=== PATIENT | female | born 1965 | race Caucasian/White ===

== ENCOUNTER → 2017-08-03 | Outpatient (CLI) | payer OTHER ==
--- NOTE | 2017-08-03 11:27 | MR ---
EXAMINATION TYPE: MR brain wo/w con DATE OF EXAM: 08/03/2017 COMPARISON: 11/16/2008 HISTORY: Unspecified papilledema, Gadavist 9.5 TECHNIQUE: Multiplanar, multisequence images of the brain and brainstem is performed without and with IV contras t, utilizing 9.5 mL intravenous Gadavist . FINDINGS: Diffusion weighted images demonstrate no evidence of a recent infarct or other diffusion ab normality. There is a partially empty sella turcica. Craniocervical junction maintained. There remains slight pr ominence the amount of fluid surrounding the optic nerves bilaterally. Changes of chronic sinusitis noted. Mucosal thickening involving frontal sinus on the right and ethmo id air cells. No enhancing mass. No cerebellopontine angle mass. Ventricular system is midline. Consistent with the patient's age. Post contrast images demonstrate no abnormal enhancement. The dural venous sinuses appear patent. The visualized sinuses are clear and the globes are intact. IMPRESSION: 1. No acute process. Mild prominence of the amount of fluid surrounding the optic nerves bilaterally and appears stable. 2. Chronic sinusitis.
== END | disposition home or self-care (01) ==
LOC: RADMRIMAIN 09:46
PROVIDERS: ATTEND Ophthalmology
DX: H47.339 Pseudopapilledema of optic disc, unspecified eye (principal); Z88.0 Allergy status to penicillin; Z88.2 Allergy status to sulfonamides
CPT/HCPCS: 82565; 70553; 36415; A9581

== ENCOUNTER 2017-09-30 20:59 | Emergency (ER) | payer OTHER ==
[2017-09-30 21:09] LABS: Glucose,Whole Blood 234 mg/dL (75-99)
[2017-09-30] MEDS ORDERED: SODIUM CHLORIDE 0.9% 2,000 ML IV STA (21:38)
[2017-09-30 22:07] LABS: Basophils % (A) 0 %; Eosinophils # (A) 0.1 k/uL (0-0.7); Eosinophils % (A) 1 %; HCT 35.5 % (34.0-46.0); HGB 11.7 gm/dL (11.4-16.0); Lymphocytes # (A) 2.9 k/uL (1.0-4.8); Lymphocytes % (A) 34 %; MCH 26.8 pg (25.0-35.0); MCV 81.3 fL (80.0-100.0); Mean Platelet Volume 7.4; Monocytes # (A) 0.7 k/uL (0-1.0); Monocytes % (A) 7 %; Neutrophils % (A) 57 %; Platelet Count 319 k/uL (150-450); RBC 4.37 m/uL (3.80-5.40); RDW 13.5 % (11.5-15.5); WBC 8.8 k/uL (3.8-10.6)
[2017-09-30 22:20] LABS: ALT 25 U/L (9-52); AST 16 U/L (14-36); Albumin 4.3 g/dL (3.5-5.0); Alkaline Phosphatase 73 U/L (38-126); Amylase 41 U/L (30-110); Anion Gap 15 mmol/L; Blood Urea Nitrogen 29 mg/dL (7-17); Calcium 10.2 mg/dL (8.4-10.2); Carbon Dioxide 22 mmol/L (22-30); Chloride 104 mmol/L (98-107); Glucose 216 mg/dL (74-99); Lipase 150 U/L (23-300); Potassium 4.4 mmol/L (3.5-5.1); Sodium 141 mmol/L (137-145); Total Bilirubin 0.3 mg/dL (0.2-1.3)
--- NOTE | 2017-09-30 22:29 | ED ---
Recheck HPI - General Chief Complaint: Recheck/Abnormal Lab/Rx Stated Complaint: elevated BS Time Seen by Provider: 09/30/17 21:38 Source: patient, RN notes reviewed Mode of arrival: ambulatory Limitations: no limitations - History of Present Illness Initial Comments: This a 51-year-old female presents emergency from chief complaint of hyperglycemia. Patient states blood sugar has been elevated throughout most the day. She states it was over 300 earlier today. She did take her nighttime Lantus no she states she took 45 units. Patient states she does not take anything with meals. She has no specific complaints other than feeling rundown andincreased thirst. She has seen psychiatric nurse practitioner who told her that she needs to watch her blood sugars secondary to diabetic changes. She denies any current new changes in her vision. Denies any headache, dizziness, chest pain or shortness of breath. She said no vomiting no diarrhea no constipation. - Related Data Home Medications Medication Instructions Recorded Confirmed Fenofibrate [Tricor] 160 mg PO DAILY 12/15/14 09/30/17 Insulin Glargine [Lantus] 45 unit SQ HS 12/15/14 09/30/17 Loratadine [Claritin] 10 mg PO DAILY 12/15/14 09/30/17 Pravastatin Sodium [Pravachol] 40 mg PO HS 12/15/14 09/30/17 glipiZIDE [Glucotrol] 20 mg PO AC-BID 12/15/14 09/30/17 metFORMIN HCL 1,000 mg PO BID 12/15/14 09/30/17 Aspirin [Adult Low Dose Aspirin EC] 81 mg PO DAILY 08/22/17 09/30/17 Brexpiprazole [Rexulti] 2 mg PO DAILY 08/22/17 09/30/17 Cholecalciferol [Vitamin D3] 5,000 unit PO DAILY@1200 08/22/17 09/30/17 [place]-3 Fatty Acids/Fish Oil [Fish 1,000 mg PO HS 08/22/17 09/30/17 Oil 1,000 mg Softgel] Ferrous Gluconate 324 mg PO MOWEFR 09/30/17 09/30/17 Levothyroxine Sodium [Synthroid] 125 mcg PO DAILY 09/30/17 09/30/17 Magnesium Oxide [Mag-Ox] 250 mg PO BID 05/14/18 05/14/18 Venlafaxine HCl [Effexor XR] 150 mg PO DAILY 09/30/17 09/30/17 Previous Rx's Medication Instructions Recorded Nitrofurantoin Monohyd/M-Cryst 100 mg PO Q12HR #10 cap 09/30/17 [Macrobid] Allergies Allergy/AdvReac Type Severity Reaction Status Date / Time Penicillins Allergy Unknown Verified 09/30/17 21:42 Childhood Sulfa (Sulfonamide Allergy Rash/Hives Verified 09/30/17 21:42 Antibiotics) Review of Systems ROS Statement: Those systems with pertinent positive or pertinent negative responses have been documented in the HPI. ROS Other: All systems not noted in ROS Statement are negative. Past Medical History Past Medical History: Diabetes Mellitus, Hyperlipidemia, Hypertension, Neurologic Disorder, Osteoarthritis (OA), Thyroid Disorder History of Any Multi-Drug Resistant Organisms: None Reported Past Surgical History: Section Additional Past Surgical History / Comment(s): x 2, ganglion cyst removed from left wrist Past Anesthesia/Blood Transfusion Reactions: No Reported Reaction Past Psychological History: Anxiety, Depression Smoking Status: Former smoker - Past Family History Father Family Medical History: Cancer Additional Family Medical History / Comment(s): brain Mother Family Medical History: Cancer Additional Family Medical History / Comment(s): lung - General Exam Limitations: no limitations General appearance: alert, in no apparent distress Head exam: Present: atraumatic, normocephalic, normal inspection Eye exam: Present: normal appearance, PERRL, EOMI. Absent: scleral icterus, conjunctival injection, periorbital swelling ENT exam: Present: normal exam, normal oropharynx, mucous membranes moist Neck exam: Present: normal inspection, full ROM. Absent: tenderness, meningismus, lymphadenopathy Respiratory exam: Present: normal lung sounds bilaterally. Absent: respiratory distress, wheezes, rales, rhonchi, stridor Cardiovascular Exam: Present: regular rate, normal rhythm, normal heart sounds. Absent: systolic murmur, diastolic murmur, rubs, gallop, clicks GI/Abdominal exam: Present: soft, normal bowel sounds. Absent: distended, tenderness, guarding, rebound, rigid Neurological exam: Present: alert, oriented X3, CN II-XII intact, reflexes normal. Absent: motor sensory deficit Skin exam: Present: warm, dry, intact, normal color. Absent: rash Course Vital Signs 09/30/17 21:01 Temperature 98 F Pulse Rate 94 Respiratory 20 Rate Blood Pressure 112/70 O2 Sat by Pulse 96 Oximetry Medical Decision Making - Medical Decision Making 51-year-old female presented emergency department for hyperglycemia. Patient's blood sugar is 216. Patient was hydrated 2 L of fluid and lab work, urinalysis was performed. She was found have urinary tract infection. She'll be discharged on antibiotics. She is advised to follow-up with her PCP for discussion of mealtime insulin. Patient will follow-up tomorrow return for any worsening symptoms. - Lab Data Result diagrams: 09/30/17 21:57 09/30/17 21:57 Lab Results 09/30/17 09/30/17 09/30/17 Range/Units 21:07 21:57 21:57 WBC 8.8 (3.8-10.6) k/uL RBC 4.37 (3.80-5.40) m/uL Hgb 11.7 (11.4-16.0) gm/dL Hct 35.5 (34.0-46.0) % MCV 81.3 (80.0-100.0) fL MCH 26.8 (25.0-35.0) pg MCHC 33.0 (31.0-37.0) g/dL RDW 13.5 (11.5-15.5) % Plt Count 319 (150-450) k/uL Neutrophils % 57 % Lymphocytes % 34 % Monocytes % 7 % Eosinophils % 1 % Basophils % 0 % Neutrophils # 5.0 (1.3-7.7) k/uL Lymphocytes # 2.9 (1.0-4.8) k/uL Monocytes # 0.7 (0-1.0) k/uL Eosinophils # 0.1 (0-0.7) k/uL Basophils # 0.0 (0-0.2) k/uL Sodium 141 (137-145) mmol/L Potassium 4.4 (3.5-5.1) mmol/L Chloride 104 (98-107) mmol/L Carbon Dioxide 22 (22-30) mmol/L Anion Gap 15 mmol/L BUN 29 H (7-17) mg/dL Creatinine 1.40 H (0.52-1.04) mg/dL Est GFR (CKD-EPI)AfAm 50 (>60 ml/min/1.73 sqM) Est GFR (CKD-EPI)NonAf 43 (>60 ml/min/1.73 sqM) Glucose 216 H (74-99) mg/dL POC Glucose (mg/dL) 234 H (75-99) mg/dL POC Glu [employer] Clerk ID Mateus Calix Calcium 10.2 (8.4-10.2) mg/dL Total Bilirubin 0.3 (0.2-1.3) mg/dL AST 16 (14-36) U/L ALT 25 (9-52) U/L Alkaline Phosphatase 73 (38-126) U/L Total Protein 7.0 (6.3-8.2) g/dL Albumin 4.3 (3.5-5.0) g/dL Amylase 41 (30-110) U/L Lipase 150 (23-300) U/L Urine Color Urine Appearance (Clear) Urine pH (5.0-8.0) Ur Specific [place] (1.001-1.035) Urine Protein (Negative) Urine Glucose (UA) (Negative) Urine Ketones (Negative) Urine Blood (Negative) Urine Nitrite (Negative) Urine Bilirubin (Negative) Urine Urobilinogen (<2.0) mg/dL Ur Leukocyte Esterase (Negative) Urine RBC (0-5) /hpf Urine WBC (0-5) /hpf Ur Squamous Epith Cells (0-4) /hpf Urine Bacteria (None) /hpf Hyaline Casts (0-2) /lpf Urine Mucus (None) /hpf Acetone, Qual Negative (Negative) 09/30/17 Range/Units 22:31 WBC (3.8-10.6) k/uL RBC (3.80-5.40) m/uL Hgb (11.4-16.0) gm/dL Hct (34.0-46.0) % MCV (80.0-100.0) fL MCH (25.0-35.0) pg MCHC (31.0-37.0) g/dL RDW (11.5-15.5) % Plt Count (150-450) k/uL Neutrophils % % Lymphocytes % % Monocytes % % Eosinophils % % Basophils % % Neutrophils # (1.3-7.7) k/uL Lymphocytes # (1.0-4.8) k/uL Monocytes # (0-1.0) k/uL Eosinophils # (0-0.7) k/uL Basophils # (0-0.2) k/uL Sodium (137-145) mmol/L Potassium (3.5-5.1) mmol/L Chloride (98-107) mmol/L Carbon Dioxide (22-30) mmol/L Anion Gap mmol/L BUN (7-17) mg/dL Creatinine (0.52-1.04) mg/dL Est GFR (CKD-EPI)AfAm (>60 ml/min/1.73 sqM) Est GFR (CKD-EPI)NonAf (>60 ml/min/1.73 sqM) Glucose (74-99) mg/dL POC Glucose (mg/dL) (75-99) mg/dL POC Glu [employer] Clerk ID Calcium (8.4-10.2) mg/dL Total Bilirubin (0.2-1.3) mg/dL AST (14-36) U/L ALT (9-52) U/L Alkaline Phosphatase (38-126) U/L Total Protein (6.3-8.2) g/dL Albumin (3.5-5.0) g/dL Amylase (30-110) U/L Lipase (23-300) U/L Urine Color Yellow Urine Appearance Cloudy H (Clear) Urine pH 5.5 (5.0-8.0) Ur Specific [place] 1.018 (1.001-1.035) Urine Protein Negative (Negative) Urine Glucose (UA) Trace H (Negative) Urine Ketones Negative (Negative) Urine Blood Negative (Negative) Urine Nitrite Negative (Negative) Urine Bilirubin Negative (Negative) Urine Urobilinogen <2.0 (<2.0) mg/dL Ur Leukocyte Esterase Moderate H (Negative) Urine RBC 2 (0-5) /hpf Urine WBC 15 H (0-5) /hpf Ur Squamous Epith Cells 2 (0-4) /hpf Urine Bacteria Many H (None) /hpf Hyaline Casts 17 H (0-2) /lpf Urine Mucus Many H (None) /hpf Acetone, Qual (Negative) Disposition Clinical Impression: Hyperglycemia, UTI (urinary tract infection) Disposition: HOME SELF-CARE Condition: Stable Instructions: Urinary Tract Infection in Women (ED) Additional Instructions: Please return to the Emergency Department if symptoms worsen or any other concerns. Prescriptions: Nitrofurantoin Monohyd/M-Cryst [Macrobid] 100 mg PO Q12HR #10 cap Is patient prescribed a controlled substance at d/c from ED?: No Referrals: Sharyn Us MD [Primary Care Provider] - 1-2 days Time of Disposition: 23:21
[2017-09-30 23:15] LABS: Appearance,Urine Cloudy (Clear); Bacteria,Urine Many /hpf; Bilirubin,Urine Negative (Negative); Blood,Urine Negative (Negative); Color,Urine Yellow; Glucose,Urine (UA) Trace (Negative); Hyaline Casts,Urine 17 /lpf (0-2); Ketones,Urine Negative (Negative); Leukocyte Esterase,Urine Moderate (Negative); Mucus,Urine Many /hpf; Nitrite,Urine Negative (Negative); PH, Urine 5.5 (5.0-8.0); Protein,Urine Negative (Negative); RBC,Urine 2 /hpf (0-5); Specific Gravity,Urine 1.018 (1.001-1.035); Squamous Epithelial Cell,Urine 2 /hpf (0-4); Urobilinogen,Urine <2.0 mg/dL (<2.0); WBC,Urine 15 /hpf (0-5)
[2017-09-30] MEDS ORDERED: cefTRIAXone IN SWFI 1,000 MG/10 ML SYRINGE IVP STA (23:19)
[2017-09-30 23:28] VITALS: BP 128/61; PULSE 78; RESP 18; TEMP 97.6
== END 2017-09-30 23:56 | disposition home or self-care (01) ==
LOC: EC 20:59
DX: E11.65 Type 2 diabetes mellitus with hyperglycemia (principal); N39.0 Urinary tract infection, site not specified; E78.5 Hyperlipidemia, unspecified; E07.9 Disorder of thyroid, unspecified; F41.9 Anxiety disorder, unspecified; F32.9 Major depressive disorder, single episode, unspecified; Z87.891 Personal history of nicotine dependence; Z79.899 Other long term (current) drug therapy; Z79.4 Long term (current) use of insulin; Z79.82 Long term (current) use of aspirin; Z88.0 Allergy status to penicillin; Z88.2 Allergy status to sulfonamides
CPT/HCPCS: 36415; 80053; 82150; 82009; 83690; 85025; 81001; 87086; 99284; 96374; 96361; J0696; 87077; 87186

== ENCOUNTER → 2018-05-01 | Outpatient (CLI) | payer OTHER | END | disposition home or self-care (01) | LOC: LABWHC1 12:39 | PROVIDERS: ATTEND Psychiatry & Neurology Neurology | DX: E11.9 Type 2 diabetes mellitus without complications (principal) | CPT/HCPCS: 36415; 82565; 84520 ==

== ENCOUNTER 2019-02-16 07:52 | Emergency (ER) | payer OTHER ==
[2019-02-16 08:02] VITALS: TEMP 97.6
[2019-02-16] MEDS ORDERED: KETOROLAC 30 MG/ML 1 ML VIAL IVP STA (08:24)
--- NOTE | 2019-02-16 08:27 | ED ---
Abdominal Pain HPI - General Chief Complaint: Abdominal Pain Stated Complaint: left side pain Time Seen by Provider: 02/16/19 08:12 Source: patient, RN notes reviewed Mode of arrival: ambulatory Limitations: no limitations - History of Present Illness Initial Comments: This is a 53-year-old female with a history of hysterectomy and other mental issues who states she's had for about a month and a half left-sided flank pain that feels extremity punched her in the left CVA region. No rash no fevers chills nausea vomiting sweats she has had some diarrhea recently she also states that she had no rashes area no cough or phlegm production no dysuria no hematuria no vaginal discharges reported no other modifying factors. No family history of kidney stones. She does relate however that she drinks her diet Pepsi taste like acid and also that when she burps it smells like rotten eggs. No other current modifying factors this time she states the pain is 6-1/2/10 severity MD Complaint: abdominal pain, flank pain - Related Data Home Medications Medication Instructions Recorded Confirmed Insulin Glargine [Lantus] 50 unit SQ HS 12/15/14 02/16/19 Pravastatin Sodium [Pravachol] 40 mg PO HS 12/15/14 02/16/19 Aspirin [Adult Low Dose Aspirin EC] 81 mg PO DAILY 08/22/17 02/16/19 Cholecalciferol [Vitamin D3] 5,000 unit PO DAILY 08/22/17 02/16/19 [place]-3 Fatty Acids/Fish Oil [Fish 1,000 mg PO HS 08/22/17 02/16/19 Oil 1,000 mg Softgel] Ferrous Gluconate 324 mg PO MOWEFR 09/30/17 02/16/19 Venlafaxine HCl [Effexor XR] 150 mg PO DAILY 09/30/17 02/16/19 Cyanocobalamin (Vitamin B-12) 1,000 mcg PO DAILY 02/16/19 02/16/19 [Vitamin B-12] Levothyroxine Sodium [Synthroid] 100 mcg PO DAILY 02/16/19 02/16/19 Liraglutide [Victoza 2-José] 1.8 mg SQ DAILY 02/16/19 02/16/19 Losartan Potassium [Cozaar] 25 mg PO DAILY 02/16/19 02/16/19 Magnesium Oxide [Mag-Ox] 400 mg PO BID 02/16/19 02/16/19 Pioglitazone [Actos] 30 mg PO DAILY 02/16/19 02/16/19 metFORMIN HCL [Glucophage] 500 mg PO BID 02/16/19 02/16/19 Previous Rx's Medication Instructions Recorded Cephalexin [Keflex] 500 mg PO Q6HR #40 cap 02/16/19 Ibuprofen 800 mg PO Q6HR PRN #20 tablet 02/16/19 Allergies Allergy/AdvReac Type Severity Reaction Status Date / Time Penicillins Allergy Unknown Verified 02/16/19 08:12 Childhood Sulfa (Sulfonamide Allergy Rash/Hives Verified 02/16/19 08:12 Antibiotics) Review of Systems ROS Statement: Those systems with pertinent positive or pertinent negative responses have been documented in the HPI. ROS Other: All systems not noted in ROS Statement are negative. Past Medical History Past Medical History: Diabetes Mellitus, Hyperlipidemia, Hypertension, Neurologic Disorder, Osteoarthritis (OA), Thyroid Disorder History of Any Multi-Drug Resistant Organisms: None Reported Past Surgical History: Section, Hysterectomy Additional Past Surgical History / Comment(s): x 2, ganglion cyst removed from left wrist Past Anesthesia/Blood Transfusion Reactions: No Reported Reaction Past Psychological History: Anxiety, Depression Smoking Status: Former smoker Past Alcohol Use History: None Reported Past Drug Use History: None Reported - Past Family History Father Family Medical History: Cancer Additional Family Medical History / Comment(s): brain Mother Family Medical History: Cancer Additional Family Medical History / Comment(s): lung - General Exam - General Exam Comments Initial Comments: This is a well-developed well-nourished awake alert oriented 3 female Limitations: no limitations General appearance: alert, obese Head exam: Present: atraumatic, normocephalic, normal inspection Eye exam: Present: normal appearance, PERRL, EOMI. Absent: scleral icterus, conjunctival injection, periorbital swelling ENT exam: Present: normal exam, mucous membranes moist Neck exam: Present: normal inspection. Absent: tenderness, meningismus, lymphadenopathy Respiratory exam: Present: normal lung sounds bilaterally. Absent: respiratory distress, wheezes, rales, rhonchi, stridor, chest wall tenderness Cardiovascular Exam: Present: regular rate, normal rhythm, normal heart sounds. Absent: systolic murmur, diastolic murmur, rubs, gallop, clicks GI/Abdominal exam: Present: soft, tenderness (Some mild left side abdominal discomfort to palpation no guarding rebound masses or bruits), normal bowel sounds. Absent: distended, guarding, rebound, rigid Rectal exam: Present: deferred Extremities exam: Present: normal inspection, full ROM, normal capillary refill. Absent: tenderness, pedal edema, joint swelling, calf tenderness Back exam: Present: normal inspection, CVA tenderness (L) (Tenderness to percussion over the left CVA region). Absent: rash noted Neurological exam: Present: alert, oriented X3, CN II-XII intact Psychiatric exam: Present: normal affect, normal mood Skin exam: Present: warm, dry, intact, normal color. Absent: rash Course Vital Signs 02/16/19 07:59 Temperature 97.6 F Pulse Rate 74 Respiratory 18 Rate Blood Pressure 111/70 O2 Sat by Pulse 99 Oximetry Medical Decision Making - Medical Decision Making Patient is feeling improved I did discuss the findings with her. Patient does demonstrate evidence of a UTI with cystitis also a left nonobstructing nephrolithiasis patient be discharged on appropriate medication she is a follow- up with her doctor return when necessary she will follow-up with her doctor regarding her diarrhea and her change in taste - Lab Data Result diagrams: 02/16/19 08:59 02/16/19 08:59 Lab Results 02/16/19 02/16/19 02/16/19 Range/Units 08:59 08:59 08:59 WBC 7.5 (3.8-10.6) k/uL RBC 4.20 (3.80-5.40) m/uL Hgb 11.4 (11.4-16.0) gm/dL Hct 34.3 (34.0-46.0) % MCV 81.7 (80.0-100.0) fL MCH 27.2 (25.0-35.0) pg MCHC 33.3 (31.0-37.0) g/dL RDW 14.4 (11.5-15.5) % Plt Count 354 (150-450) k/uL Neutrophils % 71 % Lymphocytes % 18 % Monocytes % 8 % Eosinophils % 0 % Basophils % 1 % Neutrophils # 5.4 (1.3-7.7) k/uL Lymphocytes # 1.4 (1.0-4.8) k/uL Monocytes # 0.6 (0-1.0) k/uL Eosinophils # 0.0 (0-0.7) k/uL Basophils # 0.0 (0-0.2) k/uL Hypochromasia Slight Sodium 143 (137-145) mmol/L Potassium 4.1 (3.5-5.1) mmol/L Chloride 106 (98-107) mmol/L Carbon Dioxide 26 (22-30) mmol/L Anion Gap 11 mmol/L BUN 9 (7-17) mg/dL Creatinine 0.97 (0.52-1.04) mg/dL Est GFR (CKD-EPI)AfAm 77 (>60 ml/min/1.73 sqM) Est GFR (CKD-EPI)NonAf 67 (>60 ml/min/1.73 sqM) Glucose 112 H (74-99) mg/dL Calcium 9.2 (8.4-10.2) mg/dL Magnesium 1.8 (1.6-2.3) mg/dL Total Bilirubin 0.4 (0.2-1.3) mg/dL AST 20 (14-36) U/L ALT 17 (9-52) U/L Alkaline Phosphatase 94 (38-126) U/L Creatine Kinase 76 (30-135) U/L Troponin I <0.012 (0.000-0.034) ng/mL Total Protein 7.0 (6.3-8.2) g/dL Albumin 3.9 (3.5-5.0) g/dL Amylase 40 (30-110) U/L Lipase 131 (23-300) U/L Urine Color Urine Appearance (Clear) Urine pH (5.0-8.0) Ur Specific [place] (1.001-1.035) Urine Protein (Negative) Urine Glucose (UA) (Negative) Urine Ketones (Negative) Urine Blood (Negative) Urine Nitrite (Negative) Urine Bilirubin (Negative) Urine Urobilinogen (<2.0) mg/dL Ur Leukocyte Esterase (Negative) Urine WBC (0-5) /hpf Ur Squamous Epith Cells (0-4) /hpf Urine Bacteria (None) /hpf Urine Mucus (None) /hpf 02/16/19 Range/Units 08:59 WBC (3.8-10.6) k/uL RBC (3.80-5.40) m/uL Hgb (11.4-16.0) gm/dL Hct (34.0-46.0) % MCV (80.0-100.0) fL MCH (25.0-35.0) pg MCHC (31.0-37.0) g/dL RDW (11.5-15.5) % Plt Count (150-450) k/uL Neutrophils % % Lymphocytes % % Monocytes % % Eosinophils % % Basophils % % Neutrophils # (1.3-7.7) k/uL Lymphocytes # (1.0-4.8) k/uL Monocytes # (0-1.0) k/uL Eosinophils # (0-0.7) k/uL Basophils # (0-0.2) k/uL Hypochromasia Sodium (137-145) mmol/L Potassium (3.5-5.1) mmol/L Chloride (98-107) mmol/L Carbon Dioxide (22-30) mmol/L Anion Gap mmol/L BUN (7-17) mg/dL Creatinine (0.52-1.04) mg/dL Est GFR (CKD-EPI)AfAm (>60 ml/min/1.73 sqM) Est GFR (CKD-EPI)NonAf (>60 ml/min/1.73 sqM) Glucose (74-99) mg/dL Calcium (8.4-10.2) mg/dL Magnesium (1.6-2.3) mg/dL Total Bilirubin (0.2-1.3) mg/dL AST (14-36) U/L ALT (9-52) U/L Alkaline Phosphatase (38-126) U/L Creatine Kinase (30-135) U/L Troponin I (0.000-0.034) ng/mL Total Protein (6.3-8.2) g/dL Albumin (3.5-5.0) g/dL Amylase (30-110) U/L Lipase (23-300) U/L Urine Color Light Yellow Urine Appearance Cloudy H (Clear) Urine pH 5.5 (5.0-8.0) Ur Specific [place] 1.007 (1.001-1.035) Urine Protein Negative (Negative) Urine Glucose (UA) Negative (Negative) Urine Ketones Negative (Negative) Urine Blood Negative (Negative) Urine Nitrite Negative (Negative) Urine Bilirubin Negative (Negative) Urine Urobilinogen <2.0 (<2.0) mg/dL Ur Leukocyte Esterase Moderate H (Negative) Urine WBC 16 H (0-5) /hpf Ur Squamous Epith Cells 3 (0-4) /hpf Urine Bacteria Moderate H (None) /hpf Urine Mucus Rare H (None) /hpf - Radiology Data Radiology results: report reviewed (I did review the imaging and report there is evidence of left renal stone some sick in the bladder consistent with cystitis), image reviewed Disposition Clinical Impression: Urinary tract infection, Renal colic on left side, Dyspepsia Disposition: HOME SELF-CARE Condition: Good Prescriptions: Ibuprofen 800 mg PO Q6HR PRN #20 tablet PRN Reason: Pain Cephalexin [Keflex] 500 mg PO Q6HR #40 cap Is patient prescribed a controlled substance at d/c from ED?: No Referrals: Meagan Kern MD [Primary Care Provider] - 1-2 days
--- NOTE | 2019-02-16 08:43 | XR ---
EXAMINATION TYPE: XR KUB DATE OF EXAM: 02/16/2019 COMPARISON: 06/04/2013 HISTORY: Abdominal pain TECHNIQUE: One view abdominal series FINDINGS: The osseous structures are intact. The bowel gas pattern is nonspecific. Lung bases are clear. Ther e is a curvature of the spine. IMPRESSION: 1. Nonspecific abdomen.
[2019-02-16 09:10] LABS: Basophils % (A) 1 %; Eosinophils % (A) 0 %; HCT 34.3 % (34.0-46.0); HGB 11.4 gm/dL (11.4-16.0); Hypochromasia Slight; Lymphocytes # (A) 1.4 k/uL (1.0-4.8); Lymphocytes % (A) 18 %; MCH 27.2 pg (25.0-35.0); MCHC 33.3 g/dL (31.0-37.0); MCV 81.7 fL (80.0-100.0); Mean Platelet Volume 6.4; Monocytes # (A) 0.6 k/uL (0-1.0); Monocytes % (A) 8 %; Neutrophils # (A) 5.4 k/uL (1.3-7.7); Neutrophils % (A) 71 %; Platelet Count 354 k/uL (150-450); RDW 14.4 % (11.5-15.5); WBC 7.5 k/uL (3.8-10.6)
[2019-02-16 09:19] LABS: Albumin 3.9 g/dL (3.5-5.0); Calcium 9.2 mg/dL (8.4-10.2); Magnesium 1.8 mg/dL (1.6-2.3); Potassium 4.1 mmol/L (3.5-5.1); Total Bilirubin 0.4 mg/dL (0.2-1.3)
[2019-02-16 09:29] LABS: Appearance,Urine Cloudy (Clear); Bacteria,Urine Moderate /hpf; Bilirubin,Urine Negative (Negative); Blood,Urine Negative (Negative); Color,Urine Light Yellow; Glucose,Urine (UA) Negative (Negative); Ketones,Urine Negative (Negative); Leukocyte Esterase,Urine Moderate (Negative); Mucus,Urine Rare /hpf; Nitrite,Urine Negative (Negative); PH, Urine 5.5 (5.0-8.0); Protein,Urine Negative (Negative); Specific Gravity,Urine 1.007 (1.001-1.035); Squamous Epithelial Cell,Urine 3 /hpf (0-4); Urobilinogen,Urine <2.0 mg/dL (<2.0); WBC,Urine 16 /hpf (0-5)
--- NOTE | 2019-02-16 11:53 | CT ---
EXAMINATION TYPE: CT abdomen pelvis wo con DATE OF EXAM: 02/16/2019 COMPARISON: 09/27/2014 HISTORY: 53-year-old female Left flank pain CT DLP: 1305.4 mGycm. Automated exposure control for dose reduction was used. TECHNIQUE: Contiguous axial scanning of the abdomen and pelvis without IV contrast. Coronal and sagit macrina reconstructions performed. FINDINGS: Heart normal size without pericardial effusion. Strandy atelectasis right middle lobe. No pleural eff usion. Noncontrast appearance of the liver, gallbladder, adrenal glands, right kidney, and pancreas shows no gross abnormality. Spleen within normal limits. 4 mm nonobstructive lateral left renal calculus. No hydronephrosis on either side. No suspicious calc ification seen along the course of either ureter. No dilated small bowel, free fluid, or free air. Scattered nonenlarged left periaortic lymph nodes in the retroperitoneum and also within the mid to l ower central mesentery. No significant stool burden. No pericolonic inflammatory change. Mild to moderate circumferential bladder wall thickening. Left ovary is visualized. Uterus surgically absent. Small pelvic phleboliths. No abnormal fluid collection in the pelvis or pelvic lymphadenopat hy. Bones: Mild degenerative changes at the hips. L5 transitional lumbosacral segment. Posterior disc bul ge at L4-L5 above. Moderate degenerative disc disease lower thoracic spine and thoracolumbar junction . IMPRESSION: 1. A 4 mm nonobstructive left renal calculus. No hydronephrosis on either side. 2. Mild to moderate circumferential bladder wall thickening. Correlate to exclude cystitis.
[2019-02-16 12:22] VITALS: BP 120/72; PULSE 70; RESP 16
== END 2019-02-16 12:18 | disposition home or self-care (01) ==
LOC: EC 07:52
DX: N30.90 Cystitis, unspecified without hematuria (principal); N20.0 Calculus of kidney; R10.13 Epigastric pain; E11.9 Type 2 diabetes mellitus without complications; E78.5 Hyperlipidemia, unspecified; I10 Essential (primary) hypertension; E07.9 Disorder of thyroid, unspecified; Z90.710 Acquired absence of both cervix and uterus; Z98.890 Other specified postprocedural states; Z87.891 Personal history of nicotine dependence; Z79.4 Long term (current) use of insulin; Z79.82 Long term (current) use of aspirin; Z79.890 Hormone replacement therapy; Z79.899 Other long term (current) drug therapy; Z88.0 Allergy status to penicillin; Z88.2 Allergy status to sulfonamides
CPT/HCPCS: 36415; 74018; 74176; 80053; 81001; 82150; 82550; 83690; 83735; 84484; 85025; 96374; 99284

== ENCOUNTER → 2019-03-11 | Outpatient (CLI) | payer OTHER ==
--- NOTE | 2019-03-12 07:21 | US ---
EXAMINATION TYPE: US kidneys/renal and bladder DATE OF EXAM: 03/11/2019 COMPARISON: CT 2018, US 2014 CLINICAL HISTORY: R10.9 FLANK PAIN,N20.0 KIDNEY STONES. Left kidney stones seen on recent CT, left fl ank pain EXAM MEASUREMENTS: Right Kidney: 10.0 x 5.2 x 5.0 cm Left Kidney: 9.1 x 4.5 x 4.5 cm Difficult and limited study due to patient body habitus Right Kidney: Right-sided extrarenal pelvis noted. Left Kidney: 0.4cm echogenic focus lateral mid pole, no hydronephrosis Bladder: wnl Bilateral Jets seen: yes There is no evidence for hydronephrosis at this point in time. No masses are identified. The urin irish bladder is anechoic. Bilateral ureteral jets are seen. IMPRESSION: Nonobstructing calculus left kidney.
== END | disposition home or self-care (01) ==
LOC: RADUSWWP 15:30
PROVIDERS: ATTEND Internal Medicine
DX: N20.0 Calculus of kidney (principal)
CPT/HCPCS: 76770

== ENCOUNTER → 2019-03-18 | Outpatient (CLI) | payer OTHER ==
[2019-03-18 16:42] LABS: Calcium 9.9 mg/dL (8.4-10.2); Potassium 4.9 mmol/L (3.5-5.1)
--- NOTE | 2019-03-18 22:46 | MR ---
EXAMINATION TYPE: MR brain and iac wo/w con DATE OF EXAM: 03/18/2019 COMPARISON: MRI brain August 03, 2012. HISTORY: Lt sided hearing loss TECHNIQUE: Multiplanar, multisequence images of the brain and brainstem along with internal auditory canals are all performed without and with IV contrast, utilizing 10 mL intravenous Gadavist . FINDINGS: Diffusion weighted images demonstrate no evidence of a recent infarct or other diffusion ab normality. There is no extra-axial fluid collection or significant white matter signal abnormality. The ventricular system and cisternal spaces are normal in size and appearance. The brain volume is age appropriate. Midline structures redemonstrate empty sella morphology. The craniocervical junction appears within normal limits. Post contrast images demonstrate no abnormal enhancement. The dural venous sinuses ap pear patent. The visualized sinuses are clear. The globes are intact bilaterally. Stable prominence o f CSF fluid surrounding the optic nerves bilaterally axial image 11 and 12 series 501. No suspicious fluid signal bilateral mastoid air cells. Vestibulocochlear complexes are symmetric and thought within normal limits. No suspicious enhancing cerebellopontine angle mass is identified bila terally. IMPRESSION: No significant change from prior study. Cannot exclude intracranial hypertension in appro priate clinical setting as detailed above. Correlate clinically.
== END | disposition home or self-care (01) ==
LOC: RADMRIMAIN 16:02
PROVIDERS: ATTEND Otolaryngology Facial Plastic Surgery
DX: H90.5 Unspecified sensorineural hearing loss (principal)
CPT/HCPCS: 80048; 70553; 36415; A9585

== ENCOUNTER → 2019-06-17 | Outpatient (CLI) | payer OTHER ==
--- NOTE | 2019-06-17 15:29 | XR ---
EXAMINATION TYPE: XR chest 2V DATE OF EXAM: 06/17/2019 COMPARISON: Prior chest x-ray 05/04/2010 HISTORY: Left flank pain, shortness of breath TECHNIQUE: Frontal and lateral views of the chest are obtained. FINDINGS: There is no focal air space opacity, pleural effusion, or pneumothorax seen. The cardiac silhouette size is within normal limits. The osseous structures are intact, there is a spinal curva ture. IMPRESSION: No acute cardiopulmonary process.
--- NOTE | 2019-06-17 16:23 | US ---
EXAMINATION TYPE: US kidneys/renal and bladder DATE OF EXAM: 06/17/2019 COMPARISON: Previous ultrasound dated 03/11/[address] 02/16/2019 CLINICAL HISTORY: R10.9 Left Flank Pain, shortness of breath. Left flank pain. EXAM MEASUREMENTS: Right Kidney: 9.9 x 5.5 x 5.0 cm Left Kidney: 8.8 x 4.2 x 4.5 cm Right Kidney: Medial anechoic lesion seen at hilum - 1.6 x 1.6 cm correlates with extrarenal pelvis Left Kidney: Mid echogenic lesion - 0.6 x 0.8 cm was noted on patient's CT and likely represent some focal cortical scarring with calcification Bladder: distended. Wall appears thickened = 5.3 mm Bilateral Jets seen Renal cortex is thin as on prior IMPRESSION: Correlate for possible medical renal disease. Possible scarring with associated calcification, nonobs tructive calculus on the left.
--- NOTE | 2019-06-17 16:30 | US ---
EXAMINATION TYPE: US venous doppler duplex LE RT DATE OF EXAM: 06/17/2019 3:54 PM COMPARISON: CLINICAL HISTORY: R10.9 Left Flank Pain, shortness of breath. No hx of DVT. On baby aspirin. SIDE PERFORMED: Right TECHNIQUE: The lower extremity deep venous system is examined utilizing real time linear array sonog cruz with graded compression, doppler sonography and color-flow sonography. VESSELS IMAGED: External Iliac Vein (EIV) Common Femoral Vein Deep Femoral Vein Greater Saphenous Vein * Femoral Vein Popliteal Vein Small Saphenous Vein * Proximal Calf Veins (* superficial vessels) There is normal flow, compressibility, vascular waveforms. Right Leg: Negative for DVT IMPRESSION: No evident deep venous thrombosis at or above the right knee.
== END | disposition home or self-care (01) ==
LOC: RADUSMAIN 14:50
PROVIDERS: ATTEND Internal Medicine
DX: M79.661 Pain in right lower leg (principal); R22.41 Localized swelling, mass and lump, right lower limb; R06.02 Shortness of breath; R06.2 Wheezing; R10.9 Unspecified abdominal pain
CPT/HCPCS: 71046; 76770

== ENCOUNTER → 2019-10-09 | Outpatient (CLI) | payer OTHER ==
--- NOTE | 2019-10-09 13:05 | US ---
EXAMINATION TYPE: US venous doppler duplex LE RT DATE OF EXAM: 10/09/2019 12:49 PM COMPARISON: US 2019 CLINICAL HISTORY: R22.41 Localized swelling, mass and lump, right lo. Right lower leg swelling SIDE PERFORMED: Right TECHNIQUE: The lower extremity deep venous system is examined utilizing real time linear array sonog cruz with graded compression, doppler sonography and color-flow sonography. VESSELS IMAGED: External Iliac Vein (EIV) Common Femoral Vein Deep Femoral Vein Greater Saphenous Vein * Femoral Vein Popliteal Vein Small Saphenous Vein * Proximal Calf Veins (* superficial vessels) Right Leg: Appears negative for DVT IMPRESSION: 1. Right lower extremity negative for deep venous thrombosis.
== END | disposition home or self-care (01) ==
LOC: RADUSMAIN 12:08
PROVIDERS: ATTEND Internal Medicine
DX: M79.661 Pain in right lower leg (principal); R22.41 Localized swelling, mass and lump, right lower limb

== ENCOUNTER 2019-10-24 13:43 | Emergency (ER) | payer OTHER ==
[2019-10-24 13:50] VITALS: RESP 18; TEMP 97.9
[2019-10-24] MEDS ORDERED: KETOROLAC 30 MG/ML 1 ML VIAL IVP STA (14:17)
[2019-10-24] MEDS ORDERED: SODIUM CHLORIDE 0.9% 1,000 ML IV STA (14:17)
--- NOTE | 2019-10-24 14:18 | ED ---
General Adult HPI - General Chief complaint: Abdominal Pain Stated complaint: rt sided abd pain Time Seen by Provider: 10/24/19 13:52 Source: patient, RN notes reviewed Mode of arrival: ambulatory Limitations: no limitations - History of Present Illness Initial comments: 53-year-old female with a past medical history of diabetes mellitus, hyperlipidemia, hypertension, instructed me presents to the emergency department for a chief complaint of right flank pain. Patient has had right flank pain since this morning at 6:30 AM. Patient states it radiates around to her upper and lower abdomen. Patient denies any nausea associated with this. Denies any diarrhea, stating bowel movements are normal. Patient did eat macaroni today and it did not worsen her pain.Patient has no other complaints at this time including shortness of breath, chest pain, nausea or vomiting, headache, or visual changes. - Related Data Home Medications Medication Instructions Recorded Confirmed Insulin Glargine [Lantus] 50 unit SQ HS 12/15/14 02/16/19 Pravastatin Sodium [Pravachol] 40 mg PO HS 12/15/14 02/16/19 Aspirin [Adult Low Dose Aspirin EC] 81 mg PO DAILY 08/22/17 02/16/19 Cholecalciferol [Vitamin D3] 5,000 unit PO DAILY 08/22/17 02/16/19 [place]-3 Fatty Acids/Fish Oil [Fish 1,000 mg PO HS 08/22/17 02/16/19 Oil 1,000 mg Softgel] Ferrous Gluconate 324 mg PO MOWEFR 09/30/17 02/16/19 Venlafaxine HCl [Effexor XR] 150 mg PO DAILY 09/30/17 02/16/19 Cyanocobalamin (Vitamin B-12) 1,000 mcg PO DAILY 02/16/19 02/16/19 [Vitamin B-12] Levothyroxine Sodium [Synthroid] 100 mcg PO DAILY 02/16/19 02/16/19 Liraglutide [Victoza 2-José] 1.8 mg SQ DAILY 02/16/19 02/16/19 Losartan Potassium [Cozaar] 25 mg PO DAILY 02/16/19 02/16/19 Magnesium Oxide [Mag-Ox] 400 mg PO BID 02/16/19 02/16/19 Pioglitazone [Actos] 30 mg PO DAILY 02/16/19 02/16/19 metFORMIN HCL [Glucophage] 500 mg PO BID 02/16/19 02/16/19 Previous Rx's Medication Instructions Recorded Cephalexin [Keflex] 500 mg PO Q6HR #40 cap 02/16/19 Ibuprofen 800 mg PO Q6HR PRN #20 tablet 02/16/19 Allergies Allergy/AdvReac Type Severity Reaction Status Date / Time Penicillins Allergy Unknown Verified 10/24/19 13:50 Childhood Sulfa (Sulfonamide Allergy Rash/Hives Verified 10/24/19 13:50 Antibiotics) Review of Systems ROS Statement: Those systems with pertinent positive or pertinent negative responses have been documented in the HPI. ROS Other: All systems not noted in ROS Statement are negative. Past Medical History Past Medical History: Diabetes Mellitus, Hyperlipidemia, Hypertension, Neurologic Disorder, Osteoarthritis (OA), Thyroid Disorder History of Any Multi-Drug Resistant Organisms: None Reported Past Surgical History: Section, Hysterectomy Additional Past Surgical History / Comment(s): x 2, ganglion cyst removed from left wrist Past Anesthesia/Blood Transfusion Reactions: No Reported Reaction Past Psychological History: Anxiety, Depression Smoking Status: Former smoker Past Alcohol Use History: None Reported Past Drug Use History: None Reported - Past Family History Father Family Medical History: Cancer Additional Family Medical History / Comment(s): brain Mother Family Medical History: Cancer Additional Family Medical History / Comment(s): lung - General Exam Limitations: no limitations General appearance: alert, in no apparent distress Head exam: Present: atraumatic, normocephalic, normal inspection Eye exam: Present: normal appearance, PERRL, EOMI. Absent: scleral icterus, conjunctival injection, periorbital swelling ENT exam: Present: normal exam, mucous membranes moist Neck exam: Present: normal inspection, full ROM. Absent: tenderness, meningismus, lymphadenopathy Respiratory exam: Present: normal lung sounds bilaterally. Absent: respiratory distress, wheezes, rales, rhonchi, stridor Cardiovascular Exam: Present: regular rate, normal rhythm, normal heart sounds. Absent: systolic murmur, diastolic murmur, rubs, gallop, clicks GI/Abdominal exam: Present: soft, tenderness (Very minimal right-sided mid abdominal tenderness. Negative Craft sign. No tenderness to McBurney point.), normal bowel sounds. Absent: distended, guarding, rebound, rigid Back exam: Present: CVA tenderness (R). Absent: CVA tenderness (L) Course Vital Signs 10/24/19 13:47 Temperature 97.9 F Pulse Rate 82 Respiratory 18 Rate Blood Pressure 115/81 O2 Sat by Pulse 100 Oximetry Medical Decision Making - Medical Decision Making Vitals are stable. HPI and physical exam as documented. CBC is unremarkable. CMP does show slightly elevated creatinine which appears chronic in nature. Amylase and lipase are normal. Total bilirubin 0.3. CT abdomen and pelvis shows a nonobstructing left renal calculi with mild deformity of the lateral left lower pole related to scarring unchanged. Urinalysis is unremarkable, culture pending. Patient does admit that movement worsens the pain and pain worsens with sitting versus standing. It is likely that this is musculoskeletal in nature. At this time with normal amylase and lipase, liver enzymes, and total bilirubin without pain with eating a do not think this is related to gallbladder however I did recommend patient return if she has worsening symptoms for further evaluation. Patient is agreeable to this. She is feeling much better at this time after pain medications. She'll return for any worsening symptoms and will follow up with primary care otherwise. I discussed this case with attending who agrees with this assessment and treatment plan. - Lab Data Result diagrams: 10/24/19 14:31 10/24/19 14:31 Lab Results 10/24/19 10/24/19 10/24/19 Range/Units 14:31 14:31 14:31 WBC 7.2 (3.8-10.6) k/uL RBC 3.93 (3.80-5.40) m/uL Hgb 11.0 L (11.4-16.0) gm/dL Hct 34.9 (34.0-46.0) % MCV 88.8 (80.0-100.0) fL MCH 27.9 (25.0-35.0) pg MCHC 31.4 (31.0-37.0) g/dL RDW 14.9 (11.5-15.5) % Plt Count 266 (150-450) k/uL Neutrophils % 67 % Lymphocytes % 21 % Monocytes % 9 % Eosinophils % 1 % Basophils % 0 % Neutrophils # 4.8 (1.3-7.7) k/uL Lymphocytes # 1.5 (1.0-4.8) k/uL Monocytes # 0.7 (0-1.0) k/uL Eosinophils # 0.1 (0-0.7) k/uL Basophils # 0.0 (0-0.2) k/uL Hypochromasia Marked Sodium 140 (137-145) mmol/L Potassium 4.1 (3.5-5.1) mmol/L Chloride 112 H (98-107) mmol/L Carbon Dioxide 17 L (22-30) mmol/L Anion Gap 11 mmol/L BUN 23 H (7-17) mg/dL Creatinine 1.49 H (0.52-1.04) mg/dL Est GFR (CKD-EPI)AfAm 46 (>60 ml/min/1.73 sqM) Est GFR (CKD-EPI)NonAf 40 (>60 ml/min/1.73 sqM) Glucose 175 H (74-99) mg/dL Calcium 9.0 (8.4-10.2) mg/dL Total Bilirubin 0.3 (0.2-1.3) mg/dL AST 18 (14-36) U/L ALT 9 (4-34) U/L Alkaline Phosphatase 92 (38-126) U/L Total Protein 6.7 (6.3-8.2) g/dL Albumin 3.9 (3.5-5.0) g/dL Amylase 31 (30-110) U/L Lipase 101 (23-300) U/L Urine Color Yellow Urine Appearance Clear (Clear) Urine pH 7.0 (5.0-8.0) Ur Specific [place] 1.016 (1.001-1.035) Urine Protein Negative (Negative) Urine Glucose (UA) Negative (Negative) Urine Ketones Negative (Negative) Urine Blood Negative (Negative) Urine Nitrite Negative (Negative) Urine Bilirubin Negative (Negative) Urine Urobilinogen <2.0 (<2.0) mg/dL Ur Leukocyte Esterase Moderate H (Negative) Urine WBC 8 H (0-5) /hpf Ur Squamous Epith Cells 3 (0-4) /hpf Urine Mucus Rare H (None) /hpf Disposition Clinical Impression: Flank pain Disposition: HOME SELF-CARE Condition: Good Instructions (If sedation given, give patient instructions): Flank Pain (ED) Additional Instructions: Please take Motrin and Tylenol for pain. Please try gentle stretching. If you have any worsening symptoms return here to the emergency room. Is patient prescribed a controlled substance at d/c from ED?: No Referrals: Kamran Lara MD [Primary Care Provider] - 1-2 days Time of Disposition: 16:36
[2019-10-24 14:48] LABS: Basophils % (A) 0 %; Eosinophils # (A) 0.1 k/uL (0-0.7); Eosinophils % (A) 1 %; HCT 34.9 % (34.0-46.0); Hypochromasia Marked; Lymphocytes # (A) 1.5 k/uL (1.0-4.8); Lymphocytes % (A) 21 %; MCH 27.9 pg (25.0-35.0); MCHC 31.4 g/dL (31.0-37.0); MCV 88.8 fL (80.0-100.0); Mean Platelet Volume 8.5; Monocytes # (A) 0.7 k/uL (0-1.0); Monocytes % (A) 9 %; Neutrophils # (A) 4.8 k/uL (1.3-7.7); Neutrophils % (A) 67 %; Platelet Count 266 k/uL (150-450); RBC 3.93 m/uL (3.80-5.40); RDW 14.9 % (11.5-15.5); WBC 7.2 k/uL (3.8-10.6)
[2019-10-24 14:49] LABS: Appearance,Urine Clear (Clear); Bilirubin,Urine Negative (Negative); Blood,Urine Negative (Negative); Color,Urine Yellow; Glucose,Urine (UA) Negative (Negative); Ketones,Urine Negative (Negative); Leukocyte Esterase,Urine Moderate (Negative); Mucus,Urine Rare /hpf; Nitrite,Urine Negative (Negative); Protein,Urine Negative (Negative); Specific Gravity,Urine 1.016 (1.001-1.035); Squamous Epithelial Cell,Urine 3 /hpf (0-4); Urobilinogen,Urine <2.0 mg/dL (<2.0); WBC,Urine 8 /hpf (0-5)
[2019-10-24 14:54] LABS: Albumin 3.9 g/dL (3.5-5.0); Potassium 4.1 mmol/L (3.5-5.1); Total Bilirubin 0.3 mg/dL (0.2-1.3); Total Protein 6.7 g/dL (6.3-8.2)
--- NOTE | 2019-10-24 15:48 | CT ---
EXAMINATION TYPE: CT abdomen pelvis wo con DATE OF EXAM: 10/24/2019 COMPARISON: 02/16/2019 HISTORY: Right flank pain. CT DLP: 1459.4 mGycm Automated exposure control for dose reduction was used. Lung bases are clear. There is no pleural effusion. Heart size is normal. There is no pericardial eff usion. Stomach is intact. Liver spleen pancreas gallbladder appear normal. Bile ducts are not dilated . There is no adrenal mass. Kidneys show normal size. There is 8 mm calcification lateral left kidney w ith minimal cortical thinning. There is 4 mm calcification anterior left kidney. There is no hydronep hrosis. Ureters are not dilated. There is no retroperitoneal adenopathy. Bladder distends smoothly. T here is no inguinal hernia. There is no free fluid in the pelvis. There is hysterectomy. There is no evidence of pelvic mass. Lumbar vertebra have normal alignment. There is no compression fracture. Bon y pelvis is intact. There is no mesenteric edema. There is no ascites or free air. There is no sign of a bowel obstructio n. Appendix not definitely seen. No sign of thickened appendix. IMPRESSION: Nonobstructing left renal calculi. Calcifications appear new compared to old exam. Mild deformity of the lateral lower pole left kidney probably related to scarring. Unchanged.
[2019-10-24 16:57] VITALS: BP 107/78; PULSE 80
== END 2019-10-24 16:56 | disposition home or self-care (01) ==
LOC: EC 13:43
DX: N20.0 Calculus of kidney (principal); R93.422 Abnormal radiologic findings on diagnostic imaging of left kidney; R79.89 Other specified abnormal findings of blood chemistry; E11.9 Type 2 diabetes mellitus without complications; E78.5 Hyperlipidemia, unspecified; I10 Essential (primary) hypertension; F41.9 Anxiety disorder, unspecified; F32.9 Major depressive disorder, single episode, unspecified; E07.9 Disorder of thyroid, unspecified; Z79.4 Long term (current) use of insulin; Z79.82 Long term (current) use of aspirin; Z79.890 Hormone replacement therapy; Z79.899 Other long term (current) drug therapy; Z90.710 Acquired absence of both cervix and uterus; Z87.891 Personal history of nicotine dependence; Z88.0 Allergy status to penicillin; Z88.2 Allergy status to sulfonamides
CPT/HCPCS: 36415; 80053; 82150; 83690; 85025; 81001; 74176; 96374; 96361; 99284; J1885

== ENCOUNTER 2020-01-22 20:47 | Emergency (ER) | payer OTHER ==
[2020-01-22 21:08] VITALS: BP 106/69; PULSE 73; RESP 18; TEMP 97.9
[2020-01-22] MEDS ORDERED: KETOROLAC 15 MG/ML 1 ML VIAL IM STA (21:31)
--- NOTE | 2020-01-22 21:32 | ED ---
General Adult HPI - General Chief complaint: ENT Stated complaint: Ear is bleeding Time Seen by Provider: 01/22/20 21:09 Source: patient Mode of arrival: ambulatory Limitations: no limitations - History of Present Illness Initial comments: 54-year-old female patient presents to the emergency department today for evaluation of bleeding from the left ear. Patient states she saw her ENT specialist this morning due to persistent decrease in hearing and pressure. States that he punctured: Her tympanic membrane to drain any fluid. States was no fluid and she left his office. States this evening she sat down to watch a movie and noticed that she had some blood coming from the ear. She denies any increase in pain states she still feeling pressure. Still has decreased hearing. Denies fever or chills. She denies any use of anticoagulant or antiplatelet medications. Denies any instrumentation to the ear after her appointment. - Related Data Home Medications Medication Instructions Recorded Confirmed Insulin Glargine [Lantus] 50 unit SQ HS 12/15/14 02/16/19 Pravastatin Sodium [Pravachol] 40 mg PO HS 12/15/14 02/16/19 Aspirin [Adult Low Dose Aspirin EC] 81 mg PO DAILY 08/22/17 02/16/19 Cholecalciferol [Vitamin D3] 5,000 unit PO DAILY 08/22/17 02/16/19 [place]-3 Fatty Acids/Fish Oil [Fish 1,000 mg PO HS 08/22/17 02/16/19 Oil 1,000 mg Softgel] Ferrous Gluconate 324 mg PO MOWEFR 09/30/17 02/16/19 Venlafaxine HCl [Effexor XR] 150 mg PO DAILY 09/30/17 02/16/19 Cyanocobalamin (Vitamin B-12) 1,000 mcg PO DAILY 02/16/19 02/16/19 [Vitamin B-12] Levothyroxine Sodium [Synthroid] 100 mcg PO DAILY 02/16/19 02/16/19 Liraglutide [Victoza 2-José] 1.8 mg SQ DAILY 02/16/19 02/16/19 Losartan Potassium [Cozaar] 25 mg PO DAILY 02/16/19 02/16/19 Magnesium Oxide [Mag-Ox] 400 mg PO BID 02/16/19 02/16/19 Pioglitazone [Actos] 30 mg PO DAILY 02/16/19 02/16/19 metFORMIN HCL [Glucophage] 500 mg PO BID 02/16/19 02/16/19 Previous Rx's Medication Instructions Recorded Cephalexin [Keflex] 500 mg PO Q6HR #40 cap 02/16/19 Ibuprofen 800 mg PO Q6HR PRN #20 tablet 02/16/19 Allergies Allergy/AdvReac Type Severity Reaction Status Date / Time Penicillins Allergy Unknown Verified 01/22/20 21:08 Childhood Sulfa (Sulfonamide Allergy Rash/Hives Verified 01/22/20 21:08 Antibiotics) Review of Systems ROS Statement: Those systems with pertinent positive or pertinent negative responses have been documented in the HPI. ROS Other: All systems not noted in ROS Statement are negative. Past Medical History Past Medical History: Asthma, COPD, Diabetes Mellitus, Hyperlipidemia, Hypertension, Neurologic Disorder, Osteoarthritis (OA), Thyroid Disorder History of Any Multi-Drug Resistant Organisms: None Reported Past Surgical History: Section, Hysterectomy Additional Past Surgical History / Comment(s): x 2, ganglion cyst removed from left wrist Past Anesthesia/Blood Transfusion Reactions: No Reported Reaction Past Psychological History: Anxiety, Depression Smoking Status: Never smoker Past Alcohol Use History: None Reported Past Drug Use History: None Reported - Past Family History Father Family Medical History: Cancer Additional Family Medical History / Comment(s): brain Mother Family Medical History: Cancer Additional Family Medical History / Comment(s): lung - General Exam Limitations: no limitations General appearance: alert, in no apparent distress, other (This is a well- developed, well-nourished adult female patient in no acute distress. Vital signs upon presentation shows temperature 97.9F, pulse 73, respirations 18, blood pressure 106/69, pulse ox 98% on room air.) ENT exam: Present: mucous membranes moist, other (Tympanic membranes appears normal is pearly with no injection, there is drying blood noted in the ear canal.). Absent: normal exam Respiratory exam: Present: normal lung sounds bilaterally. Absent: respiratory distress, wheezes, rales, rhonchi, stridor Cardiovascular Exam: Present: regular rate, normal rhythm, normal heart sounds. Absent: systolic murmur, diastolic murmur, rubs, gallop, clicks Neurological exam: Present: alert, oriented X3, CN II-XII intact Psychiatric exam: Present: normal affect, normal mood Skin exam: Present: warm, dry, intact, normal color. Absent: rash Course Vital Signs 01/22/20 21:04 Temperature 97.9 F Pulse Rate 73 Respiratory 18 Rate Blood Pressure 106/69 O2 Sat by Pulse 98 Oximetry Medical Decision Making - Medical Decision Making 54-year-old female patient presents to the emergency department today for evaluation of bloody drainage coming from the left ear. Physical examination did reveal drying blood in the left ear canal. Patient's TM is pearly with no injection. As patient did recently have a procedure with her ENT office and there is no current active bleeding will be able to discharge her to contact her physician in the morning. We did discuss on-call services that she should be able to speak with the on-call ENT at the office. She is instructed to follow- up with her primary care physician for recheck in 1-2 days. Return parameters were discussed in detail she verbalizes understanding and agrees with this plan. Disposition Clinical Impression: Bleeding from left ear Disposition: HOME SELF-CARE Condition: Good Instructions (If sedation given, give patient instructions): Earache (ED) Additional Instructions: Call your ENT office in the morning and see if you can speak to the doctor oncology physician assistant. Let them know your symptoms. Return immediately if you have further bleeding or increase in pain. Follow-up with her primary care physician for recheck in 1-2 days. Return for any other new, worsening, or concerning symptoms. Is patient prescribed a controlled substance at d/c from ED?: No Referrals: Kamran Lara MD [Primary Care Provider] - 1-2 days Time of Disposition: 21:32
== END 2020-01-22 22:15 | disposition home or self-care (01) ==
LOC: EC 20:47
DX: H92.22 Otorrhagia, left ear (principal); F41.9 Anxiety disorder, unspecified; F32.9 Major depressive disorder, single episode, unspecified; E11.9 Type 2 diabetes mellitus without complications; E78.5 Hyperlipidemia, unspecified; I10 Essential (primary) hypertension; E07.9 Disorder of thyroid, unspecified; Z79.4 Long term (current) use of insulin; Z79.82 Long term (current) use of aspirin; Z79.899 Other long term (current) drug therapy; Z79.890 Hormone replacement therapy; Z88.0 Allergy status to penicillin; Z88.2 Allergy status to sulfonamides
CPT/HCPCS: 96372; 99282; J1885; 99283

== ENCOUNTER 2020-03-21 09:47 | Emergency (ER) | payer OTHER ==
[2020-03-21 09:51] VITALS: RESP 16
[2020-03-21] MEDS ORDERED: ONDANSETRON 4 MG/2 ML VIAL IVP STA (10:16)
[2020-03-21] MEDS ORDERED: SODIUM CHLORIDE 0.9% 1,000 ML IV STA ×2 (10:16)
[2020-03-21] MEDS ORDERED: HYDROmorphone 0.5 MG/0.5 ML SYRINGE IVP STA (10:16)
[2020-03-21] MEDS ORDERED: KETOROLAC 15 MG/ML 1 ML VIAL IVP STA (10:16)
--- NOTE | 2020-03-21 10:16 | ED ---
Back Pain HPI - General Chief Complaint: Back Pain/Injury Stated Complaint: Back Pain Time Seen by Provider: 03/21/20 10:02 Source: patient, RN notes reviewed, old records reviewed Limitations: no limitations - History of Present Illness Initial Comments: Patient is a 54-year-old female who presents emergency department today with chief complaint of 2 days of intrascapular back pain and reports some radiation towards the front of her abdomen. She denies any shortness of breath or specific chest pain. Patient states that she has no cough. She complains of some episodes of diarrhea the finished yesterday. She denies any dysuria. She does report she has history of diabetes and stage III kidney disease. - Related Data Home Medications Medication Instructions Recorded Confirmed Pravastatin Sodium [Pravachol] 40 mg PO DAILY 12/15/14 03/21/20 Aspirin [Adult Low Dose Aspirin EC] 81 mg PO DAILY 08/22/17 03/21/20 Cholecalciferol [Vitamin D3] 2,000 unit PO DAILY 08/22/17 03/21/20 [place]-3 Fatty Acids/Fish Oil [Fish 1,000 mg PO HS 08/22/17 03/21/20 Oil 1,000 mg Softgel] Ferrous Gluconate 324 mg PO DAILY 09/30/17 03/21/20 Venlafaxine HCl [Effexor XR] 150 mg PO DAILY 09/30/17 03/21/20 Levothyroxine Sodium [Synthroid] 100 mcg PO DAILY 02/16/19 03/21/20 Liraglutide [Victoza 2-José] 1.8 mg SQ DAILY 02/16/19 03/21/20 Magnesium Oxide [Mag-Ox] 400 mg PO BID 02/16/19 03/21/20 Pioglitazone [Actos] 30 mg PO DAILY 02/16/19 03/21/20 metFORMIN HCL [Glucophage] 500 mg PO BID 02/16/19 03/21/20 Acetaminophen-Codeine 300-30mg 1 tab PO QID PRN 03/21/20 03/21/20 [Tylenol w/codeine #3] Albuterol Inhaler [Ventolin Hfa 2 puff INHALATION RT-QID PRN 03/21/20 03/21/20 Inhaler] Dicyclomine [Bentyl] 20 mg PO Q8H PRN 03/21/20 03/21/20 Fluticasone Nasal [place] [Flonase 1 spray EA NOSTRIL BID 03/21/20 03/21/20 Nasal [place]] Insulin Glargine,Hum.rec.anlog 52 unit SQ HS 03/21/20 03/21/20 [Rafal Travismoe U-100] Latanoprost/Pf [Latanoprost 0.005% 1 drop BOTH EYES HS 03/21/20 03/21/20 Eye Drop] Montelukast [Singulair] 10 mg PO HS 03/21/20 03/21/20 Omeprazole 20 mg PO DAILY 03/21/20 03/21/20 acetaZOLAMIDE [Diamox Sequels] 500 mg PO BID 03/21/20 03/21/20 traMADol HCL 50 mg PO TID PRN 03/21/20 03/21/20 Previous Rx's Medication Instructions Recorded Ibuprofen 800 mg PO Q6HR PRN #20 tablet 02/16/19 Cephalexin [Keflex] 500 mg PO Q6HR 7 Days #28 cap 03/21/20 Allergies Allergy/AdvReac Type Severity Reaction Status Date / Time Penicillins Allergy Unknown Verified 03/21/20 09:48 Childhood Sulfa (Sulfonamide Allergy Rash/Hives Verified 03/21/20 09:48 Antibiotics) Review of Systems ROS Statement: Those systems with pertinent positive or pertinent negative responses have been documented in the HPI. ROS Other: All systems not noted in ROS Statement are negative. Past Medical History Past Medical History: Asthma, COPD, Diabetes Mellitus, Hyperlipidemia, Hypertension, Neurologic Disorder, Osteoarthritis (OA), Thyroid Disorder History of Any Multi-Drug Resistant Organisms: None Reported Past Surgical History: Section, Hysterectomy Additional Past Surgical History / Comment(s): x 2, ganglion cyst removed from left wrist Past Anesthesia/Blood Transfusion Reactions: No Reported Reaction Past Psychological History: Anxiety, Depression Smoking Status: Never smoker Past Alcohol Use History: None Reported Past Drug Use History: None Reported - Past Family History Father Family Medical History: Cancer Additional Family Medical History / Comment(s): brain Mother Family Medical History: Cancer Additional Family Medical History / Comment(s): lung - General Exam - General Exam Comments Initial Comments: 54-year-old female. Alert and oriented 3. No distress. Limitations: no limitations General appearance: alert, in no apparent distress Head exam: Present: atraumatic, normocephalic, normal inspection Eye exam: Present: normal appearance, PERRL, EOMI. Absent: scleral icterus, conjunctival injection, periorbital swelling ENT exam: Present: normal exam, mucous membranes moist Neck exam: Present: normal inspection. Absent: tenderness, meningismus, lymphadenopathy Respiratory exam: Present: normal lung sounds bilaterally. Absent: respiratory distress, wheezes, rales, rhonchi, stridor Cardiovascular Exam: Present: regular rate, normal rhythm, normal heart sounds. Absent: systolic murmur, diastolic murmur, rubs, gallop, clicks GI/Abdominal exam: Present: soft, normal bowel sounds. Absent: distended, tenderness, guarding, rebound, rigid Extremities exam: Present: normal inspection, full ROM, normal capillary refill. Absent: tenderness, pedal edema, joint swelling, calf tenderness Back exam: Present: normal inspection Neurological exam: Present: alert, oriented X3, CN II-XII intact Psychiatric exam: Present: normal affect, normal mood Skin exam: Present: warm, dry, intact, normal color. Absent: rash Course Vital Signs 03/21/20 03/21/20 09:48 12:31 Temperature 98.2 F 98 F Pulse Rate 85 78 Respiratory 16 16 Rate Blood Pressure 129/73 128/78 O2 Sat by Pulse 100 98 Oximetry Medical Decision Making - Medical Decision Making Pt is a 54 year old femael with R sided flank pain for a few days. Labs show mild UTI, postive nitrate. Pt labs were reviewed and unremarkable. Discussed return parameters and will start pt on keflex for UTI. - Lab Data Result diagrams: 03/21/20 10:31 03/21/20 10:31 Lab Results 03/21/20 03/21/20 03/21/20 Range/Units 10:31 10:31 10:31 WBC 5.4 (3.8-10.6) k/uL RBC 4.06 (3.80-5.40) m/uL Hgb 11.2 L (11.4-16.0) gm/dL Hct 36.3 (34.0-46.0) % MCV 89.3 (80.0-100.0) fL MCH 27.6 (25.0-35.0) pg MCHC 30.9 L (31.0-37.0) g/dL RDW 14.7 (11.5-15.5) % Plt Count 200 (150-450) k/uL Neutrophils % 76 % Lymphocytes % 8 % Monocytes % 12 % Eosinophils % 1 % Basophils % 1 % Neutrophils # 4.1 (1.3-7.7) k/uL Lymphocytes # 0.4 L (1.0-4.8) k/uL Monocytes # 0.6 (0-1.0) k/uL Eosinophils # 0.0 (0-0.7) k/uL Basophils # 0.1 (0-0.2) k/uL Hypochromasia Marked PT 9.7 (9.0-12.0) sec INR 0.9 (<1.2) APTT 24.2 (22.0-30.0) sec Sodium (137-145) mmol/L Potassium (3.5-5.1) mmol/L Chloride (98-107) mmol/L Carbon Dioxide (22-30) mmol/L Anion Gap mmol/L BUN (7-17) mg/dL Creatinine (0.52-1.04) mg/dL Est GFR (CKD-EPI)AfAm (>60 ml/min/1.73 sqM) Est GFR (CKD-EPI)NonAf (>60 ml/min/1.73 sqM) Glucose (74-99) mg/dL Calcium (8.4-10.2) mg/dL Total Bilirubin (0.2-1.3) mg/dL AST (14-36) U/L ALT (4-34) U/L Alkaline Phosphatase (38-126) U/L Troponin I (0.000-0.034) ng/mL Total Protein (6.3-8.2) g/dL Albumin (3.5-5.0) g/dL Amylase (30-110) U/L Lipase (23-300) U/L Urine Color [place] Urine Appearance Slightly Cloudy H (Clear) Urine pH 5.0 (5.0-8.0) Ur Specific [place] 1.035 (1.001-1.035) Urine Protein Negative (Negative) Urine Glucose (UA) Negative (Negative) Urine Ketones 2+ H (Negative) Urine Blood Small (Negative) Urine Nitrite Positive H (Negative) Urine Bilirubin Negative (Negative) Urine Urobilinogen 8.0 (<2.0) mg/dL Ur Leukocyte Esterase Large (Negative) Urine RBC 6 H (0-5) /hpf Urine WBC 12 H (0-5) /hpf Ur Squamous Epith Cells 3 (0-4) /hpf Urine Bacteria Moderate H (None) /hpf Urine Mucus Rare H (None) /hpf 03/21/20 03/21/20 Range/Units 10:31 10:31 WBC (3.8-10.6) k/uL RBC (3.80-5.40) m/uL Hgb (11.4-16.0) gm/dL Hct (34.0-46.0) % MCV (80.0-100.0) fL MCH (25.0-35.0) pg MCHC (31.0-37.0) g/dL RDW (11.5-15.5) % Plt Count (150-450) k/uL Neutrophils % % Lymphocytes % % Monocytes % % Eosinophils % % Basophils % % Neutrophils # (1.3-7.7) k/uL Lymphocytes # (1.0-4.8) k/uL Monocytes # (0-1.0) k/uL Eosinophils # (0-0.7) k/uL Basophils # (0-0.2) k/uL Hypochromasia PT (9.0-12.0) sec INR (<1.2) APTT (22.0-30.0) sec Sodium 141 (137-145) mmol/L Potassium 4.5 (3.5-5.1) mmol/L Chloride 117 H (98-107) mmol/L Carbon Dioxide 16 L (22-30) mmol/L Anion Gap 8 mmol/L BUN 19 H (7-17) mg/dL Creatinine 1.34 H (0.52-1.04) mg/dL Est GFR (CKD-EPI)AfAm 52 (>60 ml/min/1.73 sqM) Est GFR (CKD-EPI)NonAf 45 (>60 ml/min/1.73 sqM) Glucose 133 H (74-99) mg/dL Calcium 9.2 (8.4-10.2) mg/dL Total Bilirubin 0.3 (0.2-1.3) mg/dL AST 20 (14-36) U/L ALT 8 (4-34) U/L Alkaline Phosphatase 70 (38-126) U/L Troponin I <0.012 (0.000-0.034) ng/mL Total Protein 6.8 (6.3-8.2) g/dL Albumin 3.9 (3.5-5.0) g/dL Amylase 42 (30-110) U/L Lipase 243 (23-300) U/L Urine Color Urine Appearance (Clear) Urine pH (5.0-8.0) Ur Specific [place] (1.001-1.035) Urine Protein (Negative) Urine Glucose (UA) (Negative) Urine Ketones (Negative) Urine Blood (Negative) Urine Nitrite (Negative) Urine Bilirubin (Negative) Urine Urobilinogen (<2.0) mg/dL Ur Leukocyte Esterase (Negative) Urine RBC (0-5) /hpf Urine WBC (0-5) /hpf Ur Squamous Epith Cells (0-4) /hpf Urine Bacteria (None) /hpf Urine Mucus (None) /hpf - Radiology Data Radiology results: report reviewed KUB shows normal bowel gas pattern. CXR is negative for acute cardiopulmonary process. Disposition Clinical Impression: UTI (urinary tract infection), Flank pain Disposition: HOME SELF-CARE Condition: Good Instructions (If sedation given, give patient instructions): Acute Low Back Pain (ED) Additional Instructions: Please use medication as discussed. Please follow up with family doctor if symptoms have not improved over the next two days. Please return to the emergency room if your symptoms increase or worsen or for any other concerns. Prescriptions: Cephalexin [Keflex] 500 mg PO Q6HR 7 Days #28 cap Is patient prescribed a controlled substance at d/c from ED?: No Referrals: Kamran Lara MD [Primary Care Provider] - 1-2 days Time of Disposition: 12:23
[2020-03-21 10:50] LABS: Basophils # (A) 0.1 k/uL (0-0.2); Basophils % (A) 1 %; Eosinophils % (A) 1 %; HCT 36.3 % (34.0-46.0); HGB 11.2 gm/dL (11.4-16.0); Hypochromasia Marked; Lymphocytes # (A) 0.4 k/uL (1.0-4.8); Lymphocytes % (A) 8 %; MCH 27.6 pg (25.0-35.0); MCHC 30.9 g/dL (31.0-37.0); MCV 89.3 fL (80.0-100.0); Mean Platelet Volume 8.5; Monocytes # (A) 0.6 k/uL (0-1.0); Monocytes % (A) 12 %; Neutrophils # (A) 4.1 k/uL (1.3-7.7); Neutrophils % (A) 76 %; Platelet Count 200 k/uL (150-450); RBC 4.06 m/uL (3.80-5.40); RDW 14.7 % (11.5-15.5); WBC 5.4 k/uL (3.8-10.6)
[2020-03-21 10:52] LABS: Appearance,Urine Slightly Cloudy (Clear); Color,Urine Amber; Specific Gravity,Urine 1.035 (1.001-1.035)
--- NOTE | 2020-03-21 10:52 | XR ---
EXAMINATION TYPE: XR chest 2V DATE OF EXAM: 03/21/2020 COMPARISON: Chest x-ray June 17, 2019. HISTORY: Chest and abdominal pain. TECHNIQUE: Frontal and lateral views of the chest are obtained. FINDINGS: There is no focal air space opacity, pleural effusion, or pneumothorax seen. The cardiac silhouette size is within normal limits. Underlying scoliosis is redemonstrated. IMPRESSION: No acute cardiopulmonary process. No significant change from prior.
[2020-03-21 10:53] LABS: Bilirubin,Urine Negative (Negative); Glucose,Urine (UA) Negative (Negative); Ketones,Urine 2+ (Negative); Protein,Urine Negative (Negative)
--- NOTE | 2020-03-21 10:53 | XR ---
EXAMINATION TYPE: XR KUB DATE OF EXAM: 03/21/2020 10:48 AM CLINICAL HISTORY: Lower abdominal pain and nausea. TECHNIQUE: Two Upright KUB images of the abdomen are obtained. COMPARISON: CT abdomen and pelvis October 24, 2019. FINDINGS: Scattered gas is seen in non-distended stomach bubble and small bowel loops. Gas is seen in non-distended colon. There is no visceromegaly, pneumoperitoneum, or abnormal calcification apprecia harrison. The lung bases are clear and the osseous structures are intact. IMPRESSION: Overall nonobstructive bowel gas pattern remains present.
[2020-03-21 10:54] LABS: Albumin 3.9 g/dL (3.5-5.0); Blood,Urine Small (Negative); Calcium 9.2 mg/dL (8.4-10.2); Leukocyte Esterase,Urine Large (Negative); Nitrite,Urine Positive (Negative); Potassium 4.5 mmol/L (3.5-5.1); Total Bilirubin 0.3 mg/dL (0.2-1.3); Total Protein 6.8 g/dL (6.3-8.2)
[2020-03-21 10:57] LABS: Bacteria,Urine Moderate /hpf; INR 0.9 (<1.2); Mucus,Urine Rare /hpf; Partial Thromboplastin Time 24.2 sec (22.0-30.0); Prothrombin Time 9.7 sec (9.0-12.0); RBC,Urine 6 /hpf (0-5); Squamous Epithelial Cell,Urine 3 /hpf (0-4); WBC,Urine 12 /hpf (0-5)
[2020-03-21] MEDS ORDERED: CEPHALEXIN 500MG STARTER PACK 4 CAP BTL PO STA (12:23)
[2020-03-21] MEDS ORDERED: ACET/COD 300 MG/30 MG STARTER PACK 6 TAB BTL PO STA (12:23)
[2020-03-21 12:31] VITALS: BP 128/78; PULSE 78; TEMP 98
== END 2020-03-21 12:31 | disposition home or self-care (01) ==
LOC: EC 09:47
DX: N39.0 Urinary tract infection, site not specified (principal); E11.22 Type 2 diabetes mellitus with diabetic chronic kidney disease; N18.30 Chronic kidney disease, stage 3 unspecified; J44.9 Chronic obstructive pulmonary disease, unspecified; E78.5 Hyperlipidemia, unspecified; M19.90 Unspecified osteoarthritis, unspecified site; E07.9 Disorder of thyroid, unspecified; F41.9 Anxiety disorder, unspecified; F32.9 Major depressive disorder, single episode, unspecified; Z79.890 Hormone replacement therapy; Z79.899 Other long term (current) drug therapy; Z79.82 Long term (current) use of aspirin; Z79.4 Long term (current) use of insulin; Z79.51 Long term (current) use of inhaled steroids; Z88.0 Allergy status to penicillin; Z88.2 Allergy status to sulfonamides
CPT/HCPCS: 36415; 80053; 82150; 83690; 84484; 85025; 85610; 85730; 81001; 87086; 71046; 74018; 99284; 96374; 96375 ×2; 96361 ×2; J2405; J1885; J1170; 87077; 87186

== ENCOUNTER 2020-03-24 16:58 | Inpatient (IN) | payer OTHER ==
[2020-03-24] MEDS ORDERED: SODIUM CHLORIDE 0.9% 1,000 ML IV STA (17:35)
[2020-03-24 17:55] LABS: Basophils # (A) 0.1 k/uL (0-0.2); Basophils % (A) 2 %; Eosinophils % (A) 0 %; Hypochromasia Moderate; Lymphocytes # (A) 0.5 k/uL (1.0-4.8); Lymphocytes % (A) 10 %; MCH 26.7 pg (25.0-35.0); MCHC 30.6 g/dL (31.0-37.0); MCV 87.2 fL (80.0-100.0); Mean Platelet Volume 8.5; Monocytes # (A) 0.4 k/uL (0-1.0); Monocytes % (A) 9 %; Neutrophils % (A) 78 %; Platelet Count 164 k/uL (150-450); RBC 4.12 m/uL (3.80-5.40); RDW 14.6 % (11.5-15.5); WBC 5.2 k/uL (3.8-10.6)
[2020-03-24 18:05] LABS: Calcium 8.9 mg/dL (8.4-10.2); Magnesium 1.7 mg/dL (1.6-2.3); Potassium 4.5 mmol/L (3.5-5.1); Total Bilirubin 0.5 mg/dL (0.2-1.3); Total Protein 6.9 g/dL (6.3-8.2)
--- NOTE | 2020-03-24 18:10 | XR ---
EXAMINATION: XR chest 2V DATE AND TIME: 03/24/2020 5:55 PM CLINICAL INDICATION: PHH; Chest Pain TECHNIQUE: Departmental protocol COMPARISON: 03/21/2020 FINDINGS: The overlying soft tissues are prominent. The lungs demonstrate a fine reticular pattern of increased density bilaterally and symmetrically, re aching the periphery is occasional septal lines. There is associated mild/moderate silhouetting of th e pulmonary vasculature symmetrically. Findings are consistent with a clinical diagnosis of interstit ial phase pulmonary edema. There is no lung parenchymal consolidation. The pleural spaces are negative. The cardiac silhouette is not enlarged. The remainder of the mediastinal silhouette is unremarkable. The skeletal structures and soft tissues are negative for acute findings. IMPRESSION: Interstitial phase pulmonary edema radiographic pattern.
[2020-03-24 18:20] LABS: Appearance,Urine Clear (Clear); Bilirubin,Urine Negative (Negative); Blood,Urine Negative (Negative); Color,Urine Yellow; Glucose,Urine (UA) Negative (Negative); Ketones,Urine 1+ (Negative); Leukocyte Esterase,Urine Large (Negative); Mucus,Urine Rare /hpf; Nitrite,Urine Negative (Negative); PH, Urine 5.5 (5.0-8.0); Protein,Urine Trace (Negative); RBC,Urine 3 /hpf (0-5); Squamous Epithelial Cell,Urine 2 /hpf (0-4); Urobilinogen,Urine <2.0 mg/dL (<2.0); WBC,Urine 23 /hpf (0-5)
[2020-03-24 18:23] LABS: INR 0.9 (<1.2); Partial Thromboplastin Time 26.9 sec (22.0-30.0); Prothrombin Time 9.8 sec (9.0-12.0)
[2020-03-24] MEDS ORDERED: ONDANSETRON 4 MG/2 ML VIAL IVP STA (18:47)
--- NOTE | 2020-03-24 18:49 | ED ---
Nausea/Vomiting/Diarrhea HPI - General Chief complaint: Nausea/Vomiting/Diarrhea Stated complaint: Nausea, Chest pain Time Seen by Provider: 03/24/20 17:05 Source: patient Mode of arrival: wheelchair Limitations: no limitations - History of Present Illness Initial comments: Patient is a 54-year-old female past history of COPD, diabetes, hypertension who presents to emergency room with reported chest pain 4 days. States that originally was intermittent at onset it has become persistent. She admits to associated shortness of breath. denies cough, fever or chills. No sick contacts. No recent travel. Patient denies previous history of cardiac di sease. No ripping or transition her back. No lower trauma swelling. Patient also reports to nausea and diarrhea. Reports that her diarrhea has been persistent for 3 months. She goes once an hour. Denies any black or bloody stools. No recent antibiotic use. Her primary care doctor is aware and sent her for an abdominal ultrasound. She did see him today in office and when she mentioned that she is having chest pain he recommended that she go to the emergency room for evaluation. No other alleviating, precipitating or modifying factors - Related Data Home Medications Medication Instructions Recorded Confirmed Pravastatin Sodium [Pravachol] 40 mg PO DAILY 12/15/14 03/25/20 Aspirin [Adult Low Dose Aspirin EC] 81 mg PO DAILY 08/22/17 03/25/20 Cholecalciferol [Vitamin D3] 2,000 unit PO DAILY 08/22/17 03/25/20 [place]-3 Fatty Acids/Fish Oil [Fish 1,000 mg PO HS 08/22/17 03/25/20 Oil 1,000 mg Softgel] Ferrous Gluconate 324 mg PO DAILY 09/30/17 03/25/20 Venlafaxine HCl [Effexor XR] 150 mg PO DAILY 09/30/17 03/25/20 Levothyroxine Sodium [Synthroid] 100 mcg PO DAILY 02/16/19 03/25/20 Liraglutide [Victoza 2-José] 1.8 mg SQ DAILY 02/16/19 03/25/20 Magnesium Oxide [Mag-Ox] 400 mg PO BID 02/16/19 03/25/20 Pioglitazone [Actos] 30 mg PO DAILY 02/16/19 03/25/20 metFORMIN HCL [Glucophage] 500 mg PO BID 02/16/19 03/25/20 Albuterol Inhaler [Ventolin Hfa 2 puff INHALATION RT-QID PRN 03/21/20 03/25/20 Inhaler] Dicyclomine [Bentyl] 20 mg PO Q8H PRN 03/21/20 03/25/20 Fluticasone Nasal [place] [Flonase 1 spray EA NOSTRIL BID 03/21/20 03/25/20 Nasal [place]] Insulin Glargine,Hum.rec.anlog 52 unit SQ HS 03/21/20 03/25/20 [Basaglja Travispen U-100] Latanoprost/Pf [Latanoprost 0.005% 1 drop BOTH EYES HS 03/21/20 03/25/20 Eye Drop] Montelukast [Singulair] 10 mg PO HS 03/21/20 03/25/20 Omeprazole 20 mg PO DAILY 03/21/20 03/25/20 acetaZOLAMIDE [Diamox Sequels] 500 mg PO BID 03/21/20 03/25/20 traMADol HCL 50 mg PO TID PRN 03/21/20 03/25/20 Previous Rx's Medication Instructions Recorded Ibuprofen 800 mg PO Q6HR PRN #20 tablet 02/16/19 Cephalexin [Keflex] 500 mg PO Q6HR 7 Days #28 cap 03/21/20 Allergies Allergy/AdvReac Type Severity Reaction Status Date / Time Penicillins Allergy Unknown Verified 03/24/20 17:09 Childhood Sulfa (Sulfonamide Allergy Rash/Hives Verified 03/24/20 17:09 Antibiotics) Review of Systems ROS Statement: Those systems with pertinent positive or pertinent negative responses have been documented in the HPI. ROS Other: All systems not noted in ROS Statement are negative. Past Medical History Past Medical History: Asthma, COPD, Diabetes Mellitus, Hyperlipidemia, Hypertension, Neurologic Disorder, Osteoarthritis (OA), Thyroid Disorder History of Any Multi-Drug Resistant Organisms: None Reported Past Surgical History: Section, Hysterectomy Additional Past Surgical History / Comment(s): x 2, ganglion cyst removed from left wrist Past Anesthesia/Blood Transfusion Reactions: No Reported Reaction Past Psychological History: Anxiety, Depression Smoking Status: Never smoker Past Alcohol Use History: None Reported Past Drug Use History: None Reported - Past Family History Father Family Medical History: Cancer Additional Family Medical History / Comment(s): brain Mother Family Medical History: Cancer Additional Family Medical History / Comment(s): lung - General Exam Limitations: no limitations General appearance: alert, in no apparent distress Head exam: Present: atraumatic, normocephalic, normal inspection Eye exam: Present: normal appearance, PERRL, EOMI. Absent: scleral icterus, conjunctival injection, periorbital swelling ENT exam: Present: normal exam, mucous membranes moist Neck exam: Present: normal inspection. Absent: tenderness, meningismus, lymphadenopathy Respiratory exam: Present: normal lung sounds bilaterally. Absent: respiratory distress, wheezes, rales, rhonchi, stridor Cardiovascular Exam: Present: regular rate, normal rhythm, normal heart sounds. Absent: systolic murmur, diastolic murmur, rubs, gallop, clicks GI/Abdominal exam: Present: soft, normal bowel sounds. Absent: distended, tenderness, guarding, rebound, rigid Extremities exam: Present: normal inspection, full ROM, normal capillary refill. Absent: tenderness, pedal edema, joint swelling, calf tenderness Back exam: Present: normal inspection Neurological exam: Present: alert, oriented X3, CN II-XII intact Psychiatric exam: Present: normal affect, normal mood Skin exam: Present: warm, dry, intact, normal color. Absent: rash Course Vital Signs 03/24/20 03/24/20 03/24/20 17:05 17:33 19:22 Temperature 98.8 F 98.5 F Pulse Rate 80 77 Pulse Rate [ 80 78 Liquid Sugar Melter ] Respiratory 18 18 Rate Blood Pressure 111/73 126/67 Blood Pressure [Left Arm] O2 Sat by Pulse 100 98 Oximetry 03/24/20 03/24/20 03/24/20 20:00 20:37 21:00 Temperature Pulse Rate 80 75 73 Pulse Rate [ Liquid Sugar Melter ] Respiratory 20 18 Rate Blood Pressure 114/84 111/70 110/56 Blood Pressure [Left Arm] O2 Sat by Pulse 97 99 98 Oximetry 03/24/20 03/24/20 22:53 23:24 Temperature 98.5 F Pulse Rate 77 Pulse Rate [ 66 Liquid Sugar Melter ] Respiratory 18 18 Rate Blood Pressure 102/78 Blood Pressure 111/67 [Left Arm] O2 Sat by Pulse 97 99 Oximetry Medical Decision Making - Medical Decision Making Upon arrival patient is placed in room 11. A thorough history and physical exam was performed. Peripheral IV is established. Laboratories results were conducted. She was given a sublingual nitro and 4 aspirins. 12-lead EKG was pe rformed. Review the patient's laboratory studies demonstrate a creatinine of 1.3. This is due to the patient's baseline. First troponin is negative. Patient is able to provide a stool sample. C. diff is negative. Patient does go over for a chest x-ray which demonstrates interstitial phase pulmonary edema. Results are discussed with the patient. I did recommend hospital admission for cardiac consultation reports the patient agreed to. I discussed the case with Dr. Martins who agreed to admit the patient. Patient is currently awaiting a bed on the floor - Lab Data Result diagrams: 04/01/20 08:05 04/01/20 08:05 Lab Results 03/24/20 03/24/20 03/24/20 Range/Units 17:42 17:42 17:42 WBC 5.2 (3.8-10.6) k/uL RBC 4.12 (3.80-5.40) m/uL Hgb 11.0 L (11.4-16.0) gm/dL Hct 36.0 (34.0-46.0) % MCV 87.2 (80.0-100.0) fL MCH 26.7 (25.0-35.0) pg MCHC 30.6 L (31.0-37.0) g/dL RDW 14.6 (11.5-15.5) % Plt Count 164 (150-450) k/uL Neutrophils % 78 % Lymphocytes % 10 % Monocytes % 9 % Eosinophils % 0 % Basophils % 2 % Neutrophils # 4.0 (1.3-7.7) k/uL Lymphocytes # 0.5 L (1.0-4.8) k/uL Monocytes # 0.4 (0-1.0) k/uL Eosinophils # 0.0 (0-0.7) k/uL Basophils # 0.1 (0-0.2) k/uL Hypochromasia Moderate PT 9.8 (9.0-12.0) sec INR 0.9 (<1.2) APTT 26.9 (22.0-30.0) sec Sodium (137-145) mmol/L Potassium (3.5-5.1) mmol/L Chloride (98-107) mmol/L Carbon Dioxide (22-30) mmol/L Anion Gap mmol/L BUN (7-17) mg/dL Creatinine (0.52-1.04) mg/dL Est GFR (CKD-EPI)AfAm (>60 ml/min/1.73 sqM) Est GFR (CKD-EPI)NonAf (>60 ml/min/1.73 sqM) Glucose (74-99) mg/dL POC Glucose (mg/dL) (75-99) mg/dL POC Glu Inside [employer] Account Executive ID Calcium (8.4-10.2) mg/dL Magnesium (1.6-2.3) mg/dL Total Bilirubin (0.2-1.3) mg/dL AST (14-36) U/L ALT (4-34) U/L Alkaline Phosphatase (38-126) U/L Troponin I (0.000-0.034) ng/mL NT-Pro-B Natriuret Pep pg/mL Total Protein (6.3-8.2) g/dL Albumin (3.5-5.0) g/dL Lipase (23-300) U/L Urine Color Yellow Urine Appearance Clear (Clear) Urine pH 5.5 (5.0-8.0) Ur Specific [place] 1.020 (1.001-1.035) Urine Protein Trace H (Negative) Urine Glucose (UA) Negative (Negative) Urine Ketones 1+ H (Negative) Urine Blood Negative (Negative) Urine Nitrite Negative (Negative) Urine Bilirubin Negative (Negative) Urine Urobilinogen <2.0 (<2.0) mg/dL Ur Leukocyte Esterase Large H (Negative) Urine RBC 3 (0-5) /hpf Urine WBC 23 H (0-5) /hpf Ur Squamous Epith Cells 2 (0-4) /hpf Urine Mucus Rare H (None) /hpf Stool Occult Blood (Negative) Stool Lactoferrin (NEGATIVE) C. difficile (EIA) Intrp (Negative) Coronavirus (PCR) (Not Detected) 03/24/20 03/24/20 03/24/20 Range/Units 17:42 17:42 17:42 WBC (3.8-10.6) k/uL RBC (3.80-5.40) m/uL Hgb (11.4-16.0) gm/dL Hct (34.0-46.0) % MCV (80.0-100.0) fL MCH (25.0-35.0) pg MCHC (31.0-37.0) g/dL RDW (11.5-15.5) % Plt Count (150-450) k/uL Neutrophils % % Lymphocytes % % Monocytes % % Eosinophils % % Basophils % % Neutrophils # (1.3-7.7) k/uL Lymphocytes # (1.0-4.8) k/uL Monocytes # (0-1.0) k/uL Eosinophils # (0-0.7) k/uL Basophils # (0-0.2) k/uL Hypochromasia PT (9.0-12.0) sec INR (<1.2) APTT (22.0-30.0) sec Sodium 138 (137-145) mmol/L Potassium 4.5 (3.5-5.1) mmol/L Chloride 112 H (98-107) mmol/L Carbon Dioxide 14 L (22-30) mmol/L Anion Gap 12 mmol/L BUN 16 (7-17) mg/dL Creatinine 1.30 H (0.52-1.04) mg/dL Est GFR (CKD-EPI)AfAm 54 (>60 ml/min/1.73 sqM) Est GFR (CKD-EPI)NonAf 47 (>60 ml/min/1.73 sqM) Glucose 104 H (74-99) mg/dL POC Glucose (mg/dL) (75-99) mg/dL POC Glu Inside [employer] Account Executive ID Calcium 8.9 (8.4-10.2) mg/dL Magnesium 1.7 (1.6-2.3) mg/dL Total Bilirubin 0.5 (0.2-1.3) mg/dL AST 27 (14-36) U/L ALT 9 (4-34) U/L Alkaline Phosphatase 71 (38-126) U/L Troponin I <0.012 (0.000-0.034) ng/mL NT-Pro-B Natriuret Pep 238 pg/mL Total Protein 6.9 (6.3-8.2) g/dL Albumin 4.0 (3.5-5.0) g/dL Lipase 138 (23-300) U/L Urine Color Urine Appearance (Clear) Urine pH (5.0-8.0) Ur Specific [place] (1.001-1.035) Urine Protein (Negative) Urine Glucose (UA) (Negative) Urine Ketones (Negative) Urine Blood (Negative) Urine Nitrite (Negative) Urine Bilirubin (Negative) Urine Urobilinogen (<2.0) mg/dL Ur Leukocyte Esterase (Negative) Urine RBC (0-5) /hpf Urine WBC (0-5) /hpf Ur Squamous Epith Cells (0-4) /hpf Urine Mucus (None) /hpf Stool Occult Blood (Negative) Stool Lactoferrin (NEGATIVE) C. difficile (EIA) Intrp (Negative) Coronavirus (PCR) (Not Detected) 03/24/20 03/24/20 03/24/20 Range/Units 18:03 18:03 18:03 WBC (3.8-10.6) k/uL RBC (3.80-5.40) m/uL Hgb (11.4-16.0) gm/dL Hct (34.0-46.0) % MCV (80.0-100.0) fL MCH (25.0-35.0) pg MCHC (31.0-37.0) g/dL RDW (11.5-15.5) % Plt Count (150-450) k/uL Neutrophils % % Lymphocytes % % Monocytes % % Eosinophils % % Basophils % % Neutrophils # (1.3-7.7) k/uL Lymphocytes # (1.0-4.8) k/uL Monocytes # (0-1.0) k/uL Eosinophils # (0-0.7) k/uL Basophils # (0-0.2) k/uL Hypochromasia PT (9.0-12.0) sec INR (<1.2) APTT (22.0-30.0) sec Sodium (137-145) mmol/L Potassium (3.5-5.1) mmol/L Chloride (98-107) mmol/L Carbon Dioxide (22-30) mmol/L Anion Gap mmol/L BUN (7-17) mg/dL Creatinine (0.52-1.04) mg/dL Est GFR (CKD-EPI)AfAm (>60 ml/min/1.73 sqM) Est GFR (CKD-EPI)NonAf (>60 ml/min/1.73 sqM) Glucose (74-99) mg/dL POC Glucose (mg/dL) (75-99) mg/dL POC Glu Inside [employer] Account Executive ID Calcium (8.4-10.2) mg/dL Magnesium (1.6-2.3) mg/dL Total Bilirubin (0.2-1.3) mg/dL AST (14-36) U/L ALT (4-34) U/L Alkaline Phosphatase (38-126) U/L Troponin I (0.000-0.034) ng/mL NT-Pro-B Natriuret Pep pg/mL Total Protein (6.3-8.2) g/dL Albumin (3.5-5.0) g/dL Lipase (23-300) U/L Urine Color Urine Appearance (Clear) Urine pH (5.0-8.0) Ur Specific [place] (1.001-1.035) Urine Protein (Negative) Urine Glucose (UA) (Negative) Urine Ketones (Negative) Urine Blood (Negative) Urine Nitrite (Negative) Urine Bilirubin (Negative) Urine Urobilinogen (<2.0) mg/dL Ur Leukocyte Esterase (Negative) Urine RBC (0-5) /hpf Urine WBC (0-5) /hpf Ur Squamous Epith Cells (0-4) /hpf Urine Mucus (None) /hpf Stool Occult Blood Negative (Negative) Stool Lactoferrin NEGATIVE (NEGATIVE) C. difficile (EIA) Intrp Negative (Negative) Coronavirus (PCR) (Not Detected) 03/24/20 03/25/20 03/25/20 Range/Units Unknown 00:16 00:49 WBC (3.8-10.6) k/uL RBC (3.80-5.40) m/uL Hgb (11.4-16.0) gm/dL Hct (34.0-46.0) % MCV (80.0-100.0) fL MCH (25.0-35.0) pg MCHC (31.0-37.0) g/dL RDW (11.5-15.5) % Plt Count (150-450) k/uL Neutrophils % % Lymphocytes % % Monocytes % % Eosinophils % % Basophils % % Neutrophils # (1.3-7.7) k/uL Lymphocytes # (1.0-4.8) k/uL Monocytes # (0-1.0) k/uL Eosinophils # (0-0.7) k/uL Basophils # (0-0.2) k/uL Hypochromasia PT (9.0-12.0) sec INR (<1.2) APTT (22.0-30.0) sec Sodium (137-145) mmol/L Potassium (3.5-5.1) mmol/L Chloride (98-107) mmol/L Carbon Dioxide (22-30) mmol/L Anion Gap mmol/L BUN (7-17) mg/dL Creatinine (0.52-1.04) mg/dL Est GFR (CKD-EPI)AfAm (>60 ml/min/1.73 sqM) Est GFR (CKD-EPI)NonAf (>60 ml/min/1.73 sqM) Glucose (74-99) mg/dL POC Glucose (mg/dL) 143 H (75-99) mg/dL POC Glu [employer] Account Executive ID Esperanza Wu Calcium (8.4-10.2) mg/dL Magnesium (1.6-2.3) mg/dL Total Bilirubin (0.2-1.3) mg/dL AST (14-36) U/L ALT (4-34) U/L Alkaline Phosphatase (38-126) U/L Troponin I <0.012 <0.012 (0.000-0.034) ng/mL NT-Pro-B Natriuret Pep pg/mL Total Protein (6.3-8.2) g/dL Albumin (3.5-5.0) g/dL Lipase (23-300) U/L Urine Color Urine Appearance (Clear) Urine pH (5.0-8.0) Ur Specific [place] (1.001-1.035) Urine Protein (Negative) Urine Glucose (UA) (Negative) Urine Ketones (Negative) Urine Blood (Negative) Urine Nitrite (Negative) Urine Bilirubin (Negative) Urine Urobilinogen (<2.0) mg/dL Ur Leukocyte Esterase (Negative) Urine RBC (0-5) /hpf Urine WBC (0-5) /hpf Ur Squamous Epith Cells (0-4) /hpf Urine Mucus (None) /hpf Stool Occult Blood (Negative) Stool Lactoferrin (NEGATIVE) C. difficile (EIA) Intrp (Negative) Coronavirus (PCR) (Not Detected) 03/25/20 03/25/20 03/25/20 Range/Units 03:29 03:29 06:25 WBC 3.4 L (3.8-10.6) k/uL RBC 3.68 L (3.80-5.40) m/uL Hgb 10.1 L (11.4-16.0) gm/dL Hct 32.6 L (34.0-46.0) % MCV 88.6 (80.0-100.0) fL MCH 27.4 (25.0-35.0) pg MCHC 31.0 (31.0-37.0) g/dL RDW 14.8 (11.5-15.5) % Plt Count 154 (150-450) k/uL Neutrophils % 63 % Lymphocytes % 26 % Monocytes % 8 % Eosinophils % 1 % Basophils % 1 % Neutrophils # 2.1 (1.3-7.7) k/uL Lymphocytes # 0.9 L (1.0-4.8) k/uL Monocytes # 0.3 (0-1.0) k/uL Eosinophils # 0.0 (0-0.7) k/uL Basophils # 0.0 (0-0.2) k/uL Hypochromasia Marked PT (9.0-12.0) sec INR (<1.2) APTT (22.0-30.0) sec Sodium 139 (137-145) mmol/L Potassium 3.8 (3.5-5.1) mmol/L Chloride 118 H (98-107) mmol/L Carbon Dioxide 13 L (22-30) mmol/L Anion Gap 8 mmol/L BUN 17 (7-17) mg/dL Creatinine 1.22 H (0.52-1.04) mg/dL Est GFR (CKD-EPI)AfAm 58 (>60 ml/min/1.73 sqM) Est GFR (CKD-EPI)NonAf 50 (>60 ml/min/1.73 sqM) Glucose 123 H (74-99) mg/dL POC Glucose (mg/dL) 90 (75-99) mg/dL POC Glu Inside Sales Account Executive ID Esperanza Wu Calcium 8.4 (8.4-10.2) mg/dL Magnesium (1.6-2.3) mg/dL Total Bilirubin (0.2-1.3) mg/dL AST (14-36) U/L ALT (4-34) U/L Alkaline Phosphatase (38-126) U/L Troponin I (0.000-0.034) ng/mL NT-Pro-B Natriuret Pep pg/mL Total Protein (6.3-8.2) g/dL Albumin (3.5-5.0) g/dL Lipase (23-300) U/L Urine Color Urine Appearance (Clear) Urine pH (5.0-8.0) Ur Specific [place] (1.001-1.035) Urine Protein (Negative) Urine Glucose (UA) (Negative) Urine Ketones (Negative) Urine Blood (Negative) Urine Nitrite (Negative) Urine Bilirubin (Negative) Urine Urobilinogen (<2.0) mg/dL Ur Leukocyte Esterase (Negative) Urine RBC (0-5) /hpf Urine WBC (0-5) /hpf Ur Squamous Epith Cells (0-4) /hpf Urine Mucus (None) /hpf Stool Occult Blood (Negative) Stool Lactoferrin (NEGATIVE) C. difficile (EIA) Intrp (Negative) Coronavirus (PCR) (Not Detected) 03/25/20 03/25/20 03/25/20 Range/Units 13:00 13:12 18:11 WBC (3.8-10.6) k/uL RBC (3.80-5.40) m/uL Hgb (11.4-16.0) gm/dL Hct (34.0-46.0) % MCV (80.0-100.0) fL MCH (25.0-35.0) pg MCHC (31.0-37.0) g/dL RDW (11.5-15.5) % Plt Count (150-450) k/uL Neutrophils % % Lymphocytes % % Monocytes % % Eosinophils % % Basophils % % Neutrophils # (1.3-7.7) k/uL Lymphocytes # (1.0-4.8) k/uL Monocytes # (0-1.0) k/uL Eosinophils # (0-0.7) k/uL Basophils # (0-0.2) k/uL Hypochromasia PT (9.0-12.0) sec INR (<1.2) APTT (22.0-30.0) sec Sodium (137-145) mmol/L Potassium (3.5-5.1) mmol/L Chloride (98-107) mmol/L Carbon Dioxide (22-30) mmol/L Anion Gap mmol/L BUN (7-17) mg/dL Creatinine (0.52-1.04) mg/dL Est GFR (CKD-EPI)AfAm (>60 ml/min/1.73 sqM) Est GFR (CKD-EPI)NonAf (>60 ml/min/1.73 sqM) Glucose (74-99) mg/dL POC Glucose (mg/dL) 116 H 158 H (75-99) mg/dL POC Glu Inside Sales Account Executive ID Treat, Junie Treat, Junie Calcium (8.4-10.2) mg/dL Magnesium (1.6-2.3) mg/dL Total Bilirubin (0.2-1.3) mg/dL AST (14-36) U/L ALT (4-34) U/L Alkaline Phosphatase (38-126) U/L Troponin I (0.000-0.034) ng/mL NT-Pro-B Natriuret Pep pg/mL Total Protein (6.3-8.2) g/dL Albumin (3.5-5.0) g/dL Lipase (23-300) U/L Urine Color Urine Appearance (Clear) Urine pH (5.0-8.0) Ur Specific [place] (1.001-1.035) Urine Protein (Negative) Urine Glucose (UA) (Negative) Urine Ketones (Negative) Urine Blood (Negative) Urine Nitrite (Negative) Urine Bilirubin (Negative) Urine Urobilinogen (<2.0) mg/dL Ur Leukocyte Esterase (Negative) Urine RBC (0-5) /hpf Urine WBC (0-5) /hpf Ur Squamous Epith Cells (0-4) /hpf Urine Mucus (None) /hpf Stool Occult Blood (Negative) Stool Lactoferrin (NEGATIVE) C. difficile (EIA) Intrp (Negative) Coronavirus (PCR) Detected A (Not Detected) 03/25/20 03/26/20 03/26/20 Range/Units 21:50 06:42 08:41 WBC 2.5 L (3.8-10.6) k/uL RBC 3.99 (3.80-5.40) m/uL Hgb 10.9 L (11.4-16.0) gm/dL Hct 35.8 (34.0-46.0) % MCV 89.8 (80.0-100.0) fL MCH 27.3 (25.0-35.0) pg MCHC 30.4 L (31.0-37.0) g/dL RDW 14.7 (11.5-15.5) % Plt Count 177 (150-450) k/uL Neutrophils % 79 % Lymphocytes % 16 % Monocytes % 4 % Eosinophils % 0 % Basophils % 1 % Neutrophils # 2.0 (1.3-7.7) k/uL Lymphocytes # 0.4 L (1.0-4.8) k/uL Monocytes # 0.1 (0-1.0) k/uL Eosinophils # 0.0 (0-0.7) k/uL Basophils # 0.0 (0-0.2) k/uL Hypochromasia Marked PT (9.0-12.0) sec INR (<1.2) APTT (22.0-30.0) sec Sodium (137-145) mmol/L Potassium (3.5-5.1) mmol/L Chloride (98-107) mmol/L Carbon Dioxide (22-30) mmol/L Anion Gap mmol/L BUN (7-17) mg/dL Creatinine (0.52-1.04) mg/dL Est GFR (CKD-EPI)AfAm (>60 ml/min/1.73 sqM) Est GFR (CKD-EPI)NonAf (>60 ml/min/1.73 sqM) Glucose (74-99) mg/dL POC Glucose (mg/dL) 290 H 271 H (75-99) mg/dL POC Glu Inside Sales Account Executive ID Boris, Melanie Boris, Melanie Calcium (8.4-10.2) mg/dL Magnesium (1.6-2.3) mg/dL Total Bilirubin (0.2-1.3) mg/dL AST (14-36) U/L ALT (4-34) U/L Alkaline Phosphatase (38-126) U/L Troponin I (0.000-0.034) ng/mL NT-Pro-B Natriuret Pep pg/mL Total Protein (6.3-8.2) g/dL Albumin (3.5-5.0) g/dL Lipase (23-300) U/L Urine Color Urine Appearance (Clear) Urine pH (5.0-8.0) Ur Specific [place] (1.001-1.035) Urine Protein (Negative) Urine Glucose (UA) (Negative) Urine Ketones (Negative) Urine Blood (Negative) Urine Nitrite (Negative) Urine Bilirubin (Negative) Urine Urobilinogen (<2.0) mg/dL Ur Leukocyte Esterase (Negative) Urine RBC (0-5) /hpf Urine WBC (0-5) /hpf Ur Squamous Epith Cells (0-4) /hpf Urine Mucus (None) /hpf Stool Occult Blood (Negative) Stool Lactoferrin (NEGATIVE) C. difficile (EIA) Intrp (Negative) Coronavirus (PCR) (Not Detected) 03/26/20 03/26/20 Range/Units 08:41 12:51 WBC (3.8-10.6) k/uL RBC (3.80-5.40) m/uL Hgb (11.4-16.0) gm/dL Hct (34.0-46.0) % MCV (80.0-100.0) fL MCH (25.0-35.0) pg MCHC (31.0-37.0) g/dL RDW (11.5-15.5) % Plt Count (150-450) k/uL Neutrophils % % Lymphocytes % % Monocytes % % Eosinophils % % Basophils % % Neutrophils # (1.3-7.7) k/uL Lymphocytes # (1.0-4.8) k/uL Monocytes # (0-1.0) k/uL Eosinophils # (0-0.7) k/uL Basophils # (0-0.2) k/uL Hypochromasia PT (9.0-12.0) sec INR (<1.2) APTT (22.0-30.0) sec Sodium 140 (137-145) mmol/L Potassium 5.4 H (3.5-5.1) mmol/L Chloride 116 H (98-107) mmol/L Carbon Dioxide 15 L (22-30) mmol/L Anion Gap 9 mmol/L BUN 19 H (7-17) mg/dL Creatinine 1.04 (0.52-1.04) mg/dL Est GFR (CKD-EPI)AfAm 70 (>60 ml/min/1.73 sqM) Est GFR (CKD-EPI)NonAf 61 (>60 ml/min/1.73 sqM) Glucose 278 H (74-99) mg/dL POC Glucose (mg/dL) 295 H (75-99) mg/dL POC Glu Inside [employer] Account Executive ID Misty Key Calcium 9.0 (8.4-10.2) mg/dL Magnesium (1.6-2.3) mg/dL Total Bilirubin 0.6 (0.2-1.3) mg/dL AST 33 (14-36) U/L ALT 11 (4-34) U/L Alkaline Phosphatase 56 (38-126) U/L Troponin I (0.000-0.034) ng/mL NT-Pro-B Natriuret Pep pg/mL Total Protein 7.0 (6.3-8.2) g/dL Albumin 3.9 (3.5-5.0) g/dL Lipase (23-300) U/L Urine Color Urine Appearance (Clear) Urine pH (5.0-8.0) Ur Specific [place] (1.001-1.035) Urine Protein (Negative) Urine Glucose (UA) (Negative) Urine Ketones (Negative) Urine Blood (Negative) Urine Nitrite (Negative) Urine Bilirubin (Negative) Urine Urobilinogen (<2.0) mg/dL Ur Leukocyte Esterase (Negative) Urine RBC (0-5) /hpf Urine WBC (0-5) /hpf Ur Squamous Epith Cells (0-4) /hpf Urine Mucus (None) /hpf Stool Occult Blood (Negative) Stool Lactoferrin (NEGATIVE) C. difficile (EIA) Intrp (Negative) Coronavirus (PCR) (Not Detected) - EKG Data EKG Comments: EKG demonstrates a normal sinus rhythm with a ventricular rate of 74. SC interval 158. QRS 86. QTC of 417. No acute ST segment elevations or depressions concerning for ischemic changes Disposition Clinical Impression: Chest pain, Diarrhea Disposition: ADMITTED IP TO THIS HOSP Condition: Stable Is patient prescribed a controlled substance at d/c from ED?: No Decision to Admit Reason: Admit from EC Decision Date: 03/24/20 Decision Time: 20:29
[2020-03-24] MEDS ORDERED: NITROGLYCERIN SL TABS 0.4 MG TAB SUBLINGUAL STA (19:20)
[2020-03-24] MEDS ORDERED: ASPIRIN 81 MG PO STA (19:20)
[2020-03-24] MEDS ORDERED: NALOXONE 0.4 MG/ML 1 ML VIAL IV PRN (20:30)
[2020-03-24] MEDS: PANTOPRAZOLE 40 MG/10 ML VIAL IV SCH (20:57)
[2020-03-24] MEDS ORDERED: HYDROcodone/APAP 5-325MG 1 EACH TAB PO STA (22:19)
[2020-03-24] MEDS ORDERED: NON FORMULARY DRUG (Omega-3 Fatty Acids/Fish Oil [Fish Oil 1,000 Mg Softgel] 1 EACH Capsul PO SCH (22:30)
[2020-03-24] MEDS: ACETAZOLAMIDE 500 MG PO SCH (22:59)
[2020-03-24] MEDS: MONTELUKAST 10 MG TAB PO SCH (23:01)
[2020-03-25] MEDS: INSULIN DETEMIR (LEVEMIR) 100 UNIT/ML SYR SQ SCH ×2 (00:52→21:54)
[2020-03-25 00:53] LABS: Glucose,Whole Blood 143 mg/dL (75-99)
[2020-03-25] MEDS: traMADol 50 MG TAB PO PRN ×3 (01:11→21:52)
[2020-03-25 03:52] LABS: Basophils % (A) 1 %; Eosinophils % (A) 1 %; HCT 32.6 % (34.0-46.0); HGB 10.1 gm/dL (11.4-16.0); Hypochromasia Marked; Lymphocytes # (A) 0.9 k/uL (1.0-4.8); Lymphocytes % (A) 26 %; MCH 27.4 pg (25.0-35.0); MCV 88.6 fL (80.0-100.0); Mean Platelet Volume 8.8; Monocytes # (A) 0.3 k/uL (0-1.0); Monocytes % (A) 8 %; Neutrophils # (A) 2.1 k/uL (1.3-7.7); Neutrophils % (A) 63 %; Platelet Count 154 k/uL (150-450); RBC 3.68 m/uL (3.80-5.40); RDW 14.8 % (11.5-15.5); WBC 3.4 k/uL (3.8-10.6)
[2020-03-25 03:55] LABS: Calcium 8.4 mg/dL (8.4-10.2); Potassium 3.8 mmol/L (3.5-5.1)
[2020-03-25 06:27] LABS: Glucose,Whole Blood 90 mg/dL (75-99)
[2020-03-25] MEDS: LEVOTHYROXINE 100 MCG TAB PO SCH (06:29)
[2020-03-25] MEDS: INSULIN ASPART (NovoLOG) 100 UNIT/ML VIAL SQ SCH ×4 (06:29→21:55)
[2020-03-25] MEDS: LATANOPROST 0.005% OPHTH DROPS 2.5 ML BTL BOTH EYES SCH ×2 (08:29→21:53)
[2020-03-25] MEDS: FLUTICASONE 50MCG/SPRAY NASAL 16GM EA NOSTRIL SCH ×2 (08:39→21:52)
[2020-03-25] MEDS: MAGNESIUM OXIDE 400 MG TAB PO SCH ×2 (08:40→21:53)
[2020-03-25] MEDS: ASPIRIN 81 MG PO SCH (08:40)
[2020-03-25] MEDS: CHOLECALCIFEROL 1,000 UNIT TAB PO SCH (08:40)
[2020-03-25] MEDS: PANTOPRAZOLE 40 MG/10 ML VIAL IV SCH (08:40)
[2020-03-25] MEDS: PRAVASTATIN SODIUM 40 MG TAB PO SCH (08:41)
[2020-03-25] MEDS: VENLAFAXINE HCL ER 150 MG CAP PO SCH (08:41)
[2020-03-25] MEDS: ALBUTEROL NEBULIZED 2.5 MG/3 ML INHALATION PRN ×2 (08:49→15:50)
[2020-03-25] MEDS: ACETAZOLAMIDE 500 MG PO SCH ×2 (08:59→21:52)
[2020-03-25] MEDS ORDERED: NON FORMULARY DRUG (Ferrous Gluconate [Ferrous Gluconate] 324 MG Tablet) PO SCH (09:00)
[2020-03-25] MEDS ORDERED: NON FORMULARY DRUG (Omeprazole [Omeprazole] 20 MG Capsule.Dr) PO SCH (09:00)
--- NOTE | 2020-03-25 10:25 | P.HPIM ---
History of Present Illness H&P Date: 03/25/20 Chief Complaint: Chest pain This is a 54-year-old female patient who presented to the ER with complaints of chest pain, shortness breath and diarrhea. Patient reports the chest pain has been occurring for approximately 4 days. Patient reports occasional cough. Past medical history includes asthma COPD, diabetes mellitus, hyperlipidemia, hypertension, osteoarthritis, thyroid disorder, anxiety and depression. Troponins negative 3. C. diff negative stool cultures negative. COVID test has been ordered. Chest x-ray completed showing interstitial phase pulmonary edema. Cardiology and pulmonary services have been consulted. At this time patient denies chest pain. Patient does report intermittent shortness of breath and cough. Patient denies abdominal pain nausea or vomiting. Patient denies any urinary burning or frequency Review of Systems please refer to HPI otherwise unremarkable Past Medical History Past Medical History: Asthma, COPD, Diabetes Mellitus, Hyperlipidemia, Hypertension, Neurologic Disorder, Osteoarthritis (OA), Thyroid Disorder History of Any Multi-Drug Resistant Organisms: None Reported Past Surgical History: Section, Hysterectomy Additional Past Surgical History / Comment(s): x 2, ganglion cyst removed from left wrist Past Anesthesia/Blood Transfusion Reactions: No Reported Reaction Past Psychological History: Anxiety, Depression Smoking Status: Former smoker Past Alcohol Use History: None Reported Additional Past Alcohol Use History / Comment(s): Quit 30 years ago Past Drug Use History: None Reported - Past Family History Father Family Medical History: Cancer Additional Family Medical History / Comment(s): brain Mother Family Medical History: Cancer Additional Family Medical History / Comment(s): lung - Medications and Allergies Home Medications Medication Instructions Recorded Confirmed Type Pravastatin Sodium [Pravachol] 40 mg PO DAILY 12/15/14 03/24/20 History Aspirin [Adult Low Dose Aspirin EC] 81 mg PO DAILY 08/22/17 03/24/20 History Cholecalciferol [Vitamin D3] 2,000 unit PO DAILY 08/22/17 03/24/20 History [place]-3 Fatty Acids/Fish Oil [Fish 1,000 mg PO HS 08/22/17 03/24/20 History Oil 1,000 mg Softgel] Ferrous Gluconate 324 mg PO DAILY 09/30/17 03/24/20 History Venlafaxine HCl [Effexor XR] 150 mg PO DAILY 09/30/17 03/24/20 History Ibuprofen 800 mg PO Q6HR PRN #20 tablet 02/16/19 03/24/20 Rx Levothyroxine Sodium [Synthroid] 100 mcg PO DAILY 02/16/19 03/24/20 History Liraglutide [Victoza 2-José] 1.8 mg SQ DAILY 02/16/19 03/21/20 History Magnesium Oxide [Mag-Ox] 400 mg PO BID 02/16/19 03/24/20 History Pioglitazone [Actos] 30 mg PO DAILY 02/16/19 03/24/20 History metFORMIN HCL [Glucophage] 500 mg PO BID 02/16/19 03/21/20 History Albuterol Inhaler [Ventolin Hfa 2 puff INHALATION RT-QID PRN 03/21/20 03/24/20 History Inhaler] Cephalexin [Keflex] 500 mg PO Q6HR 7 Days #28 cap 03/21/20 03/24/20 Rx Dicyclomine [Bentyl] 20 mg PO Q8H PRN 03/21/20 03/24/20 History Fluticasone Nasal [place] [Flonase 1 spray EA NOSTRIL BID 03/21/20 03/24/20 History Nasal [place]] Insulin Glargine,Hum.rec.anlog 52 unit SQ HS 03/21/20 03/24/20 History [Basaglar Thaddeuspen U-100] Latanoprost/Pf [Latanoprost 0.005% 1 drop BOTH EYES HS 03/21/20 03/24/20 History Eye Drop] Montelukast [Singulair] 10 mg PO HS 03/21/20 03/24/20 History Omeprazole 20 mg PO DAILY 03/21/20 03/24/20 History acetaZOLAMIDE [Diamox Sequels] 500 mg PO BID 03/21/20 03/24/20 History traMADol HCL 50 mg PO TID PRN 03/21/20 03/24/20 History Allergies Allergy/AdvReac Type Severity Reaction Status Date / Time Penicillins Allergy Unknown Verified 03/24/20 17:09 Childhood Sulfa (Sulfonamide Allergy Rash/Hives Verified 03/24/20 17:09 Antibiotics) Physical Exam Vitals: Vital Signs Temp Pulse Pulse Resp BP BP Pulse Ox 03/25/20 08:56 72 03/25/20 08:49 72 03/25/20 03:45 98.0 F 71 18 104/59 95 03/24/20 23:24 98.5 F 66 18 111/67 99 03/24/20 22:53 77 18 102/78 97 03/24/20 21:00 73 18 110/56 98 03/24/20 20:37 75 111/70 99 03/24/20 20:00 80 20 114/84 97 03/24/20 19:22 98.5 F 77 78 18 126/67 98 03/24/20 17:33 80 03/24/20 17:05 98.8 F 80 18 111/73 100 Intake and Output 03/24/20 03/25/20 03/25/20 22:59 06:59 14:59 Other: Voiding Method Toilet # Voids 2 # Bowel Movements 2 Weight 98.883 kg 98.883 kg Head normocephalic Neck supple Lungs diminished bilaterally Heart regular rate and rhythm S1-S2, no rub or gallop Abdomen round obese nontender to palpation Extremities no edema Neuro alert and orientated to 3 Results CBC & Chem 7: 03/25/20 03:29 03/25/20 03:29 Labs: Abnormal Lab Results - Last 24 Hours (Table) 03/24/20 03/24/20 03/24/20 Range/Units 17:42 17:42 17:42 WBC (3.8-10.6) k/uL RBC (3.80-5.40) m/uL Hgb 11.0 L (11.4-16.0) gm/dL Hct (34.0-46.0) % MCHC 30.6 L (31.0-37.0) g/dL Lymphocytes # 0.5 L (1.0-4.8) k/uL Chloride 112 H (98-107) mmol/L Carbon Dioxide 14 L (22-30) mmol/L Creatinine 1.30 H (0.52-1.04) mg/dL Glucose 104 H (74-99) mg/dL POC Glucose (mg/dL) (75-99) mg/dL Urine Protein Trace H (Negative) Urine Ketones 1+ H (Negative) Ur Leukocyte Esterase Large H (Negative) Urine WBC 23 H (0-5) /hpf Urine Mucus Rare H (None) /hpf 03/25/20 03/25/20 03/25/20 Range/Units 00:49 03:29 03:29 WBC 3.4 L (3.8-10.6) k/uL RBC 3.68 L (3.80-5.40) m/uL Hgb 10.1 L (11.4-16.0) gm/dL Hct 32.6 L (34.0-46.0) % MCHC (31.0-37.0) g/dL Lymphocytes # 0.9 L (1.0-4.8) k/uL Chloride 118 H (98-107) mmol/L Carbon Dioxide 13 L (22-30) mmol/L Creatinine 1.22 H (0.52-1.04) mg/dL Glucose 123 H (74-99) mg/dL POC Glucose (mg/dL) 143 H (75-99) mg/dL Urine Protein (Negative) Urine Ketones (Negative) Ur Leukocyte Esterase (Negative) Urine WBC (0-5) /hpf Urine Mucus (None) /hpf Microbiology - Last 24 Hours (Table) 03/24/20 18:03 Stool Culture - Preliminary Stool Thrombosis Risk Factor Assmnt - Choose All That Apply Each Factor Represents 1 point: Abnormal pulmonary function (COPD), Age 41-60 y ears, Obesity (BMI >25) Other Risk Factors: No Other congenital or acquired thrombophilia - If yes, enter type in comment: No Thrombosis Risk Factor Assessment Total Risk Factor Score: 3 Thrombosis Risk Factor Assessment Level: Moderate Risk Assessment and Plan Assessment: 1. Chest pain. Troponins negative 3. Cardiology service is consulted 2. Shortness of breath. Chest x-ray completed showing interstitial phase pulmonary edema. Pulmonary services have been consulted. COVID test pending 3. Acute diarrhea. Stool cultures negative. C. diff negative. 4. Urinary tract infection urine culture ordered. Patient started on Rocephin 5. History of COPD 6. History of diabetes mellitus type 2 Homans resumed 7. History of hyperlipidemia maintained on statin 8. Essential hypertension. 9. History of anxiety and depression DVT prophylaxis heparin. GI prophylaxis Protonix Pulmonary and cardiology service consulted Covid test pending Rocephin for UTI Time with Patient: Greater than 30 (Greater than 60% of the total time spent in counseling and coordination of care)
[2020-03-25 13:14] LABS: Glucose,Whole Blood 116 mg/dL (75-99)
--- NOTE | 2020-03-25 13:16 | CONS ---
CONSULTATION REASON FOR CONSULTATION: Chest pain. HISTORY OF PRESENT ILLNESS: The patient with a history of smoking, COPD, diabetes, hypertension, and hyperlipidemia. She came into the hospital with 3 days or more of diarrhea. No recent travel. Also had nausea, vomiting, and then complained of right-sided chest pain on the right lateral aspect of the chest and the right side of the neck. I was asked to see her in this regard. Troponin levels are unremarkable. EKG is unremarkable. She is resting comfortably. She does have history of hypertension, hyperlipidemia, type 2 diabetes, bronchial asthma and bronchitis. At the time of my evaluation, she still has some cough and some wheezing but has no chest pain and indicates to me that her diarrhea is persistent. Her pain in the right side of the chest has resolved completely. PAST MEDICAL HISTORY: 1. Bronchial asthma. 2. COPD. 3. Diabetes type 2. 4. Hypertension. 5. Hyperlipidemia. 6. Osteoarthritis. 7. Thyroid disease. 8. The patient is a past smoker. 9. She also has history of anxiety and depression. 10.She has had previous section and hysterectomy. MEDICATIONS: At home include pravastatin, aspirin, omega-3 acids, Synthroid, Victoza, metformin, she also takes omeprazole and Singulair. ALLERGIES: SHE IS ALLERGIC TO PENICILLIN AND SULFA. PHYSICAL EXAMINATION: On examination, blood pressure is 118/70, pulse rate 70 per minute regular. HEENT unremarkable. Fundus was not examined by me. NECK is supple. No JVD. I do not hear a carotid bruit. There is no thyromegaly. HEART exam reveals S1, S2 heard normally. LUNGS reveal scattered rhonchi. ABDOMEN is soft, nontender. LOWER EXTREMITIES reveal diminished pulses. CENTRAL NERVOUS SYSTEM is normal. EKG revealed a sinus mechanism and is within normal limits without acute changes. LABORATORY DATA: Laboratory data revealed unremarkable troponins. IMPRESSION: 1. Atypical chest pain. 2. Exacerbation of chronic obstructive pulmonary disease/bronchitis. 3. Hypertension. 4. Type 2 diabetes. 5. Hyperlipidemia. RECOMMENDATIONS: From a cardiac standpoint, I am recommending that no intervention is necessary. Once she recovers from respiratory exacerbation of COPD, we will evaluate her in the office and perform outpatient stress testing. For now, I would pursue with bronchodilator therapy, seek pulmonary evaluation. I will put her on subcu heparin q.12 hours and continue her current medications. I discussed my thoughts in detail with the patient. Thank you very much for the consult. CHEN / BRANDON: [id number] /
--- NOTE | 2020-03-25 16:26 | P.CNPUL ---
History of Present Illness Consult date: 03/25/20 Requesting physician: Kamran Lara Reason for consult: chest pain Chief complaint: Diarrhea and chest pain. History of present illness: This is a 54-year-old female with history of multiple medical problems including COPD, type 2 diabetes, hypertension, dyslipidemia, degenerative joint disease, patient presented to the ER with 4 days history of diarrhea, and right sided chest wall pain. No shortness of breath, no cough, no wheezing, no fever, no chills, no hemoptysis. Chest x-ray was read by the radiologist as questionable interstitial phase pulmonary edema, however I reviewed the chest x-ray, and I felt the chest x-ray was perfectly normal. Patient was admitted, covid 19 testing was ordered. And I was asked to see her on consultation. Patient denies any headache, denies any nasal congestion, denies any sore throat, again her symptoms are mostly symptoms of diarrhea, and symptoms of right sided chest wall pain with extreme tenderness on palpation on physical examination. WBC count is 3.4 hemoglobin is 10.1. Electrolytes are normal, however her renal functioning showed a BUN of 17 and creatinine of 1.2. And the patient seems to have a picture of hyperchloremic non-anion gap metabolic acidosis. This is most likely diarrhea related. Review of Systems Constitutional: No fever no chills no weight loss. HEENT: Negative. Pulmonary: Right-sided vague chest wall pain. GI: As noted in HPI mostly diarrhea. And some vague abdominal discomfort. Genitourinary: No dysuria frequency urgency or hematuria. Musculoskeletal: Negative. Endocrine: Negative. Hematologic: Negative. Psychiatric: Negative. Neurologic: Negative. Skin: Negative. Past Medical History Past Medical History: Asthma, COPD, Diabetes Mellitus, Hyperlipidemia, Hypertension, Neurologic Disorder, Osteoarthritis (OA), Thyroid Disorder History of Any Multi-Drug Resistant Organisms: None Reported Past Surgical History: Section, Hysterectomy Additional Past Surgical History / Comment(s): x 2, ganglion cyst removed from left wrist Past Anesthesia/Blood Transfusion Reactions: No Reported Reaction Past Psychological History: Anxiety, Depression Smoking Status: Former smoker Past Alcohol Use History: None Reported Additional Past Alcohol Use History / Comment(s): Quit 30 years ago Past Drug Use History: None Reported - Past Family History Father Family Medical History: Cancer Additional Family Medical History / Comment(s): brain Mother Family Medical History: Cancer Additional Family Medical History / Comment(s): lung - Medications and Allergies Home Medications Medication Instructions Recorded Confirmed Type Pravastatin Sodium [Pravachol] 40 mg PO DAILY 12/15/14 03/25/20 History Aspirin [Adult Low Dose Aspirin EC] 81 mg PO DAILY 08/22/17 03/25/20 History Cholecalciferol [Vitamin D3] 2,000 unit PO DAILY 08/22/17 03/25/20 History Tow-3 Fatty Acids/Fish Oil [Fish 1,000 mg PO HS 08/22/17 03/25/20 History Oil 1,000 mg Softgel] Ferrous Gluconate 324 mg PO DAILY 09/30/17 03/25/20 History Venlafaxine HCl [Effexor XR] 150 mg PO DAILY 09/30/17 03/25/20 History Ibuprofen 800 mg PO Q6HR PRN #20 tablet 02/16/19 03/25/20 Rx Levothyroxine Sodium [Synthroid] 100 mcg PO DAILY 02/16/19 03/25/20 History Liraglutide [Victoza 2-José] 1.8 mg SQ DAILY 02/16/19 03/25/20 History Magnesium Oxide [Mag-Ox] 400 mg PO BID 02/16/19 03/25/20 History Pioglitazone [Actos] 30 mg PO DAILY 02/16/19 03/25/20 History metFORMIN HCL [Glucophage] 500 mg PO BID 02/16/19 03/25/20 History Albuterol Inhaler [Ventolin Hfa 2 puff INHALATION RT-QID PRN 03/21/20 03/25/20 History Inhaler] Cephalexin [Keflex] 500 mg PO Q6HR 7 Days #28 cap 03/21/20 03/25/20 Rx Dicyclomine [Bentyl] 20 mg PO Q8H PRN 03/21/20 03/25/20 History Fluticasone Nasal [place] [Flonase 1 spray EA NOSTRIL BID 03/21/20 03/25/20 History Nasal [place]] Insulin Glargine,Hum.rec.anlog 52 unit SQ HS 03/21/20 03/25/20 History [Basaglar Kwikpen U-100] Latanoprost/Pf [Latanoprost 0.005% 1 drop BOTH EYES HS 03/21/20 03/25/20 History Eye Drop] Montelukast [Singulair] 10 mg PO HS 03/21/20 03/25/20 History Omeprazole 20 mg PO DAILY 03/21/20 03/25/20 History acetaZOLAMIDE [Diamox Sequels] 500 mg PO BID 03/21/20 03/25/20 History traMADol HCL 50 mg PO TID PRN 03/21/20 03/25/20 History Allergies Allergy/AdvReac Type Severity Reaction Status Date / Time Penicillins Allergy Unknown Verified 03/24/20 17:09 Childhood Sulfa (Sulfonamide Allergy Rash/Hives Verified 03/24/20 17:09 Antibiotics) Physical Exam Vitals: Vital Signs Temp Pulse Pulse Resp BP BP Pulse Ox 03/25/20 16:00 80 20 03/25/20 15:50 85 20 03/25/20 15:00 98 F 85 20 132/64 95 03/25/20 09:00 98.2 F 72 20 109/64 97 03/25/20 08:56 72 03/25/20 08:49 72 03/25/20 03:45 98.0 F 71 18 104/59 95 03/24/20 23:24 98.5 F 66 18 111/67 99 03/24/20 22:53 77 18 102/78 97 03/24/20 21:00 73 18 110/56 98 03/24/20 20:37 75 111/70 99 03/24/20 20:00 80 20 114/84 97 03/24/20 19:22 98.5 F 77 78 18 126/67 98 03/24/20 17:33 80 03/24/20 17:05 98.8 F 80 18 111/73 100 Intake and Output 03/25/20 03/25/20 03/25/20 06:59 14:59 22:59 Intake Total 0 50 Balance 0 50 Intake: Intake, IV Titration 50 Amount cefTRIAXone 1 gm In 50 Sodium Chloride 0.9% 50 ml @ 100 mls/hr IVPB Q12HR [facility] Rx#:[id number] Oral 0 Other: Voiding Method Toilet Toilet Toilet # Voids 2 0 2 # Bowel Movements 2 2 Weight 98.883 kg Physical Exam: Revealed 54-year-old female in no distress. Head: Atraumatic, normocephalic. HEENT:[Neck is supple.] [No neck masses.] [No thyromegaly.] [No JVD.] PERRLA, EOMI, neck tightness. Chest: [Clear throughout, no crackles, no rhonchi, no wheezes.] Tenderness over the anterior chest wall right side noted. Chest pain is reproducible. Cardiac Exam: [Normal S1 and S2, no S3 gallop, no murmur.] Abdomen: Obese, [Soft, nontender, no megaly, no rebound, no guarding, normal bowel sounds.] Extremities: [No clubbing, no edema, no cyanosis.] Neurological Exam: [No focal neurologic deficit.] Alert and oriented 3. Psychiatric: Normal mood, affect and normal mental status examination. Results - Laboratory Findings CBC and BMP: 03/25/20 03:29 03/25/20 03:29 PT/INR, D-dimer PT 9.8 sec (9.0-12.0) 03/24/20 17:42 INR 0.9 (<1.2) 03/24/20 17:42 Abnormal lab findings: Abnormal Labs 03/24/20 03/24/20 03/24/20 17:42 17:42 17:42 WBC RBC Hgb 11.0 L Hct MCHC 30.6 L Lymphocytes # 0.5 L Chloride 112 H Carbon Dioxide 14 L Creatinine 1.30 H Glucose 104 H POC Glucose (mg/dL) Urine Protein Trace H Urine Ketones 1+ H Ur Leukocyte Esterase Large H Urine WBC 23 H Urine Mucus Rare H 03/25/20 03/25/20 03/25/20 00:49 03:29 03:29 WBC 3.4 L RBC 3.68 L Hgb 10.1 L Hct 32.6 L MCHC Lymphocytes # 0.9 L Chloride 118 H Carbon Dioxide 13 L Creatinine 1.22 H Glucose 123 H POC Glucose (mg/dL) 143 H Urine Protein Urine Ketones Ur Leukocyte Esterase Urine WBC Urine Mucus 03/25/20 13:12 WBC RBC Hgb Hct MCHC Lymphocytes # Chloride Carbon Dioxide Creatinine Glucose POC Glucose (mg/dL) 116 H Urine Protein Urine Ketones Ur Leukocyte Esterase Urine WBC Urine Mucus - Diagnostic Findings Chest x-ray: image reviewed (Chest x-ray as noted in my HPI.) Assessment and Plan Assessment: Impression: Acute gastroenteritis. Acute hyperchloremic non-anion gap metabolic acidosis. Secondary to diarrhea Atypical chest wall pain. Possible covid 19 infection, however low index of suspicion for covid 19 pneumonitis. History of COPD, presently inactive History of type 2 diabetes. History of hypertension. History of GERD. Recommendation: Continue present supportive care measures Continue IV fluids. Pain control. Await the final results on the Covid in 19 PCR. We'll continue to follow. Time with Patient: Greater than 30
[2020-03-25 18:13] LABS: Glucose,Whole Blood 158 mg/dL (75-99)
[2020-03-25] MEDS: DEXAMETHASONE SOD PHOSPHATE 4 MG/ML 1 ML VIAL IV SCH ×2 (18:15→23:31)
[2020-03-25] MEDS: ASCORBIC ACID 500 MG TAB PO SCH (18:15)
--- NOTE | 2020-03-25 18:34 | ECHOF ---
Referral Reason:Chest pain MEASUREMENTS -------- HEIGHT: 160.0 cm WEIGHT: 98.9 kg BP: 104/59 RVIDd: 3.1 cm (< 3.3) IVSd: 1.0 cm (0.6 - 1.1) LVIDd: 4.5 cm (3.9 - 5.3) LVPWd: 0.9 cm (0.6 - 1.1) IVSs: 1.6 cm LVIDs: 2.5 cm LVPWs: 1.6 cm LA Diam: 3.3 cm (2.7 - 3.8) Ao Diam: 3.5 cm (2.0 - 3.7) AV Cusp: 2.2 cm (1.5 - 2.6) MV EXCURSION: 21.622 mm (> 18.000) MV EF SLOPE: 122 mm/s (70 - 150) EPSS: 0.1 cm MV E Larry: 1.39 m/s MV DecT: 216 ms MV A Larry: 0.80 m/s MV E/A Ratio: 1.74 FINDINGS -------- Sinus rhythm. This was a technically adequate study. The left ventricular size is normal. Left ventricular wall thickness is normal. Overall left vent ricular systolic function is normal with, an EF between 60 - 65 %. The right ventricle is normal in size. Normal LA size by volume 22+/-6 ml/m2. The right atrium is normal in size. Interatrial and interventricular septum intact. The aortic valve is trileaflet, and appears structurally normal. No aortic stenosis or regurgitation. The mitral valve is normal. The tricuspid valve appears structurally normal. There is no pulmonic regurgitation present. The aortic root size is normal. Normal inferior vena cava with normal inspiratory collapse consistent with estimated right atrial pre ssure of 5 mmHg. There is no pericardial effusion. CONCLUSIONS -------- 1. The left ventricular size is normal. 2. Left ventricular wall thickness is normal. 3. Overall left ventricular systolic function is normal with, an EF between 60 - 65 %. 4. There is no pericardial effusion. TEMPLATE CHECKER: ALEX Holcomb
[2020-03-25 21:51] LABS: Glucose,Whole Blood 290 mg/dL (75-99)
[2020-03-25] MEDS: MONTELUKAST 10 MG TAB PO SCH (21:52)
[2020-03-25] MEDS: HEPARIN SODIUM,PORCINE 5,000 UNIT/ML 1 ML VIAL SQ SCH (21:53)
[2020-03-25] MEDS: ONDANSETRON 4 MG/2 ML VIAL IVP PRN (21:58)
[2020-03-26] MEDS: LEVOTHYROXINE 100 MCG TAB PO SCH (06:25)
[2020-03-26] MEDS: DEXAMETHASONE SOD PHOSPHATE 4 MG/ML 1 ML VIAL IV SCH ×4 (06:25→23:36)
[2020-03-26 06:44] LABS: Glucose,Whole Blood 271 mg/dL (75-99)
[2020-03-26] MEDS: traMADol 50 MG TAB PO PRN ×2 (06:45→18:55)
[2020-03-26] MEDS: INSULIN ASPART (NovoLOG) 100 UNIT/ML VIAL SQ SCH ×4 (06:46→21:42)
[2020-03-26] MEDS: ACETAZOLAMIDE 500 MG PO SCH ×2 (08:42→21:55)
[2020-03-26] MEDS: ALBUTEROL HFA INHALER INHALATION PRN ×3 (08:52→19:09)
[2020-03-26 08:56] LABS: Basophils % (A) 1 %; Eosinophils % (A) 0 %; HCT 35.8 % (34.0-46.0); HGB 10.9 gm/dL (11.4-16.0); Hypochromasia Marked; Lymphocytes # (A) 0.4 k/uL (1.0-4.8); Lymphocytes % (A) 16 %; MCH 27.3 pg (25.0-35.0); MCHC 30.4 g/dL (31.0-37.0); MCV 89.8 fL (80.0-100.0); Mean Platelet Volume 8.6; Monocytes # (A) 0.1 k/uL (0-1.0); Monocytes % (A) 4 %; Neutrophils % (A) 79 %; Platelet Count 177 k/uL (150-450); RBC 3.99 m/uL (3.80-5.40); RDW 14.7 % (11.5-15.5); WBC 2.5 k/uL (3.8-10.6)
[2020-03-26] MEDS: ASPIRIN 81 MG PO SCH (09:02)
[2020-03-26] MEDS: HEPARIN SODIUM,PORCINE 5,000 UNIT/ML 1 ML VIAL SQ SCH ×2 (09:02→21:24)
[2020-03-26] MEDS: FLUTICASONE 50MCG/SPRAY NASAL 16GM EA NOSTRIL SCH ×2 (09:02→21:42)
[2020-03-26] MEDS: ASCORBIC ACID 500 MG TAB PO SCH (09:02)
[2020-03-26] MEDS: PRAVASTATIN SODIUM 40 MG TAB PO SCH (09:03)
[2020-03-26] MEDS: MAGNESIUM OXIDE 400 MG TAB PO SCH ×2 (09:03→21:24)
[2020-03-26] MEDS: CHOLECALCIFEROL 1,000 UNIT TAB PO SCH (09:03)
[2020-03-26] MEDS: PANTOPRAZOLE 40 MG/10 ML VIAL IV SCH (09:03)
[2020-03-26] MEDS: VENLAFAXINE HCL ER 150 MG CAP PO SCH (09:04)
--- NOTE | 2020-03-26 09:13 | P.PN ---
Subjective Progress Note Date: 03/26/20 This is a 54-year-old female patient who presented to the ER with complaints of chest pain, shortness breath and diarrhea. Patient reports the chest pain has been occurring for approximately 4 days. Patient reports occasional cough. Past medical history includes asthma COPD, diabetes mellitus, hyperlipidemia, hypertension, osteoarthritis, thyroid disorder, anxiety and depression. Troponins negative 3. C. diff negative stool cultures negative. COVID test has been ordered. Chest x-ray completed showing interstitial phase pulmonary edema. Cardiology and pulmonary services have been consulted. At this time patient denies chest pain. Patient does report intermittent shortness of breath and cough. Patient denies abdominal pain nausea or vomiting. Patient denies any urinary burning or frequency. On 03/26/2020 patient was seen and examined on the medical floor she is alert and oriented 3 in no distress she is complaining of chest pain and shortness of breath and cough otherwise she denies any complaints there is no fever or chills no headache or dizziness no palpitation no nausea or vomiting no abdominal pain no diarrhea no blood in the stools no burning with urination no frequency or urgency and no hematuria. Last night testing for Covid 19 was reported as positive from outside lab testing was done on the day of admission, patient was started on IV Decadron, the floor nurse was notified and she was asked to notify pulmonary. Objective - Vital Signs Vital signs: Vital Signs Temp 97.8 F 03/25/20 20:20 Pulse 64 03/25/20 20:20 Resp 20 03/25/20 20:20 BP 115/72 03/25/20 20:20 Pulse Ox 95 03/25/20 20:20 Intake & Output 03/25/20 03/25/20 03/26/20 06:59 18:59 06:59 Intake Total 50 Balance 50 Weight 98.883 kg Intake: Intake, IV Titration 50 Amount cefTRIAXone 1 gm In 50 Sodium Chloride 0.9% 50 ml @ 100 mls/hr IVPB Q12HR [facility] Rx#:[id number] Oral 0 Other: Voiding Method Toilet Toilet Toilet # Voids 2 2 1 # Bowel Movements 2 2 1 - Exam In general patient is alert and oriented 3 in no distress HEENT head normocephalic and atraumatic Neck is supple no JVD no goiter no lymphadenopathy Chest exam reveals a scattered crackles bilaterally no wheezing Cardiac exam reveals regular heart sounds S1 and S2 no gallops no murmurs Abdomen is soft nontender no organomegaly with normal bowel sounds Extremity exam reveals no edema no cyanosis or clubbing - Labs CBC & Chem 7: 03/26/20 08:41 03/25/20 03:29 Labs: Abnormal Lab Results - Last 24 Hours (Table) 03/25/20 03/25/20 03/25/20 Range/Units 13:12 18:11 21:50 POC Glucose (mg/dL) 116 H 158 H 290 H (75-99) mg/dL Assessment and Plan Assessment: 1. Chest pain. Troponins negative 3. Cardiology service is consulted 2. Shortness of breath. Chest x-ray completed showing interstitial phase pulmonary edema. Pulmonary services have been consulted. COVID test positive from outside lab done on the day of admission 3. Acute diarrhea. Stool cultures negative. C. diff negative. 4. Urinary tract infection urine culture ordered. Patient started on Rocephin 5. History of COPD 6. History of diabetes mellitus type 2 Homans resumed 7. History of hyperlipidemia maintained on statin 8. Essential hypertension. 9. History of anxiety and depression DVT prophylaxis heparin. GI prophylaxis Protonix Pulmonary and cardiology service consulted Patient started on IV Decadron pulmonary were notified of positive Covid test Rocephin for UTI
[2020-03-26 09:15] LABS: Total Bilirubin 0.6 mg/dL (0.2-1.3)
[2020-03-26 09:32] LABS: Albumin 3.9 g/dL (3.5-5.0); Potassium 5.4 mmol/L (3.5-5.1)
[2020-03-26] MEDS: DICYCLOMINE 20 MG TAB PO PRN (10:49)
[2020-03-26] MEDS: IBUPROFEN 800 MG TAB PO PRN ×2 (10:49→21:41)
--- NOTE | 2020-03-26 11:54 | XR ---
EXAMINATION TYPE: XR chest 1V portable DATE OF EXAM: 03/26/2020 CLINICAL HISTORY: cough. TECHNIQUE: Portable frontal view of the chest. COMPARISON: 03/24/2020 chest radiograph FINDINGS: The cardiomediastinal silhouette is within normal limits for size. Redemonstrated intersti tial edema. No pleural effusion, or pneumothorax seen. The osseous structures are intact. IMPRESSION: Redemonstrated increased interstitial markings, likely interstitial edema.
[2020-03-26 12:52] LABS: Glucose,Whole Blood 295 mg/dL (75-99)
--- NOTE | 2020-03-26 13:55 | P.PN ---
Subjective Progress Note Date: 03/26/20 Principal diagnosis: covid 19 infection with gastroenteritis/colitis. This is a 54-year-old female with history of multiple medical problems including COPD, type 2 diabetes, hypertension, dyslipidemia, degenerative joint disease, patient presented to the ER with 4 days history of diarrhea, and right sided chest wall pain. No shortness of breath, no cough, no wheezing, no fever, no chills, no hemoptysis. Chest x-ray was read by the radiologist as questionable interstitial phase pulmonary edema, however I reviewed the chest x-ray, and I felt the chest x-ray was perfectly normal. Patient was admitted, covid 19 testing was ordered. And I was asked to see her on consultation. Patient denies any headache, denies any nasal congestion, denies any sore throat, again her symptoms are mostly symptoms of diarrhea, and symptoms of right sided chest wall pain with extreme tenderness on palpation on physical examination. WBC count is 3.4 hemoglobin is 10.1. Electrolytes are normal, however her renal functioning showed a BUN of 17 and creatinine of 1.2. And the patient seems to have a picture of hyperchloremic non-anion gap metabolic acidosis. This is most likely diarrhea related. Patient was reevaluated today on 03/26/20, feeling much better, denies any pulmonary symptoms, her GI symptoms are significantly improved. No further episodes of diarrhea, no abdominal pain. She has occasional cough, and her chest x-ray is basically unremarkable. Patient tested positive for covid 19, but she does not have classic pulmonary symptoms. Again her symptoms are mostly GI in nature. WBC count is 2.5 hemoglobin is 10.9 electrolytes are normal bicarb remains low and the patient continues to have hyperchloremia. Objective - Vital Signs Vital signs: Vital Signs Temp 98.0 F 03/26/20 09:00 Pulse 59 L 03/26/20 09:00 Resp 18 03/26/20 09:00 BP 139/80 03/26/20 09:00 Pulse Ox 93 L 03/26/20 09:00 Intake & Output 03/25/20 03/26/20 03/26/20 18:59 06:59 18:59 Intake Total 50 300 Balance 50 300 Intake: Intake, IV Titration 50 Amount cefTRIAXone 1 gm In 50 Sodium Chloride 0.9% 50 ml @ 100 mls/hr IVPB Q12HR [facility] Rx#:[id number] Oral 0 300 Other: Voiding Method Toilet Toilet Toilet # Voids 2 1 # Bowel Movements 2 1 - Exam Physical Exam: Revealed 54-year-old female in no distress. Head: Atraumatic, normocephalic. HEENT:[Neck is supple.] [No neck masses.] [No thyromegaly.] [No JVD.] PERRLA, EOMI, neck tightness. Chest: [Clear throughout, no crackles, no rhonchi, no wheezes.] Tenderness over the anterior chest wall right side noted. Chest pain is reproducible. Cardiac Exam: [Normal S1 and S2, no S3 gallop, no murmur.] Abdomen: Obese, [Soft, nontender, no megaly, no rebound, no guarding, normal bowel sounds.] Extremities: [No clubbing, no edema, no cyanosis.] Neurological Exam: [No focal neurologic deficit.] Alert and oriented 3. Psychiatric: Normal mood, affect and normal mental status examination. - Labs CBC & Chem 7: 03/26/20 08:41 03/26/20 08:41 Labs: Abnormal Lab Results - Last 24 Hours (Table) 03/25/20 03/25/20 03/26/20 Range/Units 18:11 21:50 06:42 WBC (3.8-10.6) k/uL Hgb (11.4-16.0) gm/dL MCHC (31.0-37.0) g/dL Lymphocytes # (1.0-4.8) k/uL Potassium (3.5-5.1) mmol/L Chloride (98-107) mmol/L Carbon Dioxide (22-30) mmol/L BUN (7-17) mg/dL Glucose (74-99) mg/dL POC Glucose (mg/dL) 158 H 290 H 271 H (75-99) mg/dL 03/26/20 03/26/20 03/26/20 Range/Units 08:41 08:41 12:51 WBC 2.5 L (3.8-10.6) k/uL Hgb 10.9 L (11.4-16.0) gm/dL MCHC 30.4 L (31.0-37.0) g/dL Lymphocytes # 0.4 L (1.0-4.8) k/uL Potassium 5.4 H (3.5-5.1) mmol/L Chloride 116 H (98-107) mmol/L Carbon Dioxide 15 L (22-30) mmol/L BUN 19 H (7-17) mg/dL Glucose 278 H (74-99) mg/dL POC Glucose (mg/dL) 295 H (75-99) mg/dL Assessment and Plan Assessment: Impression: Acute gastroenteritis. Most likely related to covid 19 infection. Acute hyperchloremic non-anion gap metabolic acidosis. Secondary to diarrhea Atypical chest wall pain. No significant pulmonary symptoms related to her Covid 19 infection. History of COPD, presently inactive History of type 2 diabetes. History of hypertension. History of GERD. Recommendation: Continue present supportive care measures Continue IV fluids. Pain control. Possible discharge in the next 24 hours. No need to start the patient on remdesivir Will follow. Time with Patient: Less than 30
[2020-03-26 17:13] LABS: Glucose,Whole Blood 282 mg/dL (75-99)
[2020-03-26] MEDS: MONTELUKAST 10 MG TAB PO SCH (21:24)
[2020-03-26] MEDS: INSULIN DETEMIR (LEVEMIR) 100 UNIT/ML SYR SQ SCH (21:24)
[2020-03-26 21:39] LABS: Glucose,Whole Blood 347 mg/dL (75-99)
[2020-03-26] MEDS: LATANOPROST 0.005% OPHTH DROPS 2.5 ML BTL BOTH EYES SCH (23:27)
[2020-03-27] MEDS: LEVOTHYROXINE 100 MCG TAB PO SCH (06:33)
[2020-03-27] MEDS: DEXAMETHASONE SOD PHOSPHATE 4 MG/ML 1 ML VIAL IV SCH ×4 (06:34→23:05)
[2020-03-27 06:50] LABS: Glucose,Whole Blood 347 mg/dL (75-99)
[2020-03-27] MEDS: traMADol 50 MG TAB PO PRN ×2 (06:52→16:44)
[2020-03-27] MEDS: INSULIN ASPART (NovoLOG) 100 UNIT/ML VIAL SQ SCH ×4 (06:52→21:12)
[2020-03-27 06:57] LABS: Basophils % (A) 0 %; Eosinophils % (A) 0 %; HCT 33.3 % (34.0-46.0); HGB 10.3 gm/dL (11.4-16.0); Hypochromasia Marked; Lymphocytes # (A) 0.7 k/uL (1.0-4.8); Lymphocytes % (A) 11 %; MCH 27.5 pg (25.0-35.0); MCHC 30.9 g/dL (31.0-37.0); MCV 88.9 fL (80.0-100.0); Mean Platelet Volume 8.9; Monocytes # (A) 0.3 k/uL (0-1.0); Monocytes % (A) 4 %; Neutrophils # (A) 5.7 k/uL (1.3-7.7); Neutrophils % (A) 84 %; Platelet Count 195 k/uL (150-450); RBC 3.74 m/uL (3.80-5.40); RDW 14.6 % (11.5-15.5); WBC 6.8 k/uL (3.8-10.6)
[2020-03-27 07:07] LABS: Albumin 3.5 g/dL (3.5-5.0); Calcium 9.1 mg/dL (8.4-10.2); Potassium 5.2 mmol/L (3.5-5.1); Total Bilirubin 0.3 mg/dL (0.2-1.3); Total Protein 6.2 g/dL (6.3-8.2)
[2020-03-27] MEDS: PRAVASTATIN SODIUM 40 MG TAB PO SCH (08:08)
[2020-03-27] MEDS: HEPARIN SODIUM,PORCINE 5,000 UNIT/ML 1 ML VIAL SQ SCH ×2 (08:08→21:14)
[2020-03-27] MEDS: PANTOPRAZOLE 40 MG TABLET PO SCH (08:09)
[2020-03-27] MEDS: VENLAFAXINE HCL ER 150 MG CAP PO SCH (08:09)
[2020-03-27] MEDS: CHOLECALCIFEROL 1,000 UNIT TAB PO SCH (08:09)
[2020-03-27] MEDS: ASPIRIN 81 MG PO SCH (08:09)
[2020-03-27] MEDS: ASCORBIC ACID 500 MG TAB PO SCH (08:09)
[2020-03-27] MEDS: MAGNESIUM OXIDE 400 MG TAB PO SCH ×2 (08:09→21:13)
[2020-03-27] MEDS: FLUTICASONE 50MCG/SPRAY NASAL 16GM EA NOSTRIL SCH ×2 (08:10→21:14)
[2020-03-27] MEDS: ACETAZOLAMIDE 500 MG PO SCH ×2 (08:26→21:24)
[2020-03-27] MEDS: ALBUTEROL HFA INHALER INHALATION PRN ×4 (09:08→19:20)
[2020-03-27 12:26] LABS: Glucose,Whole Blood 386 mg/dL (75-99)
[2020-03-27] MEDS: IBUPROFEN 800 MG TAB PO PRN ×2 (12:35→21:29)
[2020-03-27 16:39] LABS: Glucose,Whole Blood 309 mg/dL (75-99)
[2020-03-27 21:10] LABS: Glucose,Whole Blood 377 mg/dL (75-99)
[2020-03-27] MEDS: INSULIN DETEMIR (LEVEMIR) 100 UNIT/ML SYR SQ SCH (21:12)
[2020-03-27] MEDS: MONTELUKAST 10 MG TAB PO SCH (21:13)
[2020-03-27] MEDS: LATANOPROST 0.005% OPHTH DROPS 2.5 ML BTL BOTH EYES SCH (21:27)
[2020-03-28] MEDS: ALBUTEROL HFA INHALER INHALATION PRN ×4 (00:35→21:06)
[2020-03-28] MEDS: DEXAMETHASONE SOD PHOSPHATE 4 MG/ML 1 ML VIAL IV SCH ×4 (06:42→23:18)
[2020-03-28] MEDS: LEVOTHYROXINE 100 MCG TAB PO SCH (06:42)
[2020-03-28 06:51] LABS: Glucose,Whole Blood 409 mg/dL (75-99)
[2020-03-28] MEDS: INSULIN ASPART (NovoLOG) 100 UNIT/ML VIAL SQ SCH ×4 (06:53→21:08)
[2020-03-28] MEDS: CHOLECALCIFEROL 1,000 UNIT TAB PO SCH (08:12)
[2020-03-28] MEDS: PRAVASTATIN SODIUM 40 MG TAB PO SCH (08:12)
[2020-03-28] MEDS: VENLAFAXINE HCL ER 150 MG CAP PO SCH (08:12)
[2020-03-28] MEDS: PANTOPRAZOLE 40 MG TABLET PO SCH (08:12)
[2020-03-28] MEDS: ASCORBIC ACID 500 MG TAB PO SCH (08:12)
[2020-03-28] MEDS: MAGNESIUM OXIDE 400 MG TAB PO SCH ×2 (08:12→21:09)
[2020-03-28] MEDS: ASPIRIN 81 MG PO SCH (08:12)
[2020-03-28] MEDS: HEPARIN SODIUM,PORCINE 5,000 UNIT/ML 1 ML VIAL SQ SCH ×2 (08:13→21:08)
[2020-03-28] MEDS: ACETAZOLAMIDE 500 MG PO SCH ×2 (08:13→20:02)
[2020-03-28] MEDS: FLUTICASONE 50MCG/SPRAY NASAL 16GM EA NOSTRIL SCH ×2 (08:13→21:08)
[2020-03-28] MEDS: ONDANSETRON 4 MG/2 ML VIAL IVP PRN ×2 (08:26→21:09)
--- NOTE | 2020-03-28 10:37 | CDI ---
Documentation Clarification Form Date: 03/28/2020 10:29:13 AM From: Mary Jo Perez RN, CCDS Admit Date: 03/26/2020 03:02:00 PM Patient Name: Claudia Wadsworth Visit Number: [id number] ATTENTION: The Clinical Documentation Specialists (CDI) and [facility] Coding Staff appreciate your assistance in clarifying documentation. Please respond to the clarification below the line at the bottom and electronically sign. The CDI & [facility] Coding staff will review the response and follow-up if needed. Please note: Queries are made part of the Legal Health Record. If you have any questions, please contact the author of this message via ITS. Dr. Kamran Lara The patient is noted to have an elevated BUN and Creatinine w/o any supporting clinical diagnosis. Please provide significance. History/Risk Factors: 10/24/2019 Patients baseline BUN/CR/GFR: 23/1.49/40 DM, HTN Clinical Indicators: Current BUN: 16///30 Cr: 1.3/1.22/1.04/1.37 GFR: 47/50/61/44 Treatment: Acetazolamide 500 mg PO BID 03/24 0.9% NS IVF bolus 1 L In order to capture the severity of condition, please clarify if the condition signifies: Acute renal failure, Please specify etiology (if known): Cortical Necrosis Medullary Necrosis Tubular Necrosis Acute kidney injury Acute on chronic renal failure CKD Stage 1 GFR >90 CKD Stage 2 GFR 60-89 CKD Stage 3 GFR 30-59 CKD Stage 4 GFR 15-29 Chronic renal failure/Chronic Kidney disease (CKD) please stage (if known): CKD Stage 1 GFR >90 CKD Stage 2 GFR 60-89 CKD Stage 3 GFR 30-59 CKD Stage 4 GFR 15-29 Other, please specify Unable to determine (Last Revision: August 2017) acute on chronic stage 3 MTDD
[2020-03-28 12:08] LABS: Glucose,Whole Blood 253 mg/dL (75-99)
[2020-03-28 15:21] LABS: C Reactive Protein 27.6 mg/L (<10.0)
[2020-03-28 17:16] LABS: Glucose,Whole Blood 202 mg/dL (75-99)
[2020-03-28] MEDS: IBUPROFEN 800 MG TAB PO PRN ×2 (17:18→23:56)
--- NOTE | 2020-03-28 17:24 | XR ---
EXAMINATION TYPE: XR chest 1V portable DATE OF EXAM: 03/28/2020 COMPARISON: 03/26/2020 HISTORY: Short of breath TECHNIQUE: FINDINGS: There is pulmonary interstitial edema. Heart is borderline enlarged. There are chest leads. There is no pleural effusion. IMPRESSION: There is mild pulmonary interstitial edema that is new compared to old exam. No pulmonary consolidation.
--- NOTE | 2020-03-28 18:01 | P.PN ---
Subjective Progress Note Date: 03/27/20 This is a 54-year-old female patient who presented to the ER with complaints of chest pain, shortness breath and diarrhea. Patient reports the chest pain has been occurring for approximately 4 days. Patient reports occasional cough. Past medical history includes asthma COPD, diabetes mellitus, hyperlipidemia, hypertension, osteoarthritis, thyroid disorder, anxiety and depression. Troponins negative 3. C. diff negative stool cultures negative. COVID test has been ordered. Chest x-ray completed showing interstitial phase pulmonary edema. Cardiology and pulmonary services have been consulted. At this time patient denies chest pain. Patient does report intermittent shortness of breath and cough. Patient denies abdominal pain nausea or vomiting. Patient denies any urinary burning or frequency. On 03/26/2020 patient was seen and examined on the medical floor she is alert and oriented 3 in no distress she is complaining of chest pain and shortness of breath and cough otherwise she denies any complaints there is no fever or chills no headache or dizziness no palpitation no nausea or vomiting no abdominal pain no diarrhea no blood in the stools no burning with urination no frequency or urgency and no hematuria. Last night testing for Covid 19 was reported as positive from outside lab testing was done on the day of admission, patient was started on IV Decadron, the floor nurse was notified and she was asked to notify pulmonary. on 03/27/2020 patient was seen and examined on the medical floor she is alert and oriented 3 she is still complaining of shortness of breath and cough otherwise she denies any other symptoms there is no fever or chills no headache or dizziness no chest pain no nausea or vomiting no abdominal pain no diarrhea and no urinary symptoms Objective - Vital Signs Vital signs: Vital Signs Temp 97.9 F 03/26/20 20:35 Pulse 56 L 03/26/20 20:35 Resp 18 03/26/20 20:35 BP 128/67 03/26/20 20:35 Pulse Ox 95 03/26/20 20:35 Intake & Output 03/26/20 03/26/20 03/27/20 06:59 18:59 06:59 Intake Total 900 Balance 900 Intake: Oral 900 Other: Voiding Method Toilet Toilet Toilet # Voids 1 3 1 # Bowel Movements 1 - Exam In general patient is alert and oriented 3 in no distress HEENT head normocephalic and atraumatic Neck is supple no JVD no goiter no lymphadenopathy Chest exam reveals a scattered crackles bilaterally no wheezing Cardiac exam reveals regular heart sounds S1 and S2 no gallops no murmurs Abdomen is soft nontender no organomegaly with normal bowel sounds Extremity exam reveals no edema no cyanosis or clubbing - Labs CBC & Chem 7: 03/27/20 06:36 03/27/20 06:36 Labs: Abnormal Lab Results - Last 24 Hours (Table) 03/26/20 03/26/20 03/26/20 Range/Units 06:42 08:41 08:41 WBC 2.5 L (3.8-10.6) k/uL Hgb 10.9 L (11.4-16.0) gm/dL MCHC 30.4 L (31.0-37.0) g/dL Lymphocytes # 0.4 L (1.0-4.8) k/uL Potassium 5.4 H (3.5-5.1) mmol/L Chloride 116 H (98-107) mmol/L Carbon Dioxide 15 L (22-30) mmol/L BUN 19 H (7-17) mg/dL Glucose 278 H (74-99) mg/dL POC Glucose (mg/dL) 271 H (75-99) mg/dL 03/26/20 03/26/20 03/26/20 Range/Units 12:51 17:12 21:37 WBC (3.8-10.6) k/uL Hgb (11.4-16.0) gm/dL MCHC (31.0-37.0) g/dL Lymphocytes # (1.0-4.8) k/uL Potassium (3.5-5.1) mmol/L Chloride (98-107) mmol/L Carbon Dioxide (22-30) mmol/L BUN (7-17) mg/dL Glucose (74-99) mg/dL POC Glucose (mg/dL) 295 H 282 H 347 H (75-99) mg/dL Microbiology - Last 24 Hours (Table) 03/24/20 18:03 Stool Culture - Preliminary Stool Pseudomonas aeruginosa 03/26/20 12:50 Nasal Screen MRSA/MSSA - Preliminary Nasal Swab Assessment and Plan Assessment: 1. Chest pain. Troponins negative 3. Cardiology service is consulted 2. Shortness of breath. Chest x-ray completed showing interstitial phase pul monary edema. Pulmonary services have been consulted. COVID test positive from outside lab done on the day of admission 3. Acute diarrhea. Stool cultures negative. C. diff negative. 4. Urinary tract infection urine culture ordered. Patient started on Rocephin 5. History of COPD 6. History of diabetes mellitus type 2 Homans resumed 7. History of hyperlipidemia maintained on statin 8. Essential hypertension. 9. History of anxiety and depression DVT prophylaxis heparin. GI prophylaxis Protonix Pulmonary and cardiology service consulted Patient started on IV Decadron pulmonary were notified of positive Covid test Rocephin for UTI
--- NOTE | 2020-03-28 18:02 | P.PN ---
Subjective Progress Note Date: 03/28/20 This is a 54-year-old female patient who presented to the ER with complaints of chest pain, shortness breath and diarrhea. Patient reports the chest pain has been occurring for approximately 4 days. Patient reports occasional cough. Past medical history includes asthma COPD, diabetes mellitus, hyperlipidemia, hypertension, osteoarthritis, thyroid disorder, anxiety and depression. Troponins negative 3. C. diff negative stool cultures negative. COVID test has been ordered. Chest x-ray completed showing interstitial phase pulmonary edema. Cardiology and pulmonary services have been consulted. At this time patient denies chest pain. Patient does report intermittent shortness of breath and cough. Patient denies abdominal pain nausea or vomiting. Patient denies any urinary burning or frequency. On 03/26/2020 patient was seen and examined on the medical floor she is alert and oriented 3 in no distress she is complaining of chest pain and shortness of breath and cough otherwise she denies any complaints there is no fever or chills no headache or dizziness no palpitation no nausea or vomiting no abdominal pain no diarrhea no blood in the stools no burning with urination no frequency or urgency and no hematuria. Last night testing for Covid 19 was reported as positive from outside lab testing was done on the day of admission, patient was started on IV Decadron, the floor nurse was notified and she was asked to notify pulmonary. on 03/27/2020 patient was seen and examined on the medical floor she is alert and oriented 3 she is still complaining of shortness of breath and cough otherwise she denies any other symptoms there is no fever or chills no headache or dizziness no chest pain no nausea or vomiting no abdominal pain no diarrhea and no urinary symptoms on 03/28/2020 patient is alert and oriented 3 she is complaining of cough and shortness of breath she has occasional chest pain on the right side of her chest otherwise she denies any complaints there is no fever or chills no headache or dizziness no nausea or vomiting no abdominal pain no diarrhea and no urinary symptoms Objective - Vital Signs Vital signs: Vital Signs Temp 97.9 F 03/28/20 08:24 Pulse 48 L 03/28/20 08:24 Resp 14 03/28/20 08:24 BP 132/78 03/28/20 08:24 Pulse Ox 95 03/28/20 08:24 Intake & Output 03/27/20 03/28/20 03/28/20 18:59 06:59 18:59 Intake Total 900 150 Balance 900 150 Intake: Oral 900 150 Other: Voiding Method Toilet Toilet # Voids 2 1 1 - Exam In general patient is alert and oriented 3 in no distress HEENT head normocephalic and atraumatic Neck is supple no JVD no goiter no lymphadenopathy Chest exam reveals a scattered crackles bilaterally no wheezing Cardiac exam reveals regular heart sounds S1 and S2 no gallops no murmurs Abdomen is soft nontender no organomegaly with normal bowel sounds Extremity exam reveals no edema no cyanosis or clubbing - Labs CBC & Chem 7: 03/27/20 06:36 03/27/20 06:36 Labs: Abnormal Lab Results - Last 24 Hours (Table) 03/27/20 03/28/20 03/28/20 Range/Units 21:08 06:50 12:01 POC Glucose (mg/dL) 377 H 409 H 253 H (75-99) mg/dL Lactate Dehydrogenase (313-618) U/L C-Reactive Protein (<10.0) mg/L 03/28/20 Range/Units 14:31 POC Glucose (mg/dL) (75-99) mg/dL Lactate Dehydrogenase 1070 H (313-618) U/L C-Reactive Protein 27.6 H (<10.0) mg/L Microbiology - Last 24 Hours (Table) 03/24/20 18:03 Stool Culture - Final Stool Pseudomonas aeruginosa 03/26/20 12:50 Nasal Screen MRSA/MSSA - Final Nasal Swab Staphylococcus aureus,Not MRSA Assessment and Plan Assessment: 1. Chest pain. Troponins negative 3. Cardiology service is consulted 2. Shortness of breath. Chest x-ray completed showing interstitial phase pulmonary edema. Pulmonary services have been consulted. COVID test positive from outside lab done on the day of admission 3. Acute diarrhea. Stool cultures negative. C. diff negative. 4. Urinary tract infection urine culture ordered. Patient started on Rocephin 5. History of COPD 6. History of diabetes mellitus type 2 Homans resumed 7. History of hyperlipidemia maintained on statin 8. Essential hypertension. 9. History of anxiety and depression DVT prophylaxis heparin. GI prophylaxis Protonix Pulmonary and cardiology service consulted Patient started on IV Decadron pulmonary were notified of positive Covid test Rocephin for UTI
[2020-03-28 20:13] LABS: Glucose,Whole Blood 255 mg/dL (75-99)
[2020-03-28] MEDS: LATANOPROST 0.005% OPHTH DROPS 2.5 ML BTL BOTH EYES SCH (21:09)
[2020-03-28] MEDS: INSULIN DETEMIR (LEVEMIR) 100 UNIT/ML SYR SQ SCH (21:09)
[2020-03-28] MEDS: MONTELUKAST 10 MG TAB PO SCH (21:09)
--- NOTE | 2020-03-28 22:34 | PN ---
PROGRESS NOTE PULMONARY/CRITICAL CARE PROGRESS NOTE: DATE OF SERVICE: 03/28/2020 This is a 54-year-old female who was admitted back on March 24. She has a history of acute gastroenteritis secondary to COVID-19 infection and also has been complaining of shortness of breath, chest congestion and mild hemoptysis. In addition, the patient has a hyperchloremic, [id number] metabolic acidosis secondary to diarrhea, atypical chest wall pain, COPD, type 2 diabetes, hypertension, GERD and obesity. Apparently yesterday when she was seen by the group, she was feeling much better. Today she does not feel as well. She is complaining of chest congestion, cough, shortness of breath, and she is spitting up a small amount of blood. We will have to monitor that. PHYSICAL EXAMINATION: VITAL SIGNS: Current vital signs are reviewed. Temperature 97.9, heart rate 51 beats per minute. Respiratory rate 14, blood pressure 132/78, mean 96, and room-air saturation is 95%. GENERAL APPEARANCE: Appears in no acute distress. No audible wheezing, use of accessory muscles or conversational dyspnea. HEENT: Examination is grossly unremarkable. NECK: Supple. Full range of motion. No adenopathy. Neck veins are flat. CARDIOVASCULAR: Examination reveals regular rhythm and rate. Heart rate 55 to 60 beats per minute. S1, S2 normal. LUNGS: Lungs reveal some mild coarse rhonchi. No wheezes or crackles. Cough is a bit wet and congested. ABDOMEN: Obese. Bowel sounds are heard. EXTREMITIES: Intact. No cyanosis, clubbing or edema. SKIN: Without rash. NEUROLOGIC: Neurologic examination is brief but nonfocal. LABS/IMAGING: Reviewed. From March 28, D-dimer 0.57, glucose 253, LDH 1070 and C-reactive protein 27.6. Microbiologic studies include a nasal screen positive for non-MRSA Staph aureus and a stool culture apparently positive for Pseudomonas aeruginosa. The most recent chest x-ray dated March 26 shows some mild interstitial edema. Medications are reviewed. Everything appears to be appropriate. ASSESSMENT: 1. Acute gastroenteritis, likely related to COVID-19 infection. 2. Worsening pulmonary complaints, including shortness of breath, chest congestion, cough and minimal hemoptysis, which may be related to developing COVID-19 pneumonitis. 3. Hyperchloremic [id number] metabolic acidosis secondary to diarrhea. 4. Atypical chest wall pain. 5. History of chronic obstructive pulmonary disease, mildly active. 6. History of type 2 diabetes. 7. History of hypertension. 8. History of gastroesophageal reflux disease. PLAN: The patient may be developing more in the way of pulmonary complaints. Inflammatory markers were ordered. Additional recommendations and suggestions are forthcoming. A chest x-ray will be ordered. Will continue to follow. Prognosis is guarded. MMODL / IJN: [id number] /
[2020-03-28] MEDS: traMADol 50 MG TAB PO PRN (23:16)
[2020-03-29] MEDS: LEVOTHYROXINE 100 MCG TAB PO SCH (06:32)
[2020-03-29] MEDS: DEXAMETHASONE SOD PHOSPHATE 4 MG/ML 1 ML VIAL IV SCH ×3 (06:32→18:18)
[2020-03-29 06:40] LABS: Glucose,Whole Blood 230 mg/dL (75-99)
[2020-03-29] MEDS: INSULIN ASPART (NovoLOG) 100 UNIT/ML VIAL SQ SCH ×4 (06:41→21:29)
[2020-03-29] MEDS: CHOLECALCIFEROL 1,000 UNIT TAB PO SCH (08:08)
[2020-03-29] MEDS: FLUTICASONE 50MCG/SPRAY NASAL 16GM EA NOSTRIL SCH ×2 (08:08→21:30)
[2020-03-29] MEDS: VENLAFAXINE HCL ER 150 MG CAP PO SCH (08:08)
[2020-03-29] MEDS: PRAVASTATIN SODIUM 40 MG TAB PO SCH (08:08)
[2020-03-29] MEDS: ASCORBIC ACID 500 MG TAB PO SCH (08:08)
[2020-03-29] MEDS: ASPIRIN 81 MG PO SCH (08:08)
[2020-03-29] MEDS: PANTOPRAZOLE 40 MG TABLET PO SCH (08:09)
[2020-03-29] MEDS: HEPARIN SODIUM,PORCINE 5,000 UNIT/ML 1 ML VIAL SQ SCH (08:09)
[2020-03-29] MEDS: MAGNESIUM OXIDE 400 MG TAB PO SCH ×2 (08:09→21:01)
[2020-03-29] MEDS: ALBUTEROL HFA INHALER INHALATION PRN ×4 (09:31→21:16)
[2020-03-29] MEDS: traMADol 50 MG TAB PO PRN ×2 (09:35→18:18)
[2020-03-29] MEDS: ACETAZOLAMIDE 500 MG PO SCH ×2 (09:53→21:31)
[2020-03-29 09:55] LABS: Basophils % (A) 0 %; Eosinophils % (A) 0 %; HCT 33.4 % (34.0-46.0); HGB 10.4 gm/dL (11.4-16.0); Hypochromasia Slight; Lymphocytes # (A) 0.7 k/uL (1.0-4.8); Lymphocytes % (A) 7 %; MCH 26.9 pg (25.0-35.0); MCHC 31.2 g/dL (31.0-37.0); MCV 86.2 fL (80.0-100.0); Mean Platelet Volume 9.3; Monocytes # (A) 0.6 k/uL (0-1.0); Monocytes % (A) 6 %; Neutrophils # (A) 8.4 k/uL (1.3-7.7); Neutrophils % (A) 85 %; Platelet Count 239 k/uL (150-450); RBC 3.87 m/uL (3.80-5.40); RDW 14.5 % (11.5-15.5); WBC 9.9 k/uL (3.8-10.6)
[2020-03-29 10:20] LABS: Albumin 3.6 g/dL (3.5-5.0); Calcium 9.1 mg/dL (8.4-10.2); Potassium 5.2 mmol/L (3.5-5.1); Total Bilirubin 0.5 mg/dL (0.2-1.3); Total Protein 6.5 g/dL (6.3-8.2)
[2020-03-29 11:34] LABS: Glucose,Whole Blood 230 mg/dL (75-99)
--- NOTE | 2020-03-29 16:14 | P.PN ---
Subjective Progress Note Date: 03/29/20 Principal diagnosis: COVID 19 This is a 54-year-old female with history of multiple medical problems including COPD, type 2 diabetes, hypertension, dyslipidemia, degenerative joint disease, patient presented to the ER with 4 days history of diarrhea, and right sided chest wall pain. No shortness of breath, no cough, no wheezing, no fever, no chills, no hemoptysis. Chest x-ray was read by the radiologist as questionable interstitial phase pulmonary edema, however I reviewed the chest x-ray, and I felt the chest x-ray was perfectly normal. Patient was admitted, covid 19 t esting was ordered. And I was asked to see her on consultation. Patient denies any headache, denies any nasal congestion, denies any sore throat, again her symptoms are mostly symptoms of diarrhea, and symptoms of right sided chest wall pain with extreme tenderness on palpation on physical examination. WBC count is 3.4 hemoglobin is 10.1. Electrolytes are normal, however her renal functioning showed a BUN of 17 and creatinine of 1.2. And the patient seems to have a picture of hyperchloremic non-anion gap metabolic acidosis. This is most likely diarrhea related. Patient was reevaluated today on 03/26/20, feeling much better, denies any pulmonary symptoms, her GI symptoms are significantly improved. No further episodes of diarrhea, no abdominal pain. She has occasional cough, and her chest x-ray is basically unremarkable. Patient tested positive for covid 19, but she does not have classic pulmonary symptoms. Again her symptoms are mostly GI in nature. WBC count is 2.5 hemoglobin is 10.9 electrolytes are normal bicarb remains low and the patient continues to have hyperchloremia. On 03/29/2020 patient seen in follow-up on cardiac observation floor, last night patient was noted to be desaturating with a pulse ox into the 70s, she was placed on supplemental oxygen, this morning she is on 1/2 L, and her pulse ox is 90-91%, she is awake and alert, she is sitting up on the edge of the bed, she states she feels short of breath with exertion, at rest does not seem to be in a ny acute distress, loose nonproductive cough. Patient has been afebrile, today's labs have been reviewed, showing white blood cell count of 9.9, hemoglobin is 10.4, potassium is 5.2, chloride is 113, CO2 is 913, B1 is 36, creatinine is 1.24, her LDH was 1070, CRP was 27.6, her troponin was negative, denies any nausea vomiting or diarrhea, she remains on Rocephin for empiric antibiotic coverage, she is on vitamin C supplement, zinc supplement, and IV Decadron. She was found to have stool culture positive for pseudomonal aeruginosa, and nasal swab was positive for staph aureus. D-dimer was 0.57 and patient will be started on Lovenox Objective - Vital Signs Vital signs: Vital Signs Temp 97.7 F 03/29/20 15:00 Pulse 52 L 03/29/20 15:00 Resp 16 03/29/20 15:00 BP 160/79 03/29/20 15:00 Pulse Ox 91 L 03/29/20 15:00 Intake & Output 03/28/20 03/29/20 03/29/20 18:59 06:59 18:59 Intake Total 500 250 Output Total 250 Balance 250 250 Intake: Oral 500 250 Output: Urine 250 Other: Voiding Method Toilet Toilet # Voids 1 1 2 - Exam GENERAL EXAM: Alert, very pleasant, 54-year-old white female, obese, on 1/2 L of oxygen, pulse ox of 90-91%,, comfortable in no apparent distress. HEAD: Normocephalic/atraumatic. EYES: Normal reaction of pupils, equal size. Conjunctiva pink, sclera white. NOSE: Clear with pink turbinates. THROAT: No erythema or exudates. NECK: No masses, no JVD, no thyroid enlargement, no adenopathy. CHEST: No chest wall deformity. Symmetrical expansion. LUNGS: Equal air entry with no crackles, wheeze, rhonchi or dullness. CVS: Regular rate and rhythm, normal S1 and S2, no gallops, no murmurs, no rubs ABDOMEN: Soft, nontender. No hepatosplenomegaly, normal bowel sounds, no guarding or rigidity. EXTREMITIES: No clubbing, no edema, no cyanosis, 2+ pulses and upper and lower extremities. MUSCULOSKELETAL: Muscle strength and tone normal. SPINE: No scoliosis or deformity SKIN: No rashes CENTRAL NERVOUS SYSTEM: Alert and oriented -3. No focal deficits, tone is normal in all 4 extremities. PSYCHIATRIC: Alert and oriented -3. Appropriate affect. Intact judgment and insight. - Labs CBC & Chem 7: 03/29/20 08:57 03/29/20 08:57 Labs: Abnormal Lab Results - Last 24 Hours (Table) 03/28/20 03/28/20 03/29/20 Range/Units 17:12 20:12 06:37 Hgb (11.4-16.0) gm/dL Hct (34.0-46.0) % Neutrophils # (1.3-7.7) k/uL Lymphocytes # (1.0-4.8) k/uL Potassium (3.5-5.1) mmol/L Chloride (98-107) mmol/L Carbon Dioxide (22-30) mmol/L BUN (7-17) mg/dL Creatinine (0.52-1.04) mg/dL Glucose (74-99) mg/dL POC Glucose (mg/dL) 202 H 255 H 230 H (75-99) mg/dL 03/29/20 03/29/20 03/29/20 Range/Units 08:57 08:57 11:33 Hgb 10.4 L (11.4-16.0) gm/dL Hct 33.4 L (34.0-46.0) % Neutrophils # 8.4 H (1.3-7.7) k/uL Lymphocytes # 0.7 L (1.0-4.8) k/uL Potassium 5.2 H (3.5-5.1) mmol/L Chloride 113 H (98-107) mmol/L Carbon Dioxide 19 L (22-30) mmol/L BUN 36 H (7-17) mg/dL Creatinine 1.24 H (0.52-1.04) mg/dL Glucose 176 H (74-99) mg/dL POC Glucose (mg/dL) 230 H (75-99) mg/dL Assessment and Plan Plan: Assessment: #1. Acute gastroenteritis possibly in part related to COVID 19 infection, and stool culture positive for pseudomonas aeruginosa #2. Acute hyperchloremic non-anion gap metabolic acidosis secondary to diarrhea, improving #3. Acute kidney injury related to dehydration, diarrhea #4. Atypical chest wall pain #5. Acute hypoxic rest or a failure related to Covid 19 related infection #6. History of COPD #7. History of hypertension #8. History of GERD/reflux #9. History of type 2 diabetes mellitus Plan: We'll continue current medical treatment, IV steroids, continue zinc and vitamin C, continue empiric antibiotics, patient has developed hypoxemia, and worsening shortness of breath, we'll add Remdesivir, will obtain follow-up inflammatory markers, we'll continue to follow I performed a history & physical examination of the patient and discussed their management with my nurse practitioner, Lisa Pereira. I reviewed the nurse practitioner's note and agree with the documented findings and plan of care. Lung sounds are positive for diminished breath sounds. The findings and the impression was discussed with the patient. I attest to the documentation by the nurse practitioner. Time with Patient: Less than 30
[2020-03-29 18:10] LABS: Glucose,Whole Blood 216 mg/dL (75-99)
[2020-03-29] MEDS: ENOXAPARIN 40 MG/0.4 ML SYRINGE SQ SCH (18:18)
[2020-03-29] MEDS ORDERED: REMDESIVIR (EUA) 200 MG in SODIUM CHLORIDE 0.9% 250 ML IVPB ONE (20:00)
[2020-03-29] MEDS: MONTELUKAST 10 MG TAB PO SCH (21:01)
[2020-03-29 21:24] LABS: Glucose,Whole Blood 252 mg/dL (75-99)
[2020-03-29] MEDS: IBUPROFEN 800 MG TAB PO PRN (21:29)
[2020-03-29] MEDS: INSULIN DETEMIR (LEVEMIR) 100 UNIT/ML SYR SQ SCH (21:29)
[2020-03-29] MEDS: LATANOPROST 0.005% OPHTH DROPS 2.5 ML BTL BOTH EYES SCH (21:31)
[2020-03-30] MEDS: DEXAMETHASONE SOD PHOSPHATE 4 MG/ML 1 ML VIAL IV SCH ×5 (00:08→23:09)
[2020-03-30 06:17] LABS: Glucose,Whole Blood 306 mg/dL (75-99)
[2020-03-30] MEDS: traMADol 50 MG TAB PO PRN ×2 (06:29→23:07)
[2020-03-30] MEDS: INSULIN ASPART (NovoLOG) 100 UNIT/ML VIAL SQ SCH ×4 (06:30→23:15)
[2020-03-30] MEDS: LEVOTHYROXINE 100 MCG TAB PO SCH (06:30)
[2020-03-30 07:58] LABS: Basophils % (A) 0 %; Eosinophils % (A) 0 %; HCT 32.7 % (34.0-46.0); HGB 10.1 gm/dL (11.4-16.0); Hypochromasia Moderate; Lymphocytes # (A) 0.9 k/uL (1.0-4.8); Lymphocytes % (A) 8 %; MCH 26.3 pg (25.0-35.0); MCHC 30.7 g/dL (31.0-37.0); MCV 85.5 fL (80.0-100.0); Mean Platelet Volume 9.1; Monocytes # (A) 0.6 k/uL (0-1.0); Monocytes % (A) 6 %; Neutrophils % (A) 84 %; Platelet Count 264 k/uL (150-450); RBC 3.83 m/uL (3.80-5.40); RDW 14.3 % (11.5-15.5); WBC 10.6 k/uL (3.8-10.6)
[2020-03-30 08:07] LABS: Albumin 3.2 g/dL (3.5-5.0); Calcium 8.9 mg/dL (8.4-10.2); Total Bilirubin 0.4 mg/dL (0.2-1.3); Total Protein 5.8 g/dL (6.3-8.2)
[2020-03-30 08:13] LABS: D-Dimer 0.86 mg/L FEU (<0.60)
[2020-03-30] MEDS: ASCORBIC ACID 500 MG TAB PO SCH (08:13)
[2020-03-30] MEDS: ASPIRIN 81 MG PO SCH (08:13)
[2020-03-30] MEDS: CHOLECALCIFEROL 1,000 UNIT TAB PO SCH (08:14)
[2020-03-30] MEDS: MAGNESIUM OXIDE 400 MG TAB PO SCH ×2 (08:14→23:07)
[2020-03-30] MEDS: PANTOPRAZOLE 40 MG TABLET PO SCH (08:14)
[2020-03-30] MEDS: PRAVASTATIN SODIUM 40 MG TAB PO SCH (08:14)
[2020-03-30] MEDS: VENLAFAXINE HCL ER 150 MG CAP PO SCH (08:14)
[2020-03-30] MEDS: ENOXAPARIN 40 MG/0.4 ML SYRINGE SQ SCH (08:14)
[2020-03-30] MEDS: ALBUTEROL HFA INHALER INHALATION PRN ×4 (09:56→21:18)
[2020-03-30] MEDS: IBUPROFEN 800 MG TAB PO PRN (12:38)
[2020-03-30 12:49] LABS: Glucose,Whole Blood 259 mg/dL (75-99)
--- NOTE | 2020-03-30 14:00 | P.PN ---
Subjective Progress Note Date: 03/30/20 Principal diagnosis: CoVID 19 infection This is a 54-year-old female with history of multiple medical problems including COPD, type 2 diabetes, hypertension, dyslipidemia, degenerative joint disease, patient presented to the ER with 4 days history of diarrhea, and right sided ch est wall pain. No shortness of breath, no cough, no wheezing, no fever, no chills, no hemoptysis. Chest x-ray was read by the radiologist as questionable interstitial phase pulmonary edema, however I reviewed the chest x-ray, and I felt the chest x-ray was perfectly normal. Patient was admitted, covid 19 testing was ordered. And I was asked to see her on consultation. Patient denies any headache, denies any nasal congestion, denies any sore throat, again her symptoms are mostly symptoms of diarrhea, and symptoms of right sided chest wall pain with extreme tenderness on palpation on physical examination. WBC count is 3.4 hemoglobin is 10.1. Electrolytes are normal, however her renal fu nctioning showed a BUN of 17 and creatinine of 1.2. And the patient seems to have a picture of hyperchloremic non-anion gap metabolic acidosis. This is most likely diarrhea related. Patient was reevaluated today on 03/26/20, feeling much better, denies any pulmonary symptoms, her GI symptoms are significantly improved. No further episodes of diarrhea, no abdominal pain. She has occasional cough, and her chest x-ray is basically unremarkable. Patient tested positive for covid 19, but she does not have classic pulmonary symptoms. Again her symptoms are mostly GI in nature. WBC count is 2.5 hemoglobin is 10.9 electrolytes are normal bicarb remains low and the patient continues to have hyperchloremia. On 03/29/2020 patient seen in follow-up on cardiac observation floor, last night patient was noted to be desaturating with a pulse ox into the 70s, she was placed on supplemental oxygen, this morning she is on 1/2 L, and her pulse ox is 90-91%, she is awake and alert, she is sitting up on the edge of the bed, she states she feels short of breath with exertion, at rest does not seem to be in any acute distress, loose nonproductive cough. Patient has been afebrile, today's labs have been reviewed, showing white blood cell count of 9.9, hemoglobin is 10.4, potassium is 5.2, chloride is 113, CO2 is 913, B1 is 36, creatinine is 1.24, her LDH was 1070, CRP was 27.6, her troponin was negative, denies any nausea vomiting or diarrhea, she remains on Rocephin for empiric antibiotic coverage, she is on vitamin C supplement, zinc supplement, and IV Decadron. She was found to have stool culture positive for pseudomonal aeruginosa, and nasal swab was positive for staph aureus. D-dimer was 0.57 and patient will be started on Lovenox. The patient is seen today 03/30/2020 in follow-up on the cardiac observation floor. She is currently sitting up in bed. Awake and alert in no acute distress. She is currently maintaining O2 saturations in the mid 90s on 2 L/m per nasal cannula. She's afebrile. White count 10.6. Hemoglobin 10.1. Emphasized 0.9. D-dimer 0.86. Sodium 139. Potassium 5.0. Creatinine 1.18. LDH 965. C-reactive protein 21%. Pro-calcitonin 0.04. She was initiated on room doesn't severe yesterday. This is day #2. She remains on vitamin C, vitamin D, dexamethasone, Lovenox. Objective - Vital Signs Vital signs: Vital Signs Temp 97.8 F 03/30/20 08:42 Pulse 51 L 03/30/20 09:00 Resp 18 03/30/20 09:00 BP 156/69 03/30/20 08:42 Pulse Ox 97 03/30/20 08:42 Intake & Output 03/29/20 03/30/20 03/30/20 18:59 06:59 18:59 Intake Total 250 240 Balance 250 240 Intake: Oral 250 240 Other: Voiding Method Toilet Toilet Toilet # Voids 2 1 - Exam GENERAL EXAM: Alert, very pleasant, 54-year-old female patient, obese, on 2 L of oxygen, pulse ox of 7%,, comfortable in no apparent distress. HEAD: Normocephalic/atraumatic. EYES: Normal reaction of pupils, equal size. Conjunctiva pink, sclera white. NOSE: Clear with pink turbinates. THROAT: No erythema or exudates. NECK: No masses, no JVD, no thyroid enlargement, no adenopathy. CHEST: No chest wall deformity. Symmetrical expansion. LUNGS: Equal air entry with bilateral scattered rhonchi. CVS: Regular rate and rhythm, normal S1 and S2, no gallops, no murmurs, no rubs ABDOMEN: Soft, nontender. No hepatosplenomegaly, normal bowel sounds, no gua rding or rigidity. EXTREMITIES: No clubbing, no edema, no cyanosis, 2+ pulses and upper and lower extremities. MUSCULOSKELETAL: Muscle strength and tone normal. SPINE: No scoliosis or deformity SKIN: No rashes CENTRAL NERVOUS SYSTEM: No focal deficits, tone is normal in all 4 extremities. PSYCHIATRIC: Alert and oriented -3. Appropriate affect. Intact judgment and insight. - Labs CBC & Chem 7: 03/30/20 07:19 03/30/20 07:19 Labs: Abnormal Lab Results - Last 24 Hours (Table) 03/29/20 03/29/20 03/30/20 Range/Units 18:08 21:23 06:16 Hgb (11.4-16.0) gm/dL Hct (34.0-46.0) % MCHC (31.0-37.0) g/dL Neutrophils # (1.3-7.7) k/uL Lymphocytes # (1.0-4.8) k/uL D-Dimer (<0.60) mg/L FEU Chloride (98-107) mmol/L Carbon Dioxide (22-30) mmol/L BUN (7-17) mg/dL Creatinine (0.52-1.04) mg/dL Glucose (74-99) mg/dL POC Glucose (mg/dL) 216 H 252 H 306 H (75-99) mg/dL Lactate Dehydrogenase (313-618) U/L C-Reactive Protein (<10.0) mg/L Total Protein (6.3-8.2) g/dL Albumin (3.5-5.0) g/dL 03/30/20 03/30/20 03/30/20 Range/Units 07:19 07:19 07:19 Hgb 10.1 L (11.4-16.0) gm/dL Hct 32.7 L (34.0-46.0) % MCHC 30.7 L (31.0-37.0) g/dL Neutrophils # 9.0 H (1.3-7.7) k/uL Lymphocytes # 0.9 L (1.0-4.8) k/uL D-Dimer 0.86 H (<0.60) mg/L FEU Chloride 111 H (98-107) mmol/L Carbon Dioxide 21 L (22-30) mmol/L BUN 36 H (7-17) mg/dL Creatinine 1.18 H (0.52-1.04) mg/dL Glucose 258 H (74-99) mg/dL POC Glucose (mg/dL) (75-99) mg/dL Lactate Dehydrogenase 965 H (313-618) U/L C-Reactive Protein 21.0 H (<10.0) mg/L Total Protein 5.8 L (6.3-8.2) g/dL Albumin 3.2 L (3.5-5.0) g/dL 03/30/20 Range/Units 12:43 Hgb (11.4-16.0) gm/dL Hct (34.0-46.0) % MCHC (31.0-37.0) g/dL Neutrophils # (1.3-7.7) k/uL Lymphocytes # (1.0-4.8) k/uL D-Dimer (<0.60) mg/L FEU Chloride (98-107) mmol/L Carbon Dioxide (22-30) mmol/L BUN (7-17) mg/dL Creatinine (0.52-1.04) mg/dL Glucose (74-99) mg/dL POC Glucose (mg/dL) 259 H (75-99) mg/dL Lactate Dehydrogenase (313-618) U/L C-Reactive Protein (<10.0) mg/L Total Protein (6.3-8.2) g/dL Albumin (3.5-5.0) g/dL Assessment and Plan Assessment: 1. Acute gastroenteritis possibly in part related to COVID 19 infection, and stool culture positive for pseudomonas aeruginosa 2. Acute hyperchloremic non-anion gap metabolic acidosis secondary to diarrhea, improving 3. Acute kidney injury related to dehydration, diarrhea 4. Atypical chest wall pain 5. Acute hypoxic rest or a failure related to Covid 19 related infection 6. History of COPD 7. History of hypertension 8. History of GERD/reflux 9. History of type 2 diabetes mellitus Plan: The patient was seen and evaluated by Dr. Montez We'll continue the current treatment plan for now We will continue to follow I, the cosigning physician, performed a history & physical examination of the patient. Lungs sounds bilateral scattered rhonchi. Maintaining good O2 saturations in the 90s on 2 L/m per nasal cannula. I discussed the assessment and plan of care with my nurse practitioner, Melodie Lao. I attest to the above note as dictated by her.
[2020-03-30] MEDS: FLUTICASONE 50MCG/SPRAY NASAL 16GM EA NOSTRIL SCH ×2 (16:30→23:10)
[2020-03-30] MEDS: ZINC SULFATE 220 MG CAP PO SCH (16:30)
[2020-03-30 16:37] LABS: Glucose,Whole Blood 287 mg/dL (75-99)
--- NOTE | 2020-03-30 17:42 | P.PN ---
Subjective Progress Note Date: 03/29/20 This is a 54-year-old female patient who presented to the ER with complaints of chest pain, shortness breath and diarrhea. Patient reports the chest pain has been occurring for approximately 4 days. Patient reports occasional cough. Past medical history includes asthma COPD, diabetes mellitus, hyperlipidemia, hypertension, osteoarthritis, thyroid disorder, anxiety and depression. Troponins negative 3. C. diff negative stool cultures negative. COVID test has been ordered. Chest x-ray completed showing interstitial phase pulmonary edema. Cardiology and pulmonary services have been consulted. At this time patient denies chest pain. Patient does report intermittent shortness of breath and cough. Patient denies abdominal pain nausea or vomiting. Patient denies any urinary burning or frequency. On 03/26/2020 patient was seen and examined on the medical floor she is alert and oriented 3 in no distress she is complaining of chest pain and shortness of breath and cough otherwise she denies any complaints there is no fever or chills no headache or dizziness no palpitation no nausea or vomiting no abdominal pain no diarrhea no blood in the stools no burning with urination no frequency or urgency and no hematuria. Last night testing for Covid 19 was reported as positive from outside lab testing was done on the day of admission, patient was started on IV Decadron, the floor nurse was notified and she was asked to notify pulmonary. on 03/27/2020 patient was seen and examined on the medical floor she is alert and oriented 3 she is still complaining of shortness of breath and cough otherwise she denies any other symptoms there is no fever or chills no headache or dizziness no chest pain no nausea or vomiting no abdominal pain no diarrhea and no urinary symptoms on 03/28/2020 patient is alert and oriented 3 she is complaining of cough and shortness of breath she has occasional chest pain on the right side of her chest otherwise she denies any complaints there is no fever or chills no headache or dizziness no nausea or vomiting no abdominal pain no diarrhea and no urinary symptoms On 03/29/2020 patient was seen and examined on the medical floor she is alert and oriented 3 in no distress she is still complaining of shortness of breath and cough otherwise she denies any complaints there is no fever or chills no chest pain no nausea or vomiting no abdominal pain no diarrhea and no urinary symptoms Objective - Vital Signs Vital signs: Vital Signs Temp 97.5 F L 03/29/20 09:00 Pulse 56 L 03/29/20 09:00 Resp 16 03/29/20 09:47 BP 158/77 03/29/20 09:00 Pulse Ox 92 L 03/29/20 09:47 Intake & Output 03/28/20 03/29/20 03/29/20 18:59 06:59 18:59 Intake Total 500 250 Output Total 250 Balance 250 250 Intake: Oral 500 250 Output: Urine 250 Other: Voiding Method Toilet Toilet # Voids 1 1 2 - Exam In general patient is alert and oriented 3 in no distress HEENT head normocephalic and atraumatic Neck is supple no JVD no goiter no lymphadenopathy Chest exam reveals a scattered crackles bilaterally no wheezing Cardiac exam reveals regular heart sounds S1 and S2 no gallops no murmurs Abdomen is soft nontender no organomegaly with normal bowel sounds Extremity exam reveals no edema no cyanosis or clubbing - Labs CBC & Chem 7: 03/30/20 07:19 03/30/20 07:19 Labs: Abnormal Lab Results - Last 24 Hours (Table) 03/28/20 03/28/20 03/28/20 Range/Units 14:31 17:12 20:12 Hgb (11.4-16.0) gm/dL Hct (34.0-46.0) % Neutrophils # (1.3-7.7) k/uL Lymphocytes # (1.0-4.8) k/uL Potassium (3.5-5.1) mmol/L Chloride (98-107) mmol/L Carbon Dioxide (22-30) mmol/L BUN (7-17) mg/dL Creatinine (0.52-1.04) mg/dL Glucose (74-99) mg/dL POC Glucose (mg/dL) 202 H 255 H (75-99) mg/dL Lactate Dehydrogenase 1070 H (313-618) U/L C-Reactive Protein 27.6 H (<10.0) mg/L 03/29/20 03/29/20 03/29/20 Range/Units 06:37 08:57 08:57 Hgb 10.4 L (11.4-16.0) gm/dL Hct 33.4 L (34.0-46.0) % Neutrophils # 8.4 H (1.3-7.7) k/uL Lymphocytes # 0.7 L (1.0-4.8) k/uL Potassium 5.2 H (3.5-5.1) mmol/L Chloride 113 H (98-107) mmol/L Carbon Dioxide 19 L (22-30) mmol/L BUN 36 H (7-17) mg/dL Creatinine 1.24 H (0.52-1.04) mg/dL Glucose 176 H (74-99) mg/dL POC Glucose (mg/dL) 230 H (75-99) mg/dL Lactate Dehydrogenase (313-618) U/L C-Reactive Protein (<10.0) mg/L 03/29/20 Range/Units 11:33 Hgb (11.4-16.0) gm/dL Hct (34.0-46.0) % Neutrophils # (1.3-7.7) k/uL Lymphocytes # (1.0-4.8) k/uL Potassium (3.5-5.1) mmol/L Chloride (98-107) mmol/L Carbon Dioxide (22-30) mmol/L BUN (7-17) mg/dL Creatinine (0.52-1.04) mg/dL Glucose (74-99) mg/dL POC Glucose (mg/dL) 230 H (75-99) mg/dL Lactate Dehydrogenase (313-618) U/L C-Reactive Protein (<10.0) mg/L Assessment and Plan Assessment: 1. Chest pain. Troponins negative 3. Cardiology service is consulted 2. Shortness of breath. Chest x-ray completed showing interstitial phase pulmonary edema. Pulmonary services have been consulted. COVID test positive from outside lab done on the day of admission 3. Acute diarrhea. Stool cultures negative. C. diff negative. 4. Urinary tract infection urine culture ordered. Patient started on Rocephin 5. History of COPD 6. History of diabetes mellitus type 2 Homans resumed 7. History of hyperlipidemia maintained on statin 8. Essential hypertension. 9. History of anxiety and depression DVT prophylaxis heparin. GI prophylaxis Protonix Pulmonary and cardiology service consulted Patient started on IV Decadron pulmonary were notified of positive Covid test Rocephin for UTI
--- NOTE | 2020-03-30 18:03 | P.PN ---
Subjective Progress Note Date: 03/30/20 This is a 54-year-old female patient who presented to the ER with complaints of chest pain, shortness breath and diarrhea. Patient reports the chest pain has been occurring for approximately 4 days. Patient reports occasional cough. Past medical history includes asthma COPD, diabetes mellitus, hyperlipidemia, hypertension, osteoarthritis, thyroid disorder, anxiety and depression. Troponins negative 3. C. diff negative stool cultures negative. COVID test has been ordered. Chest x-ray completed showing interstitial phase pulmonary edema. Cardiology and pulmonary services have been consulted. At this time patient denies chest pain. Patient does report intermittent shortness of breath and cough. Patient denies abdominal pain nausea or vomiting. Patient denies any urinary burning or frequency. On 03/26/2020 patient was seen and examined on the medical floor she is alert and oriented 3 in no distress she is complaining of chest pain and shortness of breath and cough otherwise she denies any complaints there is no fever or chills no headache or dizziness no palpitation no nausea or vomiting no abdominal pain no diarrhea no blood in the stools no burning with urination no frequency or urgency and no hematuria. Last night testing for Covid 19 was reported as positive from outside lab testing was done on the day of admission, patient was started on IV Decadron, the floor nurse was notified and she was asked to notify pulmonary. on 03/27/2020 patient was seen and examined on the medical floor she is alert and oriented 3 she is still complaining of shortness of breath and cough otherwise she denies any other symptoms there is no fever or chills no headache or dizziness no chest pain no nausea or vomiting no abdominal pain no diarrhea and no urinary symptoms on 03/28/2020 patient is alert and oriented 3 she is complaining of cough and shortness of breath she has occasional chest pain on the right side of her chest otherwise she denies any complaints there is no fever or chills no headache or dizziness no nausea or vomiting no abdominal pain no diarrhea and no urinary symptoms On 03/29/2020 patient was seen and examined on the medical floor she is alert and oriented 3 in no distress she is still complaining of shortness of breath and cough otherwise she denies any complaints there is no fever or chills no chest pain no nausea or vomiting no abdominal pain no diarrhea and no urinary symptoms. On 03/30/2020 patient was seen and examined on the medical floor she is alert and oriented 3 in no distress she is complaining of shortness of breath O2 sat duration is down to 88% on room air she has cough there is no fever or chills no headache or dizziness no chest pain no nausea or vomiting no abdominal pain no diarrhea no blood in the stools no burning with urination no frequency or urgency and no hematuria. Patient was started yesterday on Remdesivir today she is receiving dose #2 Objective - Vital Signs Vital signs: Vital Signs Temp 97.8 F 03/30/20 08:42 Pulse 59 L 03/30/20 16:31 Resp 20 03/30/20 16:31 BP 155/82 03/30/20 16:31 Pulse Ox 97 03/30/20 08:42 Intake & Output 03/29/20 03/30/20 03/30/20 18:59 06:59 18:59 Intake Total 250 240 Balance 250 240 Intake: Oral 250 240 Other: Voiding Method Toilet Toilet Toilet # Voids 2 1 - Exam In general patient is alert and oriented 3 in no distress HEENT head normocephalic and atraumatic Neck is supple no JVD no goiter no lymphadenopathy Chest exam reveals a scattered crackles bilaterally no wheezing Cardiac exam reveals regular heart sounds S1 and S2 no gallops no murmurs Abdomen is soft nontender no organomegaly with normal bowel sounds Extremity exam reveals no edema no cyanosis or clubbing - Labs CBC & Chem 7: 03/30/20 07:19 03/30/20 07:19 Labs: Abnormal Lab Results - Last 24 Hours (Table) 03/29/20 03/29/20 03/30/20 Range/Units 18:08 21:23 06:16 Hgb (11.4-16.0) gm/dL Hct (34.0-46.0) % MCHC (31.0-37.0) g/dL Neutrophils # (1.3-7.7) k/uL Lymphocytes # (1.0-4.8) k/uL D-Dimer (<0.60) mg/L FEU Chloride (98-107) mmol/L Carbon Dioxide (22-30) mmol/L BUN (7-17) mg/dL Creatinine (0.52-1.04) mg/dL Glucose (74-99) mg/dL POC Glucose (mg/dL) 216 H 252 H 306 H (75-99) mg/dL Lactate Dehydrogenase (313-618) U/L C-Reactive Protein (<10.0) mg/L Total Protein (6.3-8.2) g/dL Albumin (3.5-5.0) g/dL 03/30/20 03/30/20 03/30/20 Range/Units 07:19 07:19 07:19 Hgb 10.1 L (11.4-16.0) gm/dL Hct 32.7 L (34.0-46.0) % MCHC 30.7 L (31.0-37.0) g/dL Neutrophils # 9.0 H (1.3-7.7) k/uL Lymphocytes # 0.9 L (1.0-4.8) k/uL D-Dimer 0.86 H (<0.60) mg/L FEU Chloride 111 H (98-107) mmol/L Carbon Dioxide 21 L (22-30) mmol/L BUN 36 H (7-17) mg/dL Creatinine 1.18 H (0.52-1.04) mg/dL Glucose 258 H (74-99) mg/dL POC Glucose (mg/dL) (75-99) mg/dL Lactate Dehydrogenase 965 H (313-618) U/L C-Reactive Protein 21.0 H (<10.0) mg/L Total Protein 5.8 L (6.3-8.2) g/dL Albumin 3.2 L (3.5-5.0) g/dL 03/30/20 03/30/20 Range/Units 12:43 16:31 Hgb (11.4-16.0) gm/dL Hct (34.0-46.0) % MCHC (31.0-37.0) g/dL Neutrophils # (1.3-7.7) k/uL Lymphocytes # (1.0-4.8) k/uL D-Dimer (<0.60) mg/L FEU Chloride (98-107) mmol/L Carbon Dioxide (22-30) mmol/L BUN (7-17) mg/dL Creatinine (0.52-1.04) mg/dL Glucose (74-99) mg/dL POC Glucose (mg/dL) 259 H 287 H (75-99) mg/dL Lactate Dehydrogenase (313-618) U/L C-Reactive Protein (<10.0) mg/L Total Protein (6.3-8.2) g/dL Albumin (3.5-5.0) g/dL Assessment and Plan Assessment: 1. Chest pain. Troponins negative 3. Cardiology service is consulted 2. Shortness of breath. Chest x-ray completed showing interstitial phase pulmonary edema. Pulmonary services have been consulted. COVID test positive from outside lab done on the day of admission 3. Acute diarrhea. Stool cultures negative. C. diff negative. 4. Urinary tract infection urine culture ordered. Patient started on Rocephin 5. History of COPD 6. History of diabetes mellitus type 2 Homans resumed 7. History of hyperlipidemia maintained on statin 8. Essential hypertension. 9. History of anxiety and depression DVT prophylaxis heparin. GI prophylaxis Protonix Pulmonary and cardiology service consulted Patient started on IV Decadron pulmonary were notified of positive Covid test Rocephin for UTI
[2020-03-30] MEDS: ACETAZOLAMIDE 500 MG PO SCH ×2 (19:52→23:11)
[2020-03-30 20:20] LABS: Ferritin 244.1 ng/mL (10.0-291.0)
[2020-03-30] MEDS: MONTELUKAST 10 MG TAB PO SCH (23:08)
[2020-03-30] MEDS: INSULIN DETEMIR (LEVEMIR) 100 UNIT/ML SYR SQ SCH (23:09)
[2020-03-30] MEDS: LATANOPROST 0.005% OPHTH DROPS 2.5 ML BTL BOTH EYES SCH (23:10)
[2020-03-30] MEDS: REMDESIVIR (EUA) 100 MG in SODIUM CHLORIDE 0.9% 250 ML IVPB SCH (23:10)
[2020-03-30 23:16] LABS: Glucose,Whole Blood 365 mg/dL (75-99)
[2020-03-31] MEDS: IBUPROFEN 800 MG TAB PO PRN ×3 (03:32→21:36)
[2020-03-31] MEDS: LEVOTHYROXINE 100 MCG TAB PO SCH (06:47)
[2020-03-31] MEDS: DEXAMETHASONE SOD PHOSPHATE 4 MG/ML 1 ML VIAL IV SCH ×3 (06:47→17:44)
[2020-03-31 07:03] LABS: Glucose,Whole Blood 338 mg/dL (75-99)
[2020-03-31] MEDS: INSULIN ASPART (NovoLOG) 100 UNIT/ML VIAL SQ SCH ×4 (07:03→21:37)
[2020-03-31] MEDS: ASCORBIC ACID 500 MG TAB PO SCH (08:22)
[2020-03-31] MEDS: ASPIRIN 81 MG PO SCH (08:22)
[2020-03-31] MEDS: MAGNESIUM OXIDE 400 MG TAB PO SCH ×2 (08:23→21:36)
[2020-03-31] MEDS: PANTOPRAZOLE 40 MG TABLET PO SCH (08:23)
[2020-03-31] MEDS: PRAVASTATIN SODIUM 40 MG TAB PO SCH (08:23)
[2020-03-31] MEDS: ZINC SULFATE 220 MG CAP PO SCH (08:23)
[2020-03-31] MEDS: VENLAFAXINE HCL ER 150 MG CAP PO SCH (08:23)
[2020-03-31] MEDS: CHOLECALCIFEROL 1,000 UNIT TAB PO SCH (08:23)
[2020-03-31] MEDS: ENOXAPARIN 40 MG/0.4 ML SYRINGE SQ SCH (08:23)
[2020-03-31] MEDS: FLUTICASONE 50MCG/SPRAY NASAL 16GM EA NOSTRIL SCH ×2 (08:24→21:37)
[2020-03-31] MEDS: ALBUTEROL HFA INHALER INHALATION PRN ×4 (09:07→20:40)
[2020-03-31 09:37] LABS: Basophils # (A) 0.1 k/uL (0-0.2); Basophils % (A) 1 %; Eosinophils % (A) 0 %; HGB 10.9 gm/dL (11.4-16.0); Hypochromasia Slight; Lymphocytes # (A) 0.7 k/uL (1.0-4.8); Lymphocytes % (A) 6 %; MCH 26.6 pg (25.0-35.0); MCV 85.7 fL (80.0-100.0); Mean Platelet Volume 9.1; Monocytes # (A) 0.9 k/uL (0-1.0); Monocytes % (A) 8 %; Neutrophils # (A) 9.5 k/uL (1.3-7.7); Neutrophils % (A) 83 %; Platelet Count 330 k/uL (150-450); RBC 4.08 m/uL (3.80-5.40); RDW 14.3 % (11.5-15.5); WBC 11.4 k/uL (3.8-10.6)
[2020-03-31 10:10] LABS: Albumin 3.5 g/dL (3.5-5.0); C Reactive Protein 12.2 mg/L (<10.0); Calcium 9.2 mg/dL (8.4-10.2); Potassium 4.9 mmol/L (3.5-5.1); Total Bilirubin 0.6 mg/dL (0.2-1.3); Total Protein 6.2 g/dL (6.3-8.2)
[2020-03-31 10:34] LABS: D-Dimer 0.77 mg/L FEU (<0.60)
[2020-03-31 12:33] LABS: Glucose,Whole Blood 361 mg/dL (75-99)
--- NOTE | 2020-03-31 13:24 | P.PN ---
Subjective Progress Note Date: 03/31/20 Principal diagnosis: CoVID 19 infection This is a 54-year-old female with history of multiple medical problems including COPD, type 2 diabetes, hypertension, dyslipidemia, degenerative joint disease, patient presented to the ER with 4 days history of diarrhea, and right sided ch est wall pain. No shortness of breath, no cough, no wheezing, no fever, no chills, no hemoptysis. Chest x-ray was read by the radiologist as questionable interstitial phase pulmonary edema, however I reviewed the chest x-ray, and I felt the chest x-ray was perfectly normal. Patient was admitted, covid 19 testing was ordered. And I was asked to see her on consultation. Patient denies any headache, denies any nasal congestion, denies any sore throat, again her symptoms are mostly symptoms of diarrhea, and symptoms of right sided chest wall pain with extreme tenderness on palpation on physical examination. WBC count is 3.4 hemoglobin is 10.1. Electrolytes are normal, however her renal fu nctioning showed a BUN of 17 and creatinine of 1.2. And the patient seems to have a picture of hyperchloremic non-anion gap metabolic acidosis. This is most likely diarrhea related. Patient was reevaluated today on 03/26/20, feeling much better, denies any pulmonary symptoms, her GI symptoms are significantly improved. No further episodes of diarrhea, no abdominal pain. She has occasional cough, and her chest x-ray is basically unremarkable. Patient tested positive for covid 19, but she does not have classic pulmonary symptoms. Again her symptoms are mostly GI in nature. WBC count is 2.5 hemoglobin is 10.9 electrolytes are normal bicarb remains low and the patient continues to have hyperchloremia. On 03/29/2020 patient seen in follow-up on cardiac observation floor, last night patient was noted to be desaturating with a pulse ox into the 70s, she was placed on supplemental oxygen, this morning she is on 1/2 L, and her pulse ox is 90-91%, she is awake and alert, she is sitting up on the edge of the bed, she states she feels short of breath with exertion, at rest does not seem to be in any acute distress, loose nonproductive cough. Patient has been afebrile, today's labs have been reviewed, showing white blood cell count of 9.9, hemoglobin is 10.4, potassium is 5.2, chloride is 113, CO2 is 913, B1 is 36, creatinine is 1.24, her LDH was 1070, CRP was 27.6, her troponin was negative, denies any nausea vomiting or diarrhea, she remains on Rocephin for empiric antibiotic coverage, she is on vitamin C supplement, zinc supplement, and IV Decadron. She was found to have stool culture positive for pseudomonal aeruginosa, and nasal swab was positive for staph aureus. D-dimer was 0.57 and patient will be started on Lovenox. The patient is seen today 03/30/2020 in follow-up on the cardiac observation floor. She is currently sitting up in bed. Awake and alert in no acute distress. She is currently maintaining O2 saturations in the mid 90s on 2 L/m per nasal cannula. She's afebrile. White count 10.6. Hemoglobin 10.1. Emphasized 0.9. D-dimer 0.86. Sodium 139. Potassium 5.0. Creatinine 1.18. LDH 965. C-reactive protein 21%. Pro-calcitonin 0.04. She was initiated on room doesn't severe yesterday. This is day #2. She remains on vitamin C, vitamin D, dexamethasone, Lovenox. Patient is seen today 03/31/2020 follow-up on the cardiac observation floor. She is currently awake and alert in no acute distress. Feeling a bit better today compared to yesterday. She is maintaining O2 saturation the high 90s on room air. She's been afebrile. White count 11.4. Hemoglobin 10.9. D-dimer 0.77. Sodium 136. Potassium 4.9. Creatinine 1.0. LDH 983. C-reactive protein 12.2. This is day #3 of Remdesivir. Objective - Vital Signs Vital signs: Vital Signs Temp 97.5 F L 03/31/20 08:27 Pulse 59 L 03/31/20 08:58 Resp 18 03/31/20 08:58 BP 136/79 03/31/20 08:27 Pulse Ox 98 03/31/20 08:27 Intake & Output 03/30/20 03/31/20 03/31/20 18:59 06:59 18:59 Intake Total 580 480 Balance 580 480 Intake: Intake, IV Titration 100 Amount cefTRIAXone 1 gm In 100 Sodium Chloride 0.9% 50 ml @ 100 mls/hr IVPB Q12HR [facility] Rx#:[id number] Oral 480 480 Other: Voiding Method Toilet Toilet Toilet # Voids 3 1 1 # Bowel Movements 1 - Exam GENERAL EXAM: Alert, very pleasant, 54-year-old female patient, obese, on 2 L of oxygen, pulse ox of 98%, comfortable in no apparent distress. HEAD: Normocephalic/atraumatic. EYES: Normal reaction of pupils, equal size. Conjunctiva pink, sclera white. NOSE: Clear with pink turbinates. THROAT: No erythema or exudates. NECK: No masses, no JVD, no thyroid enlargement, no adenopathy. CHEST: No chest wall deformity. Symmetrical expansion. LUNGS: Equal air entry with bilateral scattered rhonchi. CVS: Regular rate and rhythm, normal S1 and S2, no gallops, no murmurs, no rubs ABDOMEN: Soft, nontender. No hepatosplenomegaly, normal bowel sounds, no guarding or rigidity. EXTREMITIES: No clubbing, no edema, no cyanosis, 2+ pulses and upper and lower extremities. MUSCULOSKELETAL: Muscle strength and tone normal. SPINE: No scoliosis or deformity SKIN: No rashes CENTRAL NERVOUS SYSTEM: No focal deficits, tone is normal in all 4 extremities. PSYCHIATRIC: Alert and oriented -3. Appropriate affect. Intact judgment and i nsight. - Labs CBC & Chem 7: 03/31/20 08:36 03/31/20 08:36 Labs: Abnormal Lab Results - Last 24 Hours (Table) 03/30/20 03/30/20 03/31/20 Range/Units 16:31 23:14 07:02 WBC (3.8-10.6) k/uL Hgb (11.4-16.0) gm/dL Neutrophils # (1.3-7.7) k/uL Lymphocytes # (1.0-4.8) k/uL D-Dimer (<0.60) mg/L FEU Sodium (137-145) mmol/L BUN (7-17) mg/dL Creatinine (0.52-1.04) mg/dL Glucose (74-99) mg/dL POC Glucose (mg/dL) 287 H 365 H 338 H (75-99) mg/dL Lactate Dehydrogenase (313-618) U/L C-Reactive Protein (<10.0) mg/L Total Protein (6.3-8.2) g/dL 03/31/20 03/31/20 03/31/20 Range/Units 08:36 08:36 08:36 WBC 11.4 H (3.8-10.6) k/uL Hgb 10.9 L (11.4-16.0) gm/dL Neutrophils # 9.5 H (1.3-7.7) k/uL Lymphocytes # 0.7 L (1.0-4.8) k/uL D-Dimer 0.77 H (<0.60) mg/L FEU Sodium 136 L (137-145) mmol/L BUN 35 H (7-17) mg/dL Creatinine 1.08 H (0.52-1.04) mg/dL Glucose 292 H (74-99) mg/dL POC Glucose (mg/dL) (75-99) mg/dL Lactate Dehydrogenase 983 H (313-618) U/L C-Reactive Protein 12.2 H (<10.0) mg/L Total Protein 6.2 L (6.3-8.2) g/dL 03/31/20 Range/Units 12:30 WBC (3.8-10.6) k/uL Hgb (11.4-16.0) gm/dL Neutrophils # (1.3-7.7) k/uL Lymphocytes # (1.0-4.8) k/uL D-Dimer (<0.60) mg/L FEU Sodium (137-145) mmol/L BUN (7-17) mg/dL Creatinine (0.52-1.04) mg/dL Glucose (74-99) mg/dL POC Glucose (mg/dL) 361 H (75-99) mg/dL Lactate Dehydrogenase (313-618) U/L C-Reactive Protein (<10.0) mg/L Total Protein (6.3-8.2) g/dL Assessment and Plan Assessment: 1. Acute gastroenteritis possibly in part related to COVID 19 infection, and stool culture positive for pseudomonas aeruginosa 2. Acute hyperchloremic non-anion gap metabolic acidosis secondary to diarrhea, improving 3. Acute kidney injury related to dehydration, diarrhea 4. Atypical chest wall pain 5. Acute hypoxic respiratory failure related to Covid 19 related infection, initiated on Remdesivir 03/29/2020 6. History of COPD 7. History of hypertension 8. History of GERD/reflux 9. History of type 2 diabetes mellitus Plan: The patient was seen and evaluated by Dr. Montez We'll continue the current treatment plan for now Repeat a chest x-ray in the a.m. We will continue to follow I, the cosigning physician, performed a history & physical examination of the patient. Lungs sounds bilateral scattered rhonchi. Maintaining good O2 saturat ions in the 90s on 2 L/m per nasal cannula. I discussed the assessment and plan of care with my nurse practitioner, Melodie Lao. I attest to the above note as dictated by her.
[2020-03-31 14:54] LABS: Ferritin 265.9 ng/mL (10.0-291.0)
[2020-03-31] MEDS: ACETAZOLAMIDE 500 MG PO SCH ×2 (17:29→22:10)
[2020-03-31 17:42] LABS: Glucose,Whole Blood 355 mg/dL (75-99)
--- NOTE | 2020-03-31 18:00 | P.PN ---
Subjective Progress Note Date: 03/31/20 This is a 54-year-old female patient who presented to the ER with complaints of chest pain, shortness breath and diarrhea. Patient reports the chest pain has been occurring for approximately 4 days. Patient reports occasional cough. Past medical history includes asthma COPD, diabetes mellitus, hyperlipidemia, hypertension, osteoarthritis, thyroid disorder, anxiety and depression. Troponins negative 3. C. diff negative stool cultures negative. COVID test has been ordered. Chest x-ray completed showing interstitial phase pulmonary edema. Cardiology and pulmonary services have been consulted. At this time patient denies chest pain. Patient does report intermittent shortness of breath and cough. Patient denies abdominal pain nausea or vomiting. Patient denies any urinary burning or frequency. On 03/26/2020 patient was seen and examined on the medical floor she is alert and oriented 3 in no distress she is complaining of chest pain and shortness of breath and cough otherwise she denies any complaints there is no fever or chills no headache or dizziness no palpitation no nausea or vomiting no abdominal pain no diarrhea no blood in the stools no burning with urination no frequency or urgency and no hematuria. Last night testing for Covid 19 was reported as positive from outside lab testing was done on the day of admission, patient was started on IV Decadron, the floor nurse was notified and she was asked to notify pulmonary. on 03/27/2020 patient was seen and examined on the medical floor she is alert and oriented 3 she is still complaining of shortness of breath and cough otherwise she denies any other symptoms there is no fever or chills no headache or dizziness no chest pain no nausea or vomiting no abdominal pain no diarrhea and no urinary symptoms on 03/28/2020 patient is alert and oriented 3 she is complaining of cough and shortness of breath she has occasional chest pain on the right side of her chest otherwise she denies any complaints there is no fever or chills no headache or dizziness no nausea or vomiting no abdominal pain no diarrhea and no urinary symptoms On 03/29/2020 patient was seen and examined on the medical floor she is alert and oriented 3 in no distress she is still complaining of shortness of breath and cough otherwise she denies any complaints there is no fever or chills no chest pain no nausea or vomiting no abdominal pain no diarrhea and no urinary symptoms. On 03/30/2020 patient was seen and examined on the medical floor she is alert and oriented 3 in no distress she is complaining of shortness of breath O2 sat duration is down to 88% on room air she has cough there is no fever or chills no headache or dizziness no chest pain no nausea or vomiting no abdominal pain no diarrhea no blood in the stools no burning with urination no frequency or urgency and no hematuria. Patient was started yesterday on Remdesivir today she is receiving dose #2 On 03/31/2020 A shouldn't was seen and examined on the medical floor she is alert and oriented 3 in no apparent distress she is still complaining of cough and shortness of breath with activity otherwise she denies any complaints she has tested positive for Covid 19 and currently she is maintained on Remdesivir, today is dose #3 otherwise she denies any complaints there is no fever or chills no headache or dizziness no chest pain no nausea or vomiting no abdominal pain no diarrhea no blood in the stools no burning with urination no frequency or urgency Objective - Vital Signs Vital signs: Vital Signs Temp 97.9 F 03/31/20 15:00 Pulse 66 03/31/20 15:00 Resp 18 03/31/20 15:00 BP 135/69 03/31/20 15:00 Pulse Ox 96 03/31/20 15:00 Intake & Output 03/30/20 03/31/20 03/31/20 18:59 06:59 18:59 Intake Total 580 960 Balance 580 960 Intake: Intake, IV Titration 100 Amount cefTRIAXone 1 gm In 100 Sodium Chloride 0.9% 50 ml @ 100 mls/hr IVPB Q12HR [facility] Rx#:[id number] Oral 480 960 Other: Voiding Method Toilet Toilet Toilet # Voids 3 1 1 # Bowel Movements 1 - Exam In general patient is alert and oriented 3 in no distress HEENT head normocephalic and atraumatic Neck is supple no JVD no goiter no lymphadenopathy Chest exam reveals a scattered crackles bilaterally no wheezing Cardiac exam reveals regular heart sounds S1 and S2 no gallops no murmurs Abdomen is soft nontender no organomegaly with normal bowel sounds Extremity exam reveals no edema no cyanosis or clubbing - Labs CBC & Chem 7: 03/31/20 08:36 03/31/20 08:36 Labs: Abnormal Lab Results - Last 24 Hours (Table) 03/25/20 03/30/20 03/31/20 Range/Units 13:00 23:14 07:02 WBC (3.8-10.6) k/uL Hgb (11.4-16.0) gm/dL Neutrophils # (1.3-7.7) k/uL Lymphocytes # (1.0-4.8) k/uL D-Dimer (<0.60) mg/L FEU Sodium (137-145) mmol/L BUN (7-17) mg/dL Creatinine (0.52-1.04) mg/dL Glucose (74-99) mg/dL POC Glucose (mg/dL) 365 H 338 H (75-99) mg/dL Lactate Dehydrogenase (313-618) U/L C-Reactive Protein (<10.0) mg/L Total Protein (6.3-8.2) g/dL Coronavirus (PCR) Detected A (Not Detected) 03/31/20 03/31/20 03/31/20 Range/Units 08:36 08:36 08:36 WBC 11.4 H (3.8-10.6) k/uL Hgb 10.9 L (11.4-16.0) gm/dL Neutrophils # 9.5 H (1.3-7.7) k/uL Lymphocytes # 0.7 L (1.0-4.8) k/uL D-Dimer 0.77 H (<0.60) mg/L FEU Sodium 136 L (137-145) mmol/L BUN 35 H (7-17) mg/dL Creatinine 1.08 H (0.52-1.04) mg/dL Glucose 292 H (74-99) mg/dL POC Glucose (mg/dL) (75-99) mg/dL Lactate Dehydrogenase 983 H (313-618) U/L C-Reactive Protein 12.2 H (<10.0) mg/L Total Protein 6.2 L (6.3-8.2) g/dL Coronavirus (PCR) (Not Detected) 03/31/20 03/31/20 Range/Units 12:30 17:40 WBC (3.8-10.6) k/uL Hgb (11.4-16.0) gm/dL Neutrophils # (1.3-7.7) k/uL Lymphocytes # (1.0-4.8) k/uL D-Dimer (<0.60) mg/L FEU Sodium (137-145) mmol/L BUN (7-17) mg/dL Creatinine (0.52-1.04) mg/dL Glucose (74-99) mg/dL POC Glucose (mg/dL) 361 H 355 H (75-99) mg/dL Lactate Dehydrogenase (313-618) U/L C-Reactive Protein (<10.0) mg/L Total Protein (6.3-8.2) g/dL Coronavirus (PCR) (Not Detected) Assessment and Plan Assessment: 1. Chest pain. Troponins negative 3. Cardiology service is consulted 2. Shortness of breath. Chest x-ray completed showing interstitial phase pulmonary edema. Pulmonary services have been consulted. COVID test positive from outside lab done on the day of admission 3. Acute diarrhea. Stool cultures negative. C. diff negative. 4. Urinary tract infection urine culture ordered. Patient started on Rocephin 5. History of COPD 6. History of diabetes mellitus type 2 Homans resumed 7. History of hyperlipidemia maintained on statin 8. Essential hypertension. 9. History of anxiety and depression DVT prophylaxis heparin. GI prophylaxis Protonix Pulmonary and cardiology service consulted Patient started on IV Decadron pulmonary were notified of positive Covid test Rocephin for UTI
[2020-03-31 21:28] LABS: Glucose,Whole Blood 411 mg/dL (75-99)
[2020-03-31] MEDS: INSULIN DETEMIR (LEVEMIR) 100 UNIT/ML SYR SQ SCH (21:35)
[2020-03-31] MEDS: REMDESIVIR (EUA) 100 MG in SODIUM CHLORIDE 0.9% 250 ML IVPB SCH (21:35)
[2020-03-31] MEDS: MONTELUKAST 10 MG TAB PO SCH (21:36)
[2020-03-31] MEDS: LATANOPROST 0.005% OPHTH DROPS 2.5 ML BTL BOTH EYES SCH (21:38)
[2020-04-01] MEDS: DEXAMETHASONE SOD PHOSPHATE 4 MG/ML 1 ML VIAL IV SCH ×4 (00:45→18:15)
[2020-04-01] MEDS: traMADol 50 MG TAB PO PRN ×2 (03:01→13:38)
[2020-04-01] MEDS: LEVOTHYROXINE 100 MCG TAB PO SCH (06:35)
[2020-04-01 06:36] LABS: Glucose,Whole Blood 401 mg/dL (75-99)
[2020-04-01] MEDS: INSULIN ASPART (NovoLOG) 100 UNIT/ML VIAL SQ SCH ×4 (06:39→20:29)
[2020-04-01 08:33] LABS: Basophils # (A) 0.1 k/uL (0-0.2); Basophils % (A) 0 %; Eosinophils % (A) 0 %; HCT 35.7 % (34.0-46.0); HGB 11.2 gm/dL (11.4-16.0); Hypochromasia Moderate; Lymphocytes # (A) 0.8 k/uL (1.0-4.8); Lymphocytes % (A) 5 %; MCH 26.7 pg (25.0-35.0); MCHC 31.3 g/dL (31.0-37.0); MCV 85.5 fL (80.0-100.0); Mean Platelet Volume 8.7; Monocytes # (A) 1.1 k/uL (0-1.0); Monocytes % (A) 7 %; Neutrophils # (A) 13.5 k/uL (1.3-7.7); Neutrophils % (A) 86 %; Platelet Count 370 k/uL (150-450); RBC 4.18 m/uL (3.80-5.40); RDW 14.1 % (11.5-15.5); WBC 15.7 k/uL (3.8-10.6)
--- NOTE | 2020-04-01 08:34 | XR ---
EXAMINATION TYPE: XR chest 1V portable DATE OF EXAM: 04/01/2020 COMPARISON: 03/28/2020 HISTORY: Cough and fever TECHNIQUE: Single frontal view of the chest is obtained. FINDINGS: Slightly coarsened interstitium. Findings similar the prior exam. Heart size stable. No pn eumothorax or pleural effusion. No consolidative pneumonia. Curvature of the spine noted. IMPRESSION: Correlate for bronchitis or interstitial, viral pneumonitis
[2020-04-01 08:36] LABS: Albumin 3.3 g/dL (3.5-5.0); C Reactive Protein 7.9 mg/L (<10.0); Calcium 9.4 mg/dL (8.4-10.2); Potassium 5.5 mmol/L (3.5-5.1); Total Bilirubin 0.7 mg/dL (0.2-1.3); Total Protein 5.9 g/dL (6.3-8.2)
[2020-04-01 08:40] LABS: D-Dimer 0.72 mg/L FEU (<0.60)
[2020-04-01] MEDS: ASPIRIN 81 MG PO SCH (08:58)
[2020-04-01] MEDS: ENOXAPARIN 40 MG/0.4 ML SYRINGE SQ SCH (08:58)
[2020-04-01] MEDS: FLUTICASONE 50MCG/SPRAY NASAL 16GM EA NOSTRIL SCH ×2 (08:58→20:29)
[2020-04-01] MEDS: CHOLECALCIFEROL 1,000 UNIT TAB PO SCH (08:59)
[2020-04-01] MEDS: ACETAZOLAMIDE 500 MG PO SCH ×2 (08:59→20:05)
[2020-04-01] MEDS: PRAVASTATIN SODIUM 40 MG TAB PO SCH (08:59)
[2020-04-01] MEDS: MAGNESIUM OXIDE 400 MG TAB PO SCH ×2 (08:59→20:28)
[2020-04-01] MEDS: ASCORBIC ACID 500 MG TAB PO SCH (08:59)
[2020-04-01] MEDS: VENLAFAXINE HCL ER 150 MG CAP PO SCH (08:59)
[2020-04-01] MEDS: ZINC SULFATE 220 MG CAP PO SCH (08:59)
[2020-04-01] MEDS: PANTOPRAZOLE 40 MG TABLET PO SCH (08:59)
[2020-04-01] MEDS: IBUPROFEN 800 MG TAB PO PRN ×3 (10:23→23:03)
--- NOTE | 2020-04-01 13:13 | P.PN ---
Subjective Progress Note Date: 04/01/20 This is a 54-year-old female patient who presented to the ER with complaints of chest pain, shortness breath and diarrhea. Patient reports the chest pain has been occurring for approximately 4 days. Patient reports occasional cough. Past medical history includes asthma COPD, diabetes mellitus, hyperlipidemia, hypertension, osteoarthritis, thyroid disorder, anxiety and depression. Troponins negative 3. C. diff negative stool cultures negative. COVID test has been ordered. Chest x-ray completed showing interstitial phase pulmonary edema. Cardiology and pulmonary services have been consulted. At this time patient denies chest pain. Patient does report intermittent shortness of breath and cough. Patient denies abdominal pain nausea or vomiting. Patient denies any urinary burning or frequency. On 03/26/2020 patient was seen and examined on the medical floor she is alert and oriented 3 in no distress she is complaining of chest pain and shortness of breath and cough otherwise she denies any complaints there is no fever or chills no headache or dizziness no palpitation no nausea or vomiting no abdominal pain no diarrhea no blood in the stools no burning with urination no frequency or urgency and no hematuria. Last night testing for Covid 19 was reported as positive from outside lab testing was done on the day of admission, patient was started on IV Decadron, the floor nurse was notified and she was asked to notify pulmonary. on 03/27/2020 patient was seen and examined on the medical floor she is alert and oriented 3 she is still complaining of shortness of breath and cough otherwise she denies any other symptoms there is no fever or chills no headache or dizziness no chest pain no nausea or vomiting no abdominal pain no diarrhea and no urinary symptoms on 03/28/2020 patient is alert and oriented 3 she is complaining of cough and shortness of breath she has occasional chest pain on the right side of her chest otherwise she denies any complaints there is no fever or chills no headache or dizziness no nausea or vomiting no abdominal pain no diarrhea and no urinary symptoms On 03/29/2020 patient was seen and examined on the medical floor she is alert and oriented 3 in no distress she is still complaining of shortness of breath and cough otherwise she denies any complaints there is no fever or chills no chest pain no nausea or vomiting no abdominal pain no diarrhea and no urinary symptoms. On 03/30/2020 patient was seen and examined on the medical floor she is alert and oriented 3 in no distress she is complaining of shortness of breath O2 sat duration is down to 88% on room air she has cough there is no fever or chills no headache or dizziness no chest pain no nausea or vomiting no abdominal pain no diarrhea no blood in the stools no burning with urination no frequency or urgency and no hematuria. Patient was started yesterday on Remdesivir today she is receiving dose #2 On 03/31/2020 Patient was seen and examined on the medical floor she is alert and oriented 3 in no apparent distress she is still complaining of cough and shortness of breath with activity otherwise she denies any complaints she has tested positive for Covid 19 and currently she is maintained on Remdesivir, today is dose #3 otherwise she denies any complaints there is no fever or chills no headache or dizziness no chest pain no nausea or vomiting no abdominal pain no diarrhea no blood in the stools no burning with urination no frequency or urgency 04/01/2020 patient was seen and examined on the medical floor she is alert and oriented 3 in no apparent distress she reports improvement in her cough and shortness of breath she is receiving Remdesivir, today is dose #4 there is no fever or chills no headache or dizziness no chest pain no nausea or vomiting no abdominal pain no diarrhea no blood in the stools no burning with urination no frequency or urgency and no hematuria. At this time patient is improving continue current management possible discharge in the next 1-2 days Objective - Vital Signs Vital signs: Vital Signs Temp 97.8 F 04/01/20 09:00 Pulse 67 04/01/20 09:00 Resp 18 04/01/20 09:00 BP 115/76 04/01/20 09:00 Pulse Ox 94 L 04/01/20 09:00 Intake & Output 03/31/20 04/01/20 04/01/20 18:59 06:59 18:59 Intake Total 960 240 540 Balance 960 240 540 Intake: Oral 960 240 540 Other: Voiding Method Toilet Toilet Toilet # Voids 1 1 1 # Bowel Movements 1 1 - Exam In general patient is alert and oriented 3 in no distress HEENT head normocephalic and atraumatic Neck is supple no JVD no goiter no lymphadenopathy Chest exam reveals a scattered crackles bilaterally no wheezing Cardiac exam reveals regular heart sounds S1 and S2 no gallops no murmurs Abdomen is soft nontender no organomegaly with normal bowel sounds Extremity exam reveals no edema no cyanosis or clubbing - Labs CBC & Chem 7: 04/01/20 08:05 04/01/20 08:05 Labs: Abnormal Lab Results - Last 24 Hours (Table) 03/25/20 03/31/20 03/31/20 Range/Units 13:00 17:40 21:25 WBC (3.8-10.6) k/uL Hgb (11.4-16.0) gm/dL Neutrophils # (1.3-7.7) k/uL Lymphocytes # (1.0-4.8) k/uL Monocytes # (0-1.0) k/uL D-Dimer (<0.60) mg/L FEU Sodium (137-145) mmol/L Potassium (3.5-5.1) mmol/L BUN (7-17) mg/dL Creatinine (0.52-1.04) mg/dL Glucose (74-99) mg/dL POC Glucose (mg/dL) 355 H 411 H (75-99) mg/dL Lactate Dehydrogenase (313-618) U/L Total Protein (6.3-8.2) g/dL Albumin (3.5-5.0) g/dL Coronavirus (PCR) Detected A (Not Detected) 04/01/20 04/01/20 04/01/20 Range/Units 06:34 08:05 08:05 WBC 15.7 H (3.8-10.6) k/uL Hgb 11.2 L (11.4-16.0) gm/dL Neutrophils # 13.5 H (1.3-7.7) k/uL Lymphocytes # 0.8 L (1.0-4.8) k/uL Monocytes # 1.1 H (0-1.0) k/uL D-Dimer 0.72 H (<0.60) mg/L FEU Sodium (137-145) mmol/L Potassium (3.5-5.1) mmol/L BUN (7-17) mg/dL Creatinine (0.52-1.04) mg/dL Glucose (74-99) mg/dL POC Glucose (mg/dL) 401 H (75-99) mg/dL Lactate Dehydrogenase (313-618) U/L Total Protein (6.3-8.2) g/dL Albumin (3.5-5.0) g/dL Coronavirus (PCR) (Not Detected) 04/01/20 Range/Units 08:05 WBC (3.8-10.6) k/uL Hgb (11.4-16.0) gm/dL Neutrophils # (1.3-7.7) k/uL Lymphocytes # (1.0-4.8) k/uL Monocytes # (0-1.0) k/uL D-Dimer (<0.60) mg/L FEU Sodium 134 L (137-145) mmol/L Potassium 5.5 H (3.5-5.1) mmol/L BUN 36 H (7-17) mg/dL Creatinine 1.06 H (0.52-1.04) mg/dL Glucose 373 H (74-99) mg/dL POC Glucose (mg/dL) (75-99) mg/dL Lactate Dehydrogenase 980 H (313-618) U/L Total Protein 5.9 L (6.3-8.2) g/dL Albumin 3.3 L (3.5-5.0) g/dL Coronavirus (PCR) (Not Detected) Assessment and Plan Assessment: 1. Chest pain. Troponins negative 3. Cardiology service is consulted 2. Shortness of breath. Chest x-ray completed showing interstitial phase pulmonary edema. Pulmonary services have been consulted. COVID test positive from outside lab done on the day of admission 3. Acute diarrhea. Stool cultures negative. C. diff negative. 4. Urinary tract infection urine culture ordered. Patient started on Rocephin 5. History of COPD 6. History of diabetes mellitus type 2 Homans resumed 7. History of hyperlipidemia maintained on statin 8. Essential hypertension. 9. History of anxiety and depression DVT prophylaxis heparin. GI prophylaxis Protonix Pulmonary and cardiology service consulted Patient started on IV Decadron pulmonary were notified of positive Covid test Rocephin for UTI
[2020-04-01 13:25] LABS: Glucose,Whole Blood 293 mg/dL (75-99)
--- NOTE | 2020-04-01 14:17 | P.PN ---
Subjective Progress Note Date: 04/01/20 Principal diagnosis: CoVID 19 infection This is a 54-year-old female with history of multiple medical problems including COPD, type 2 diabetes, hypertension, dyslipidemia, degenerative joint disease, patient presented to the ER with 4 days history of diarrhea, and right sided ch est wall pain. No shortness of breath, no cough, no wheezing, no fever, no chills, no hemoptysis. Chest x-ray was read by the radiologist as questionable interstitial phase pulmonary edema, however I reviewed the chest x-ray, and I felt the chest x-ray was perfectly normal. Patient was admitted, covid 19 testing was ordered. And I was asked to see her on consultation. Patient denies any headache, denies any nasal congestion, denies any sore throat, again her symptoms are mostly symptoms of diarrhea, and symptoms of right sided chest wall pain with extreme tenderness on palpation on physical examination. WBC count is 3.4 hemoglobin is 10.1. Electrolytes are normal, however her renal fu nctioning showed a BUN of 17 and creatinine of 1.2. And the patient seems to have a picture of hyperchloremic non-anion gap metabolic acidosis. This is most likely diarrhea related. Patient was reevaluated today on 03/26/20, feeling much better, denies any pulmonary symptoms, her GI symptoms are significantly improved. No further episodes of diarrhea, no abdominal pain. She has occasional cough, and her chest x-ray is basically unremarkable. Patient tested positive for covid 19, but she does not have classic pulmonary symptoms. Again her symptoms are mostly GI in nature. WBC count is 2.5 hemoglobin is 10.9 electrolytes are normal bicarb remains low and the patient continues to have hyperchloremia. On 03/29/2020 patient seen in follow-up on cardiac observation floor, last night patient was noted to be desaturating with a pulse ox into the 70s, she was placed on supplemental oxygen, this morning she is on 1/2 L, and her pulse ox is 90-91%, she is awake and alert, she is sitting up on the edge of the bed, she states she feels short of breath with exertion, at rest does not seem to be in any acute distress, loose nonproductive cough. Patient has been afebrile, today's labs have been reviewed, showing white blood cell count of 9.9, hemoglobin is 10.4, potassium is 5.2, chloride is 113, CO2 is 913, B1 is 36, creatinine is 1.24, her LDH was 1070, CRP was 27.6, her troponin was negative, denies any nausea vomiting or diarrhea, she remains on Rocephin for empiric antibiotic coverage, she is on vitamin C supplement, zinc supplement, and IV Decadron. She was found to have stool culture positive for pseudomonal aeruginosa, and nasal swab was positive for staph aureus. D-dimer was 0.57 and patient will be started on Lovenox. The patient is seen today 03/30/2020 in follow-up on the cardiac observation floor. She is currently sitting up in bed. Awake and alert in no acute distress. She is currently maintaining O2 saturations in the mid 90s on 2 L/m per nasal cannula. She's afebrile. White count 10.6. Hemoglobin 10.1. Emphasized 0.9. D-dimer 0.86. Sodium 139. Potassium 5.0. Creatinine 1.18. LDH 965. C-reactive protein 21%. Pro-calcitonin 0.04. She was initiated on room doesn't severe yesterday. This is day #2. She remains on vitamin C, vitamin D, dexamethasone, Lovenox. Patient is seen today 03/31/2020 follow-up on the cardiac observation floor. She is currently awake and alert in no acute distress. Feeling a bit better today compared to yesterday. She is maintaining O2 saturation the high 90s on room air. She's been afebrile. White count 11.4. Hemoglobin 10.9. D-dimer 0.77. Sodium 136. Potassium 4.9. Creatinine 1.0. LDH 983. C-reactive protein 12.2. This is day #3 of Remdesivir. The patient is seen today 04/01/2020 in follow-up on the cardiac observation floor. She is currently sitting up in bed. Awake and alert in no acute distress. Feeling a bit better today compared to yesterday. Currently maintaining good O2 saturations in the 90s on room air. She's been afebrile. Hemodynamically stable. This is day #4 of Remdesivir. White count 15.7. Hemoglobin 11.2. D-dimer 0.72. Sodium 134. Potassium 5.5. Creatinine 1.06. LDH 680. C-reactive protein 7.9. Chest x-ray reveals evidence of viral pneumonitis. Objective - Vital Signs Vital signs: Vital Signs Temp 97.8 F 04/01/20 09:00 Pulse 67 04/01/20 09:00 Resp 18 04/01/20 09:00 BP 115/76 04/01/20 09:00 Pulse Ox 94 L 04/01/20 09:00 Intake & Output 03/31/20 04/01/20 04/01/20 18:59 06:59 18:59 Intake Total 960 240 540 Balance 960 240 540 Intake: Oral 960 240 540 Other: Voiding Method Toilet Toilet Toilet # Voids 1 1 1 # Bowel Movements 1 1 - Exam GENERAL EXAM: Alert, very pleasant, 54-year-old female patient, obese, on room air, pulse ox of 94%, comfortable in no apparent distress. HEAD: Normocephalic/atraumatic. EYES: Normal reaction of pupils, equal size. Conjunctiva pink, sclera white. NOSE: Clear with pink turbinates. THROAT: No erythema or exudates. NECK: No masses, no JVD, no thyroid enlargement, no adenopathy. CHEST: No chest wall deformity. Symmetrical expansion. LUNGS: Equal air entry with few bilateral scattered rhonchi. CVS: Regular rate and rhythm, normal S1 and S2, no gallops, no murmurs, no rubs ABDOMEN: Soft, nontender. No hepatosplenomegaly, normal bowel sounds, no guarding or rigidity. EXTREMITIES: No clubbing, no edema, no cyanosis, 2+ pulses and upper and lower extremities. MUSCULOSKELETAL: Muscle strength and tone normal. SPINE: No scoliosis or deformity SKIN: No rashes CENTRAL NERVOUS SYSTEM: No focal deficits, tone is normal in all 4 extremities. PSYCHIATRIC: Alert and oriented -3. Appropriate affect. Intact judgment and insight. - Labs CBC & Chem 7: 04/01/20 08:05 04/01/20 08:05 Labs: Abnormal Lab Results - Last 24 Hours (Table) 03/25/20 03/31/20 03/31/20 Range/Units 13:00 17:40 21:25 WBC (3.8-10.6) k/uL Hgb (11.4-16.0) gm/dL Neutrophils # (1.3-7.7) k/uL Lymphocytes # (1.0-4.8) k/uL Monocytes # (0-1.0) k/uL D-Dimer (<0.60) mg/L FEU Sodium (137-145) mmol/L Potassium (3.5-5.1) mmol/L BUN (7-17) mg/dL Creatinine (0.52-1.04) mg/dL Glucose (74-99) mg/dL POC Glucose (mg/dL) 355 H 411 H (75-99) mg/dL Lactate Dehydrogenase (313-618) U/L Total Protein (6.3-8.2) g/dL Albumin (3.5-5.0) g/dL Coronavirus (PCR) Detected A (Not Detected) 04/01/20 04/01/20 04/01/20 Range/Units 06:34 08:05 08:05 WBC 15.7 H (3.8-10.6) k/uL Hgb 11.2 L (11.4-16.0) gm/dL Neutrophils # 13.5 H (1.3-7.7) k/uL Lymphocytes # 0.8 L (1.0-4.8) k/uL Monocytes # 1.1 H (0-1.0) k/uL D-Dimer 0.72 H (<0.60) mg/L FEU Sodium (137-145) mmol/L Potassium (3.5-5.1) mmol/L BUN (7-17) mg/dL Creatinine (0.52-1.04) mg/dL Glucose (74-99) mg/dL POC Glucose (mg/dL) 401 H (75-99) mg/dL Lactate Dehydrogenase (313-618) U/L Total Protein (6.3-8.2) g/dL Albumin (3.5-5.0) g/dL Coronavirus (PCR) (Not Detected) 04/01/20 04/01/20 Range/Units 08:05 13:24 WBC (3.8-10.6) k/uL Hgb (11.4-16.0) gm/dL Neutrophils # (1.3-7.7) k/uL Lymphocytes # (1.0-4.8) k/uL Monocytes # (0-1.0) k/uL D-Dimer (<0.60) mg/L FEU Sodium 134 L (137-145) mmol/L Potassium 5.5 H (3.5-5.1) mmol/L BUN 36 H (7-17) mg/dL Creatinine 1.06 H (0.52-1.04) mg/dL Glucose 373 H (74-99) mg/dL POC Glucose (mg/dL) 293 H (75-99) mg/dL Lactate Dehydrogenase 980 H (313-618) U/L Total Protein 5.9 L (6.3-8.2) g/dL Albumin 3.3 L (3.5-5.0) g/dL Coronavirus (PCR) (Not Detected) Assessment and Plan Assessment: 1. Acute gastroenteritis possibly in part related to COVID 19 infection, and stool culture positive for pseudomonas aeruginosa 2. Acute hyperchloremic non-anion gap metabolic acidosis secondary to diarrhea, improving 3. Acute kidney injury related to dehydration, diarrhea 4. Atypical chest wall pain 5. Acute hypoxic respiratory failure related to Covid 19 related infection, initiated on Remdesivir 03/29/2020 6. History of COPD 7. History of hypertension 8. History of GERD/reflux 9. History of type 2 diabetes mellitus Plan: The patient was seen and evaluated by Dr. Montez We'll continue the current treatment plan for now Complete her course of Remdesivir tomorrow Probable discharge tomorrow We will continue to follow I, the cosigning physician, performed a history & physical examination of the patient. Lungs sounds bilateral scattered rhonchi. Maintaining good O2 saturations in the 90s on room air. I discussed the assessment and plan of care with my nurse practitioner, Melodie Lao. I attest to the above note as dictated by her.
[2020-04-01 16:05] LABS: Ferritin 258.7 ng/mL (10.0-291.0)
[2020-04-01 18:18] LABS: Glucose,Whole Blood 336 mg/dL (75-99)
[2020-04-01 20:24] LABS: Glucose,Whole Blood 342 mg/dL (75-99)
[2020-04-01] MEDS: MONTELUKAST 10 MG TAB PO SCH (20:28)
[2020-04-01] MEDS: INSULIN DETEMIR (LEVEMIR) 100 UNIT/ML SYR SQ SCH (20:28)
[2020-04-01] MEDS: LATANOPROST 0.005% OPHTH DROPS 2.5 ML BTL BOTH EYES SCH (20:29)
[2020-04-01] MEDS: REMDESIVIR (EUA) 100 MG in SODIUM CHLORIDE 0.9% 250 ML IVPB SCH (20:30)
[2020-04-02] MEDS: DEXAMETHASONE SOD PHOSPHATE 4 MG/ML 1 ML VIAL IV SCH ×3 (00:45→12:48)
[2020-04-02 06:36] LABS: Glucose,Whole Blood 402 mg/dL (75-99)
[2020-04-02] MEDS: INSULIN ASPART (NovoLOG) 100 UNIT/ML VIAL SQ SCH ×4 (06:42→20:52)
[2020-04-02] MEDS: LEVOTHYROXINE 100 MCG TAB PO SCH (06:43)
[2020-04-02 07:58] VITALS: BMI 38.6
[2020-04-02] MEDS: MAGNESIUM OXIDE 400 MG TAB PO SCH ×2 (08:33→19:57)
[2020-04-02] MEDS: ASPIRIN 81 MG PO SCH (08:33)
[2020-04-02] MEDS: PANTOPRAZOLE 40 MG TABLET PO SCH (08:34)
[2020-04-02] MEDS: PRAVASTATIN SODIUM 40 MG TAB PO SCH (08:34)
[2020-04-02] MEDS: ASCORBIC ACID 500 MG TAB PO SCH (08:34)
[2020-04-02] MEDS: ENOXAPARIN 40 MG/0.4 ML SYRINGE SQ SCH (08:34)
[2020-04-02] MEDS: CHOLECALCIFEROL 1,000 UNIT TAB PO SCH (08:34)
[2020-04-02] MEDS: VENLAFAXINE HCL ER 150 MG CAP PO SCH (08:34)
[2020-04-02] MEDS: ACETAZOLAMIDE 500 MG PO SCH ×2 (08:35→19:59)
[2020-04-02] MEDS: FLUTICASONE 50MCG/SPRAY NASAL 16GM EA NOSTRIL SCH ×2 (08:35→19:58)
[2020-04-02] MEDS: ZINC SULFATE 220 MG CAP PO SCH (08:36)
[2020-04-02 11:11] LABS: Glucose,Whole Blood 441 mg/dL (75-99)
[2020-04-02] MEDS: traMADol 50 MG TAB PO PRN (12:54)
--- NOTE | 2020-04-02 13:29 | P.PN ---
Subjective Progress Note Date: 04/02/20 This is a 54-year-old female patient who presented to the ER with complaints of chest pain, shortness breath and diarrhea. Patient reports the chest pain has been occurring for approximately 4 days. Patient reports occasional cough. Past medical history includes asthma COPD, diabetes mellitus, hyperlipidemia, hypertension, osteoarthritis, thyroid disorder, anxiety and depression. Troponins negative 3. C. diff negative stool cultures negative. COVID test has been ordered. Chest x-ray completed showing interstitial phase pulmonary edema. Cardiology and pulmonary services have been consulted. At this time patient denies chest pain. Patient does report intermittent shortness of breath and cough. Patient denies abdominal pain nausea or vomiting. Patient denies any urinary burning or frequency. On 03/26/2020 patient was seen and examined on the medical floor she is alert and oriented 3 in no distress she is complaining of chest pain and shortness of breath and cough otherwise she denies any complaints there is no fever or chills no headache or dizziness no palpitation no nausea or vomiting no abdominal pain no diarrhea no blood in the stools no burning with urination no frequency or urgency and no hematuria. Last night testing for Covid 19 was reported as positive from outside lab testing was done on the day of admission, patient was started on IV Decadron, the floor nurse was notified and she was asked to notify pulmonary. on 03/27/2020 patient was seen and examined on the medical floor she is alert and oriented 3 she is still complaining of shortness of breath and cough otherwise she denies any other symptoms there is no fever or chills no headache or dizziness no chest pain no nausea or vomiting no abdominal pain no diarrhea and no urinary symptoms on 03/28/2020 patient is alert and oriented 3 she is complaining of cough and shortness of breath she has occasional chest pain on the right side of her chest otherwise she denies any complaints there is no fever or chills no headache or dizziness no nausea or vomiting no abdominal pain no diarrhea and no urinary symptoms On 03/29/2020 patient was seen and examined on the medical floor she is alert and oriented 3 in no distress she is still complaining of shortness of breath and cough otherwise she denies any complaints there is no fever or chills no chest pain no nausea or vomiting no abdominal pain no diarrhea and no urinary symptoms. On 03/30/2020 patient was seen and examined on the medical floor she is alert and oriented 3 in no distress she is complaining of shortness of breath O2 sat duration is down to 88% on room air she has cough there is no fever or chills no headache or dizziness no chest pain no nausea or vomiting no abdominal pain no diarrhea no blood in the stools no burning with urination no frequency or urgency and no hematuria. Patient was started yesterday on Remdesivir today she is receiving dose #2 On 03/31/2020 Patient was seen and examined on the medical floor she is alert and oriented 3 in no apparent distress she is still complaining of cough and shortness of breath with activity otherwise she denies any complaints she has tested positive for Covid 19 and currently she is maintained on Remdesivir, today is dose #3 otherwise she denies any complaints there is no fever or chills no headache or dizziness no chest pain no nausea or vomiting no abdominal pain no diarrhea no blood in the stools no burning with urination no frequency or urgency 04/01/2020 patient was seen and examined on the medical floor she is alert and oriented 3 in no apparent distress she reports improvement in her cough and shortness of breath she is receiving Remdesivir, today is dose #4 there is no fever or chills no headache or dizziness no chest pain no nausea or vomiting no abdominal pain no diarrhea no blood in the stools no burning with urination no frequency or urgency and no hematuria. At this time patient is improving continue current management possible discharge in the next 1-2 days 04/02/2020 patient was seen and examined on the medical floor she is feeling better she is still complaining of cough and shortness of breath however she feels improved otherwise she denies any complaints there is no fever or chills no headache or dizziness no chest pain , no nausea or vomiting no abdominal pain no diarrhea no burning with urination no frequency or urgency and no hematuria. Patient is scheduled to receive the last dose of Remdesevir, today at 8 PM. Possible discharge to home tomorrow if stable. Objective - Vital Signs Vital signs: Vital Signs Temp 98 F 04/02/20 09:00 Pulse 64 04/02/20 09:00 Resp 16 04/02/20 09:00 BP 133/87 04/02/20 09:00 Pulse Ox 96 04/02/20 09:00 Intake & Output 04/01/20 04/02/20 04/02/20 18:59 06:59 18:59 Intake Total 1260 600 200 Output Total 250 Balance 1260 350 200 Weight 98.883 kg Intake: Oral 1260 600 200 Output: Urine 250 Other: Voiding Method Toilet Toilet Toilet # Voids 3 1 1 # Bowel Movements 1 1 - Exam In general patient is alert and oriented 3 in no distress HEENT head normocephalic and atraumatic Neck is supple no JVD no goiter no lymphadenopathy Chest exam reveals a scattered crackles bilaterally no wheezing Cardiac exam reveals regular heart sounds S1 and S2 no gallops no murmurs Abdomen is soft nontender no organomegaly with normal bowel sounds Extremity exam reveals no edema no cyanosis or clubbing - Labs CBC & Chem 7: 04/01/20 08:05 04/01/20 08:05 Labs: Abnormal Lab Results - Last 24 Hours (Table) 04/01/20 04/01/20 04/02/20 Range/Units 18:17 20:23 06:34 POC Glucose (mg/dL) 336 H 342 H 402 H (75-99) mg/dL 04/02/20 Range/Units 11:09 POC Glucose (mg/dL) 441 H (75-99) mg/dL Assessment and Plan Assessment: 1. Chest pain. Troponins negative 3. Cardiology service is consulted 2. Shortness of breath. Chest x-ray completed showing interstitial phase pulmonary edema. Pulmonary services have been consulted. COVID test positive from outside lab done on the day of admission 3. Acute diarrhea. Stool cultures negative. C. diff negative. 4. Urinary tract infection urine culture ordered. Patient started on Rocephin 5. History of COPD 6. History of diabetes mellitus type 2 Homans resumed 7. History of hyperlipidemia maintained on statin 8. Essential hypertension. 9. History of anxiety and depression DVT prophylaxis heparin. GI prophylaxis Protonix Pulmonary and cardiology service consulted Patient started on IV Decadron pulmonary were notified of positive Covid test Rocephin for UTI
--- NOTE | 2020-04-02 15:09 | P.PN ---
Subjective Progress Note Date: 04/02/20 Principal diagnosis: CoVID 19 infection This is a 54-year-old female with history of multiple medical problems including COPD, type 2 diabetes, hypertension, dyslipidemia, degenerative joint disease, patient presented to the ER with 4 days history of diarrhea, and right sided ch est wall pain. No shortness of breath, no cough, no wheezing, no fever, no chills, no hemoptysis. Chest x-ray was read by the radiologist as questionable interstitial phase pulmonary edema, however I reviewed the chest x-ray, and I felt the chest x-ray was perfectly normal. Patient was admitted, covid 19 testing was ordered. And I was asked to see her on consultation. Patient denies any headache, denies any nasal congestion, denies any sore throat, again her symptoms are mostly symptoms of diarrhea, and symptoms of right sided chest wall pain with extreme tenderness on palpation on physical examination. WBC count is 3.4 hemoglobin is 10.1. Electrolytes are normal, however her renal fu nctioning showed a BUN of 17 and creatinine of 1.2. And the patient seems to have a picture of hyperchloremic non-anion gap metabolic acidosis. This is most likely diarrhea related. Patient was reevaluated today on 03/26/20, feeling much better, denies any pulmonary symptoms, her GI symptoms are significantly improved. No further episodes of diarrhea, no abdominal pain. She has occasional cough, and her chest x-ray is basically unremarkable. Patient tested positive for covid 19, but she does not have classic pulmonary symptoms. Again her symptoms are mostly GI in nature. WBC count is 2.5 hemoglobin is 10.9 electrolytes are normal bicarb remains low and the patient continues to have hyperchloremia. On 03/29/2020 patient seen in follow-up on cardiac observation floor, last night patient was noted to be desaturating with a pulse ox into the 70s, she was placed on supplemental oxygen, this morning she is on 1/2 L, and her pulse ox is 90-91%, she is awake and alert, she is sitting up on the edge of the bed, she states she feels short of breath with exertion, at rest does not seem to be in any acute distress, loose nonproductive cough. Patient has been afebrile, today's labs have been reviewed, showing white blood cell count of 9.9, hemoglobin is 10.4, potassium is 5.2, chloride is 113, CO2 is 913, B1 is 36, creatinine is 1.24, her LDH was 1070, CRP was 27.6, her troponin was negative, denies any nausea vomiting or diarrhea, she remains on Rocephin for empiric antibiotic coverage, she is on vitamin C supplement, zinc supplement, and IV Decadron. She was found to have stool culture positive for pseudomonal aeruginosa, and nasal swab was positive for staph aureus. D-dimer was 0.57 and patient will be started on Lovenox. The patient is seen today 03/30/2020 in follow-up on the cardiac observation floor. She is currently sitting up in bed. Awake and alert in no acute distress. She is currently maintaining O2 saturations in the mid 90s on 2 L/m per nasal cannula. She's afebrile. White count 10.6. Hemoglobin 10.1. Emphasized 0.9. D-dimer 0.86. Sodium 139. Potassium 5.0. Creatinine 1.18. LDH 965. C-reactive protein 21%. Pro-calcitonin 0.04. She was initiated on room doesn't severe yesterday. This is day #2. She remains on vitamin C, vitamin D, dexamethasone, Lovenox. Patient is seen today 03/31/2020 follow-up on the cardiac observation floor. She is currently awake and alert in no acute distress. Feeling a bit better today compared to yesterday. She is maintaining O2 saturation the high 90s on room air. She's been afebrile. White count 11.4. Hemoglobin 10.9. D-dimer 0.77. Sodium 136. Potassium 4.9. Creatinine 1.0. LDH 983. C-reactive protein 12.2. This is day #3 of Remdesivir. The patient is seen today 04/01/2020 in follow-up on the cardiac observation floor. She is currently sitting up in bed. Awake and alert in no acute distress. Feeling a bit better today compared to yesterday. Currently maintaining good O2 saturations in the 90s on room air. She's been afebrile. Hemodynamically stable. This is day #4 of Remdesivir. White count 15.7. Hemoglobin 11.2. D-dimer 0.72. Sodium 134. Potassium 5.5. Creatinine 1.06. LDH 680. C-reactive protein 7.9. Chest x-ray reveals evidence of viral pneumonitis. The patient was seen today 04/02/2020 in follow-up on the cardiac observation floor. She is currently sitting up in bed. Awake and alert in no acute distress. She is feeling better today. Nearly back to her baseline. She is receiving day #5 of her Remdesivir. She is maintaining good O2 saturations in the mid 90s on room air. She's been afebrile. Objective - Vital Signs Vital signs: Vital Signs Temp 98 F 04/02/20 09:00 Pulse 64 04/02/20 09:00 Resp 16 04/02/20 09:00 BP 133/87 04/02/20 09:00 Pulse Ox 96 04/02/20 09:00 Intake & Output 04/01/20 04/02/20 04/02/20 18:59 06:59 18:59 Intake Total 1260 600 200 Output Total 250 Balance 1260 350 200 Weight 98.883 kg Intake: Oral 1260 600 200 Output: Urine 250 Other: Voiding Method Toilet Toilet Toilet # Voids 3 1 1 # Bowel Movements 1 1 - Exam GENERAL EXAM: Alert, very pleasant, 54-year-old female patient, obese, on room air, pulse ox of 96%, comfortable in no apparent distress. HEAD: Normocephalic/atraumatic. EYES: Normal reaction of pupils, equal size. Conjunctiva pink, sclera white. NOSE: Clear with pink turbinates. THROAT: No erythema or exudates. NECK: No masses, no JVD, no thyroid enlargement, no adenopathy. CHEST: No chest wall deformity. Symmetrical expansion. LUNGS: Equal air entry with no wheezes rhonchi or crackles.. CVS: Regular rate and rhythm, normal S1 and S2, no gallops, no murmurs, no rubs ABDOMEN: Soft, nontender. No hepatosplenomegaly, normal bowel sounds, no guarding or rigidity. EXTREMITIES: No clubbing, no edema, no cyanosis, 2+ pulses and upper and lower extremities. MUSCULOSKELETAL: Muscle strength and tone normal. SPINE: No scoliosis or deformity SKIN: No rashes CENTRAL NERVOUS SYSTEM: No focal deficits, tone is normal in all 4 extremities. PSYCHIATRIC: Alert and oriented -3. Appropriate affect. Intact judgment and insight. - Labs CBC & Chem 7: 04/01/20 08:05 04/01/20 08:05 Labs: Abnormal Lab Results - Last 24 Hours (Table) 04/01/20 04/01/20 04/02/20 Range/Units 18:17 20:23 06:34 POC Glucose (mg/dL) 336 H 342 H 402 H (75-99) mg/dL 04/02/20 Range/Units 11:09 POC Glucose (mg/dL) 441 H (75-99) mg/dL Assessment and Plan Assessment: 1. Acute gastroenteritis possibly in part related to COVID 19 infection, and stool culture positive for pseudomonas aeruginosa 2. Acute hyperchloremic non-anion gap metabolic acidosis secondary to diarrhea, improving 3. Acute kidney injury related to dehydration, diarrhea 4. Atypical chest wall pain 5. Acute hypoxic respiratory failure related to Covid 19 related infection, initiated on Remdesivir 03/29/2020 6. History of COPD 7. History of hypertension 8. History of GERD/reflux 9. History of type 2 diabetes mellitus Plan: The patient was seen and evaluated by Dr. Montez We'll continue the current treatment plan for now Complete her course of Remdesivir today Probable discharge tomorrow We will continue to follow I, the cosigning physician, performed a history & physical examination of the patient. Lungs sounds clear. Maintaining good O2 saturations in the 90s on room air. I discussed the assessment and plan of care with my nurse practitioner, Melodie Lao. I attest to the above note as dictated by her.
[2020-04-02 17:14] LABS: Glucose,Whole Blood 470 mg/dL (75-99)
[2020-04-02] MEDS ORDERED: INSULIN ASPART (NovoLOG) 100 UNIT/ML VIAL SQ ONE ×2 (18:59→20:20)
[2020-04-02] MEDS: MONTELUKAST 10 MG TAB PO SCH (19:57)
[2020-04-02] MEDS: REMDESIVIR (EUA) 100 MG in SODIUM CHLORIDE 0.9% 250 ML IVPB SCH (19:58)
[2020-04-02] MEDS: LATANOPROST 0.005% OPHTH DROPS 2.5 ML BTL BOTH EYES SCH (19:58)
[2020-04-02 20:02] LABS: Glucose,Whole Blood 488 mg/dL (75-99)
[2020-04-02] MEDS: INSULIN DETEMIR (LEVEMIR) 100 UNIT/ML SYR SQ SCH (20:53)
[2020-04-03 03:09] LABS: Glucose,Whole Blood 424 mg/dL (75-99)
[2020-04-03] MEDS: ONDANSETRON 4 MG/2 ML VIAL IVP PRN (03:33)
[2020-04-03] MEDS: DICYCLOMINE 20 MG TAB PO PRN (05:28)
[2020-04-03 05:31] LABS: Glucose,Whole Blood 366 mg/dL (75-99)
[2020-04-03] MEDS: LEVOTHYROXINE 100 MCG TAB PO SCH (06:42)
[2020-04-03] MEDS: INSULIN ASPART (NovoLOG) 100 UNIT/ML VIAL SQ SCH ×4 (06:45→21:05)
[2020-04-03 06:56] LABS: Glucose,Whole Blood 316 mg/dL (75-99)
--- NOTE | 2020-04-03 08:42 | P.PN ---
Subjective Progress Note Date: 04/03/20 This is a 54-year-old female patient who presented to the ER with complaints of chest pain, shortness breath and diarrhea. Patient reports the chest pain has been occurring for approximately 4 days. Patient reports occasional cough. Past medical history includes asthma COPD, diabetes mellitus, hyperlipidemia, hypertension, osteoarthritis, thyroid disorder, anxiety and depression. Troponins negative 3. C. diff negative stool cultures negative. COVID test has been ordered. Chest x-ray completed showing interstitial phase pulmonary edema. Cardiology and pulmonary services have been consulted. At this time patient denies chest pain. Patient does report intermittent shortness of breath and cough. Patient denies abdominal pain nausea or vomiting. Patient denies any urinary burning or frequency. On 03/26/2020 patient was seen and examined on the medical floor she is alert and oriented 3 in no distress she is complaining of chest pain and shortness of breath and cough otherwise she denies any complaints there is no fever or chills no headache or dizziness no palpitation no nausea or vomiting no abdominal pain no diarrhea no blood in the stools no burning with urination no frequency or urgency and no hematuria. Last night testing for Covid 19 was reported as positive from outside lab testing was done on the day of admission, patient was started on IV Decadron, the floor nurse was notified and she was asked to notify pulmonary. on 03/27/2020 patient was seen and examined on the medical floor she is alert and oriented 3 she is still complaining of shortness of breath and cough otherwise she denies any other symptoms there is no fever or chills no headache or dizziness no chest pain no nausea or vomiting no abdominal pain no diarrhea and no urinary symptoms on 03/28/2020 patient is alert and oriented 3 she is complaining of cough and shortness of breath she has occasional chest pain on the right side of her chest otherwise she denies any complaints there is no fever or chills no headache or dizziness no nausea or vomiting no abdominal pain no diarrhea and no urinary symptoms On 03/29/2020 patient was seen and examined on the medical floor she is alert and oriented 3 in no distress she is still complaining of shortness of breath and cough otherwise she denies any complaints there is no fever or chills no chest pain no nausea or vomiting no abdominal pain no diarrhea and no urinary symptoms. On 03/30/2020 patient was seen and examined on the medical floor she is alert and oriented 3 in no distress she is complaining of shortness of breath O2 sat duration is down to 88% on room air she has cough there is no fever or chills no headache or dizziness no chest pain no nausea or vomiting no abdominal pain no diarrhea no blood in the stools no burning with urination no frequency or urgency and no hematuria. Patient was started yesterday on Remdesivir today she is receiving dose #2 On 03/31/2020 Patient was seen and examined on the medical floor she is alert and oriented 3 in no apparent distress she is still complaining of cough and shortness of breath with activity otherwise she denies any complaints she has tested positive for Covid 19 and currently she is maintained on Remdesivir, today is dose #3 otherwise she denies any complaints there is no fever or chills no headache or dizziness no chest pain no nausea or vomiting no abdominal pain no diarrhea no blood in the stools no burning with urination no frequency or urgency 04/01/2020 patient was seen and examined on the medical floor she is alert and oriented 3 in no apparent distress she reports improvement in her cough and shortness of breath she is receiving Remdesivir, today is dose #4 there is no fever or chills no headache or dizziness no chest pain no nausea or vomiting no abdominal pain no diarrhea no blood in the stools no burning with urination no frequency or urgency and no hematuria. At this time patient is improving continue current management possible discharge in the next 1-2 days 04/02/2020 patient was seen and examined on the medical floor she is feeling better she is still complaining of cough and shortness of breath however she feels improved otherwise she denies any complaints there is no fever or chills no headache or dizziness no chest pain , no nausea or vomiting no abdominal pain no diarrhea no burning with urination no frequency or urgency and no hematuria. Patient is scheduled to receive the last dose of Remdesevir, today at 8 PM. Possible discharge to home tomorrow if stable. On 04/03/2020 patient was seen and examined on the medical floor she is alert and oriented 3 in no apparent distress, she had difficulty at night with multiple episodes of diarrhea she is still complaining of diarrhea at this time, increase IV fluid to normal saline at 100 mL an hour, repeat CBC CMP and magnesium stat now, check stools for C. diff, otherwise patient is doing better she reports some improvement in her cough and shortness of breath she is complaining of generalized weakness, there is no fever or chills no headache or dizziness no chest pain no palpitation no nausea or vomiting no abdominal pain no blood in the stools no burning with urination no frequency or urgency and no hematuria Objective - Vital Signs Vital signs: Vital Signs Temp 97.3 F L 04/03/20 03:10 Pulse 91 04/03/20 03:10 Resp 16 04/02/20 15:00 BP 107/74 04/03/20 03:10 Pulse Ox 94 L 04/03/20 03:10 Intake & Output 04/02/20 04/02/20 04/03/20 06:59 18:59 06:59 Intake Total 600 500 500 Output Total 250 550 Balance 350 500 -50 Weight 98.883 kg Intake: Oral 600 500 500 Output: Urine 250 550 Other: Voiding Method Toilet Toilet Toilet # Voids 1 2 1 # Bowel Movements 1 3 - Exam In general patient is alert and oriented 3 in no distress HEENT head normocephalic and atraumatic Neck is supple no JVD no goiter no lymphadenopathy Chest exam reveals a scattered crackles bilaterally no wheezing Cardiac exam reveals regular heart sounds S1 and S2 no gallops no murmurs Abdomen is soft nontender no organomegaly with normal bowel sounds Extremity exam reveals no edema no cyanosis or clubbing - Labs CBC & Chem 7: 04/01/20 08:05 04/01/20 08:05 Labs: Abnormal Lab Results - Last 24 Hours (Table) 04/02/20 04/02/20 04/02/20 Range/Units 06:34 11:09 17:12 POC Glucose (mg/dL) 402 H 441 H 470 H (75-99) mg/dL 04/02/20 04/03/20 Range/Units 20:01 03:08 POC Glucose (mg/dL) 488 H 424 H (75-99) mg/dL Assessment and Plan Assessment: 1. Chest pain. Troponins negative 3. Cardiology service is consulted 2. Shortness of breath. Chest x-ray completed showing interstitial phase pulmonary edema. Pulmonary services have been consulted. COVID test positive from outside lab done on the day of admission 3. Acute diarrhea. Stool cultures negative. C. diff negative. 4. Urinary tract infection urine culture ordered. Patient started on Rocephin 5. History of COPD 6. History of diabetes mellitus type 2 Homans resumed 7. History of hyperlipidemia maintained on statin 8. Essential hypertension. 9. History of anxiety and depression 10. Multiple episodes of diarrhea will check stools for C. diff recheck labs and increase IV fluid to 100 mL an hour normal saline DVT prophylaxis heparin. GI prophylaxis Protonix Pulmonary and cardiology service consulted Patient started on IV Decadron pulmonary were notified of positive Covid test Rocephin for UTI
[2020-04-03] MEDS ORDERED: INSULIN ASPART (NovoLOG) 100 UNIT/ML VIAL SQ ONE (08:45)
[2020-04-03] MEDS: ACETAZOLAMIDE 500 MG PO SCH ×2 (09:19→20:55)
[2020-04-03] MEDS: SODIUM CHLORIDE 0.9% 1,000 ML IV SCH ×2 (09:40→20:53)
[2020-04-03] MEDS: ENOXAPARIN 40 MG/0.4 ML SYRINGE SQ SCH (09:41)
[2020-04-03] MEDS: PRAVASTATIN SODIUM 40 MG TAB PO SCH (09:41)
[2020-04-03] MEDS: CHOLECALCIFEROL 1,000 UNIT TAB PO SCH (09:41)
[2020-04-03] MEDS: ASCORBIC ACID 500 MG TAB PO SCH (09:41)
[2020-04-03] MEDS: VENLAFAXINE HCL ER 150 MG CAP PO SCH (09:41)
[2020-04-03] MEDS: ASPIRIN 81 MG PO SCH (09:41)
[2020-04-03] MEDS: MAGNESIUM OXIDE 400 MG TAB PO SCH ×2 (09:42→20:46)
[2020-04-03] MEDS: FLUTICASONE 50MCG/SPRAY NASAL 16GM EA NOSTRIL SCH ×2 (09:42→20:44)
[2020-04-03] MEDS: PANTOPRAZOLE 40 MG TABLET PO SCH (09:42)
[2020-04-03] MEDS: ZINC SULFATE 220 MG CAP PO SCH (09:44)
[2020-04-03] MEDS: IBUPROFEN 800 MG TAB PO PRN (12:17)
[2020-04-03 12:21] LABS: Glucose,Whole Blood 187 mg/dL (75-99)
[2020-04-03 16:21] LABS: Glucose,Whole Blood 266 mg/dL (75-99)
--- NOTE | 2020-04-03 16:28 | P.PN ---
Subjective Progress Note Date: 04/03/20 Principal diagnosis: CoVID 19 infection This is a 54-year-old female with history of multiple medical problems including COPD, type 2 diabetes, hypertension, dyslipidemia, degenerative joint disease, patient presented to the ER with 4 days history of diarrhea, and right sided ch est wall pain. No shortness of breath, no cough, no wheezing, no fever, no chills, no hemoptysis. Chest x-ray was read by the radiologist as questionable interstitial phase pulmonary edema, however I reviewed the chest x-ray, and I felt the chest x-ray was perfectly normal. Patient was admitted, covid 19 testing was ordered. And I was asked to see her on consultation. Patient denies any headache, denies any nasal congestion, denies any sore throat, again her symptoms are mostly symptoms of diarrhea, and symptoms of right sided chest wall pain with extreme tenderness on palpation on physical examination. WBC count is 3.4 hemoglobin is 10.1. Electrolytes are normal, however her renal fu nctioning showed a BUN of 17 and creatinine of 1.2. And the patient seems to have a picture of hyperchloremic non-anion gap metabolic acidosis. This is most likely diarrhea related. Patient was reevaluated today on 03/26/20, feeling much better, denies any pulmonary symptoms, her GI symptoms are significantly improved. No further episodes of diarrhea, no abdominal pain. She has occasional cough, and her chest x-ray is basically unremarkable. Patient tested positive for covid 19, but she does not have classic pulmonary symptoms. Again her symptoms are mostly GI in nature. WBC count is 2.5 hemoglobin is 10.9 electrolytes are normal bicarb remains low and the patient continues to have hyperchloremia. On 03/29/2020 patient seen in follow-up on cardiac observation floor, last night patient was noted to be desaturating with a pulse ox into the 70s, she was placed on supplemental oxygen, this morning she is on 1/2 L, and her pulse ox is 90-91%, she is awake and alert, she is sitting up on the edge of the bed, she states she feels short of breath with exertion, at rest does not seem to be in any acute distress, loose nonproductive cough. Patient has been afebrile, today's labs have been reviewed, showing white blood cell count of 9.9, hemoglobin is 10.4, potassium is 5.2, chloride is 113, CO2 is 913, B1 is 36, creatinine is 1.24, her LDH was 1070, CRP was 27.6, her troponin was negative, denies any nausea vomiting or diarrhea, she remains on Rocephin for empiric antibiotic coverage, she is on vitamin C supplement, zinc supplement, and IV Decadron. She was found to have stool culture positive for pseudomonal aeruginosa, and nasal swab was positive for staph aureus. D-dimer was 0.57 and patient will be started on Lovenox. The patient is seen today 03/30/2020 in follow-up on the cardiac observation floor. She is currently sitting up in bed. Awake and alert in no acute distress. She is currently maintaining O2 saturations in the mid 90s on 2 L/m per nasal cannula. She's afebrile. White count 10.6. Hemoglobin 10.1. Emphasized 0.9. D-dimer 0.86. Sodium 139. Potassium 5.0. Creatinine 1.18. LDH 965. C-reactive protein 21%. Pro-calcitonin 0.04. She was initiated on room doesn't severe yesterday. This is day #2. She remains on vitamin C, vitamin D, dexamethasone, Lovenox. Patient is seen today 03/31/2020 follow-up on the cardiac observation floor. She is currently awake and alert in no acute distress. Feeling a bit better today compared to yesterday. She is maintaining O2 saturation the high 90s on room air. She's been afebrile. White count 11.4. Hemoglobin 10.9. D-dimer 0.77. Sodium 136. Potassium 4.9. Creatinine 1.0. LDH 983. C-reactive protein 12.2. This is day #3 of Remdesivir. The patient is seen today 04/01/2020 in follow-up on the cardiac observation floor. She is currently sitting up in bed. Awake and alert in no acute distress. Feeling a bit better today compared to yesterday. Currently maintaining good O2 saturations in the 90s on room air. She's been afebrile. Hemodynamically stable. This is day #4 of Remdesivir. White count 15.7. Hemoglobin 11.2. D-dimer 0.72. Sodium 134. Potassium 5.5. Creatinine 1.06. LDH 680. C-reactive protein 7.9. Chest x-ray reveals evidence of viral pneumonitis. The patient was seen today 04/02/2020 in follow-up on the cardiac observation floor. She is currently sitting up in bed. Awake and alert in no acute distress. She is feeling better today. Nearly back to her baseline. She is receiving day #5 of her Remdesivir. She is maintaining good O2 saturations in the mid 90s on room air. She's been afebrile. Patient is seen today 04/03/2020 in follow-up on the regular medical floor. She remains awake and alert in no acute distress. She is completed her REM to severe. She is maintaining good O2 saturations in the 90s on room air. She is now having issues with diarrhea and dizziness. Stool culture from 03/24/2020 had been positive for pseudomonas aeruginosa. Blood glucose 266. Objective - Vital Signs Vital signs: Vital Signs Temp 97.9 F 04/03/20 14:13 Pulse 91 04/03/20 14:46 Resp 16 04/03/20 14:46 BP 93/63 04/03/20 14:13 Pulse Ox 92 L 04/03/20 14:13 Intake & Output 04/02/20 04/03/20 04/03/20 18:59 06:59 18:59 Intake Total 500 500 600 Output Total 550 Balance 500 -50 600 Weight 98.883 kg Intake: Oral 500 500 600 Output: Urine 550 Other: Voiding Method Toilet Toilet Toilet # Voids 2 1 5 # Bowel Movements 3 3 - Exam GENERAL EXAM: Alert, very pleasant, 54-year-old female patient, obese, on room air, pulse ox of 98%, comfortable in no apparent distress. HEAD: Normocephalic/atraumatic. EYES: Normal reaction of pupils, equal size. Conjunctiva pink, sclera white. NOSE: Clear with pink turbinates. THROAT: No erythema or exudates. NECK: No masses, no JVD, no thyroid enlargement, no adenopathy. CHEST: No chest wall deformity. Symmetrical expansion. LUNGS: Equal air entry with no wheezes rhonchi or crackles.. CVS: Regular rate and rhythm, normal S1 and S2, no gallops, no murmurs, no rubs ABDOMEN: Soft, nontender. No hepatosplenomegaly, normal bowel sounds, no guarding or rigidity. EXTREMITIES: No clubbing, no edema, no cyanosis, 2+ pulses and upper and lower extremities. MUSCULOSKELETAL: Muscle strength and tone normal. SPINE: No scoliosis or deformity SKIN: No rashes CENTRAL NERVOUS SYSTEM: No focal deficits, tone is normal in all 4 extremities. PSYCHIATRIC: Alert and oriented -3. Appropriate affect. Intact judgment and insight. - Labs CBC & Chem 7: 04/01/20 08:05 04/01/20 08:05 Labs: Abnormal Lab Results - Last 24 Hours (Table) 04/02/20 04/02/20 04/03/20 Range/Units 17:12 20:01 03:08 POC Glucose (mg/dL) 470 H 488 H 424 H (75-99) mg/dL 04/03/20 04/03/20 04/03/20 Range/Units 05:30 06:44 12:20 POC Glucose (mg/dL) 366 H 316 H 187 H (75-99) mg/dL 04/03/20 Range/Units 16:19 POC Glucose (mg/dL) 266 H (75-99) mg/dL Assessment and Plan Assessment: 1. Acute gastroenteritis possibly in part related to COVID 19 infection, and stool culture positive for pseudomonas aeruginosa 2. Acute hyperchloremic non-anion gap metabolic acidosis secondary to diarrhea, improving 3. Acute kidney injury related to dehydration, diarrhea 4. Atypical chest wall pain 5. Acute hypoxic respiratory failure related to Covid 19 related infection, initiated on Remdesivir 03/29/2020 6. History of COPD 7. History of hypertension 8. History of GERD/reflux 9. History of type 2 diabetes mellitus Plan: The patient was seen and evaluated by Dr. Montez We'll continue the current treatment plan for now Probable discharge tomorrow We will continue to follow I, the cosigning physician, performed a history & physical examination of the patient. Lungs sounds clear. Maintaining good O2 saturations in the 90s on room air. I discussed the assessment and plan of care with my nurse practitioner, Melodie Lao. I attest to the above note as dictated by her.
[2020-04-03] MEDS: LATANOPROST 0.005% OPHTH DROPS 2.5 ML BTL BOTH EYES SCH (20:45)
[2020-04-03] MEDS: MONTELUKAST 10 MG TAB PO SCH (20:46)
[2020-04-03] MEDS: INSULIN DETEMIR (LEVEMIR) 100 UNIT/ML SYR SQ SCH (20:46)
[2020-04-03 20:56] LABS: Glucose,Whole Blood 292 mg/dL (75-99)
[2020-04-04] MEDS: SODIUM CHLORIDE 0.9% 1,000 ML IV SCH ×2 (04:53→13:07)
[2020-04-04] MEDS: LEVOTHYROXINE 100 MCG TAB PO SCH (06:41)
[2020-04-04] MEDS: INSULIN ASPART (NovoLOG) 100 UNIT/ML VIAL SQ SCH ×4 (06:45→22:33)
[2020-04-04] MEDS: traMADol 50 MG TAB PO PRN ×2 (06:47→22:32)
[2020-04-04 06:52] LABS: Glucose,Whole Blood 335 mg/dL (75-99)
[2020-04-04 07:27] LABS: Albumin 2.6 g/dL (3.5-5.0); Basophils # (A) 0.1 k/uL (0-0.2); Basophils % (A) 0 %; Calcium 8.5 mg/dL (8.4-10.2); Eosinophils # (A) 0.2 k/uL (0-0.7); Eosinophils % (A) 2 %; HCT 35.4 % (34.0-46.0); HGB 10.7 gm/dL (11.4-16.0); Hypochromasia Moderate; Lymphocytes # (A) 2.3 k/uL (1.0-4.8); Lymphocytes % (A) 19 %; MCH 26.2 pg (25.0-35.0); MCHC 30.3 g/dL (31.0-37.0); MCV 86.6 fL (80.0-100.0); Mean Platelet Volume 8.4; Monocytes # (A) 1.2 k/uL (0-1.0); Monocytes % (A) 10 %; Neutrophils # (A) 8.2 k/uL (1.3-7.7); Neutrophils % (A) 68 %; Platelet Count 293 k/uL (150-450); Potassium 5.5 mmol/L (3.5-5.1); RBC 4.09 m/uL (3.80-5.40); RDW 14.1 % (11.5-15.5); Total Bilirubin 0.4 mg/dL (0.2-1.3); Total Protein 4.8 g/dL (6.3-8.2); WBC 12.2 k/uL (3.8-10.6)
[2020-04-04 08:25] LABS: Glucose,Whole Blood 304 mg/dL (75-99)
[2020-04-04] MEDS: ACETAZOLAMIDE 500 MG PO SCH ×2 (08:55→22:04)
[2020-04-04] MEDS: MAGNESIUM OXIDE 400 MG TAB PO SCH ×2 (09:22→22:33)
[2020-04-04] MEDS: ASPIRIN 81 MG PO SCH (09:22)
[2020-04-04] MEDS: ENOXAPARIN 40 MG/0.4 ML SYRINGE SQ SCH (09:22)
[2020-04-04] MEDS: CHOLECALCIFEROL 1,000 UNIT TAB PO SCH (09:22)
[2020-04-04] MEDS: ZINC SULFATE 220 MG CAP PO SCH (09:23)
[2020-04-04] MEDS: VENLAFAXINE HCL ER 150 MG CAP PO SCH (09:23)
[2020-04-04] MEDS: PRAVASTATIN SODIUM 40 MG TAB PO SCH (09:23)
[2020-04-04] MEDS: FLUTICASONE 50MCG/SPRAY NASAL 16GM EA NOSTRIL SCH ×2 (09:26→22:34)
[2020-04-04] MEDS: ASCORBIC ACID 500 MG TAB PO SCH (09:29)
[2020-04-04] MEDS: PANTOPRAZOLE 40 MG TABLET PO SCH (09:29)
[2020-04-04 12:19] LABS: Glucose,Whole Blood 287 mg/dL (75-99)
[2020-04-04] MEDS ORDERED: INSULIN ASPART (NovoLOG) 100 UNIT/ML VIAL SQ ONE (12:41)
[2020-04-04 16:30] LABS: Glucose,Whole Blood 223 mg/dL (75-99)
--- NOTE | 2020-04-04 17:31 | P.PN ---
Subjective Progress Note Date: 04/04/20 On today's evaluation of 04/04/2020, the patient is doing well. The patient is a case of acute cold in 19 related pneumonia. The patient completed her treatment with Remdesivir and the patient is also on Decadron. Note that her condition improved gradually and the patient's oxygenation is also improved to the point where the patient is currently on room air oxygen. She is still feeling dizzy. She is a bit lightheaded. Noted the patient was having diarrhea and this subsided. Stool cultures for C. diff that was done came back negative. She has no nausea. No vomiting. No abdominal pain. She is obese and she has a BMI of 38.60 she has history of COPD, diabetes mellitus type 2, hypertension and hyperlipidemia and osteoarthritis. The patient has no other new complaints otherwise for now. Most recent chest x-ray From 04/01/2020 showed bilateral pneumonitis Objective - Vital Signs Vital signs: Vital Signs Temp 97.7 F 04/04/20 15:00 Pulse 90 04/04/20 15:00 Resp 16 04/04/20 15:00 BP 106/66 04/04/20 15:00 Pulse Ox 97 04/04/20 15:00 Intake & Output 04/03/20 04/04/20 04/04/20 18:59 06:59 18:59 Intake Total 331 605 8001 Output Total 1500 Balance 600 300 0 Intake: IV 800 Sodium Chloride 0.9% 1, 800 000 ml @ 100 mls/hr IV . Q10H JARRETT Rx#:[id number] Oral 600 300 700 Output: Urine 1500 Other: Voiding Method Toilet Bedside Commode # Voids 5 2 # Bowel Movements 3 1 - Exam GENERAL EXAM: Alert, very pleasant, 54-year-old female patient, obese, on room air, pulse ox of 98%, comfortable in no apparent distress. HEAD: Normocephalic/atraumatic. EYES: Normal reaction of pupils, equal size. Conjunctiva pink, sclera white. NOSE: Clear with pink turbinates. THROAT: No erythema or exudates. NECK: No masses, no JVD, no thyroid enlargement, no adenopathy. CHEST: No chest wall deformity. Symmetrical expansion. LUNGS: Equal air entry with no wheezes rhonchi or crackles.. CVS: Regular rate and rhythm, normal S1 and S2, no gallops, no murmurs, no rubs ABDOMEN: Soft, nontender. No hepatosplenomegaly, normal bowel sounds, no guarding or rigidity. EXTREMITIES: No clubbing, no edema, no cyanosis, 2+ pulses and upper and lower extremities. MUSCULOSKELETAL: Muscle strength and tone normal. SPINE: No scoliosis or deformity SKIN: No rashes CENTRAL NERVOUS SYSTEM: No focal deficits, tone is normal in all 4 extremities. PSYCHIATRIC: Alert and oriented -3. Appropriate affect. Intact judgment and insight. - Labs CBC & Chem 7: 04/04/20 06:35 04/04/20 06:35 Labs: Abnormal Lab Results - Last 24 Hours (Table) 04/03/20 04/04/20 04/04/20 Range/Units 20:50 06:35 06:35 WBC 12.2 H (3.8-10.6) k/uL Hgb 10.7 L (11.4-16.0) gm/dL MCHC 30.3 L (31.0-37.0) g/dL Neutrophils # 8.2 H (1.3-7.7) k/uL Monocytes # 1.2 H (0-1.0) k/uL Sodium 134 L (137-145) mmol/L Potassium 5.5 H (3.5-5.1) mmol/L BUN 43 H (7-17) mg/dL Creatinine 1.25 H (0.52-1.04) mg/dL Glucose 340 H (74-99) mg/dL POC Glucose (mg/dL) 292 H (75-99) mg/dL AST 13 L (14-36) U/L Total Protein 4.8 L (6.3-8.2) g/dL Albumin 2.6 L (3.5-5.0) g/dL 04/04/20 04/04/20 04/04/20 Range/Units 06:40 08:14 12:16 WBC (3.8-10.6) k/uL Hgb (11.4-16.0) gm/dL MCHC (31.0-37.0) g/dL Neutrophils # (1.3-7.7) k/uL Monocytes # (0-1.0) k/uL Sodium (137-145) mmol/L Potassium (3.5-5.1) mmol/L BUN (7-17) mg/dL Creatinine (0.52-1.04) mg/dL Glucose (74-99) mg/dL POC Glucose (mg/dL) 335 H 304 H 287 H (75-99) mg/dL AST (14-36) U/L Total Protein (6.3-8.2) g/dL Albumin (3.5-5.0) g/dL 04/04/20 Range/Units 16:28 WBC (3.8-10.6) k/uL Hgb (11.4-16.0) gm/dL MCHC (31.0-37.0) g/dL Neutrophils # (1.3-7.7) k/uL Monocytes # (0-1.0) k/uL Sodium (137-145) mmol/L Potassium (3.5-5.1) mmol/L BUN (7-17) mg/dL Creatinine (0.52-1.04) mg/dL Glucose (74-99) mg/dL POC Glucose (mg/dL) 223 H (75-99) mg/dL AST (14-36) U/L Total Protein (6.3-8.2) g/dL Albumin (3.5-5.0) g/dL Assessment and Plan Plan: 1. Acute Covid 19 related pneumonia and the patient has been treated adequately the patient is currently on room air oxygen. 2. gastroenteritis possibly in part related to COVID 19 infection, and stool culture positive for pseudomonas aeruginosa. The patient has recovered and the diarrhea subsided. The patient also developed a component of non-anion gap meta bolic acidosis which recovered and his serum bicarbs up to 25. Stool for C. diff has been negative. 3. Acute kidney injury related to dehydration, and is stable for now 4. Atypical chest wall pain 5. Acute hypoxic respiratory failure related to Covid 19 related infection, initiated on Remdesivir 03/29/2020 and has been completed and the patient is currently on room air oxygen 6. History of COPD 7. History of hypertension 8. History of GERD/reflux 9. History of type 2 diabetes mellitus Plan Monitor the patient Hemodynamically stable Renal function is stable in the metabolic acidosis improved the patient has completed the treatment for Covid 19. The patient is currently on oxygen. Possible discharge within next 24-48 hours depending on her progress.
--- NOTE | 2020-04-04 19:30 | P.PN ---
Subjective Progress Note Date: 04/04/20 This is a 54-year-old female patient who presented to the ER with complaints of chest pain, shortness breath and diarrhea. Patient reports the chest pain has been occurring for approximately 4 days. Patient reports occasional cough. Past medical history includes asthma COPD, diabetes mellitus, hyperlipidemia, hypertension, osteoarthritis, thyroid disorder, anxiety and depression. Troponins negative 3. C. diff negative stool cultures negative. COVID test has been ordered. Chest x-ray completed showing interstitial phase pulmonary edema. Cardiology and pulmonary services have been consulted. At this time patient denies chest pain. Patient does report intermittent shortness of breath and cough. Patient denies abdominal pain nausea or vomiting. Patient denies any urinary burning or frequency. On 03/26/2020 patient was seen and examined on the medical floor she is alert and oriented 3 in no distress she is complaining of chest pain and shortness of breath and cough otherwise she denies any complaints there is no fever or chills no headache or dizziness no palpitation no nausea or vomiting no abdominal pain no diarrhea no blood in the stools no burning with urination no frequency or urgency and no hematuria. Last night testing for Covid 19 was reported as positive from outside lab testing was done on the day of admission, patient was started on IV Decadron, the floor nurse was notified and she was asked to notify pulmonary. on 03/27/2020 patient was seen and examined on the medical floor she is alert and oriented 3 she is still complaining of shortness of breath and cough otherwise she denies any other symptoms there is no fever or chills no headache or dizziness no chest pain no nausea or vomiting no abdominal pain no diarrhea and no urinary symptoms on 03/28/2020 patient is alert and oriented 3 she is complaining of cough and shortness of breath she has occasional chest pain on the right side of her chest otherwise she denies any complaints there is no fever or chills no headache or dizziness no nausea or vomiting no abdominal pain no diarrhea and no urinary symptoms On 03/29/2020 patient was seen and examined on the medical floor she is alert and oriented 3 in no distress she is still complaining of shortness of breath and cough otherwise she denies any complaints there is no fever or chills no chest pain no nausea or vomiting no abdominal pain no diarrhea and no urinary symptoms. On 03/30/2020 patient was seen and examined on the medical floor she is alert and oriented 3 in no distress she is complaining of shortness of breath O2 sat duration is down to 88% on room air she has cough there is no fever or chills no headache or dizziness no chest pain no nausea or vomiting no abdominal pain no diarrhea no blood in the stools no burning with urination no frequency or urgency and no hematuria. Patient was started yesterday on Remdesivir today she is receiving dose #2 On 03/31/2020 Patient was seen and examined on the medical floor she is alert and oriented 3 in no apparent distress she is still complaining of cough and shortness of breath with activity otherwise she denies any complaints she has tested positive for Covid 19 and currently she is maintained on Remdesivir, today is dose #3 otherwise she denies any complaints there is no fever or chills no headache or dizziness no chest pain no nausea or vomiting no abdominal pain no diarrhea no blood in the stools no burning with urination no frequency or urgency 04/01/2020 patient was seen and examined on the medical floor she is alert and oriented 3 in no apparent distress she reports improvement in her cough and shortness of breath she is receiving Remdesivir, today is dose #4 there is no fever or chills no headache or dizziness no chest pain no nausea or vomiting no abdominal pain no diarrhea no blood in the stools no burning with urination no frequency or urgency and no hematuria. At this time patient is improving continue current management possible discharge in the next 1-2 days 04/02/2020 patient was seen and examined on the medical floor she is feeling better she is still complaining of cough and shortness of breath however she feels improved otherwise she denies any complaints there is no fever or chills no headache or dizziness no chest pain , no nausea or vomiting no abdominal pain no diarrhea no burning with urination no frequency or urgency and no hematuria. Patient is scheduled to receive the last dose of Remdesevir, today at 8 PM. Possible discharge to home tomorrow if stable. On 04/03/2020 patient was seen and examined on the medical floor she is alert and oriented 3 in no apparent distress, she had difficulty at night with multiple episodes of diarrhea she is still complaining of diarrhea at this time, increase IV fluid to normal saline at 100 mL an hour, repeat CBC CMP and magnesium stat now, check stools for C. diff, otherwise patient is doing better she reports some improvement in her cough and shortness of breath she is complaining of generalized weakness, there is no fever or chills no headache or dizziness no chest pain no palpitation no nausea or vomiting no abdominal pain no blood in the stools no burning with urination no frequency or urgency and no hematuria On 04/04/2020 patient was seen and examined on the medical floor she is alert and oriented 3 in no distress she was still having episodes of diarrhea last night she is maintained on IV fluid for dehydration stools for C. diff were negative is no fever or chills no headache or dizziness no chest pain no shortness of breath no cough no nausea or vomiting no abdominal pain no blood in the stools and no urinary symptoms Objective - Vital Signs Vital signs: Vital Signs Temp 97.7 F 04/04/20 15:00 Pulse 90 04/04/20 15:00 Resp 16 04/04/20 15:00 BP 106/66 04/04/20 15:00 Pulse Ox 97 04/04/20 15:00 Intake & Output 04/04/20 04/04/20 04/05/20 06:59 18:59 06:59 Intake Total 300 1500 Output Total 1500 Balance 300 0 Intake: IV 800 Sodium Chloride 0.9% 1, 800 000 ml @ 100 mls/hr IV . Q10H JARRETT Rx#:[id number] Oral 300 700 Output: Urine 1500 Other: Voiding Method Bedside Commode # Voids 2 # Bowel Movements 1 - Exam In general patient is alert and oriented 3 in no distress HEENT head normocephalic and atraumatic Neck is supple no JVD no goiter no lymphadenopathy Chest exam reveals a scattered crackles bilaterally no wheezing Cardiac exam reveals regular heart sounds S1 and S2 no gallops no murmurs Abdomen is soft nontender no organomegaly with normal bowel sounds Extremity exam reveals no edema no cyanosis or clubbing - Labs CBC & Chem 7: 04/04/20 06:35 04/04/20 06:35 Labs: Abnormal Lab Results - Last 24 Hours (Table) 04/03/20 04/04/20 04/04/20 Range/Units 20:50 06:35 06:35 WBC 12.2 H (3.8-10.6) k/uL Hgb 10.7 L (11.4-16.0) gm/dL MCHC 30.3 L (31.0-37.0) g/dL Neutrophils # 8.2 H (1.3-7.7) k/uL Monocytes # 1.2 H (0-1.0) k/uL Sodium 134 L (137-145) mmol/L Potassium 5.5 H (3.5-5.1) mmol/L BUN 43 H (7-17) mg/dL Creatinine 1.25 H (0.52-1.04) mg/dL Glucose 340 H (74-99) mg/dL POC Glucose (mg/dL) 292 H (75-99) mg/dL AST 13 L (14-36) U/L Total Protein 4.8 L (6.3-8.2) g/dL Albumin 2.6 L (3.5-5.0) g/dL 04/04/20 04/04/20 04/04/20 Range/Units 06:40 08:14 12:16 WBC (3.8-10.6) k/uL Hgb (11.4-16.0) gm/dL MCHC (31.0-37.0) g/dL Neutrophils # (1.3-7.7) k/uL Monocytes # (0-1.0) k/uL Sodium (137-145) mmol/L Potassium (3.5-5.1) mmol/L BUN (7-17) mg/dL Creatinine (0.52-1.04) mg/dL Glucose (74-99) mg/dL POC Glucose (mg/dL) 335 H 304 H 287 H (75-99) mg/dL AST (14-36) U/L Total Protein (6.3-8.2) g/dL Albumin (3.5-5.0) g/dL 04/04/20 Range/Units 16:28 WBC (3.8-10.6) k/uL Hgb (11.4-16.0) gm/dL MCHC (31.0-37.0) g/dL Neutrophils # (1.3-7.7) k/uL Monocytes # (0-1.0) k/uL Sodium (137-145) mmol/L Potassium (3.5-5.1) mmol/L BUN (7-17) mg/dL Creatinine (0.52-1.04) mg/dL Glucose (74-99) mg/dL POC Glucose (mg/dL) 223 H (75-99) mg/dL AST (14-36) U/L Total Protein (6.3-8.2) g/dL Albumin (3.5-5.0) g/dL Assessment and Plan Assessment: 1. Chest pain. Troponins negative 3. Cardiology service is consulted 2. Shortness of breath. Chest x-ray completed showing interstitial phase pulmonary edema. Pulmonary services have been consulted. COVID test positive from outside lab done on the day of admission 3. Acute diarrhea. Stool cultures negative. C. diff negative. 4. Urinary tract infection urine culture ordered. Patient started on Rocephin 5. History of COPD 6. History of diabetes mellitus type 2 Homans resumed 7. History of hyperlipidemia maintained on statin 8. Essential hypertension. 9. History of anxiety and depression 10. Multiple episodes of diarrhea will check stools for C. diff recheck labs and increase IV fluid to 100 mL an hour normal saline DVT prophylaxis heparin. GI prophylaxis Protonix Pulmonary and cardiology service consulted Patient started on IV Decadron pulmonary were notified of positive Covid test Rocephin for UTI
[2020-04-04 22:28] LABS: Glucose,Whole Blood 263 mg/dL (75-99)
[2020-04-04] MEDS: MONTELUKAST 10 MG TAB PO SCH (22:34)
[2020-04-04] MEDS: INSULIN DETEMIR (LEVEMIR) 100 UNIT/ML SYR SQ SCH (22:34)
[2020-04-04] MEDS: LATANOPROST 0.005% OPHTH DROPS 2.5 ML BTL BOTH EYES SCH (22:34)
[2020-04-05] MEDS: SODIUM CHLORIDE 0.9% 1,000 ML IV SCH (06:26)
[2020-04-05 06:57] LABS: Glucose,Whole Blood 276 mg/dL (75-99)
[2020-04-05] MEDS: LEVOTHYROXINE 100 MCG TAB PO SCH (07:01)
[2020-04-05] MEDS: INSULIN ASPART (NovoLOG) 100 UNIT/ML VIAL SQ SCH (07:01)
[2020-04-05 08:02] VITALS: BP 105/68; PULSE 78; RESP 16; TEMP 97.8
[2020-04-05] MEDS: traMADol 50 MG TAB PO PRN (08:05)
[2020-04-05] MEDS: ASCORBIC ACID 500 MG TAB PO SCH (08:05)
[2020-04-05] MEDS: ASPIRIN 81 MG PO SCH (08:05)
[2020-04-05] MEDS: ENOXAPARIN 40 MG/0.4 ML SYRINGE SQ SCH (08:06)
[2020-04-05] MEDS: ZINC SULFATE 220 MG CAP PO SCH (08:06)
[2020-04-05] MEDS: PANTOPRAZOLE 40 MG TABLET PO SCH (08:06)
[2020-04-05] MEDS: MAGNESIUM OXIDE 400 MG TAB PO SCH (08:06)
[2020-04-05] MEDS: VENLAFAXINE HCL ER 150 MG CAP PO SCH (08:06)
[2020-04-05] MEDS: PRAVASTATIN SODIUM 40 MG TAB PO SCH (08:06)
[2020-04-05] MEDS: ACETAZOLAMIDE 500 MG PO SCH (08:06)
[2020-04-05] MEDS: CHOLECALCIFEROL 1,000 UNIT TAB PO SCH (08:06)
[2020-04-05] MEDS: FLUTICASONE 50MCG/SPRAY NASAL 16GM EA NOSTRIL SCH (08:07)
--- NOTE | 2020-04-05 10:01 | P.DS ---
Providers Date of admission: 03/26/20 15:02 Expected date of discharge: 04/05/20 Attending physician: Kamran Lara Consults: 03/24/20 20:30 Consult Physician Urgent Consulting Provider: [facility] Consult Reason/Comments: acute chest pain Do you want consulting provider notified?: Yes 03/25/20 10:07 Consult Physician Routine Consulting Provider: Nicole Collins Consult Reason/Comments: Shortness of breath interstitial pulmonary edema Do you want consulting provider notified?: Yes Primary care physician: [facility] Hospital Course: Diagnoses on discharge: 1. Chest pain. Troponins negative 3. Cardiology service is consulted 2. Shortness of breath. Chest x-ray completed showing interstitial phase pulmonary edema. Pulmonary services have been consulted. COVID test positive from outside lab done on the day of admission 3. Acute diarrhea. Stool cultures negative. C. diff negative. 4. Urinary tract infection urine culture ordered. Patient started on Rocephin 5. History of COPD 6. History of diabetes mellitus type 2 Homans resumed 7. History of hyperlipidemia maintained on statin 8. Essential hypertension. 9. History of anxiety and depression 10. Multiple episodes of diarrhea will check stools for C. diff recheck labs and increase IV fluid to 100 mL an hour normal saline Hospital course: This is a 54-year-old female patient who presented to the ER with complaints of chest pain, shortness breath and diarrhea. Patient reports the chest pain has been occurring for approximately 4 days. Patient reports occasional cough. Past medical history includes asthma COPD, diabetes mellitus, hyperlipidemia, hypertension, osteoarthritis, thyroid disorder, anxiety and depression. Troponins negative 3. C. diff negative stool cultures negative. COVID test has been ordered. Chest x-ray completed showing interstitial phase pulmonary edema. Cardiology and pulmonary services have been consulted. At this time patient denies chest pain. Patient does report intermittent shortness of breath and cough. Patient denies abdominal pain nausea or vomiting. Patient denies any urinary burning or frequency. On 03/26/2020 patient was seen and examined on the medical floor she is alert and oriented 3 in no distress she is complaining of chest pain and shortness of breath and cough otherwise she denies any complaints there is no fever or chills no headache or dizziness no palpitation no nausea or vomiting no abdominal pain no diarrhea no blood in the stools no burning with urination no frequency or urgency and no hematuria. Last night testing for Covid 19 was reported as positive from outside lab testing was done on the day of admission, patient was started on IV Decadron, the floor nurse was notified and she was asked to notify pulmonary. on 03/27/2020 patient was seen and examined on the medical floor she is alert and oriented 3 she is still complaining of shortness of breath and cough otherwise she denies any other symptoms there is no fever or chills no headache or dizziness no chest pain no nausea or vomiting no abdominal pain no diarrhea and no urinary symptoms on 03/28/2020 patient is alert and oriented 3 she is complaining of cough and shortness of breath she has occasional chest pain on the right side of her chest otherwise she denies any complaints there is no fever or chills no headache or dizziness no nausea or vomiting no abdominal pain no diarrhea and no urinary symptoms On 03/29/2020 patient was seen and examined on the medical floor she is alert and oriented 3 in no distress she is still complaining of shortness of breath and cough otherwise she denies any complaints there is no fever or chills no chest pain no nausea or vomiting no abdominal pain no diarrhea and no urinary symptoms. On 03/30/2020 patient was seen and examined on the medical floor she is alert and oriented 3 in no distress she is complaining of shortness of breath O2 sat duration is down to 88% on room air she has cough there is no fever or chills no headache or dizziness no chest pain no nausea or vomiting no abdominal pain no diarrhea no blood in the stools no burning with urination no frequency or urgency and no hematuria. Patient was started yesterday on Remdesivir today she is receiving dose #2 On 03/31/2020 Patient was seen and examined on the medical floor she is alert and oriented 3 in no apparent distress she is still complaining of cough and shortness of breath with activity otherwise she denies any complaints she has tested positive for Covid 19 and currently she is maintained on Remdesivir, today is dose #3 otherwise she denies any complaints there is no fever or chills no headache or dizziness no chest pain no nausea or vomiting no abdominal pain no diarrhea no blood in the stools no burning with urination no frequency or urgency 04/01/2020 patient was seen and examined on the medical floor she is alert and oriented 3 in no apparent distress she reports improvement in her cough and shortness of breath she is receiving Remdesivir, today is dose #4 there is no fever or chills no headache or dizziness no chest pain no nausea or vomiting no abdominal pain no diarrhea no blood in the stools no burning with urination no frequency or urgency and no hematuria. At this time patient is improving cont inue current management possible discharge in the next 1-2 days 04/02/2020 patient was seen and examined on the medical floor she is feeling better she is still complaining of cough and shortness of breath however she feels improved otherwise she denies any complaints there is no fever or chills no headache or dizziness no chest pain , no nausea or vomiting no abdominal pain no diarrhea no burning with urination no frequency or urgency and no hematuria. Patient is scheduled to receive the last dose of Remdesevir, today at 8 PM. Possible discharge to home tomorrow if stable. On 04/03/2020 patient was seen and examined on the medical floor she is alert and oriented 3 in no apparent distress, she had difficulty at night with multiple episodes of diarrhea she is still complaining of diarrhea at this time, increase IV fluid to normal saline at 100 mL an hour, repeat CBC CMP and magnesium stat now, check stools for C. diff, otherwise patient is doing better she reports some improvement in her cough and shortness of breath she is complaining of generalized weakness, there is no fever or chills no headache or dizziness no chest pain no palpitation no nausea or vomiting no abdominal pain no blood in the stools no burning with urination no frequency or urgency and no hematuria On 04/04/2020 patient was seen and examined on the medical floor she is alert and oriented 3 in no distress she was still having episodes of diarrhea last night she is maintained on IV fluid for dehydration stools for C. diff were negative is no fever or chills no headache or dizziness no chest pain no s hortness of breath no cough no nausea or vomiting no abdominal pain no blood in the stools and no urinary symptoms. On 04/05/2020 patient was seen and examined on the medical floor she is alert and oriented 3 in no apparent distress she is still having episodes of diarrhea however she is very eager to go home she denies any cough or shortness of breath her lung exam is normal, she was evaluated by pulmonary and was cleared for discharge, patient will be discharged home today she was instructed to drink a lot of fluids to avoid dehydration due to diarrhea she was instructed to return to the hospital or to the office if having dizziness or any evidence of dehydration or if she is having worsening of her symptoms. Patient Condition at Discharge: Stable Plan - Discharge Summary Discharge Rx Participant: No New Discharge Prescriptions: Continue Pravastatin Sodium [Pravachol] 40 mg PO DAILY [place]-3 Fatty Acids/Fish Oil [Fish Oil 1,000 mg Softgel] 1,000 mg PO HS Cholecalciferol [Vitamin D3 (25 Mcg = 1000 Iu)] 2,000 unit PO DAILY Aspirin [Adult Low Dose Aspirin EC] 81 mg PO DAILY Venlafaxine HCl [Effexor XR] 150 mg PO DAILY Ferrous Gluconate 324 mg PO DAILY Liraglutide [Victoza 2-José] 1.8 mg SQ DAILY Pioglitazone [Actos] 30 mg PO DAILY metFORMIN HCL [Glucophage] 500 mg PO BID Magnesium Oxide [Mag-Ox] 400 mg PO BID Levothyroxine Sodium [Synthroid] 100 mcg PO DAILY Latanoprost/Pf [Latanoprost 0.005% Eye Drop] 1 drop BOTH EYES HS Fluticasone Nasal [place] [Flonase Nasal [place]] 1 spray EA NOSTRIL BID traMADol HCL 50 mg PO TID PRN PRN Reason: Pain Montelukast [Singulair] 10 mg PO HS Insulin Glargine,Hum.rec.anlog [Basaglar Kwikpen U-100] 52 unit SQ HS Albuterol Inhaler [Ventolin Hfa Inhaler] 2 puff INHALATION RT-QID PRN PRN Reason: Shortness Of Breath Dicyclomine [Bentyl] 20 mg PO Q8H PRN PRN Reason: Gi Upset acetaZOLAMIDE [Diamox Sequels] 500 mg PO BID Omeprazole 20 mg PO DAILY Discontinued Ibuprofen 800 mg PO Q6HR PRN #20 tablet PRN Reason: Pain Cephalexin [Keflex] 500 mg PO Q6HR 7 Days #28 cap Discharge Medication List Pravastatin Sodium [Pravachol] 40 mg PO DAILY 12/15/14 [History] Aspirin [Adult Low Dose Aspirin EC] 81 mg PO DAILY 08/22/17 [History] Cholecalciferol [Vitamin D3 (25 Mcg = 1000 Iu)] 2,000 unit PO DAILY 08/22/17 [History] [place]-3 Fatty Acids/Fish Oil [Fish Oil 1,000 mg Softgel] 1,000 mg PO HS 08/22/17 [History] Ferrous Gluconate 324 mg PO DAILY 09/30/17 [History] Venlafaxine HCl [Effexor XR] 150 mg PO DAILY 09/30/17 [History] Levothyroxine Sodium [Synthroid] 100 mcg PO DAILY 02/16/19 [History] Liraglutide [Victoza 2-José] 1.8 mg SQ DAILY 02/16/19 [History] Magnesium Oxide [Mag-Ox] 400 mg PO BID 02/16/19 [History] Pioglitazone [Actos] 30 mg PO DAILY 02/16/19 [History] metFORMIN HCL [Glucophage] 500 mg PO BID 02/16/19 [History] Albuterol Inhaler [Ventolin Hfa Inhaler] 2 puff INHALATION RT-QID PRN 03/21/20 [History] Dicyclomine [Bentyl] 20 mg PO Q8H PRN 03/21/20 [History] Fluticasone Nasal [place] [Flonase Nasal [place]] 1 spray EA NOSTRIL BID 03/21/20 [History] Insulin Glargine,Hum.rec.anlog [Basaglar Kwikpen U-100] 52 unit SQ HS 03/21/20 [History] Latanoprost/Pf [Latanoprost 0.005% Eye Drop] 1 drop BOTH EYES HS 03/21/20 [History] Montelukast [Singulair] 10 mg PO HS 03/21/20 [History] Omeprazole 20 mg PO DAILY 03/21/20 [History] acetaZOLAMIDE [Diamox Sequels] 500 mg PO BID 03/21/20 [History] traMADol HCL 50 mg PO TID PRN 03/21/20 [History] Follow up Appointment(s)/Referral(s): Kamran Lara MD [Primary Care Provider] - 1-2 days [facility] Nurse, [NON-STAFF] - 1-2 Days
== END 2020-04-05 12:01 | disposition home or self-care (01) | DRG 177 ==
LOC: EC 16:58 → 3NCARDOBS 20:31 → OBSVTOIN 03-26 15:02
PROVIDERS: ADMIT Internal Medicine; ATTEND Internal Medicine
DX: U07.1 COVID-19 (principal); J12.89 Other viral pneumonia; J96.01 Acute respiratory failure with hypoxia; N17.9 Acute kidney failure, unspecified; N39.0 Urinary tract infection, site not specified; E87.2 Acidosis; J44.1 Chronic obstructive pulmonary disease with (acute) exacerbation; J44.0 Chronic obstructive pulmonary disease with (acute) lower respiratory infection; J81.1 Chronic pulmonary edema; R04.2 Hemoptysis; E78.5 Hyperlipidemia, unspecified; E66.9 Obesity, unspecified; E11.9 Type 2 diabetes mellitus without complications; E86.0 Dehydration; F41.9 Anxiety disorder, unspecified; M19.90 Unspecified osteoarthritis, unspecified site; F32.9 Major depressive disorder, single episode, unspecified; I10 Essential (primary) hypertension; E87.8 Other disorders of electrolyte and fluid balance, not elsewhere classified; K21.9 Gastro-esophageal reflux disease without esophagitis; K52.9 Noninfective gastroenteritis and colitis, unspecified; Z68.38 Body mass index [BMI] 38.0-38.9, adult; Z79.84 Long term (current) use of oral hypoglycemic drugs; Z79.899 Other long term (current) drug therapy; Z79.890 Hormone replacement therapy; Z98.891 History of uterine scar from previous surgery; Z90.710 Acquired absence of both cervix and uterus; Z87.891 Personal history of nicotine dependence; Z79.82 Long term (current) use of aspirin; Z88.0 Allergy status to penicillin; Z88.2 Allergy status to sulfonamides; Z98.890 Other specified postprocedural states; Z80.8 Family history of malignant neoplasm of other organs or systems; Z80.1 Family history of malignant neoplasm of trachea, bronchus and lung
CPT/HCPCS: 36415; 71045; 71046; 76770; 80048; 80053; 81001; 82272; 82728; 83615; 83630; 83690; 83735; 83880; 84145; 84484; 85025; 85379; 85384; 85610; 85730; 86140; 87045; 87046; 87070; 87324; 93005; 93306; 94640; 96361; 96374; 96375; 99285

== ENCOUNTER → 2020-03-24 | Outpatient (CLI) | payer OTHER ==
--- NOTE | 2020-03-24 15:22 | US ---
EXAMINATION TYPE: US kidneys/renal and bladder DATE OF EXAM: 03/24/2020 COMPARISON: Previous ultrasound 06/17/[address] 10/24/2019 CLINICAL HISTORY: R10.9 Left flank pain. EXAM MEASUREMENTS: Right Kidney: 9.0 x 4.6 x 4.3 cm Left Kidney: 9.3 x 4.1 x 4.0 cm Right Kidney: No hydronephrosis or masses seen. No evident renal calculus Left Kidney: No hydronephrosis. Echogenic foci visualized measuring 0.4 cm Bladder: Not distended Cortical medullary differentiation is maintained with scarring suspected at the lower pole of the lef t kidney and upper pole of the right kidney, cortical thinning is present bilaterally. IMPRESSION: Kidneys show similar appearance to prior exam. There is a focal area of calcification at the site of scarring in the lower pole the left kidney as noted on patient's CT.
== END | disposition home or self-care (01) ==
LOC: RADUSWWP 14:50
PROVIDERS: ATTEND Internal Medicine
DX: N28.9 Disorder of kidney and ureter, unspecified (principal); R10.9 Unspecified abdominal pain
CPT/HCPCS: 76770

== ENCOUNTER 2020-07-27 11:14 | Emergency (ER) | payer OTHER ==
[2020-07-27 11:43] VITALS: RESP 18; TEMP 97.9
[2020-07-27] MEDS ORDERED: ONDANSETRON 4 MG/2 ML VIAL IVP STA (13:30)
[2020-07-27] MEDS ORDERED: SODIUM CHLORIDE 0.9% 1,000 ML IV STA (13:30)
[2020-07-27] MEDS ORDERED: KETOROLAC 15 MG/ML 1 ML VIAL IVP STA (13:30)
[2020-07-27 14:10] LABS: Basophils % (A) 0 %; Eosinophils % (A) 0 %; HCT 37.7 % (34.0-46.0); HGB 12.5 gm/dL (11.4-16.0); Lymphocytes # (A) 1.2 k/uL (1.0-4.8); Lymphocytes % (A) 16 %; MCH 27.7 pg (25.0-35.0); MCHC 33.2 g/dL (31.0-37.0); MCV 83.6 fL (80.0-100.0); Mean Platelet Volume 8.5; Monocytes # (A) 0.7 k/uL (0-1.0); Monocytes % (A) 9 %; Neutrophils # (A) 5.2 k/uL (1.3-7.7); Neutrophils % (A) 73 %; Platelet Count 254 k/uL (150-450); RBC 4.51 m/uL (3.80-5.40); RDW 14.2 % (11.5-15.5); WBC 7.2 k/uL (3.8-10.6)
--- NOTE | 2020-07-27 14:10 | XR ---
EXAMINATION TYPE: XR KUB DATE OF EXAM: 07/27/2020 Comparison: 03/21/2020 Clinical History: 54-year-old female pain Findings: Lung bases are clear. No evidence for free intraperitoneal air. Scattered colonic air-fluid levels. No dilated small bowel is seen. Bowel content largely obscures the renal shadows. Impression: Scattered colonic air-fluid levels suggest liquid stool such as from an enteritis or generalized ileu s. Overall nonobstructive bowel gas pattern. No free air.
[2020-07-27 14:17] LABS: Appearance,Urine Cloudy (Clear); Bacteria,Urine Many /hpf; Bilirubin,Urine Negative (Negative); Blood,Urine Negative (Negative); Budding Yeast,Urine Rare /hpf; Color,Urine Yellow; Glucose,Urine (UA) Negative (Negative); Ketones,Urine Negative (Negative); Leukocyte Esterase,Urine Large (Negative); Mucus,Urine Rare /hpf; Nitrite,Urine Positive (Negative); PH, Urine 5.5 (5.0-8.0); Protein,Urine Trace (Negative); RBC,Urine 3 /hpf (0-5); Squamous Epithelial Cell,Urine 1 /hpf (0-4); Urobilinogen,Urine <2.0 mg/dL (<2.0); WBC,Urine 54 /hpf (0-5)
[2020-07-27 14:19] LABS: Albumin 4.2 g/dL (3.5-5.0); Calcium 9.7 mg/dL (8.4-10.2); Potassium 4.2 mmol/L (3.5-5.1); Total Bilirubin 0.4 mg/dL (0.2-1.3)
--- NOTE | 2020-07-27 14:22 | ED ---
General Adult HPI - General Chief complaint: Eye Problems Stated complaint: diarrhea Time Seen by Provider: 07/27/20 13:17 Source: patient, RN notes reviewed Mode of arrival: ambulatory Limitations: no limitations - History of Present Illness Initial comments: A she is a 54-year-old female presents to emergency department complaining of diarrhea on and off for the past several months. She also noted that she does have a red bump on the inferior right eyelid. Shethat she has 9-10 bouts of diarrhea per day on and off throughout the past few months. She denied any hematochezia or melena. She did report generalized abdominal pain. She stated that she has not followed up with a primary care for this issue and [facility] emergency department to get evaluated. She did not that she wanted to be checked for urinary tract infection just in case. She denied any chest pain shortness of breath headache nausea vomiting constipation fever fatigue chills change in vision blurry vision or eye discharge. - Related Data Home Medications Medication Instructions Recorded Confirmed Pravastatin Sodium [Pravachol] 40 mg PO DAILY 12/15/14 07/27/20 Aspirin [Adult Low Dose Aspirin EC] 81 mg PO DAILY 08/22/17 07/27/20 Cholecalciferol [Vitamin D3 (25 2,000 unit PO DAILY 08/22/17 07/27/20 Mcg = 1000 Iu)] Ferrous Gluconate 324 mg PO DAILY 09/30/17 07/27/20 Venlafaxine HCl [Effexor XR] 150 mg PO DAILY 09/30/17 07/27/20 Levothyroxine Sodium [Synthroid] 100 mcg PO DAILY 02/16/19 07/27/20 Liraglutide [Victoza 2-José] 1.8 mg SQ DAILY 02/16/19 07/27/20 Magnesium Oxide [Mag-Ox] 400 mg PO BID 02/16/19 07/27/20 Pioglitazone [Actos] 30 mg PO DAILY 02/16/19 07/27/20 metFORMIN HCL [Glucophage] 500 mg PO BID 02/16/19 07/27/20 Dicyclomine [Bentyl] 20 mg PO Q8H PRN 03/21/20 07/27/20 Montelukast [Singulair] 10 mg PO HS 03/21/20 07/27/20 Omeprazole 20 mg PO DAILY 03/21/20 07/27/20 acetaZOLAMIDE [Diamox Sequels] 500 mg PO BID 03/21/20 07/27/20 traMADol HCL 50 mg PO TID PRN 03/21/20 07/27/20 Insulin Glargine [Lantus] 52 unit SQ HS 07/27/20 07/27/20 Previous Rx's Medication Instructions Recorded Ciprofloxacin HCl [Cipro] 500 mg PO Q12HR #14 tablet 07/27/20 Allergies Allergy/AdvReac Type Severity Reaction Status Date / Time Penicillins Allergy Unknown Verified 07/27/20 13:48 Childhood Sulfa (Sulfonamide Allergy Rash/Hives Verified 07/27/20 13:48 Antibiotics) Review of Systems ROS Statement: Those systems with pertinent positive or pertinent negative responses have been documented in the HPI. ROS Other: All systems not noted in ROS Statement are negative. Past Medical History Past Medical History: Asthma, COPD, Diabetes Mellitus, Hyperlipidemia, Hypertension, Neurologic Disorder, Osteoarthritis (OA), Thyroid Disorder History of Any Multi-Drug Resistant Organisms: None Reported Past Surgical History: Section, Hysterectomy Additional Past Surgical History / Comment(s): x 2, ganglion cyst removed from left wrist Past Anesthesia/Blood Transfusion Reactions: No Reported Reaction Past Psychological History: Anxiety, Depression Smoking Status: Never smoker Past Alcohol Use History: None Reported Past Drug Use History: None Reported - Past Family History Father Family Medical History: Cancer Additional Family Medical History / Comment(s): brain Mother Family Medical History: Cancer Additional Family Medical History / Comment(s): lung - General Exam Limitations: no limitations General appearance: alert, in no apparent distress, obese Head exam: Present: atraumatic, normocephalic, normal inspection Eye exam: Present: normal appearance, PERRL, EOMI. Absent: scleral icterus, conjunctival injection, periorbital swelling Expanded Eyelids: Stye: Right ENT exam: Present: normal exam, mucous membranes moist Neck exam: Present: normal inspection. Absent: tenderness, meningismus, lymphadenopathy Respiratory exam: Present: normal lung sounds bilaterally. Absent: respiratory distress, wheezes, rales, rhonchi, stridor Cardiovascular Exam: Present: regular rate, normal rhythm, normal heart sounds. Absent: systolic murmur, diastolic murmur, rubs, gallop, clicks GI/Abdominal exam: Present: soft, tenderness (Generalized to mild palpation QUADRANTS), normal bowel sounds. Absent: distended, guarding, rebound, rigid Extremities exam: Present: normal inspection, full ROM, normal capillary refill. Absent: tenderness, pedal edema, joint swelling, calf tenderness Neurological exam: Present: alert, oriented X3, CN II-XII intact Psychiatric exam: Present: normal affect, normal mood Skin exam: Present: warm, dry, intact, normal color. Absent: rash Course Vital Signs 07/27/20 11:40 Temperature 97.9 F Pulse Rate 95 Respiratory 18 Rate Blood Pressure 102/61 O2 Sat by Pulse 99 Oximetry Medical Decision Making - Medical Decision Making 54-year-old female complaining of diarrhea on and off for the past 4 months and a right eye stye. Labs, stool culture, 15 mg of Toradol, 4 mg of Zofran, KUB ordered. Labs unremarkable, KUB showed moderate liquid stool in bowel with nonobstructive pattern. Case discussed with Dr. Davis, decided patient discharged home with antibiotic therapy for UTI. - Lab Data Result diagrams: 07/27/20 13:53 07/27/20 13:53 Lab Results 07/27/20 07/27/20 07/27/20 Range/Units 13:53 13:53 13:53 WBC 7.2 (3.8-10.6) k/uL RBC 4.51 (3.80-5.40) m/uL Hgb 12.5 (11.4-16.0) gm/dL Hct 37.7 (34.0-46.0) % MCV 83.6 (80.0-100.0) fL MCH 27.7 (25.0-35.0) pg MCHC 33.2 (31.0-37.0) g/dL RDW 14.2 (11.5-15.5) % Plt Count 254 (150-450) k/uL MPV 8.5 Neutrophils % 73 % Lymphocytes % 16 % Monocytes % 9 % Eosinophils % 0 % Basophils % 0 % Neutrophils # 5.2 (1.3-7.7) k/uL Lymphocytes # 1.2 (1.0-4.8) k/uL Monocytes # 0.7 (0-1.0) k/uL Eosinophils # 0.0 (0-0.7) k/uL Basophils # 0.0 (0-0.2) k/uL Sodium 143 (137-145) mmol/L Potassium 4.2 (3.5-5.1) mmol/L Chloride 113 H (98-107) mmol/L Carbon Dioxide 17 L (22-30) mmol/L Anion Gap 13 mmol/L BUN 31 H (7-17) mg/dL Creatinine 1.35 H (0.52-1.04) mg/dL Est GFR (CKD-EPI)AfAm 51 (>60 ml/min/1.73 sqM) Est GFR (CKD-EPI)NonAf 44 (>60 ml/min/1.73 sqM) Glucose 128 H (74-99) mg/dL Calcium 9.7 (8.4-10.2) mg/dL Total Bilirubin 0.4 (0.2-1.3) mg/dL AST 17 (14-36) U/L ALT 12 (4-34) U/L Alkaline Phosphatase 72 (38-126) U/L Total Protein 7.0 (6.3-8.2) g/dL Albumin 4.2 (3.5-5.0) g/dL Amylase 39 (30-110) U/L Lipase 216 (23-300) U/L Urine Color Yellow Urine Appearance Cloudy H (Clear) Urine pH 5.5 (5.0-8.0) Ur Specific [place] 1.020 (1.001-1.035) Urine Protein Trace H (Negative) Urine Glucose (UA) Negative (Negative) Urine Ketones Negative (Negative) Urine Blood Negative (Negative) Urine Nitrite Positive H (Negative) Urine Bilirubin Negative (Negative) Urine Urobilinogen <2.0 (<2.0) mg/dL Ur Leukocyte Esterase Large H (Negative) Urine RBC 3 (0-5) /hpf Urine WBC 54 H (0-5) /hpf Ur Squamous Epith Cells 1 (0-4) /hpf Urine Bacteria Many H (None) /hpf Urine Mucus Rare H (None) /hpf Urine Yeast (Budding) Rare H (None) /hpf - Radiology Data Radiology results: report reviewed, image reviewed KUB: Scattered colonic air-fluid levels suggestive liquid stool such as from an enteritis or generalized ileus. Overall nonobstructive bowel gas pattern no free air. Disposition Clinical Impression: Enteritis, Hordeolum externum right lower eyelid, Urinary tract infection Disposition: HOME SELF-CARE Condition: Stable Instructions (If sedation given, give patient instructions): Urinary Tract Infection in Women (ED), Stye (ED), Colitis (ED) Additional Instructions: Please return to the Emergency Department if symptoms worsen or any other concerns. Follow-up primary care in 2-4 days. Warm compresses to right eye to help alleviate discomfort from stye. Increase oral fluid intake and can take Imodium as needed for diarrhea symptoms. Try to keep a food journal and see what foods cause diarrhea. Take antibiotics as prescribed until complete. Prescriptions: Ciprofloxacin HCl [Cipro] 500 mg PO Q12HR #14 tablet Is patient prescribed a controlled substance at d/c from ED?: No Referrals: Kamran Lara MD [Primary Care Provider] - 1-2 days Time of Disposition: 14:48
[2020-07-27 15:10] VITALS: BP 120/76; PULSE 74
== END 2020-07-27 15:10 | disposition home or self-care (01) ==
LOC: EC 11:14
DX: N39.0 Urinary tract infection, site not specified (principal); H00.012 Hordeolum externum right lower eyelid; K52.9 Noninfective gastroenteritis and colitis, unspecified; M19.90 Unspecified osteoarthritis, unspecified site; E11.9 Type 2 diabetes mellitus without complications; E07.9 Disorder of thyroid, unspecified; E78.5 Hyperlipidemia, unspecified; J44.9 Chronic obstructive pulmonary disease, unspecified; Z79.4 Long term (current) use of insulin; Z79.899 Other long term (current) drug therapy; Z79.82 Long term (current) use of aspirin; Z79.890 Hormone replacement therapy; Z88.2 Allergy status to sulfonamides; Z88.0 Allergy status to penicillin
CPT/HCPCS: 36415; 80053; 82150; 83690; 85025; 81001; 87086; 87045; 87077; 87186; 87046; 74018; 99284; 96374; 96375; 96361; J2405; J1885

== ENCOUNTER → 2020-08-23 | Outpatient (CLI) | payer OTHER ==
--- NOTE | 2020-08-23 14:33 | MR ---
EXAMINATION TYPE: MR brain wo/w con DATE OF EXAM: 08/23/2020 2:04 PM COMPARISON: NONE HISTORY: Mental status changes, forgetfulness, and hearing loss in left ear. CONTRAST: Patient received 10 mL intravenous Gadavist gadolinium contrast. Multiplanar and multispin-echo imaging of the brain was performed . Pre and post contrast enhanced i mages are obtained. The ventricles, basal cisterns and sulci overlying the cerebral convexities are mildy enlarged. There is evidence of mild periventricular white matter ischemic demyelination. Remote deep white matter insults are also noted. No acute edema is seen on diffusion weighted imaging. There is no evidence for midline shift or mass effect. Acute intracranial hemorrhage or extra-axial collection is not evident. No enhancing lesions are seen. The paranasal sinuses and mastoid air cells are well-aerated. IMPRESSION: Age-related atrophic and chronic small vessel ischemic change. No acute intracranial process at this time. No enhancing lesions are seen.
== END | disposition home or self-care (01) ==
LOC: RADMRIMAIN 12:34
PROVIDERS: ATTEND Internal Medicine
DX: I67.82 Cerebral ischemia (principal); G31.1 Senile degeneration of brain, not elsewhere classified
CPT/HCPCS: 70553

== ENCOUNTER → 2020-09-12 | Outpatient (CLI) | payer OTHER ==
--- NOTE | 2020-09-12 15:13 | XR ---
Right hip HISTORY: Right hip pain 2 views the right hip, correlation to prior right hip dated 10/23/2010 Bone mineralization, joint spaces and alignment are maintained. No fracture or dislocation. Mild robi inal spurring. IMPRESSION: No acute abnormality. There may be some mild osteoarthritic change
== END | disposition home or self-care (01) ==
LOC: RADXRMAIN 14:31
PROVIDERS: ATTEND Internal Medicine
DX: M25.551 Pain in right hip (principal)
CPT/HCPCS: 73502

== ENCOUNTER 2021-02-16 17:05 | Emergency (ER) | payer OTHER ==
[2021-02-16] MEDS ORDERED: ONDANSETRON 4 MG/2 ML VIAL IVP STA (18:26)
[2021-02-16] MEDS ORDERED: PANTOPRAZOLE 40 MG/10 ML VIAL IVP STA (18:26)
[2021-02-16] MEDS ORDERED: MORPHINE SULFATE 4 MG/ML SYRINGE IV STA (18:26)
[2021-02-16 18:52] LABS: Basophils % (A) 0 %; Eosinophils % (A) 1 %; HGB 12.7 gm/dL (11.4-16.0); Hypochromasia Slight; Lymphocytes # (A) 1.4 k/uL (1.0-4.8); Lymphocytes % (A) 20 %; MCH 28.3 pg (25.0-35.0); MCHC 31.1 g/dL (31.0-37.0); MCV 91.2 fL (80.0-100.0); Mean Platelet Volume 8.5; Monocytes # (A) 0.6 k/uL (0-1.0); Monocytes % (A) 8 %; Neutrophils # (A) 4.9 k/uL (1.3-7.7); Neutrophils % (A) 70 %; Platelet Count 258 k/uL (150-450); RBC 4.49 m/uL (3.80-5.40)
[2021-02-16 18:58] LABS: Appearance,Urine Cloudy (Clear); Bacteria,Urine Rare /hpf; Bilirubin,Urine Negative (Negative); Blood,Urine Negative (Negative); Budding Yeast,Urine Few /hpf; Color,Urine Yellow; Glucose,Urine (UA) Negative (Negative); Ketones,Urine Negative (Negative); Leukocyte Esterase,Urine Moderate (Negative); Mucus,Urine Rare /hpf; Nitrite,Urine Negative (Negative); Protein,Urine Negative (Negative); RBC,Urine <1 /hpf (0-5); Specific Gravity,Urine 1.016 (1.001-1.035); Squamous Epithelial Cell,Urine <1 /hpf (0-4); Urobilinogen,Urine <2.0 mg/dL (<2.0); WBC,Urine 4 /hpf (0-5)
[2021-02-16 19:08] LABS: Albumin 4.4 g/dL (3.5-5.0); Calcium 9.4 mg/dL (8.4-10.2); Total Bilirubin 0.5 mg/dL (0.2-1.3); Total Protein 7.6 g/dL (6.3-8.2)
[2021-02-16 19:10] LABS: Potassium 4.6 mmol/L (3.5-5.1)
[2021-02-16 19:12] VITALS: RESP 20
--- NOTE | 2021-02-16 19:22 | US ---
EXAMINATION TYPE: US gallbladder DATE OF EXAM: 02/16/2021 COMPARISON: CT 10/24/2019 CLINICAL HISTORY: ruq pain, pain with eating. Difficult exam due to patient body habitus EXAM MEASUREMENTS: Liver Length: 17.8 cm Gallbladder Wall: 0.2 cm CBD: 0.5 cm Right Kidney: 9.2 x 4.7 x 5.4 cm Pancreas: Tail obscured by overlying bowel gas Liver: Heterogeneous Gallbladder: wnl Evidence for sonographic Craft's sign: No CBD: wnl Right Kidney: No hydronephrosis or masses seen. IMPRESSION: No acute sonographic process.
--- NOTE | 2021-02-16 20:08 | ED ---
Abdominal Pain HPI - General Chief Complaint: Abdominal Pain Stated Complaint: R side pain Source: family Mode of arrival: ambulatory Limitations: no limitations - History of Present Illness Initial Comments: 55-year-old female presents emergency room with reported right upper quadrant abdominal pain which started while she was eating proximally 2 hours ago. States that the pain is constant and crampy. She does not take any medications for her symptoms. Reports associated nausea without vomiting. No recent fevers. Denies any chest pain or shortness of breath. No changes in her bowel or bladder habits. Patient has history of hysterectomy however no other abdominal surgeries. No associated diarrhea. No other alleviating, Perceptin or modifying factors - Related Data Home Medications Medication Instructions Recorded Confirmed Pravastatin Sodium [Pravachol] 40 mg PO DAILY 12/15/14 07/27/20 Aspirin [Adult Low Dose Aspirin EC] 81 mg PO DAILY 08/22/17 07/27/20 Cholecalciferol [Vitamin D3 (25 2,000 unit PO DAILY 08/22/17 07/27/20 Mcg = 1000 Iu)] Ferrous Gluconate 324 mg PO DAILY 09/30/17 07/27/20 Venlafaxine HCl [Effexor XR] 150 mg PO DAILY 09/30/17 07/27/20 Levothyroxine Sodium [Synthroid] 100 mcg PO DAILY 02/16/19 07/27/20 Liraglutide [Victoza 2-José] 1.8 mg SQ DAILY 02/16/19 07/27/20 Magnesium Oxide [Mag-Ox] 400 mg PO BID 02/16/19 07/27/20 Pioglitazone [Actos] 30 mg PO DAILY 02/16/19 07/27/20 metFORMIN HCL [Glucophage] 500 mg PO BID 02/16/19 07/27/20 Dicyclomine [Bentyl] 20 mg PO Q8H PRN 03/21/20 07/27/20 Montelukast [Singulair] 10 mg PO HS 03/21/20 07/27/20 Omeprazole 20 mg PO DAILY 03/21/20 07/27/20 acetaZOLAMIDE [Diamox Sequels] 500 mg PO BID 03/21/20 07/27/20 traMADol HCL 50 mg PO TID PRN 03/21/20 07/27/20 Insulin Glargine [Lantus] 52 unit SQ HS 07/27/20 07/27/20 Previous Rx's Medication Instructions Recorded Ciprofloxacin HCl [Cipro] 500 mg PO Q12HR #14 tablet 07/27/20 Allergies Allergy/AdvReac Type Severity Reaction Status Date / Time Penicillins Allergy Unknown Verified 02/16/21 17:20 Childhood Sulfa (Sulfonamide Allergy Rash/Hives Verified 02/16/21 17:20 Antibiotics) Review of Systems ROS Statement: Those systems with pertinent positive or pertinent negative responses have been documented in the HPI. ROS Other: All systems not noted in ROS Statement are negative. Past Medical History Past Medical History: Asthma, COPD, Diabetes Mellitus, Hyperlipidemia, Hyperte nsion, Neurologic Disorder, Osteoarthritis (OA), Thyroid Disorder History of Any Multi-Drug Resistant Organisms: None Reported Past Surgical History: Section, Hysterectomy Additional Past Surgical History / Comment(s): x 2, ganglion cyst removed from left wrist Past Anesthesia/Blood Transfusion Reactions: No Reported Reaction Past Psychological History: Anxiety, Depression Smoking Status: Never smoker Past Alcohol Use History: None Reported Past Drug Use History: None Reported - Past Family History Father Family Medical History: Cancer Additional Family Medical History / Comment(s): brain Mother Family Medical History: Cancer Additional Family Medical History / Comment(s): lung - General Exam Limitations: no limitations Course Vital Signs 02/16/21 02/16/21 02/16/21 17:21 19:03 20:40 Temperature 98.5 F 98.0 F Pulse Rate 80 68 76 Respiratory 16 20 20 Rate Blood Pressure 99/61 106/66 100/64 O2 Sat by Pulse 98 97 97 Oximetry Medical Decision Making - Medical Decision Making Upon arrival patient is placed in room 32. Thorough history and physical exam was performed. IV is established laboratory studies were conducted. Patient was given a dose of morphine for pain control. She does have an ultrasound performed of her gallbladder. Laboratory studies are reviewed and demonstrated a creatinine of 1.5. This is near the patient's baseline. Urinalysis d emonstrates moderate leukocyte esterase with rare bacteria and few budding knees. Patient has no urinary complaints at this time therefore we will hold off on treating the specimen. Ultrasound fails to demonstrate any acute process. I did discuss diagnosis, differential treatment options. Patient is reevaluated and reports to complete resolution of her symptoms at this time. Patient symptoms are concerning for biliary dyskinesia. Recommended the patient follow up with surgery for a HIDA scan. She is requesting information for Dr. Adams as family members have previously seen him. This is included on discharge instructions. She is instructed to eat a bland diet which is low in fat. Return to the emergency room for any new or worsening symptoms. Patient was discharged home in stable condition - Lab Data Result diagrams: 02/16/21 18:45 02/16/21 18:45 Lab Results 02/16/21 02/16/21 02/16/21 Range/Units 18:45 18:45 18:45 WBC 7.0 (3.8-10.6) k/uL RBC 4.49 (3.80-5.40) m/uL Hgb 12.7 (11.4-16.0) gm/dL Hct 41.0 (34.0-46.0) % MCV 91.2 (80.0-100.0) fL MCH 28.3 (25.0-35.0) pg MCHC 31.1 (31.0-37.0) g/dL RDW 14.0 (11.5-15.5) % Plt Count 258 (150-450) k/uL MPV 8.5 Neutrophils % 70 % Lymphocytes % 20 % Monocytes % 8 % Eosinophils % 1 % Basophils % 0 % Neutrophils # 4.9 (1.3-7.7) k/uL Lymphocytes # 1.4 (1.0-4.8) k/uL Monocytes # 0.6 (0-1.0) k/uL Eosinophils # 0.0 (0-0.7) k/uL Basophils # 0.0 (0-0.2) k/uL Hypochromasia Slight Sodium 140 (137-145) mmol/L Potassium 4.6 (3.5-5.1) mmol/L Chloride 110 H (98-107) mmol/L Carbon Dioxide 18 L (22-30) mmol/L Anion Gap 12 mmol/L BUN 27 H (7-17) mg/dL Creatinine 1.51 H (0.52-1.04) mg/dL Est GFR (CKD-EPI)AfAm 44 (>60 ml/min/1.73 sqM) Est GFR (CKD-EPI)NonAf 39 (>60 ml/min/1.73 sqM) Glucose 116 H (74-99) mg/dL Plasma Lactic Acid Stevenson (0.7-2.0) mmol/L Calcium 9.4 (8.4-10.2) mg/dL Total Bilirubin 0.5 (0.2-1.3) mg/dL AST 29 (14-36) U/L ALT 12 (4-34) U/L Alkaline Phosphatase 73 (38-126) U/L Total Protein 7.6 (6.3-8.2) g/dL Albumin 4.4 (3.5-5.0) g/dL Lipase 234 (23-300) U/L Urine Color Yellow Urine Appearance Cloudy H (Clear) Urine pH 7.0 (5.0-8.0) Ur Specific [place] 1.016 (1.001-1.035) Urine Protein Negative (Negative) Urine Glucose (UA) Negative (Negative) Urine Ketones Negative (Negative) Urine Blood Negative (Negative) Urine Nitrite Negative (Negative) Urine Bilirubin Negative (Negative) Urine Urobilinogen <2.0 (<2.0) mg/dL Ur Leukocyte Esterase Moderate H (Negative) Urine RBC <1 (0-5) /hpf Urine WBC 4 (0-5) /hpf Ur Squamous Epith Cells <1 (0-4) /hpf Urine Bacteria Rare H (None) /hpf Urine Mucus Rare H (None) /hpf Urine Yeast (Budding) Few H (None) /hpf 02/16/21 Range/Units 18:45 WBC (3.8-10.6) k/uL RBC (3.80-5.40) m/uL Hgb (11.4-16.0) gm/dL Hct (34.0-46.0) % MCV (80.0-100.0) fL MCH (25.0-35.0) pg MCHC (31.0-37.0) g/dL RDW (11.5-15.5) % Plt Count (150-450) k/uL MPV Neutrophils % % Lymphocytes % % Monocytes % % Eosinophils % % Basophils % % Neutrophils # (1.3-7.7) k/uL Lymphocytes # (1.0-4.8) k/uL Monocytes # (0-1.0) k/uL Eosinophils # (0-0.7) k/uL Basophils # (0-0.2) k/uL Hypochromasia Sodium (137-145) mmol/L Potassium (3.5-5.1) mmol/L Chloride (98-107) mmol/L Carbon Dioxide (22-30) mmol/L Anion Gap mmol/L BUN (7-17) mg/dL Creatinine (0.52-1.04) mg/dL Est GFR (CKD-EPI)AfAm (>60 ml/min/1.73 sqM) Est GFR (CKD-EPI)NonAf (>60 ml/min/1.73 sqM) Glucose (74-99) mg/dL Plasma Lactic Acid Stevenson 0.6 L (0.7-2.0) mmol/L Calcium (8.4-10.2) mg/dL Total Bilirubin (0.2-1.3) mg/dL AST (14-36) U/L ALT (4-34) U/L Alkaline Phosphatase (38-126) U/L Total Protein (6.3-8.2) g/dL Albumin (3.5-5.0) g/dL Lipase (23-300) U/L Urine Color Urine Appearance (Clear) Urine pH (5.0-8.0) Ur Specific [place] (1.001-1.035) Urine Protein (Negative) Urine Glucose (UA) (Negative) Urine Ketones (Negative) Urine Blood (Negative) Urine Nitrite (Negative) Urine Bilirubin (Negative) Urine Urobilinogen (<2.0) mg/dL Ur Leukocyte Esterase (Negative) Urine RBC (0-5) /hpf Urine WBC (0-5) /hpf Ur Squamous Epith Cells (0-4) /hpf Urine Bacteria (None) /hpf Urine Mucus (None) /hpf Urine Yeast (Budding) (None) /hpf - EKG Data EKG Comments: EKG demonstrates normal sinus rhythm with a ventricular rate of 70. RI interval 168. QRS 86. QTC of 421. No acute ST segment elevations or depressions concerning for ischemic changes Disposition Clinical Impression: Right upper quadrant pain Disposition: HOME SELF-CARE Condition: Stable Instructions (If sedation given, give patient instructions): Biliary Colic (ED), Abdominal Pain (ED) Additional Instructions: Please follow up with the surgeon for a HIDA scan. Do not eat foods high in fat. Take your Tramadol for pain. Return to the ED for any new or worsening symptoms. Is patient prescribed a controlled substance at d/c from ED?: No Referrals: [facility] [Primary Care Provider] - 1-2 days Tristen Adams MD [STAFF PHYSICIAN] - 1-2 days Time of Disposition: 20:08
[2021-02-16 20:44] VITALS: BP 100/64; PULSE 76; TEMP 98
== END 2021-02-16 20:41 | disposition home or self-care (01) ==
LOC: EC 17:05
DX: R10.11 Right upper quadrant pain (principal); J45.909 Unspecified asthma, uncomplicated; E11.9 Type 2 diabetes mellitus without complications; E78.5 Hyperlipidemia, unspecified; I10 Essential (primary) hypertension; M19.90 Unspecified osteoarthritis, unspecified site; E07.9 Disorder of thyroid, unspecified; F41.9 Anxiety disorder, unspecified; F32.9 Major depressive disorder, single episode, unspecified; Z79.82 Long term (current) use of aspirin; Z79.4 Long term (current) use of insulin; Z88.0 Allergy status to penicillin; Z88.2 Allergy status to sulfonamides; Z90.710 Acquired absence of both cervix and uterus
CPT/HCPCS: 36415; 76705; 80053; 81001; 83605; 83690; 85025; 93005; 96374; 96375; 99284

== ENCOUNTER 2021-03-02 15:40 | Emergency (ER) | payer OTHER ==
[2021-03-02 17:05] VITALS: TEMP 97.6
--- NOTE | 2021-03-02 19:10 | ED ---
Dizziness HPI - General Chief Complaint: Dizziness Stated Complaint: Dizziness Source: patient Mode of arrival: wheelchair Limitations: no limitations - History of Present Illness Initial Comments: 55-year-old female presents emergency Department with reported presyncopal sensation. She states that for the past 3 days she has had the sensation like she is going to pass out when she goes from a seated to standing position. She also reports to a mild headache. Denies any visual changes. No fevers. No neck pain or stiffness. No head trauma. Denies any chest pain or shortness of breath. No vertiginous symptoms or hearing changes. States that she has noted that her blood sugars have been dropping lower than what they normally do. She is insulin-dependent. Denies any changes in her diet. No change in her bowel or bladder habits. No recent medication changes. No other alleviating, Perceptin or modifying factors - Related Data Home Medications Medication Instructions Recorded Confirmed Pravastatin Sodium [Pravachol] 40 mg PO DAILY 12/15/14 03/02/21 Aspirin [Adult Low Dose Aspirin EC] 81 mg PO DAILY 08/22/17 03/02/21 Cholecalciferol [Vitamin D3 (25 2,000 unit PO DAILY 08/22/17 03/02/21 Mcg = 1000 Iu)] Venlafaxine HCl [Effexor XR] 150 mg PO DAILY 09/30/17 03/02/21 Liraglutide [Victoza 2-José] 1.8 mg SQ DAILY 02/16/19 03/02/21 Magnesium Oxide [Mag-Ox] 400 mg PO HS 02/16/19 03/02/21 Pioglitazone [Actos] 30 mg PO DAILY 02/16/19 03/02/21 metFORMIN HCL [Glucophage] 500 mg PO BID 02/16/19 03/02/21 Dicyclomine [Bentyl] 20 mg PO Q8H PRN 03/21/20 03/02/21 Montelukast [Singulair] 10 mg PO HS 03/21/20 03/02/21 Omeprazole 20 mg PO DAILY 03/21/20 03/02/21 traMADol HCL 50 mg PO TID PRN 03/21/20 03/02/21 Insulin Glargine [Lantus] 50 unit SQ HS 07/27/20 03/02/21 Docusate [Colace] 100 mg PO BID 03/02/21 03/02/21 Ferrous Sulfate [Feosol] 325 mg PO BID 03/02/21 03/02/21 Levothyroxine Sodium [Synthroid] 50 mcg PO DAILY 03/02/21 03/02/21 Zinc 50 mg PO DAILY 03/02/21 03/02/21 acetaZOLAMIDE [acetaZOLAMIDE ER] 500 mg PO BID 03/02/21 03/02/21 Allergies Allergy/AdvReac Type Severity Reaction Status Date / Time Penicillins Allergy Unknown Verified 03/02/21 19:13 Childhood Sulfa (Sulfonamide Allergy Rash/Hives Verified 03/02/21 19:13 Antibiotics) Review of Systems ROS Statement: Those systems with pertinent positive or pertinent negative responses have been documented in the HPI. ROS Other: All systems not noted in ROS Statement are negative. Past Medical History Past Medical History: Asthma, COPD, Diabetes Mellitus, Hyperlipidemia, Hypertension, Neurologic Disorder, Osteoarthritis (OA), Thyroid Disorder History of Any Multi-Drug Resistant Organisms: None Reported Past Surgical History: Section, Hysterectomy Additional Past Surgical History / Comment(s): x 2, ganglion cyst removed from left wrist Past Anesthesia/Blood Transfusion Reactions: No Reported Reaction Past Psychological History: Anxiety, Depression Smoking Status: Never smoker Past Alcohol Use History: None Reported Past Drug Use History: None Reported - Past Family History Father Family Medical History: Cancer Additional Family Medical History / Comment(s): brain Mother Family Medical History: Cancer Additional Family Medical History / Comment(s): lung - General Exam Limitations: no limitations Course Vital Signs 03/02/21 03/02/21 03/02/21 17:02 18:46 19:28 Temperature 97.6 F Pulse Rate 64 62 61 Respiratory 18 16 20 Rate Blood Pressure 119/61 134/70 107/65 Blood Pressure [Left Arm Sitting] Blood Pressure [Left Arm Standing] Blood Pressure [Left Arm Supine] O2 Sat by Pulse 100 100 100 Oximetry 03/02/21 03/02/21 20:32 22:15 Temperature Pulse Rate 67 Respiratory 20 Rate Blood Pressure 126/75 Blood Pressure 118/70 [Left Arm Sitting] Blood Pressure 120/70 [Left Arm Standing] Blood Pressure 113/63 [Left Arm Supine] O2 Sat by Pulse 100 Oximetry EKG Findings - EKG Comments: EKG Findings:: EKG demonstrates a sinus rhythm with a ventricular rate of 63. PA interval 158. QRS 86. QTC of 427. No acute ST segment elevations or depressions Medical Decision Making - Medical Decision Making Upon arrival patient was placed into room 1. A thorough history and physical exam is performed. 12-lead EKG is obtained. Orthostatics are performed and are negative. Patient given a liter bolus of normal saline. Laboratory studies conducted which demonstrated glucose of 72. She is given an amp of dextrose. Patient provided a urine sample. Sent over for a chest x-ray as well as CT of her brain. Chest x-ray demonstrates no acute cardiopulmonary process. CT of the brain demonstrates no acute intracranial process. Discuss results with the patient. Did discuss the diagnosis, differential, treatment options. Patient would prefer to go home at this time. Patient needs to call her primary care doctor tomorrow to inform them of her symptoms. Keep a log of her close. Return to the emergency room for any new or worsening symptoms. Patient agreed to this treatment plan and she was discharged home in stable condition - Lab Data Result diagrams: 03/02/21 19:19 03/02/21 19:19 Lab Results 03/02/21 03/02/21 03/02/21 Range/Units 19:19 19:19 19:19 WBC 5.9 (3.8-10.6) k/uL RBC 4.21 (3.80-5.40) m/uL Hgb 12.0 (11.4-16.0) gm/dL Hct 38.6 (34.0-46.0) % MCV 91.8 (80.0-100.0) fL MCH 28.5 (25.0-35.0) pg MCHC 31.0 (31.0-37.0) g/dL RDW 14.2 (11.5-15.5) % Plt Count 270 (150-450) k/uL MPV 8.2 Neutrophils % 66 % Lymphocytes % 20 % Monocytes % 11 % Eosinophils % 0 % Basophils % 0 % Neutrophils # 3.9 (1.3-7.7) k/uL Lymphocytes # 1.2 (1.0-4.8) k/uL Monocytes # 0.7 (0-1.0) k/uL Eosinophils # 0.0 (0-0.7) k/uL Basophils # 0.0 (0-0.2) k/uL Hypochromasia Slight Sodium 142 (137-145) mmol/L Potassium 4.7 (3.5-5.1) mmol/L Chloride 113 H (98-107) mmol/L Carbon Dioxide 21 L (22-30) mmol/L Anion Gap 8 mmol/L BUN 26 H (7-17) mg/dL Creatinine 1.31 H (0.52-1.04) mg/dL Est GFR (CKD-EPI)AfAm 53 (>60 ml/min/1.73 sqM) Est GFR (CKD-EPI)NonAf 46 (>60 ml/min/1.73 sqM) Glucose 72 L (74-99) mg/dL Plasma Lactic Acid Stevenson (0.7-2.0) mmol/L Calcium 9.5 (8.4-10.2) mg/dL Total Bilirubin 0.3 (0.2-1.3) mg/dL AST 25 (14-36) U/L ALT 11 (4-34) U/L Alkaline Phosphatase 66 (38-126) U/L Troponin I (0.000-0.034) ng/mL Total Protein 6.8 (6.3-8.2) g/dL Albumin 3.8 (3.5-5.0) g/dL Urine Color Light Yellow Urine Appearance Turbid H (Clear) Urine pH 7.0 (5.0-8.0) Ur Specific [place] 1.016 (1.001-1.035) Urine Protein Negative (Negative) Urine Glucose (UA) Negative (Negative) Urine Ketones Negative (Negative) Urine Blood Negative (Negative) Urine Nitrite Negative (Negative) Urine Bilirubin Negative (Negative) Urine Urobilinogen <2.0 (<2.0) mg/dL Ur Leukocyte Esterase Negative (Negative) Ur Squamous Epith Cells 1 (0-4) /hpf Amorphous Sediment Moderate H (None) /hpf 03/02/21 03/02/21 Range/Units 19:19 19:19 WBC (3.8-10.6) k/uL RBC (3.80-5.40) m/uL Hgb (11.4-16.0) gm/dL Hct (34.0-46.0) % MCV (80.0-100.0) fL MCH (25.0-35.0) pg MCHC (31.0-37.0) g/dL RDW (11.5-15.5) % Plt Count (150-450) k/uL MPV Neutrophils % % Lymphocytes % % Monocytes % % Eosinophils % % Basophils % % Neutrophils # (1.3-7.7) k/uL Lymphocytes # (1.0-4.8) k/uL Monocytes # (0-1.0) k/uL Eosinophils # (0-0.7) k/uL Basophils # (0-0.2) k/uL Hypochromasia Sodium (137-145) mmol/L Potassium (3.5-5.1) mmol/L Chloride (98-107) mmol/L Carbon Dioxide (22-30) mmol/L Anion Gap mmol/L BUN (7-17) mg/dL Creatinine (0.52-1.04) mg/dL Est GFR (CKD-EPI)AfAm (>60 ml/min/1.73 sqM) Est GFR (CKD-EPI)NonAf (>60 ml/min/1.73 sqM) Glucose (74-99) mg/dL Plasma Lactic Acid Stevenson 0.8 (0.7-2.0) mmol/L Calcium (8.4-10.2) mg/dL Total Bilirubin (0.2-1.3) mg/dL AST (14-36) U/L ALT (4-34) U/L Alkaline Phosphatase (38-126) U/L Troponin I <0.012 (0.000-0.034) ng/mL Total Protein (6.3-8.2) g/dL Albumin (3.5-5.0) g/dL Urine Color Urine Appearance (Clear) Urine pH (5.0-8.0) Ur Specific [place] (1.001-1.035) Urine Protein (Negative) Urine Glucose (UA) (Negative) Urine Ketones (Negative) Urine Blood (Negative) Urine Nitrite (Negative) Urine Bilirubin (Negative) Urine Urobilinogen (<2.0) mg/dL Ur Leukocyte Esterase (Negative) Ur Squamous Epith Cells (0-4) /hpf Amorphous Sediment (None) /hpf Disposition Clinical Impression: Pre-syncope Disposition: HOME SELF-CARE Condition: Stable Instructions (If sedation given, give patient instructions): Near Syncope (ED) Additional Instructions: Keep a log of your blood sugars. Follow up with your primary care doctor in 2-4 days. Return to the emergency room for any new or worsening symptoms Is patient prescribed a controlled substance at d/c from ED?: No Referrals: [facility] [Primary Care Provider] - 1-2 days Time of Disposition: 21:50
[2021-03-02] MEDS ORDERED: SODIUM CHLORIDE 0.9% 1,000 ML IV STA (19:11)
[2021-03-02 19:29] VITALS: RESP 20
[2021-03-02 19:43] LABS: Basophils % (A) 0 %; Eosinophils % (A) 0 %; HCT 38.6 % (34.0-46.0); Hypochromasia Slight; Lymphocytes # (A) 1.2 k/uL (1.0-4.8); Lymphocytes % (A) 20 %; MCH 28.5 pg (25.0-35.0); MCV 91.8 fL (80.0-100.0); Mean Platelet Volume 8.2; Monocytes # (A) 0.7 k/uL (0-1.0); Monocytes % (A) 11 %; Neutrophils # (A) 3.9 k/uL (1.3-7.7); Neutrophils % (A) 66 %; Platelet Count 270 k/uL (150-450); RBC 4.21 m/uL (3.80-5.40); RDW 14.2 % (11.5-15.5); WBC 5.9 k/uL (3.8-10.6)
[2021-03-02 19:47] LABS: Amorphous Sediment,Urine Moderate /hpf; Appearance,Urine Turbid (Clear); Bilirubin,Urine Negative (Negative); Blood,Urine Negative (Negative); Color,Urine Light Yellow; Glucose,Urine (UA) Negative (Negative); Ketones,Urine Negative (Negative); Leukocyte Esterase,Urine Negative (Negative); Nitrite,Urine Negative (Negative); Protein,Urine Negative (Negative); Specific Gravity,Urine 1.016 (1.001-1.035); Squamous Epithelial Cell,Urine 1 /hpf (0-4); Urobilinogen,Urine <2.0 mg/dL (<2.0)
--- NOTE | 2021-03-02 19:47 | XR ---
EXAMINATION TYPE: XR chest 2V DATE OF EXAM: 03/02/2021 COMPARISON: Radiograph 04/01/2020 HISTORY: Dizziness TECHNIQUE: Frontal and lateral views of the chest are obtained. FINDINGS: There is no focal air space opacity, pleural effusion, or pneumothorax seen. The cardiac silhouette size is within normal limits. The osseous structures are intact. IMPRESSION: No acute cardiopulmonary process.
[2021-03-02 20:09] LABS: Albumin 3.8 g/dL (3.5-5.0); Calcium 9.5 mg/dL (8.4-10.2); Potassium 4.7 mmol/L (3.5-5.1); Total Bilirubin 0.3 mg/dL (0.2-1.3); Total Protein 6.8 g/dL (6.3-8.2)
[2021-03-02] MEDS ORDERED: DEXTROSE 50% SYRINGE 50 ML IVP STA (20:25)
--- NOTE | 2021-03-02 21:37 | CT ---
EXAMINATION TYPE: CT brain wo con DATE OF EXAM: 03/02/2021 COMPARISON: MRI brain 08/23/2020 HISTORY: Dizzy CT DLP: 1091.4 mGycm Automated exposure control for dose reduction was used. FINDINGS: No acute intracranial hemorrhage, large vessel territory infarct, mass, mass effect or midline shift. No extra-axial fluid collection or hydrocephalus. The escalante-white distinction is maintained. No osseous abnormality. The globes and orbits are within normal limits. Mucosal thickening of the lef t sphenoid sinus, right frontal sinus and ethmoid air cell. IMPRESSION: NO ACUTE INTRACRANIAL PROCESS.
[2021-03-02 22:16] VITALS: BP 126/75; PULSE 67
== END 2021-03-02 22:25 | disposition home or self-care (01) ==
LOC: EC 15:40
DX: R55 Syncope and collapse (principal); J45.909 Unspecified asthma, uncomplicated; E11.9 Type 2 diabetes mellitus without complications; E78.5 Hyperlipidemia, unspecified; I10 Essential (primary) hypertension; M19.90 Unspecified osteoarthritis, unspecified site; E07.9 Disorder of thyroid, unspecified; F41.9 Anxiety disorder, unspecified; F32.9 Major depressive disorder, single episode, unspecified; Z79.82 Long term (current) use of aspirin; Z79.4 Long term (current) use of insulin; Z88.0 Allergy status to penicillin; Z88.2 Allergy status to sulfonamides; Z90.710 Acquired absence of both cervix and uterus
CPT/HCPCS: 36415; 70450; 71046; 80053; 81001; 83605; 84484; 85025; 93005; 96361; 96374; 99284

== ENCOUNTER → 2021-03-13 | Outpatient (CLI) | payer OTHER ==
--- NOTE | 2021-03-13 15:11 | NM ---
EXAMINATION TYPE: NM hepatobiliary w CCK DATE OF EXAM: 03/13/2021 COMPARISON: Ultrasound gallbladder 02/16/2021 HISTORY: Biliary dyskinesia TECHNIQUE: After the intravenous administration of 4.8 mCi Tc 99m Mebrofenin hepatobiliary scintigrap hy is performed. Immediate images post injection. FINDINGS: There is satisfactory initial accumulation of tracer by the liver. The gallbladder is visualized tow ards the end of the first hour scanning and is better seen at 85 and 105 minutes. The small bowel ac tivity is noted within 4 minutes. At one hour CCK was administered, patient was injected with 2.1 mc g of Kinevac, and gallbladder ejection fraction is calculated at 66 %, in the normal range. Therefor e there is no scintigraphic evidence of cystic or common bile duct obstruction to suggest acute carlos alberto cystitis or gallbladder dyskinesia. IMPRESSION: There is some delay in gallbladder filling, gallbladder may be somewhat contracted. Eject ion fraction is calculated within the normal range however there may be technical factors affecting a ccuracy of the measurement. Cystic duct obstruction is not evident.
== END | disposition home or self-care (01) ==
LOC: RADNMMAIN 06:58
PROVIDERS: ATTEND Surgery
DX: R93.2 Abnormal findings on diagnostic imaging of liver and biliary tract (principal)
CPT/HCPCS: 78227; A9537; J2805

== ENCOUNTER → 2021-04-05 | Outpatient (CLI) | payer OTHER ==
--- NOTE | 2021-04-05 19:07 | CONS ---
CONSULTATION DATE OF SERVICE: 04/05/2021. 55-year-old lady has been evaluated in [facility] for excessive daytime sleepiness and snoring. HISTORY OF PRESENT ILLNESS/SLEEP-WAKE EVALUATION: SLEEP SCHEDULE: Patient usual sleep schedule from 10:00 pm and she wakes up in the morning 6:30 a.m. and then she may fall asleep again and gets up around 8:00 am. FALLING ASLEEP: No problems with falling asleep. No TV in bedroom. DURING SLEEP: She usually sleeps on the side position. She knows that she snores, but she sleeps by herself so no clear information about description of her sleep. Positive history of palpitation during the sleep. She wakes up from sleep about 4 times with 2 episodes of nocturia. DURING THE DAY/SLEEP WAKE EVALUATION: In the morning the patient wakes up tired, has problems with memory, depression, anxiety, claustrophobia. [place] Sleepiness Scale is in very high range of 19. No history of hypnagogical hallucinations, sleep paralysis or cataplexy. PAST MEDICAL HISTORY: Positive for hypothyroidism, acid reflux, depression, diabetes mellitus, chronic kidney disease, hyperlipidemia, asthma, sinusitis problems, headaches, anemia. PAST SURGICAL HISTORY: C-sections x2. MEDICATIONS: Levothyroxine 50 mcg once a day, omeprazole 20 mg once a day, venlafaxine 150 mg once a day, aspirin 81 mg once a day, dicyclomine 20 mg once a day, montelukast 10 mg once a day, Acetazolamide 500 mg twice a day, pioglitazone 30 mg once a day, metformin 500 mg twice a day,Victoza, Lantus, tramadol. REVIEW OF SYSTEMS: Multiple awakenings from sleep, significant sleepiness during the day. FAMILY HISTORY: Hypertension, heart problems, cancer. PHYSICAL EXAMINATION: GENERAL: lady without distress. BP 108/67, HR 66, RR 15, height 5 feet 3 inches, weight 249.8 pounds, body mass index 44.1, temperature 96.7, oxygen saturation at room air 100%. Oropharynx: Short distance between soft palate and posterior pharyngeal wall. Wide neck, 19 inches in circumference. SKIN: Slightly pale, conjunctivae pale. NECK: Supple, no JVD. Thyroid is not palpable. LUNGS: Clear to percussion and to auscultation. Good air exchange. No wheezing or rhonchi. HEART: S1, S2 regular. No murmurs, gallops, or rubs. ABDOMEN: Obese. Soft and nontender. Bowel sounds are present. No organomegaly appreciated. EXTREMITIES: 1+ ankle edema. WINDER CONTORT OPERATOR: Awake, alert, and oriented X3. Cranial nerves 2 to 7 intact. There is no fasciculation or atrophy. noted. No focal deficits observed. IMPRESSION: 1. Mild snoring, multiple awakenings from sleep with nocturia, small oropharyngeal air space, wide neck, 19 inches in circumference; obstructive sleep apnea-hypopnea syndrome. 2. Significant excessive daytime sleepiness with [place] Sleepiness Scale 19 dictate necessity to include hypersomnia and narcolepsy without cataplexy in differential diagnosis. 3. Hypothyroidism. 4. Acid reflux. 5. Depression. 6. Diabetes mellitus. 7. Chronic kidney disease. 8. Hyperlipidemia. 9. Asthma. 10.Sinusitis. 11.Anemia. 12.Headaches. 13.Status post C-sections x2. PLAN: 1. Polysomnography for evaluation of patient's breathing during sleep. 2. CPAP/BiPAP titration if sleep study confirms obstructive sleep apnea-hypopnea syndrome. 3. Preferable position during sleep on the side. 4. No driving if patient feels any sleepiness. 5. I will see patient for follow up visit to explain results of testing and following plan. Thank you very much for referring this patient for consultation. Sincerely, James Kennedy MD, PhD, FAASM Diplomat of [employer] Sleep Medicine Board of [place] [employer] [facility] [place] MMODL / MATTHEWN: [id number] /
== END ==
LOC: SLEEP 15:44
PROVIDERS: ATTEND Internal Medicine
DX: G47.33 Obstructive sleep apnea (adult) (pediatric) (principal); E03.9 Hypothyroidism, unspecified; E11.22 Type 2 diabetes mellitus with diabetic chronic kidney disease; N18.9 Chronic kidney disease, unspecified; E78.5 Hyperlipidemia, unspecified; F32.A Depression, unspecified; J45.909 Unspecified asthma, uncomplicated; K21.9 Gastro-esophageal reflux disease without esophagitis; D64.9 Anemia, unspecified; Z87.59 Personal history of other complications of pregnancy, childbirth and the puerperium; Z79.82 Long term (current) use of aspirin; Z79.4 Long term (current) use of insulin; Z79.899 Other long term (current) drug therapy; Z88.0 Allergy status to penicillin; Z88.2 Allergy status to sulfonamides; Z87.891 Personal history of nicotine dependence
CPT/HCPCS: 99211

== ENCOUNTER 2021-04-10 06:15 | Day surgery (SDC) | payer OTHER ==
[2021-04-06 11:19] VITALS: BMI 32.8
[~2021-04-10 06:15] MED LIST: ACETAMINOPHEN TAB 500 MG TAB PO PRN; DEXAMETHASONE SOD PHOSPHATE 4 MG/ML 1 ML VIAL IV ONE; HEPARIN SODIUM,PORCINE/PF 5,000 UNIT/0.5 ML SYRINGE SQ PRN; LACTATED RINGERS 1,000 ML IV SCH; ONDANSETRON 4 MG/2 ML VIAL IVP ONE
[2021-04-10] MEDS ORDERED: LIDOCAINE 1% (10MG/ML) FOR IV START INTRADERMA ONE (07:10)
[2021-04-10] MEDS ORDERED: DEXTROSE 50% SYRINGE 50 ML IVP ONE (07:15)
[2021-04-10 07:18] LABS: Glucose,Whole Blood 47 mg/dL (75-99)
[2021-04-10 07:18] LABS: Glucose,Whole Blood 51 mg/dL (75-99)
[2021-04-10 07:35] LABS: Glucose,Whole Blood 129 mg/dL (75-99)
[2021-04-10] MEDS ORDERED: GLYCOPYRROLATE 0.2 MG/ML 2 ML VIAL ONE (07:50)
[2021-04-10] MEDS ORDERED: MIDAZOLAM 2 MG/2 ML VIAL ONE (07:50)
[2021-04-10] MEDS ORDERED: NEOSTIGMINE 1 MG/ML 10 ML VIAL ONE (07:50)
[2021-04-10] MEDS ORDERED: LIDOCAINE 1% INJ 10MG/ML (20 ML MDV) ONE (07:50)
[2021-04-10] MEDS ORDERED: HYDROmorphone (PF) 1 MG/ML ONE (07:50)
[2021-04-10] MEDS ORDERED: SUCCINYLCHOLINE CHLORIDE 100 MG/5 ML SYR IV ONE (07:50)
[2021-04-10] MEDS ORDERED: ROCURONIUM 10 MG/ML (5 ML VIAL) IV ONE (07:50)
[2021-04-10] MEDS ORDERED: PROPOFOL 10 MG/ML 20 ML VIAL IV ONE (07:50)
[2021-04-10] MEDS ORDERED: fentaNYL (PF) 50 MCG/ML 2 ML AMP ONE (07:50)
[2021-04-10] MEDS ORDERED: BUPIVACAINE (PF) 0.25% 30 ML VIAL SQ ONE (08:10)
[2021-04-10 08:43] LABS: Glucose,Whole Blood 89 mg/dL (75-99)
[2021-04-10 08:47] VITALS: TEMP 97.6
--- NOTE | 2021-04-10 08:49 | P.GSHP ---
History of Present Illness H&P Date: 04/10/21 Chief Complaint: Right upper quadrant pain This is a 55-year-old female who cholecystitis were quadrant pain. Patient's found have contracted gallbladder. She has pain when eating greasy or fried foods. She was in today for laparoscopically cholecystectomy for chronic cho lecystitis. Past Medical History Past Medical History: Asthma, COPD, Diabetes Mellitus, Hyperlipidemia, Hypertension, Neurologic Disorder, Osteoarthritis (OA), Thyroid Disorder Additional Past Medical History / Comment(s): MIGRAINES History of Any Multi-Drug Resistant Organisms: None Reported Past Surgical History: Section, Hysterectomy Additional Past Surgical History / Comment(s): x 2, ganglion cyst removed from left wrist Past Anesthesia/Blood Transfusion Reactions: No Reported Reaction Past Psychological History: Anxiety, Depression Smoking Status: Former smoker Past Alcohol Use History: None Reported Additional Past Alcohol Use History / Comment(s): Quit 30 years ago Past Drug Use History: None Reported - Past Family History Father Family Medical History: Cancer Additional Family Medical History / Comment(s): brain Mother Family Medical History: Cancer Additional Family Medical History / Comment(s): lung - Medications and Allergies Home Medications Medication Instructions Recorded Confirmed Type Pravastatin Sodium [Pravachol] 40 mg PO DAILY 12/15/14 04/06/21 History Aspirin [Adult Low Dose Aspirin EC] 81 mg PO DAILY 08/22/17 04/06/21 History Cholecalciferol [Vitamin D3 (25 2,000 unit PO DAILY 08/22/17 04/06/21 History Mcg = 1000 Iu)] Venlafaxine HCl [Effexor XR] 150 mg PO DAILY 09/30/17 04/06/21 History Liraglutide [Victoza 2-José] 1.8 mg SQ DAILY 02/16/19 04/06/21 History Magnesium Oxide [Mag-Ox] 400 mg PO HS 02/16/19 04/06/21 History Pioglitazone [Actos] 30 mg PO DAILY 02/16/19 04/06/21 History metFORMIN HCL [Glucophage] 500 mg PO BID 02/16/19 04/06/21 History Dicyclomine [Bentyl] 20 mg PO Q8H PRN 03/21/20 04/06/21 History Montelukast [Singulair] 10 mg PO HS 03/21/20 04/06/21 History Omeprazole 20 mg PO DAILY 03/21/20 04/06/21 History traMADol HCL 50 mg PO TID PRN 03/21/20 04/06/21 History Insulin Glargine [Lantus] 50 unit SQ HS 07/27/20 04/06/21 History Docusate [Colace] 100 mg PO BID 03/02/21 04/06/21 History Ferrous Sulfate [Feosol] 325 mg PO BID 03/02/21 04/06/21 History Levothyroxine Sodium [Synthroid] 50 mcg PO DAILY 03/02/21 04/06/21 History Zinc 50 mg PO DAILY 03/02/21 04/06/21 History acetaZOLAMIDE [acetaZOLAMIDE ER] 500 mg PO BID 03/02/21 04/06/21 History Allergies Allergy/AdvReac Type Severity Reaction Status Date / Time Penicillins Allergy Unknown Verified 04/06/21 11:06 Childhood Sulfa (Sulfonamide Allergy Rash/Hives Verified 04/06/21 11:06 Antibiotics) Surgical - Exam Vital Signs Temp Pulse Resp BP Pulse Ox 97.2 F L 68 20 107/55 99 04/10/21 06:51 04/10/21 06:51 04/10/21 06:51 04/10/21 06:51 04/10/21 06:51 - General well developed, well nourished, no distress - Eyes PERRL - ENT normal pinna - Neck no masses - Respiratory normal expansion - Cardiovascular Rhythm: regular - Abdomen Abdomen: soft, non tender Results - Labs Abnormal Lab Results - Last 24 Hours (Table) 04/10/21 04/10/21 04/10/21 Range/Units 07:01 07:05 07:32 POC Glucose (mg/dL) 47 L 51 L 129 H (75-99) mg/dL Assessment and Plan Assessment: Chronically cholecystitis. We'll perform laparoscopic cholecystectomy.
--- NOTE | 2021-04-10 08:50 | P.OP ---
Date of Procedure: 04/10/21 Preoperative Diagnosis: Cholecystitis Postoperative Diagnosis: Cholecystitis Procedure(s) Performed: Laparoscopic cholecystectomy Anesthesia: ELSA Surgeon: Tristen Adams Estimated Blood Loss (ml): 5 Pathology: other (Gallbladder) Condition: stable Disposition: PACU Description of Procedure: The patient was placed on the operating table. The patient received a general endotracheal tube anesthesia. The patients abdomen was prepped and draped in the usual sterile fashion. Through an infraumbilical stab incision, the fascia of the anterior abdominal wall was grasped with a pair of Kochers and then the Veress needle was placed in the peritoneal cavity. Position of the Veress needle was confirmed with positive drop test. The abdomen was then insufflated. After adequate insufflation, the 10 mm trocar was placed in the peritoneal cavity. Following this the laparoscope was placed in the peritoneal cavity. The patient was placed in the head-up, right side up position and then a 5 mm trocar was placed in the right lateral and right subcostal position under direct visualization. A 8 mm trocar was placed in the epigastric position. The gallbladder was grasped in the fundus and infundibulum. Traction on the gallbladder was placed in the lateral and the cephalad positions. The triangle of Calot was visualized.. The cystic duct was bluntly dissected until the union of the cystic duct and common bile duct was seen. A critical view of safety was achieved. The cystic duct was then divided and sealed with the Harmonic scissors. A PDS Endoloop was then placed throughout the cystic duct stump. The cystic artery divided and sealed with the Harmonic scissors. The gallbladder was then removed from the liver bed using Harmonic scissors. The gallbladder was then extracted through the epigastric port site. Operative field was checked for any bleeding spots and Harmonic scissors was used to coagulate the liver bed. The abdomen was irrigated. The trocars were removed. The skin was closed using interrupted 3-0 Vicryl suture. Dermabond dressing were applied. The patient tolerated the procedure well.
[2021-04-10] MEDS: HYDROmorphone 0.5 MG/0.5 ML SYRINGE IVP PRN ×2 (08:51→09:00)
[2021-04-10 09:53] VITALS: RESP 16
[2021-04-10 10:44] VITALS: BP 97/66; PULSE 53
== END 2021-04-10 11:31 | disposition home or self-care (01) ==
LOC: OR 06:15
PROVIDERS: ATTEND Surgery
DX: K81.1 Chronic cholecystitis (principal); J44.9 Chronic obstructive pulmonary disease, unspecified; I12.9 Hypertensive chronic kidney disease with stage 1 through stage 4 chronic kidney disease, or unspecified chronic kidney disease; E11.22 Type 2 diabetes mellitus with diabetic chronic kidney disease; N18.9 Chronic kidney disease, unspecified; E78.5 Hyperlipidemia, unspecified; M19.90 Unspecified osteoarthritis, unspecified site; E07.9 Disorder of thyroid, unspecified; G43.909 Migraine, unspecified, not intractable, without status migrainosus; Z98.891 History of uterine scar from previous surgery; Z90.710 Acquired absence of both cervix and uterus; Z98.890 Other specified postprocedural states; F41.9 Anxiety disorder, unspecified; F32.A Depression, unspecified; Z87.891 Personal history of nicotine dependence; Z80.1 Family history of malignant neoplasm of trachea, bronchus and lung; Z80.8 Family history of malignant neoplasm of other organs or systems; Z79.84 Long term (current) use of oral hypoglycemic drugs; Z79.82 Long term (current) use of aspirin; Z79.3 Long term (current) use of hormonal contraceptives; Z79.890 Hormone replacement therapy; Z79.4 Long term (current) use of insulin; Z79.899 Other long term (current) drug therapy; Z88.0 Allergy status to penicillin; Z88.2 Allergy status to sulfonamides
CPT/HCPCS: 88304; 47562; J2250; J1100; J2710; J0690; J2405; J2001; J3010; J1170 ×2; J0330; J2704

== ENCOUNTER 2021-04-13 18:02 | Emergency (ER) | payer OTHER ==
[2021-04-13 18:10] VITALS: TEMP 98.3
[2021-04-13] MEDS ORDERED: SODIUM CHLORIDE 0.9% 1,000 ML IV STA (18:37)
--- NOTE | 2021-04-13 18:58 | ED ---
General Adult HPI - General Chief complaint: Abdominal Pain Stated complaint: abdominal bruising Time Seen by Provider: 04/13/21 18:16 Source: patient, RN notes reviewed Mode of arrival: ambulatory Limitations: no limitations - History of Present Illness Initial comments: 65-year-old female with a past medical history of hyperlipidemia, hypertension, COPD, diabetes mellitus presents to the emergency room for chief complaint of abdominal pain. Patient had her gallbladder removed 3 days ago. She reports that she has been having some pain around the incision site and then today noticed that the bruise in one of her incisions was darker than it has been. It did not grow in size. Patient was concerned about this and came to the emergency room. Patient is not having nausea or vomiting. He is eating and drinking. No fevers.Patient has no other complaints at this time including shortness of breath, chest pain, nausea or vomiting, headache, or visual changes. - Related Data Home Medications Medication Instructions Recorded Confirmed Pravastatin Sodium [Pravachol] 40 mg PO DAILY 12/15/14 04/06/21 Aspirin [Adult Low Dose Aspirin EC] 81 mg PO DAILY 08/22/17 04/06/21 Cholecalciferol [Vitamin D3 (25 2,000 unit PO DAILY 08/22/17 04/06/21 Mcg = 1000 Iu)] Venlafaxine HCl [Effexor XR] 150 mg PO DAILY 09/30/17 04/06/21 Liraglutide [Victoza 2-José] 1.8 mg SQ DAILY 02/16/19 04/06/21 Magnesium Oxide [Mag-Ox] 400 mg PO HS 02/16/19 04/06/21 Pioglitazone [Actos] 30 mg PO DAILY 02/16/19 04/06/21 metFORMIN HCL [Glucophage] 500 mg PO BID 02/16/19 04/06/21 Dicyclomine [Bentyl] 20 mg PO Q8H PRN 03/21/20 04/06/21 Montelukast [Singulair] 10 mg PO HS 03/21/20 04/06/21 Omeprazole 20 mg PO DAILY 03/21/20 04/06/21 traMADol HCL 50 mg PO TID PRN 03/21/20 04/06/21 Insulin Glargine [Lantus] 50 unit SQ HS 07/27/20 04/06/21 Docusate [Colace] 100 mg PO BID 03/02/21 04/06/21 Ferrous Sulfate [Feosol] 325 mg PO BID 03/02/21 04/06/21 Levothyroxine Sodium [Synthroid] 50 mcg PO DAILY 03/02/21 04/06/21 Zinc 50 mg PO DAILY 03/02/21 04/06/21 acetaZOLAMIDE [acetaZOLAMIDE ER] 500 mg PO BID 03/02/21 04/06/21 Previous Rx's Medication Instructions Recorded Docusate [Colace] 100 mg PO BID #20 capsule 04/10/21 Ibuprofen [Motrin] 600 mg PO Q6HR PRN #40 tab 04/10/21 oxyCODONE HCL [OxyIR] 5 mg PO Q6H PRN 3 Days #10 tab 04/10/21 Allergies Allergy/AdvReac Type Severity Reaction Status Date / Time Penicillins Allergy Unknown Verified 04/13/21 18:11 Childhood Sulfa (Sulfonamide Allergy Rash/Hives Verified 04/13/21 18:11 Antibiotics) Review of Systems ROS Statement: Those systems with pertinent positive or pertinent negative responses have been documented in the HPI. ROS Other: All systems not noted in ROS Statement are negative. Past Medical History Past Medical History: Asthma, COPD, Diabetes Mellitus, Hyperlipidemia, Hypertension, Neurologic Disorder, Osteoarthritis (OA), Thyroid Disorder History of Any Multi-Drug Resistant Organisms: None Reported Past Surgical History: Section, Hysterectomy Additional Past Surgical History / Comment(s): x 2, ganglion cyst removed from left wrist Past Anesthesia/Blood Transfusion Reactions: No Reported Reaction Past Psychological History: Anxiety, Depression Smoking Status: Never smoker - Past Family History Father Family Medical History: Cancer Additional Family Medical History / Comment(s): brain Mother Family Medical History: Cancer Additional Family Medical History / Comment(s): lung - General Exam Limitations: no limitations General appearance: alert, in no apparent distress Head exam: Present: atraumatic Eye exam: Present: normal appearance, PERRL, EOMI. Absent: scleral icterus, conjunctival injection ENT exam: Present: normal exam Neck exam: Present: normal inspection, full ROM. Absent: tenderness Respiratory exam: Present: normal lung sounds bilaterally. Absent: respiratory distress, wheezes Cardiovascular Exam: Present: regular rate, normal rhythm, normal heart sounds GI/Abdominal exam: Present: soft, tenderness (Mild generalized abdominal tenderness however no guarding or rebound.), normal bowel sounds, other (mild Ecchymosis is noted around incisions however no significant or unexpected bruising.). Absent: distended, guarding, rebound Neurological exam: Present: alert Course Vital Signs 04/13/21 04/13/21 18:05 18:10 Temperature 98.3 F 98.3 F Pulse Rate 67 71 Respiratory 16 16 Rate Blood Pressure 107/64 107/64 O2 Sat by Pulse 100 100 Oximetry Medical Decision Making - Medical Decision Making Vitals are stable. Patient is well-appearing. No distress. She does have mild ecchymosis around incisions on the abdomen however nothing out of the ordinary for a postop abdominal surgery. Abdomen is soft, no guarding. CBC shows no leukocytosis. Hemoglobin is stable. CMP is unremarkable. Creatinine is 1.43 which is normal. At this time patient is stable for discharge home. She will follow up with her doctor. She will return for any worsening symptoms. On discharge patient did also complain of left ear discomfort. On exam she does have an effusion. We will start her on Flonase. - Lab Data Result diagrams: 04/13/21 18:58 04/13/21 18:58 Lab Results 04/13/21 04/13/21 Range/Units 18:58 18:58 WBC 4.7 (3.8-10.6) k/uL RBC 3.99 (3.80-5.40) m/uL Hgb 11.1 L (11.4-16.0) gm/dL Hct 35.4 (34.0-46.0) % MCV 88.8 (80.0-100.0) fL MCH 27.9 (25.0-35.0) pg MCHC 31.4 (31.0-37.0) g/dL RDW 14.4 (11.5-15.5) % Plt Count 334 (150-450) k/uL MPV 7.5 Neutrophils % 64 % Lymphocytes % 26 % Monocytes % 8 % Eosinophils % 0 % Basophils % 1 % Neutrophils # 3.0 (1.3-7.7) k/uL Lymphocytes # 1.2 (1.0-4.8) k/uL Monocytes # 0.4 (0-1.0) k/uL Eosinophils # 0.0 (0-0.7) k/uL Basophils # 0.0 (0-0.2) k/uL Sodium 141 (137-145) mmol/L Potassium 4.0 (3.5-5.1) mmol/L Chloride 113 H (98-107) mmol/L Carbon Dioxide 19 L (22-30) mmol/L Anion Gap 9 mmol/L BUN 27 H (7-17) mg/dL Creatinine 1.43 H (0.52-1.04) mg/dL Est GFR (CKD-EPI)AfAm 47 (>60 ml/min/1.73 sqM) Est GFR (CKD-EPI)NonAf 41 (>60 ml/min/1.73 sqM) Glucose 85 (74-99) mg/dL Calcium 9.0 (8.4-10.2) mg/dL Total Bilirubin 0.3 (0.2-1.3) mg/dL AST 33 (14-36) U/L ALT 18 (4-34) U/L Alkaline Phosphatase 69 (38-126) U/L Total Protein 6.8 (6.3-8.2) g/dL Albumin 3.8 (3.5-5.0) g/dL Amylase 50 (30-110) U/L Lipase 65 (23-300) U/L Disposition Clinical Impression: Postoperative ecchymosis Disposition: HOME SELF-CARE Condition: Good Instructions (If sedation given, give patient instructions): Abdominal Pain (ED) Additional Instructions: Please call Dr. Adams tomorrow to make an appointment. Return to the emergency room for any worsening symptoms. Is patient prescribed a controlled substance at d/c from ED?: No [facility] - 1-2 days Tristen Adams MD [STAFF PHYSICIAN] - 1-2 days Time of Disposition: 19:57
[2021-04-13] MEDS: HYDROmorphone 0.5 MG/0.5 ML SYRINGE IVP STA ×2 (19:02→19:07)
[2021-04-13] MEDS ORDERED: HYDROmorphone 0.5 MG/0.5 ML SYRINGE IVP STA (19:07)
[2021-04-13 19:10] LABS: Basophils % (A) 1 %; Eosinophils % (A) 0 %; HCT 35.4 % (34.0-46.0); HGB 11.1 gm/dL (11.4-16.0); Lymphocytes # (A) 1.2 k/uL (1.0-4.8); Lymphocytes % (A) 26 %; MCH 27.9 pg (25.0-35.0); MCHC 31.4 g/dL (31.0-37.0); MCV 88.8 fL (80.0-100.0); Mean Platelet Volume 7.5; Monocytes # (A) 0.4 k/uL (0-1.0); Monocytes % (A) 8 %; Neutrophils % (A) 64 %; Platelet Count 334 k/uL (150-450); RBC 3.99 m/uL (3.80-5.40); RDW 14.4 % (11.5-15.5); WBC 4.7 k/uL (3.8-10.6)
[2021-04-13 19:26] LABS: Albumin 3.8 g/dL (3.5-5.0); Total Bilirubin 0.3 mg/dL (0.2-1.3); Total Protein 6.8 g/dL (6.3-8.2)
[2021-04-13 20:24] VITALS: BP 110/67; PULSE 68; RESP 18
== END 2021-04-13 20:25 | disposition home or self-care (01) ==
LOC: EC 18:02
DX: S30.1XXA Contusion of abdominal wall, initial encounter (principal); E11.9 Type 2 diabetes mellitus without complications; I10 Essential (primary) hypertension; J44.9 Chronic obstructive pulmonary disease, unspecified; F32.A Depression, unspecified; F41.9 Anxiety disorder, unspecified; Z79.4 Long term (current) use of insulin; Z79.84 Long term (current) use of oral hypoglycemic drugs; Z79.890 Hormone replacement therapy; Z79.899 Other long term (current) drug therapy; Z79.1 Long term (current) use of non-steroidal anti-inflammatories (NSAID); Z79.82 Long term (current) use of aspirin; X58.XXXA Exposure to other specified factors, initial encounter
CPT/HCPCS: 36415; 80053; 82150; 83690; 85025; 99284; 96374; 96361; J1170

== ENCOUNTER 2021-07-08 09:40 | Emergency (ER) | payer OTHER ==
--- NOTE | 2021-07-08 10:23 | ED ---
General Adult HPI - General Chief complaint: Back Pain/Injury Stated complaint: fall 2 days ago, hit head, on thinners Time Seen by Provider: 07/08/21 09:58 Source: patient, RN notes reviewed, old records reviewed Mode of arrival: ambulatory Limitations: no limitations - History of Present Illness Initial comments: 55-year-old female presenting for evaluation of low back pain status post fall. Patient fell 3 days ago, slipped on the ice, fell onto her tailbone and right posterior chest wall. There was minor head injury associated with the fall. No loss consciousness. No anticoagulation. Patient takes 81 mg aspirin. Her symptoms have persisted for the past 3 days and she is seeking medical attention at this time. - Related Data Home Medications Medication Instructions Recorded Confirmed Pravastatin Sodium [Pravachol] 40 mg PO DAILY 12/15/14 04/06/21 Aspirin [Adult Low Dose Aspirin EC] 81 mg PO DAILY 08/22/17 04/06/21 Cholecalciferol [Vitamin D3 (25 2,000 unit PO DAILY 08/22/17 04/06/21 Mcg = 1000 Iu)] Venlafaxine HCl [Effexor XR] 150 mg PO DAILY 09/30/17 04/06/21 Liraglutide [Victoza 2-José] 1.8 mg SQ DAILY 02/16/19 04/06/21 Magnesium Oxide [Mag-Ox] 400 mg PO HS 02/16/19 04/06/21 Pioglitazone [Actos] 30 mg PO DAILY 02/16/19 04/06/21 metFORMIN HCL [Glucophage] 500 mg PO BID 02/16/19 04/06/21 Dicyclomine [Bentyl] 20 mg PO Q8H PRN 03/21/20 04/06/21 Montelukast [Singulair] 10 mg PO HS 03/21/20 04/06/21 Omeprazole 20 mg PO DAILY 03/21/20 04/06/21 traMADol HCL 50 mg PO TID PRN 03/21/20 04/06/21 Insulin Glargine [Lantus] 50 unit SQ HS 07/27/20 04/06/21 Docusate [Colace] 100 mg PO BID 03/02/21 04/06/21 Ferrous Sulfate [Feosol] 325 mg PO BID 03/02/21 04/06/21 Levothyroxine Sodium [Synthroid] 50 mcg PO DAILY 03/02/21 04/06/21 Zinc 50 mg PO DAILY 03/02/21 04/06/21 acetaZOLAMIDE [acetaZOLAMIDE ER] 500 mg PO BID 03/02/21 04/06/21 Previous Rx's Medication Instructions Recorded Docusate [Colace] 100 mg PO BID #20 capsule 04/10/21 Ibuprofen [Motrin] 600 mg PO Q6HR PRN #40 tab 04/10/21 oxyCODONE HCL [OxyIR] 5 mg PO Q6H PRN 3 Days #10 tab 04/10/21 Allergies Allergy/AdvReac Type Severity Reaction Status Date / Time Penicillins Allergy Unknown Verified 07/08/21 09:48 Childhood Sulfa (Sulfonamide Allergy Rash/Hives Verified 07/08/21 09:48 Antibiotics) Review of Systems ROS Statement: Those systems with pertinent positive or pertinent negative responses have been documented in the HPI. ROS Other: All systems not noted in ROS Statement are negative. Past Medical History Past Medical History: Asthma, COPD, Diabetes Mellitus, Hyperlipidemia, Hypertension, Neurologic Disorder, Osteoarthritis (OA), Thyroid Disorder History of Any Multi-Drug Resistant Organisms: None Reported Past Surgical History: Section, Hysterectomy Additional Past Surgical History / Comment(s): x 2, ganglion cyst removed from left wrist Past Anesthesia/Blood Transfusion Reactions: No Reported Reaction Past Psychological History: Anxiety, Depression Smoking Status: Never smoker Past Alcohol Use History: None Reported Past Drug Use History: None Reported - Past Family History Father Family Medical History: Cancer Additional Family Medical History / Comment(s): brain Mother Family Medical History: Cancer Additional Family Medical History / Comment(s): lung - General Exam Limitations: no limitations General appearance: alert, in no apparent distress Head exam: Present: normocephalic Eye exam: Present: normal appearance, PERRL ENT exam: Present: normal exam Neck exam: Present: normal inspection. Absent: tenderness, meningismus Respiratory exam: Present: normal lung sounds bilaterally, chest wall tenderness (Right posterior chest wall tenderness). Absent: respiratory distress Cardiovascular Exam: Present: regular rate, normal rhythm GI/Abdominal exam: Present: soft. Absent: distended, tenderness, guarding Extremities exam: Present: normal inspection, normal capillary refill. Absent: pedal edema, calf tenderness Back exam: Present: normal inspection, CVA tenderness (R). Absent: vertebral tenderness Neurological exam: Present: alert, oriented X3, CN II-XII intact. Absent: motor sensory deficit Psychiatric exam: Present: normal affect, normal mood Skin exam: Present: warm, dry, intact. Absent: cyanosis, diaphoretic Course Vital Signs 07/08/21 09:48 Temperature 97.9 F Pulse Rate 73 Respiratory 18 Rate Blood Pressure 98/66 O2 Sat by Pulse 100 Oximetry Medical Decision Making - Medical Decision Making 55-year-old female status post fall which occurred 2 days ago. Her chief complaint is tailbone pain and right posterior inferior chest wall pain. X-ray of the chest is negative for displaced rib fracture, no underlying contusion. No pneumothorax. She did have a minor head injury or perform CT imaging of the brain and C-spine this was negative for intracranial hemorrhage or mass effect. There was a subtle lucency in the transverse process of inferior cervical vertebrae however she has no point tenderness at this location I doubt acute fracture. Lumbar and sacral spine negative for compression fracture, subtle endplate deformity on L1. Patient will follow with primary care physician. Disposition Clinical Impression: Fall, Coccyx contusion Disposition: HOME SELF-CARE Condition: Good Instructions (If sedation given, give patient instructions): Fall Prevention (ED), Contusion in Adults (ED) Is patient prescribed a controlled substance at d/c from ED?: No [facility] [Primary Care [facility]] - 1-2 days Time of Disposition: 11:17
--- NOTE | 2021-07-08 10:49 | CT ---
EXAMINATION TYPE: CT brain jennifer amanda DATE OF EXAM: 07/08/2021 COMPARISON: 03/02/2021 HISTORY: fall down stairs,struck her head TECHNIQUE: CT scan of the brain and cervical spine without contrast CT DLP: 2180 mGycm Automated exposure control for dose reduction was used. FINDINGS: No acute intracranial hemorrhage, midline shift or mass effect. White-white matter differentiation is preserved. Basilar cisterns, CSF spaces and ventricles are normal in configuration. Partial opacification of the right frontal sinus and upper ethmoid sinuses. No mastoid air cell effus ion. The skull is intact. The craniocervical junction is normal in alignment. There is motion artifact limiting evaluation of the cervical spine. There is a linear lucency at the base of the the C6 transverse process on the left (series 303 image 33). Vertebral body heights are maintained. Facet joints are nondisplaced. There is mild straightening of the cervical curvature. There are disc degenerative changes in the cervical spine. There is a ventral and dorsal bony spurrin g at C2 and C5-6. No significant soft tissue swelling seen. IMPRESSION: 1. NO ACUTE INTRACRANIAL ABNORMALITIES. 2. LINEAR LUCENCY AT THE BASE OF THE C6 TRANSVERSE PROCESS ON THE LEFT SIDE, DUE TO ARTIFACT IT IS DI FFICULT TO EXCLUDE A NONDISPLACED FRACTURE AT THIS LOCATION.
--- NOTE | 2021-07-08 10:52 | XR ---
EXAMINATION TYPE: XR ribs RT w pa chest xray DATE OF EXAM: 07/08/2021 COMPARISON: 03/02/2021 HISTORY: 55 years Female. STUDY INDICATION GIVEN: fall . TECHNIQUE: PA chest radiograph. 5 radiographs of the right side ribs. IMPRESSION: Right lung base opacities stable since prior study may be reflective of atelectasis or scarring. No new opacities to suggest infection. No pneumothorax or effusion. The cardiomediastinal silhouette is normal in appearance. No acute rib fracture seen. Mild scoliotic curvature of the midthoracic spine noted. No Compression f racture deformity seen.
--- NOTE | 2021-07-08 10:57 | XR ---
EXAMINATION TYPE: XR lumbosacral spine min 4V DATE OF EXAM: 07/08/2021 COMPARISON: NONE HISTORY: 55 years Female. STUDY INDICATION GIVEN: fall . TECHNIQUE: Radiographs of the lumbosacral spine-5 views IMPRESSION: Mild generalized osteopenia limits evaluation for nondisplaced fractures. Slight irregularity of the superior endplate of L1 seen on the lateral view and annotated on the x-ra y is of unknown clinical significance. Correlation with lumbar spine CT may be beneficial. Otherwise the vertebral body heights are normal. Posterior elements are acutely intact with demonstra tion of facet joint arthropathy changes. There is narrowing of the intervertebral disc spaces at T11- 12 and T12-L1. There is bilateral neural foraminal narrowing at L5-S1.Sacrum and coccyx appear acutel y intact. There are mild degenerative changes involving the sacroiliac joints, greater on the left. There is a radiopaque foreign density in the right upper abdomen which may be related to prior proced ure, correlation with history recommended.
[2021-07-08] MEDS ORDERED: MORPHINE SULFATE 4 MG/ML SYRINGE IM STA (11:14)
[2021-07-08 11:34] VITALS: BP 100/64; PULSE 68; RESP 17; TEMP 98.1
== END 2021-07-08 11:25 | disposition home or self-care (01) ==
LOC: EC 09:40
DX: S30.0XXA Contusion of lower back and pelvis, initial encounter (principal); R07.89 Other chest pain; E11.9 Type 2 diabetes mellitus without complications; I10 Essential (primary) hypertension; J44.9 Chronic obstructive pulmonary disease, unspecified; E78.5 Hyperlipidemia, unspecified; M19.90 Unspecified osteoarthritis, unspecified site; F32.A Depression, unspecified; F41.9 Anxiety disorder, unspecified; Z79.4 Long term (current) use of insulin; Z79.890 Hormone replacement therapy; Z79.84 Long term (current) use of oral hypoglycemic drugs; Z79.82 Long term (current) use of aspirin; Z79.899 Other long term (current) drug therapy; W00.0XXA Fall on same level due to ice and snow, initial encounter
CPT/HCPCS: 71101; 72110; 72125; 70450; 99284; 96372; J2270

== ENCOUNTER 2021-07-20 06:25 | Emergency (ER) | payer OTHER ==
[2021-07-20 06:33] VITALS: BP 108/61; PULSE 76; RESP 18; TEMP 98.1
--- NOTE | 2021-07-20 07:20 | ED ---
Fall HPI - General Chief Complaint: Fall Stated Complaint: Fall, right leg injury Time Seen by Provider: 07/20/21 06:35 Source: patient, RN notes reviewed Mode of arrival: wheelchair Limitations: no limitations - History of Present Illness Initial Comments: This is a 55-year-old female presents emergency Department chief complaint right hip and right knee pain. Patient states she slipped and fell on some ice one week ago. She continues to have pain. Patient states she has pain in the medial and anterior surface of her knee. She states she has pain that wraps around her right hip. She denies any head injury no loss conscious. Patient states she does not see a current orthopedics no prior knee or hip surgery. - Related Data Home Medications Medication Instructions Recorded Confirmed Pravastatin Sodium [Pravachol] 40 mg PO DAILY 12/15/14 04/06/21 Aspirin [Adult Low Dose Aspirin EC] 81 mg PO DAILY 08/22/17 04/06/21 Cholecalciferol [Vitamin D3 (25 2,000 unit PO DAILY 08/22/17 04/06/21 Mcg = 1000 Iu)] Venlafaxine HCl [Effexor XR] 150 mg PO DAILY 09/30/17 04/06/21 Liraglutide [Victoza 2-José] 1.8 mg SQ DAILY 02/16/19 04/06/21 Magnesium Oxide [Mag-Ox] 400 mg PO HS 02/16/19 04/06/21 Pioglitazone [Actos] 30 mg PO DAILY 02/16/19 04/06/21 metFORMIN HCL [Glucophage] 500 mg PO BID 02/16/19 04/06/21 Dicyclomine [Bentyl] 20 mg PO Q8H PRN 03/21/20 04/06/21 Montelukast [Singulair] 10 mg PO HS 03/21/20 04/06/21 Omeprazole 20 mg PO DAILY 03/21/20 04/06/21 traMADol HCL 50 mg PO TID PRN 03/21/20 04/06/21 Insulin Glargine [Lantus] 50 unit SQ HS 07/27/20 04/06/21 Docusate [Colace] 100 mg PO BID 03/02/21 04/06/21 Ferrous Sulfate [Feosol] 325 mg PO BID 03/02/21 04/06/21 Levothyroxine Sodium [Synthroid] 50 mcg PO DAILY 03/02/21 04/06/21 Zinc 50 mg PO DAILY 03/02/21 04/06/21 acetaZOLAMIDE [acetaZOLAMIDE ER] 500 mg PO BID 03/02/21 04/06/21 Previous Rx's Medication Instructions Recorded Docusate [Colace] 100 mg PO BID #20 capsule 04/10/21 Ibuprofen [Motrin] 600 mg PO Q6HR PRN #40 tab 04/10/21 oxyCODONE HCL [OxyIR] 5 mg PO Q6H PRN 3 Days #10 tab 04/10/21 Allergies Allergy/AdvReac Type Severity Reaction Status Date / Time Penicillins Allergy Unknown Verified 07/20/21 06:32 Childhood Sulfa (Sulfonamide Allergy Rash/Hives Verified 07/20/21 06:32 Antibiotics) Review of Systems ROS Statement: Those systems with pertinent positive or pertinent negative responses have been documented in the HPI. ROS Other: All systems not noted in ROS Statement are negative. Past Medical History Past Medical History: Asthma, COPD, Diabetes Mellitus, Hyperlipidemia, Hypertension, Neurologic Disorder, Osteoarthritis (OA), Thyroid Disorder History of Any Multi-Drug Resistant Organisms: None Reported Past Surgical History: Section, Hysterectomy Additional Past Surgical History / Comment(s): x 2, ganglion cyst removed from left wrist Past Anesthesia/Blood Transfusion Reactions: No Reported Reaction Past Psychological History: Anxiety, Depression Smoking Status: Never smoker Past Alcohol Use History: None Reported Past Drug Use History: None Reported - Past Family History Father Family Medical History: Cancer Additional Family Medical History / Comment(s): brain Mother Family Medical History: Cancer Additional Family Medical History / Comment(s): lung - General Exam Limitations: no limitations General appearance: alert, in no apparent distress Head exam: Present: atraumatic, normocephalic, normal inspection Eye exam: Present: normal appearance, PERRL, EOMI. Absent: scleral icterus, conjunctival injection, periorbital swelling ENT exam: Present: normal exam, normal oropharynx, mucous membranes moist Neck exam: Present: normal inspection, full ROM. Absent: tenderness, meningismus, lymphadenopathy Respiratory exam: Present: normal lung sounds bilaterally. Absent: respiratory distress, wheezes, rales, rhonchi, stridor Cardiovascular Exam: Present: regular rate, normal rhythm, normal heart sounds. Absent: systolic murmur, diastolic murmur, rubs, gallop, clicks Extremities exam: Present: other (Right have mild diffuse tenderness, no iris deformity, right knee there is medial and anterior knee tenderness mild swelling neurovascular intact no laxity noted negative anterior posterior no ankle tenderness no mid foot tenderness) Back exam: Present: full ROM. Absent: tenderness Course Vital Signs 07/20/21 06:30 Temperature 98.1 F Pulse Rate 76 Respiratory 18 Rate Blood Pressure 108/61 O2 Sat by Pulse 100 Oximetry Medical Decision Making - Medical Decision Making Patient has small joint effusion on the right knee, x-ray of hip otherwise unremarkable patient will follow-up with orthopedics on-call return parameters were discussed. Disposition Clinical Impression: Fall, Effusion, right knee, Right knee sprain, Contusion of right hip Disposition: HOME SELF-CARE Condition: Stable Instructions (If sedation given, give patient instructions): Knee Sprain (ED), Hip Contusion (ED) Additional Instructions: Please return to the Emergency Department if symptoms worsen or any other concerns. Is patient prescribed a controlled substance at d/c from ED?: No Referrals: [facility] [Primary Care Provider] - 1-2 days José Miguel Alejandre MD [STAFF PHYSICIAN] - 1-2 days Time of Disposition: 07:54
--- NOTE | 2021-07-20 07:42 | XR ---
EXAMINATION TYPE: XR Hip RT and AP Pelvis DATE OF EXAM: 07/20/2021 COMPARISON: Right hip 09/12/2020 HISTORY: Trauma and pain TECHNIQUE: A single AP view of the pelvis is obtained. Two views of the right hip are obtained. FINDINGS: There is no acute fracture/dislocation evident in the pelvis. The hip and sacroiliac join ts appear symmetric and mild marginal spurring again noted in the right hip consistent with osteoarth ritis. The overlying soft tissue appears unremarkable. Two views of right hip show no acute fracture or dislocation. No focal lytic or sclerotic lesion see n in the proximal right femur. The overlying soft tissue is unremarkable. IMPRESSION: There is no acute fracture or dislocation in the pelvis or right hip.
--- NOTE | 2021-07-20 07:44 | XR ---
Right knee HISTORY: Trauma and pain 3 views of the right knee, correlation prior exam 10/05/2013 Bone mineralization is reduced, joint spaces are remarkable for loss of space at the patellofemoral j oint, medial compartment and alignment is within normal limits. There is marginal spurring in the med ial compartment of the right knee and at the patellofemoral joint. Suprapatellar increased soft tissu e may be indicative of small effusion IMPRESSION: Osteoarthritis. Small joint effusion. No fracture or dislocation.
[2021-07-20] MEDS ORDERED: ACET/COD 300 MG/30 MG STARTER PACK 6 TAB BTL PO STA (07:56)
== END 2021-07-20 08:29 | disposition home or self-care (01) ==
LOC: EC 06:25
DX: S70.01XA Contusion of right hip, initial encounter (principal); S83.91XA Sprain of unspecified site of right knee, initial encounter; M25.461 Effusion, right knee; E11.9 Type 2 diabetes mellitus without complications; I10 Essential (primary) hypertension; J44.9 Chronic obstructive pulmonary disease, unspecified; E78.5 Hyperlipidemia, unspecified; M19.90 Unspecified osteoarthritis, unspecified site; F32.A Depression, unspecified; F41.9 Anxiety disorder, unspecified; Z79.4 Long term (current) use of insulin; Z79.890 Hormone replacement therapy; Z79.82 Long term (current) use of aspirin; Z79.84 Long term (current) use of oral hypoglycemic drugs; Z79.899 Other long term (current) drug therapy; W00.0XXA Fall on same level due to ice and snow, initial encounter
CPT/HCPCS: 73502; 99284

== ENCOUNTER → 2021-08-03 | Outpatient (CLI) | payer OTHER ==
--- NOTE | 2021-08-03 21:42 | SFUN ---
SLEEP CENTER FOLLOW UP NOTE DATE OF SERVICE: 08/03/2021 This 55-year-old lady has been followed in Sleep Center for treatment of obstructive sleep apnea-hypopnea syndrome. The patient recently had a home sleep apnea test which showed that she has mild sleep apnea-hypopnea syndrome, but because of significant excessive daytime sleepiness she was initiated on treatment with CPAP. Today is her first visit after treatment was started. The patient feels better with CPAP. She sleeps better and she feels better during the day, less sleepy than before, although according to [place] Sleepiness Scale today, it is about the same -- 19. I checked her CPAP unit. Range of the pressure is 5 to 15, average pressure 11.5. Usage is 97% of the time, and 90% for more than 4 hours, average usage 5 hours 37 minutes, which indicates good compliance with treatment. Leak is 31.7 L/minute, which is slightly increased, but apnea-hypopnea index is only 0.3, which is perfect. MEDICATIONS: 1. Levothyroxine 50 mcg once a day. 2. Omeprazole 20 mg once a day. 3. Venlafaxine 150 mg once a day. 4. Aspirin 81 mg once a day. 5. Dicyclomine 20 mg once a day. 6. Montelukast 10 mg once a day. 7. Pioglitazone 30 mg once a day. 8. Metformin 50 mg twice a day. 9. Victoza. 10.Lantus. 11.Tramadol. PHYSICAL EXAMINATION: GENERAL: Pleasant patient in no distress. VITAL SIGNS: BP 140/66, HR 75, RR 18, weight 268.8, temperature 97.0, oxygen saturation at room air 96%. HEENT: PERRLA, EOMI, evaluation of oropharynx showed tongue protrudes midline. Short distance between soft palate and pharyngeal wall. NECK: Supple, no JVD. Thyroid is not palpable. Wide neck; 19 inches in circumference. LUNGS: Clear to percussion and to auscultation. Good air exchange. No wheezing or rhonchi. HEART: S1, S2 regular. No murmurs, gallops, or rubs. ABDOMEN: Obese. EXTREMITIES: No clubbing or cyanosis. FLEET MECHANIC: Awake, alert, and oriented X3. Cranial nerves 2 to 7 intact. There is no fasciculation or atrophy. noted. No focal deficits observed. IMPRESSION: 1. Obstructive sleep apnea-hypopnea syndrome. Patient demonstrated great compliance with treatment, benefitting from treatment. Normal respiration on CPAP. According to the patient, she feels more alert during the day. 2. Hypothyroidism. 3. Acid reflux. 4. Depression. 5. Diabetes mellitus. 6. Chronic kidney disease. 7. Hyperlipidemia. 8. Asthma. 9. Sinusitis. 10.Anemia. 11.Headaches. 12.Status post C-sections x2. PLAN: 1. Patient will continue to use PAP equipment every night for the whole night. 2. Sleep hygiene with regular time in bed for at least 7-1/2 to 8 hours. 3. Precautions related to driving. No driving if feeling sleepiness. 4. I will maintain all necessary prescription for PAP supplies including mask, tube, filters. 5. Watching weight. 6. Follow-up visit in 6 months or earlier if patient has any problems. 7. We discussed with the patient in detail the position of the machine and adjustment of heat in the humidifier and in the tube. Thank you very much for allowing me to participate in the management of your patient. Sincerely, James Kennedy MD, PhD, FAASM Diplomat of [place] [employer] Sleep Medicine Board of [place] [employer] [facility] [place] MMODL / IJN: [id number] /
== END ==
LOC: SLEEP 15:25
PROVIDERS: ATTEND Internal Medicine
DX: G47.33 Obstructive sleep apnea (adult) (pediatric) (principal); E03.9 Hypothyroidism, unspecified; K21.9 Gastro-esophageal reflux disease without esophagitis; F32.A Depression, unspecified; E11.22 Type 2 diabetes mellitus with diabetic chronic kidney disease; N18.9 Chronic kidney disease, unspecified; E78.5 Hyperlipidemia, unspecified; Z99.89 Dependence on other enabling machines and devices; J45.909 Unspecified asthma, uncomplicated; J32.9 Chronic sinusitis, unspecified; D64.9 Anemia, unspecified; Z87.59 Personal history of other complications of pregnancy, childbirth and the puerperium; Z79.890 Hormone replacement therapy; Z88.0 Allergy status to penicillin; Z88.2 Allergy status to sulfonamides; Z87.891 Personal history of nicotine dependence

== ENCOUNTER → 2021-09-25 | Outpatient (CLI) | payer OTHER ==
--- NOTE | 2021-09-25 14:28 | BD ---
EXAMINATION TYPE: Axial Bone Density DATE OF EXAM: 09/25/2021 COMPARISON: NONE CLINICAL HISTORY: 55 years year old Female. ICD-10 CODE: M81.8 OSTEOPOROSIS WITHOUT PATHOLOGICAL FX Height: 62.5IN Weight: 267 FRAX RISK QUESTIONS: Secondary Osteoporosis: 2. Hyperthyroidism: YES 3. Menopause before 45: PARTIAL HYSTERECTOMY AGE 49RISK FACTORS HISTORY OF: Active: MODERATE Postmenopausal woman: PARTIAL HYSTERECTOMY 48 YRS OLD Frequent falls: YES Poor Health: FAIR Adrenal Insufficiency: KIDNEY FUNCTION AT 45% MEDICATIONS: Thyroid Medications: YES Which medication: Levothyroxine How Lon+YEARS Additional Medications: DIABETES MEDS, DEPRESSION MEDS, BP MEDS, KIDNEY MEDS, CALCIUM AND VIT D EXAM MEASUREMENTS: Bone mineral densitometry was performed using the [employer] System. Bone mineral density as measured about the Lumbar spine is: ----- L1-L4(G/cm2): 1.175 T Score Values are as follows: ----- L1: -0.1 ----- L2: -0.2 ----- L3: 0.1 ----- L4: 0.0 ----- L1-L4: 0.0 Bone mineral density BASELINE Bone mineral density about the R hip (g/cm2): 0.842 Bone mineral density about the L hip (g/cm2): 0.922 T Score values are as follows: -----R Neck: -1.4 -----L Neck: -0.8 -----R Total: -1.3 -----L Total: -0.4 Bone mineral density BASELINE FRAX%s: The graph provided illustrates a 5.8% chance for a major osteoporotic fx and a 0.4% chance fo r the hips probability for fx in 10 years time. IMPRESSION: Osteopenia (T Score between -2.5 and -1) in the right hip is present. There is slightly increased risk of fracture and the patient may be considered for treatment. Re-Screen 2-5 years. NOTE: T-SCORE=SD OF THE YOUNG ADULT MEAN.
== END | disposition home or self-care (01) ==
LOC: RADBDWWP 12:06
PROVIDERS: ATTEND Internal Medicine
DX: M85.851 Other specified disorders of bone density and structure, right thigh (principal); Z78.0 Asymptomatic menopausal state
CPT/HCPCS: 77080

== ENCOUNTER 2021-10-13 20:08 | Emergency (ER) | payer OTHER ==
--- NOTE | 2021-10-13 21:40 | XR ---
EXAMINATION TYPE: XR KUB DATE OF EXAM: 10/13/2021 COMPARISON: 07/27/2020 HISTORY: Abdominal pain TECHNIQUE: 2 views upright FINDINGS: There is no sign of intestinal obstruction or pneumoperitoneum. Fecal pattern is normal. No evidence of a mass. Lung bases are clear. No calcification seen over the kidneys. IMPRESSION: Acute abdomen. No adverse change.
[2021-10-13 22:14] LABS: Appearance,Urine Cloudy (Clear); Bacteria,Urine Few /hpf; Bilirubin,Urine Negative (Negative); Blood,Urine Negative (Negative); Color,Urine Yellow; Glucose,Urine (UA) 4+ (Negative); Hyaline Casts,Urine 8 /lpf (0-2); Ketones,Urine Negative (Negative); Leukocyte Esterase,Urine Large (Negative); Mucus,Urine Rare /hpf; Nitrite,Urine Negative (Negative); Protein,Urine Trace (Negative); RBC,Urine 11 /hpf (0-5); Specific Gravity,Urine 1.025 (1.001-1.035); Squamous Epithelial Cell,Urine 2 /hpf (0-4); Urobilinogen,Urine <2.0 mg/dL (<2.0); WBC,Urine >182 /hpf (0-5)
[2021-10-13] MEDS ORDERED: MORPHINE SULFATE 4 MG/ML SYRINGE IV STA ×2 (23:41)
--- NOTE | 2021-10-13 23:55 | ED ---
Abdominal Pain HPI - General Chief Complaint: Abdominal Pain Stated Complaint: L Kidney/Leg/Wrist Pain Time Seen by Provider: 10/13/21 23:13 Source: patient Mode of arrival: ambulatory Limitations: no limitations - History of Present Illness Initial Comments: This patient is a 55-year-old woman who complains of having left flank pain that she first noted about 2 weeks ago. She states that at first it was just mild and not present all the time. Now it has become constant and is more moderate to severe. She describes it as a sensation like she is being kicked. She has not noted worsening or relieving factors. No associated symptoms. No dyspnea or chest pain. She has not noted change in urination or bowel movements. No fever or chills. She denies dysuria or hematuria. She may have been urinating more frequently. MD Complaint: flank pain Onset/Timin -: week(s) Location: L flank Radiation: none Migration to: no migration Severity: moderate Quality: other (Like someone is kicking me) Consistency: constant Improves With: nothing Worsens With: nothing Associated Symptoms: denies other symptoms - Related Data Home Medications Medication Instructions Recorded Confirmed Pravastatin Sodium [Pravachol] 40 mg PO DAILY 12/15/14 04/06/21 Aspirin [Adult Low Dose Aspirin EC] 81 mg PO DAILY 08/22/17 04/06/21 Cholecalciferol [Vitamin D3 (25 2,000 unit PO DAILY 08/22/17 04/06/21 Mcg = 1000 Iu)] Venlafaxine HCl [Effexor XR] 150 mg PO DAILY 09/30/17 04/06/21 Liraglutide [Victoza 2-José] 1.8 mg SQ DAILY 02/16/19 04/06/21 Magnesium Oxide [Mag-Ox] 400 mg PO HS 02/16/19 04/06/21 Pioglitazone [Actos] 30 mg PO DAILY 02/16/19 04/06/21 metFORMIN HCL [Glucophage] 500 mg PO BID 02/16/19 04/06/21 Dicyclomine [Bentyl] 20 mg PO Q8H PRN 03/21/20 04/06/21 Montelukast [Singulair] 10 mg PO HS 03/21/20 04/06/21 Omeprazole 20 mg PO DAILY 03/21/20 04/06/21 traMADol HCL 50 mg PO TID PRN 03/21/20 04/06/21 Insulin Glargine [Lantus] 50 unit SQ HS 07/27/20 04/06/21 Docusate [Colace] 100 mg PO BID 03/02/21 04/06/21 Ferrous Sulfate [Feosol] 325 mg PO BID 03/02/21 04/06/21 Levothyroxine Sodium [Synthroid] 50 mcg PO DAILY 03/02/21 04/06/21 Zinc 50 mg PO DAILY 03/02/21 04/06/21 acetaZOLAMIDE [acetaZOLAMIDE ER] 500 mg PO BID 03/02/21 04/06/21 Previous Rx's Medication Instructions Recorded Docusate [Colace] 100 mg PO BID #20 capsule 04/10/21 Ibuprofen [Motrin] 600 mg PO Q6HR PRN #40 tab 04/10/21 oxyCODONE HCL [OxyIR] 5 mg PO Q6H PRN 3 Days #10 tab 04/10/21 Cephalexin [Keflex] 500 mg PO Q6HR #28 cap 10/14/21 Allergies Allergy/AdvReac Type Severity Reaction Status Date / Time Penicillins Allergy Unknown Verified 10/13/21 20:29 Childhood Sulfa (Sulfonamide Allergy Rash/Hives Verified 10/13/21 20:29 Antibiotics) Review of Systems ROS Statement: Those systems with pertinent positive or pertinent negative responses have been documented in the HPI. ROS Other: All systems not noted in ROS Statement are negative. Constitutional: Denies: fever, chills, weakness Respiratory: Denies: cough, dyspnea Cardiovascular: Reports: edema (Right leg). Denies: chest pain, palpitations, syncope Gastrointestinal: Reports: as per HPI, abdominal pain. Denies: nausea, vomiting, diarrhea, melena, hematochezia Genitourinary: Reports: frequency. Denies: dysuria, hematuria Musculoskeletal: Denies: back pain Skin: Denies: rash Neurological: Denies: headache, weakness Past Medical History Past Medical History: Asthma, COPD, Diabetes Mellitus, Hyperlipidemia, Hypertension, Neurologic Disorder, Osteoarthritis (OA), Thyroid Disorder History of Any Multi-Drug Resistant Organisms: None Reported Past Surgical History: Section, Hysterectomy Additional Past Surgical History / Comment(s): x 2, ganglion cyst removed from left wrist Past Anesthesia/Blood Transfusion Reactions: No Reported Reaction Past Psychological History: Anxiety, Depression Smoking Status: Never smoker Past Alcohol Use History: None Reported Past Drug Use History: None Reported - Past Family History Father Family Medical History: Cancer Additional Family Medical History / Comment(s): brain Mother Family Medical History: Cancer Additional Family Medical History / Comment(s): lung - General Exam Limitations: no limitations General appearance: alert, in no apparent distress Head exam: Present: atraumatic, normocephalic Eye exam: Present: normal appearance. Absent: scleral icterus, conjunctival injection Respiratory exam: Present: normal lung sounds bilaterally. Absent: respiratory distress, wheezes, rales, rhonchi, stridor Cardiovascular Exam: Present: regular rate, normal rhythm, normal heart sounds. Absent: systolic murmur, diastolic murmur, rubs, gallop GI/Abdominal exam: Present: soft. Absent: distended, tenderness, guarding, rebound, rigid, mass Extremities exam: Present: normal inspection, normal capillary refill, calf tenderness (Right sided calf tenderness). Absent: pedal edema Back exam: Present: normal inspection, CVA tenderness (L). Absent: CVA tenderness (R), paraspinal tenderness, vertebral tenderness, rash noted Neurological exam: Present: alert Skin exam: Present: warm, dry, intact, normal color. Absent: rash Course Vital Signs 10/13/21 20:30 Temperature 97.7 F Pulse Rate 88 Respiratory 16 Rate Blood Pressure 93/67 O2 Sat by Pulse 99 Oximetry Medical Decision Making - Lab Data Result diagrams: 10/13/21 23:35 10/13/21 23:35 Lab Results 10/13/21 10/13/21 10/13/21 Range/Units 21:45 23:35 23:35 WBC 10.3 (3.8-10.6) k/uL RBC 4.32 (3.80-5.40) m/uL Hgb 11.6 (11.4-16.0) gm/dL Hct 38.4 (34.0-46.0) % MCV 89.0 (80.0-100.0) fL MCH 26.9 (25.0-35.0) pg MCHC 30.2 L (31.0-37.0) g/dL RDW 14.4 (11.5-15.5) % Plt Count 274 (150-450) k/uL MPV 8.9 Neutrophils % 67 % Lymphocytes % 21 % Monocytes % 9 % Eosinophils % 0 % Basophils % 0 % Neutrophils # 6.9 (1.3-7.7) k/uL Lymphocytes # 2.2 (1.0-4.8) k/uL Monocytes # 0.9 (0-1.0) k/uL Eosinophils # 0.0 (0-0.7) k/uL Basophils # 0.0 (0-0.2) k/uL Hypochromasia Moderate Sodium 138 (137-145) mmol/L Potassium 4.0 (3.5-5.1) mmol/L Chloride 109 H (98-107) mmol/L Carbon Dioxide 19 L (22-30) mmol/L Anion Gap 10 mmol/L BUN 31 H (7-17) mg/dL Creatinine 1.52 H (0.52-1.04) mg/dL Est GFR (CKD-EPI)AfAm 44 (>60 ml/min/1.73 sqM) Est GFR (CKD-EPI)NonAf 38 (>60 ml/min/1.73 sqM) Glucose 195 H (74-99) mg/dL Calcium 8.7 (8.4-10.2) mg/dL Total Bilirubin 0.3 (0.2-1.3) mg/dL AST 18 (14-36) U/L ALT 10 (4-34) U/L Alkaline Phosphatase 113 (38-126) U/L Total Protein 7.1 (6.3-8.2) g/dL Albumin 3.9 (3.5-5.0) g/dL Amylase 51 (30-110) U/L Lipase 111 (23-300) U/L Urine Color Yellow Urine Appearance Cloudy H (Clear) Urine pH 5.0 (5.0-8.0) Ur Specific [place] 1.025 (1.001-1.035) Urine Protein Trace H (Negative) Urine Glucose (UA) 4+ H (Negative) Urine Ketones Negative (Negative) Urine Blood Negative (Negative) Urine Nitrite Negative (Negative) Urine Bilirubin Negative (Negative) Urine Urobilinogen <2.0 (<2.0) mg/dL Ur Leukocyte Esterase Large H (Negative) Urine RBC 11 H (0-5) /hpf Urine WBC >182 H (0-5) /hpf Urine WBC Clumps Many H (None) /hpf Ur Squamous Epith Cells 2 (0-4) /hpf Urine Bacteria Few H (None) /hpf Hyaline Casts 8 H (0-2) /lpf Urine Mucus Rare H (None) /hpf Disposition Clinical Impression: Urinary tract infection Disposition: HOME SELF-CARE Condition: Good Instructions (If sedation given, give patient instructions): Urinary Tract Infection in Women (ED) Prescriptions: Cephalexin [Keflex] 500 mg PO Q6HR #28 cap Is patient prescribed a controlled substance at d/c from ED?: No Referrals: Sharyn Us MD [Primary Care Provider] - 1-2 days
[2021-10-13 23:57] LABS: Basophils % (A) 0 %; Eosinophils % (A) 0 %; HCT 38.4 % (34.0-46.0); HGB 11.6 gm/dL (11.4-16.0); Hypochromasia Moderate; Lymphocytes # (A) 2.2 k/uL (1.0-4.8); Lymphocytes % (A) 21 %; MCH 26.9 pg (25.0-35.0); MCHC 30.2 g/dL (31.0-37.0); Mean Platelet Volume 8.9; Monocytes # (A) 0.9 k/uL (0-1.0); Monocytes % (A) 9 %; Neutrophils # (A) 6.9 k/uL (1.3-7.7); Neutrophils % (A) 67 %; Platelet Count 274 k/uL (150-450); RBC 4.32 m/uL (3.80-5.40); RDW 14.4 % (11.5-15.5); WBC 10.3 k/uL (3.8-10.6)
[2021-10-14 00:09] LABS: Albumin 3.9 g/dL (3.5-5.0); Calcium 8.7 mg/dL (8.4-10.2); Total Bilirubin 0.3 mg/dL (0.2-1.3); Total Protein 7.1 g/dL (6.3-8.2)
--- NOTE | 2021-10-14 01:31 | US ---
EXAMINATION TYPE: US venous doppler duplex LE RT DATE OF EXAM: 10/14/2021 1:09 AM COMPARISON: NONE CLINICAL HISTORY: R leg pain, possible DVT. SIDE PERFORMED: TECHNIQUE: The lower extremity deep venous system is examined utilizing real time linear array sonog cruz with graded compression, doppler sonography and color-flow sonography. VESSELS IMAGED: Common Femoral Vein Deep Femoral Vein Greater Saphenous Vein * Femoral Vein Popliteal Vein Small Saphenous Vein * Proximal Calf Veins, not seen (* superficial vessels) Morbidly obese patient. Right Leg: Negative for DVT IMPRESSION: No evidence of deep vein thrombosis in the right leg.
[2021-10-14 04:50] VITALS: BP 123/74; PULSE 70; RESP 18; TEMP 97.4
== END 2021-10-14 02:50 | disposition home or self-care (01) ==
LOC: EC 20:08
DX: N39.0 Urinary tract infection, site not specified (principal); E11.9 Type 2 diabetes mellitus without complications; J45.909 Unspecified asthma, uncomplicated; I10 Essential (primary) hypertension; E78.5 Hyperlipidemia, unspecified; Z79.83 Long term (current) use of bisphosphonates; K21.9 Gastro-esophageal reflux disease without esophagitis; E07.9 Disorder of thyroid, unspecified; Z79.1 Long term (current) use of non-steroidal anti-inflammatories (NSAID); Z88.0 Allergy status to penicillin; Z88.2 Allergy status to sulfonamides
CPT/HCPCS: 36415; 80053; 82150; 83690; 85025; 81001; 87086; 74018; 93971; 99284; 96365; 96375; J2270; J0696

== ENCOUNTER 2021-10-29 23:42 | Emergency (ER) | payer OTHER ==
[2021-10-29 23:48] VITALS: BP 130/70; PULSE 75; RESP 19; TEMP 98
[2021-10-29] MEDS ORDERED: LIDOCAINE 1% INJ 10MG/ML (5 ML VIAL-PF) SQ ONE (23:48)
[2021-10-29] MEDS ORDERED: BACITRACIN OINT 1 EACH PACKET TOPICAL STA (23:56)
--- NOTE | 2021-10-30 00:42 | ED ---
General Adult HPI - General Chief complaint: Wound/Laceration Stated complaint: Laceration on Face Time Seen by Provider: 10/29/21 23:53 Source: patient, RN notes reviewed Mode of arrival: ambulatory - History of Present Illness Initial comments: 55-year-old female presents to the emergency department for evaluation of wound the left side of her face. Patient states she was asleep in her bed when she was pushed out of bed by her dog causing her to strike her face on the corner of her night stand. No loss of consciousness. Did not take any medications prior to arrival. Uncertain of date of last tetanus shot. Denies any head, neck, or back pain, jaw pain or, vision changes. - Related Data Home Medications Medication Instructions Recorded Confirmed Pravastatin Sodium [Pravachol] 40 mg PO DAILY 12/15/14 04/06/21 Aspirin [Adult Low Dose Aspirin EC] 81 mg PO DAILY 08/22/17 04/06/21 Cholecalciferol [Vitamin D3 (25 2,000 unit PO DAILY 08/22/17 04/06/21 Mcg = 1000 Iu)] Venlafaxine HCl [Effexor XR] 150 mg PO DAILY 09/30/17 04/06/21 Liraglutide [Victoza 2-José] 1.8 mg SQ DAILY 02/16/19 04/06/21 Magnesium Oxide [Mag-Ox] 400 mg PO HS 02/16/19 04/06/21 Pioglitazone [Actos] 30 mg PO DAILY 02/16/19 04/06/21 metFORMIN HCL [Glucophage] 500 mg PO BID 02/16/19 04/06/21 Dicyclomine [Bentyl] 20 mg PO Q8H PRN 03/21/20 04/06/21 Montelukast [Singulair] 10 mg PO HS 03/21/20 04/06/21 Omeprazole 20 mg PO DAILY 03/21/20 04/06/21 traMADol HCL 50 mg PO TID PRN 03/21/20 04/06/21 Insulin Glargine [Lantus] 50 unit SQ HS 07/27/20 04/06/21 Docusate [Colace] 100 mg PO BID 03/02/21 04/06/21 Ferrous Sulfate [Feosol] 325 mg PO BID 03/02/21 04/06/21 Levothyroxine Sodium [Synthroid] 50 mcg PO DAILY 03/02/21 04/06/21 Zinc 50 mg PO DAILY 03/02/21 04/06/21 acetaZOLAMIDE [acetaZOLAMIDE ER] 500 mg PO BID 03/02/21 04/06/21 Previous Rx's Medication Instructions Recorded Docusate [Colace] 100 mg PO BID #20 capsule 04/10/21 Ibuprofen [Motrin] 600 mg PO Q6HR PRN #40 tab 04/10/21 oxyCODONE HCL [OxyIR] 5 mg PO Q6H PRN 3 Days #10 tab 04/10/21 Cephalexin [Keflex] 500 mg PO Q6HR #28 cap 10/14/21 Allergies Allergy/AdvReac Type Severity Reaction Status Date / Time Penicillins Allergy Unknown Verified 10/29/21 23:48 Childhood Sulfa (Sulfonamide Allergy Rash/Hives Verified 10/29/21 23:48 Antibiotics) Review of Systems ROS Statement: Those systems with pertinent positive or pertinent negative responses have been documented in the HPI. ROS Other: All systems not noted in ROS Statement are negative. Past Medical History Past Medical History: Asthma, COPD, Diabetes Mellitus, Hyperlipidemia, Hypertension, Neurologic Disorder, Osteoarthritis (OA), Thyroid Disorder History of Any Multi-Drug Resistant Organisms: None Reported Past Surgical History: Section, Hysterectomy Additional Past Surgical History / Comment(s): x 2, ganglion cyst removed from left wrist Past Anesthesia/Blood Transfusion Reactions: No Reported Reaction Past Psychological History: Anxiety, Depression Smoking Status: Never smoker Past Alcohol Use History: None Reported Past Drug Use History: None Reported - Past Family History Father Family Medical History: Cancer Additional Family Medical History / Comment(s): brain Mother Family Medical History: Cancer Additional Family Medical History / Comment(s): lung - General Exam Limitations: no limitations General appearance: alert, in no apparent distress, other (Well-developed, well- nourished female in no acute distress. Initial temperature 98.0, pulse 75, resp irations 18, blood pressure 130/70, pulse ox 98% on room air.) Head exam: Present: normocephalic Expanded Head exam: Present: laceration (3cm semi-lunar shaped laceration left side of the face anterior-inferior to the lateral zygomatic bone. Bleeding controlled flagsetter. Jaw motion intact. Mild tenderness upon palpation of wound.) Eye exam: Present: normal appearance, PERRL, EOMI. Absent: scleral icterus, conjunctival injection, periorbital swelling ENT exam: Present: normal exam, normal oropharynx, mucous membranes moist Neck exam: Present: normal inspection, full ROM. Absent: tenderness Respiratory exam: Present: normal lung sounds bilaterally. Absent: respiratory distress, wheezes, rales, rhonchi, stridor, chest wall tenderness Cardiovascular Exam: Present: regular rate, normal rhythm, normal heart sounds. Absent: systolic murmur, diastolic murmur, rubs, gallop, clicks GI/Abdominal exam: Present: soft, normal bowel sounds. Absent: distended, tenderness, guarding, rebound, rigid Neurological exam: Present: alert, oriented X3, CN II-XII intact, normal gait Expanded Patient oriented to: Present: person, place, time Speech: Present: fluid speech Cranial nerves: EOM's Intact: Normal, Tongue Deviation: Normal Cerebellar function: Romberg: Normal Motor strength exam: RUE: 5, LUE: 5, RLE: 5, LLE: 5 Eye Response: (4) open spontaneously Motor Response: (6) obeys commands Verbal Response: (5) oriented Joe Total: 15 Psychiatric exam: Present: normal affect, normal mood Skin exam: Present: warm, dry, normal color. Absent: rash Course Vital Signs 10/29/21 10/30/21 23:45 00:48 Temperature 98 F 98 F Pulse Rate 75 75 Respiratory 19 19 Rate Blood Pressure 130/70 130/70 O2 Sat by Pulse 98 98 Oximetry Procedures - Laceration Laceration #1 Consent Obtained: verbal consent Indication: laceration Site: face Size (cm): 3 Description: irregular Depth: simple, single layer Anesthetic Used: lidocaine 1% Anesthesia Technique: local infiltration Amount (mls): 2 Pre-repair: wound explored, irrigated extensively Type of Sutures: nylon Size of Sutures: 6-0 Number of Sutures: 7 Technique: simple, interrupted Patient Tolerated Procedure: well, no complications Additional Comments: Wound was anesthetized with lidocaine and thoroughly irrigated. 7 simple interrupted sutures were placed with good alignment. Patient tolerated procedure well. Wound care was reviewed at length. Patient verbalizes understanding Medical Decision Making - Medical Decision Making This is a 55-year-old female with a past medical history of COPD, hypertension, and type 2 diabetes who presents to the emergency department for evaluation of wound on the left side of her face. Upon exam, patient is well-appearing and in no acute distress. She is neurologically intact with no focal deficits. She has a 3 cm semilunar shape laceration that was cleansed, anesthetized, and thoroughly irrigated. 7 simple interrupted sutures were placed with good alignment. Patient tolerated procedure well. TDaP updated. She will be discharged home with instructions on wound care. She is instructed to follow up with her PCP for a wound recheck. Return parameters discussed in detail. Patient verbalizes understanding and is with this plan. Attending: Nael. Disposition Clinical Impression: Facial laceration Disposition: HOME SELF-CARE Condition: Stable Instructions (If sedation given, give patient instructions): Care For Your Stitches (ED), Acute Wound Care (ED) Additional Instructions: Gently cleansed the wound twice daily with mild soap and water. Applied bacitracin or triple antibiotic ointment directly to the wound. Monitor carefully for signs of infection including increased pain, redness, or foul-smelling drainage. History of breast to avoid direct sunlight. Sutures are to be removed in 3-5 days; this may be done here at the emergency Department, urgent care, or by your PCP. Schedule appointment with your PCP on Saturday for a wound recheck. Return to the emergency department with any new, worsening, or concerning symptoms. Is patient prescribed a controlled substance at d/c from ED?: No [facility]: [facility] - 1-2 days Sharyn Us MD [Primary Care Provider] - 1-2 days Time of Disposition: 00:41
[2021-10-30] MEDS ORDERED: DIPH,PERTUS(ACELL)TETVAC-LF 0.5 ML VIAL IM ONE (00:43)
== END 2021-10-30 00:56 | disposition home or self-care (01) ==
LOC: EC 23:42
DX: S01.81XA Laceration without foreign body of other part of head, initial encounter (principal); E11.9 Type 2 diabetes mellitus without complications; I10 Essential (primary) hypertension; E78.5 Hyperlipidemia, unspecified; J44.9 Chronic obstructive pulmonary disease, unspecified; E07.9 Disorder of thyroid, unspecified; F32.A Depression, unspecified; F41.9 Anxiety disorder, unspecified; Z79.84 Long term (current) use of oral hypoglycemic drugs; Z79.890 Hormone replacement therapy; Z79.82 Long term (current) use of aspirin; Z79.899 Other long term (current) drug therapy; Z88.0 Allergy status to penicillin; Z88.2 Allergy status to sulfonamides; Z23 Encounter for immunization; W22.09XA Striking against other stationary object, initial encounter
CPT/HCPCS: 90715; 12013; 90471; 99282; J2001

== ENCOUNTER 2021-11-09 11:54 | Emergency (ER) | payer OTHER ==
[2021-11-09 12:16] VITALS: TEMP 97.2
[2021-11-09 14:41] VITALS: RESP 18
[2021-11-09 14:59] LABS: African American GFR (CKD) 55 (>60 ml/min/1.73 sqM); Albumin 4.3 g/dL (3.5-5.0); Amylase <30 U/L (30-110); Anion Gap 7 mmol/L; Carbon Dioxide 22 mmol/L (22-30); Chloride 114 mmol/L (98-107); Glucose 134 mg/dL (74-99); Non-African American GFR(CKD) 47 (>60 ml/min/1.73 sqM); Potassium 4.1 mmol/L (3.5-5.1); Sodium 143 mmol/L (137-145); Total Protein 7.4 g/dL (6.3-8.2)
[2021-11-09 14:59] LABS: Appearance,Urine Cloudy (Clear); Bacteria,Urine Occasional /hpf; Bilirubin,Urine Negative (Negative); Blood,Urine Negative (Negative); Color,Urine Yellow; Glucose,Urine (UA) 3+ (Negative); Hyaline Casts,Urine 3 /lpf (0-2); Ketones,Urine Negative (Negative); Leukocyte Esterase,Urine Moderate (Negative); Mucus,Urine Few /hpf; Nitrite,Urine Positive (Negative); PH, Urine 5.5 (5.0-8.0); Protein,Urine Trace (Negative); RBC,Urine 2 /hpf (0-5); Squamous Epithelial Cell,Urine 1 /hpf (0-4); Urobilinogen,Urine <2.0 mg/dL (<2.0); WBC,Urine 49 /hpf (0-5)
[2021-11-09 15:00] LABS: ALT 12 U/L (4-34); AST 22 U/L (14-36); Alkaline Phosphatase 112 U/L (38-126); Blood Urea Nitrogen 19 mg/dL (7-17); Calcium 9.1 mg/dL (8.4-10.2); Lipase 164 U/L (23-300); Total Bilirubin 0.3 mg/dL (0.2-1.3)
[2021-11-09 15:07] LABS: Basophils % (A) 1 %; Eosinophils % (A) 0 %; HCT 42.6 % (34.0-46.0); HGB 12.9 gm/dL (11.4-16.0); Hypochromasia Marked; Lymphocytes # (A) 1.4 k/uL (1.0-4.8); Lymphocytes % (A) 23 %; MCHC 30.3 g/dL (31.0-37.0); MCV 89.2 fL (80.0-100.0); Mean Platelet Volume 8.8; Monocytes # (A) 0.6 k/uL (0-1.0); Monocytes % (A) 9 %; Neutrophils # (A) 3.9 k/uL (1.3-7.7); Neutrophils % (A) 64 %; Platelet Count 241 k/uL (150-450); RBC 4.78 m/uL (3.80-5.40); RDW 14.5 % (11.5-15.5); WBC 6.1 k/uL (3.8-10.6)
[2021-11-09] MEDS ORDERED: MORPHINE SULFATE 4 MG/ML SYRINGE IVP STA (15:12)
[2021-11-09] MEDS ORDERED: ONDANSETRON 4 MG/2 ML VIAL IVP STA (15:12)
[2021-11-09] MEDS ORDERED: SODIUM CHLORIDE 0.9% 1,000 ML IV STA (15:12)
--- NOTE | 2021-11-09 16:05 | ED ---
Abdominal Pain HPI - General Chief Complaint: Abdominal Pain Stated Complaint: Pain/kidney/abd/head Time Seen by Provider: 11/09/21 15:01 Source: patient, family, RN notes reviewed Mode of arrival: ambulatory Limitations: no limitations - History of Present Illness Initial Comments: This is a 55-year-old female who presents to the emergency department for lower back pain, nausea, and headaches. Low back pain started 2 weeks ago and the nausea and headache began today. The low back pain is described as being in the right left flank with some radiation to the abdomen. States that the pain feels like she is being "kicked". Laying down at night exacerbates the pain. Her current pain regimen of tramadol has not improved her symptoms. She avoids a nti-inflammatories for the most part due to kidney disease. The nausea occurs intermittently. She does have a known history of kidney stones and UTIs. Denies any dysuria. She has not had any episodes of vomiting or changes to her bowels. Denies any fevers, chills, sore throat, cough, dyspnea, chest pain, palpitations, vomiting, diarrhea, or headaches. Onset/Timin -: week(s) Location: L flank, R flank Quality: other (being kicked) Improves With: nothing Associated Symptoms: nausea - Related Data Home Medications Medication Instructions Recorded Confirmed Pravastatin Sodium [Pravachol] 40 mg PO DAILY 12/15/14 04/06/21 Aspirin [Adult Low Dose Aspirin EC] 81 mg PO DAILY 08/22/17 04/06/21 Cholecalciferol [Vitamin D3 (25 2,000 unit PO DAILY 08/22/17 04/06/21 Mcg = 1000 Iu)] Venlafaxine HCl [Effexor XR] 150 mg PO DAILY 09/30/17 04/06/21 Liraglutide [Victoza 2-José] 1.8 mg SQ DAILY 02/16/19 04/06/21 Magnesium Oxide [Mag-Ox] 400 mg PO HS 02/16/19 04/06/21 Pioglitazone [Actos] 30 mg PO DAILY 02/16/19 04/06/21 metFORMIN HCL [Glucophage] 500 mg PO BID 02/16/19 04/06/21 Dicyclomine [Bentyl] 20 mg PO Q8H PRN 03/21/20 04/06/21 Montelukast [Singulair] 10 mg PO HS 03/21/20 04/06/21 Omeprazole 20 mg PO DAILY 03/21/20 04/06/21 traMADol HCL 50 mg PO TID PRN 03/21/20 04/06/21 Insulin Glargine [Lantus] 50 unit SQ HS 07/27/20 04/06/21 Docusate [Colace] 100 mg PO BID 03/02/21 04/06/21 Ferrous Sulfate [Feosol] 325 mg PO BID 03/02/21 04/06/21 Levothyroxine Sodium [Synthroid] 50 mcg PO DAILY 03/02/21 04/06/21 Zinc 50 mg PO DAILY 03/02/21 04/06/21 acetaZOLAMIDE [acetaZOLAMIDE ER] 500 mg PO BID 03/02/21 04/06/21 Previous Rx's Medication Instructions Recorded Docusate [Colace] 100 mg PO BID #20 capsule 04/10/21 Ibuprofen [Motrin] 600 mg PO Q6HR PRN #40 tab 04/10/21 oxyCODONE HCL [OxyIR] 5 mg PO Q6H PRN 3 Days #10 tab 04/10/21 Cephalexin [Keflex] 500 mg PO Q6HR #28 cap 10/14/21 HYDROcodone/APAP 5-325MG [[place] 1 tab PO Q6HR PRN 3 Days #12 tab 11/09/21 5-325] Levofloxacin [Levaquin] 750 mg PO DAILY 5 Days #5 tab 11/09/21 Ondansetron Odt [Zofran Odt] 4 mg PO Q8HR PRN #15 tab 11/09/21 Tamsulosin [Flomax] 0.4 mg PO DAILY 7 Days #7 cap 11/09/21 Allergies Allergy/AdvReac Type Severity Reaction Status Date / Time Penicillins Allergy Unknown Verified 11/09/21 12:16 Childhood Sulfa (Sulfonamide Allergy Rash/Hives Verified 11/09/21 12:16 Antibiotics) Review of Systems ROS Statement: Those systems with pertinent positive or pertinent negative responses have been documented in the HPI. ROS Other: All systems not noted in ROS Statement are negative. Past Medical History Past Medical History: Asthma, COPD, Diabetes Mellitus, Hyperlipidemia, Hypertension, Neurologic Disorder, Osteoarthritis (OA), Thyroid Disorder History of Any Multi-Drug Resistant Organisms: None Reported Past Surgical History: Section, Hysterectomy Additional Past Surgical History / Comment(s): x 2, ganglion cyst removed from left wrist Past Anesthesia/Blood Transfusion Reactions: No Reported Reaction Past Psychological History: Anxiety, Depression Smoking Status: Never smoker Past Alcohol Use History: None Reported Past Drug Use History: None Reported - Past Family History Father Family Medical History: Cancer Additional Family Medical History / Comment(s): brain Mother Family Medical History: Cancer Additional Family Medical History / Comment(s): lung - General Exam Limitations: no limitations General appearance: alert, in distress Head exam: Present: atraumatic, normocephalic, normal inspection Neck exam: Present: normal inspection. Absent: tenderness, meningismus, lymphadenopathy Respiratory exam: Present: normal lung sounds bilaterally. Absent: respiratory distress, wheezes, rales, rhonchi, stridor Cardiovascular Exam: Present: regular rate, normal rhythm, normal heart sounds. Absent: systolic murmur, diastolic murmur, rubs, gallop, clicks GI/Abdominal exam: Present: soft, normal bowel sounds. Absent: distended, tenderness, guarding, rebound, rigid Back exam: Present: CVA tenderness (R), CVA tenderness (L) Neurological exam: Present: alert, oriented X3, CN II-XII intact Psychiatric exam: Present: normal affect, normal mood Skin exam: Present: warm, dry, intact, normal color. Absent: rash Course Vital Signs 11/09/21 11/09/21 12:13 14:41 Temperature 97.2 F L Pulse Rate 77 73 Respiratory 14 18 Rate Blood Pressure 124/74 138/89 O2 Sat by Pulse 99 99 Oximetry Medical Decision Making - Medical Decision Making This is a 55-year-old female who presents to the emergency department for lower back pain, nausea, and headaches. Urinalysis is positive for a urinary tract infection. There is not an elevated white blood cell count and her lab work is otherwise nonactionable. Her kidney function is stable. It is possible that there is an associated kidney stone, however the patient has known kidney stones and the current guidelines say that there is no indication to repeat imaging when the patient has a known history of kidney stones. It is also possible that she has developed a pyelonephritis at this point given the low back pain and nausea, however if that's the case, her lack of fever and normal white count suggests that this is not severe. She was given fluids, morphine, Zofran and a dose of ceftriaxone in the emergency department. Patient stable for discharge home. Patient will be discharged on Levaquin, which is more potent than Keflex for a UTI. Will also avoid Macrobid in the event she does have a pyelonephritis. Rx for [place] and Zofran provided for increased pain and nausea. Flomax also prescribed, advised her to take this for a week in the event she does have a kidney stone, and discontinue its use after a week or sooner if her pain subsides before hand. She'll be contacted if her urine culture reveals that Levaquin will not be effective. Return precautions reviewed in depth, the patient is instructed to return to the emergency department with any new, worsening, or concerning symptoms. Patient verbalized understanding. This case was discussed in detail with the attending ED physician. Presentation, findings, and treatment plan discussed in detail as well. - Lab Data Result diagrams: 11/09/21 14:35 11/09/21 14:35 Lab Results 11/09/21 11/09/21 11/09/21 Range/Units 14:30 14:35 14:35 WBC 6.1 (3.8-10.6) k/uL RBC 4.78 (3.80-5.40) m/uL Hgb 12.9 (11.4-16.0) gm/dL Hct 42.6 (34.0-46.0) % MCV 89.2 (80.0-100.0) fL MCH 27.0 (25.0-35.0) pg MCHC 30.3 L (31.0-37.0) g/dL RDW 14.5 (11.5-15.5) % Plt Count 241 (150-450) k/uL MPV 8.8 Neutrophils % 64 % Lymphocytes % 23 % Monocytes % 9 % Eosinophils % 0 % Basophils % 1 % Neutrophils # 3.9 (1.3-7.7) k/uL Lymphocytes # 1.4 (1.0-4.8) k/uL Monocytes # 0.6 (0-1.0) k/uL Eosinophils # 0.0 (0-0.7) k/uL Basophils # 0.0 (0-0.2) k/uL Hypochromasia Marked Sodium 143 (137-145) mmol/L Potassium 4.1 (3.5-5.1) mmol/L Chloride 114 H (98-107) mmol/L Carbon Dioxide 22 (22-30) mmol/L Anion Gap 7 mmol/L BUN 19 H (7-17) mg/dL Creatinine 1.27 H (0.52-1.04) mg/dL Est GFR (CKD-EPI)AfAm 55 (>60 ml/min/1.73 sqM) Est GFR (CKD-EPI)NonAf 47 (>60 ml/min/1.73 sqM) Glucose 134 H (74-99) mg/dL Calcium 9.1 (8.4-10.2) mg/dL Total Bilirubin 0.3 (0.2-1.3) mg/dL AST 22 (14-36) U/L ALT 12 (4-34) U/L Alkaline Phosphatase 112 (38-126) U/L Total Protein 7.4 (6.3-8.2) g/dL Albumin 4.3 (3.5-5.0) g/dL Amylase <30 L (30-110) U/L Lipase 164 (23-300) U/L Urine Color Yellow Urine Appearance Cloudy H (Clear) Urine pH 5.5 (5.0-8.0) Ur Specific Rankin 1.020 (1.001-1.035) Urine Protein Trace H (Negative) Urine Glucose (UA) 3+ H (Negative) Urine Ketones Negative (Negative) Urine Blood Negative (Negative) Urine Nitrite Positive H (Negative) Urine Bilirubin Negative (Negative) Urine Urobilinogen <2.0 (<2.0) mg/dL Ur Leukocyte Esterase Moderate H (Negative) Urine RBC 2 (0-5) /hpf Urine WBC 49 H (0-5) /hpf Ur Squamous Epith Cells 1 (0-4) /hpf Urine Bacteria Occasional H (None) /hpf Hyaline Casts 3 H (0-2) /lpf Urine Mucus Few H (None) /hpf Disposition Clinical Impression: Urinary tract infection Disposition: HOME SELF-CARE Instructions (If sedation given, give patient instructions): Urinary Tract Infection in Women (ED) Additional Instructions: Return to the emergency department with any new, worsening, or concerning symptoms. Take the antibiotic as prescribed for 5 days. Use Zofran as needed for nausea and vomiting up to every 8 hours. Take the Flomax for the first week with your largest meal of the day, and if symptoms do not improve, discontinue its use. You can discontinue this sooner if your pain subsides. Use the [place] sparingly as needed for severe pain. Otherwise take Tylenol. Avoid anti- inflammatories such as Ibuprofen due to your kidney function. Follow up with your primary care provider in 1-2 days. Prescriptions: Tamsulosin [Flomax] 0.4 mg PO DAILY 7 Days #7 cap Levofloxacin [Levaquin] 750 mg PO DAILY 5 Days #5 tab HYDROcodone/APAP 5-325MG [[place] 5-325] 1 tab PO Q6HR PRN 3 Days #12 tab PRN Reason: Pain Ondansetron Odt [Zofran Odt] 4 mg PO Q8HR PRN #15 tab PRN Reason: Nausea And Vomiting Is patient prescribed a controlled substance at d/c from ED?: Yes When asked, does pt state using other controlled substances?: Yes If prescribed controlled substance>3 days was MAPS reviewed?: Prescribed <3 Days Referrals: Sharyn Us MD [Primary Care Provider] - 1-2 days
[2021-11-09 17:45] VITALS: BP 142/78; PULSE 76
== END 2021-11-09 17:45 | disposition home or self-care (01) ==
LOC: EC 11:54
DX: N39.0 Urinary tract infection, site not specified (principal); E11.9 Type 2 diabetes mellitus without complications; I10 Essential (primary) hypertension; E78.5 Hyperlipidemia, unspecified; J44.9 Chronic obstructive pulmonary disease, unspecified; M19.90 Unspecified osteoarthritis, unspecified site; E07.9 Disorder of thyroid, unspecified; F32.A Depression, unspecified; F41.9 Anxiety disorder, unspecified; Z79.4 Long term (current) use of insulin; Z79.82 Long term (current) use of aspirin; Z79.84 Long term (current) use of oral hypoglycemic drugs; Z79.890 Hormone replacement therapy; Z79.899 Other long term (current) drug therapy
CPT/HCPCS: 36415; 80053; 82150; 83690; 85025; 81001; 87086; 99284; 96365; 96375 ×2; J2270; J2405; J0696

== ENCOUNTER → 2021-11-28 | Outpatient (CLI) | payer OTHER ==
--- NOTE | 2021-11-29 06:26 | US ---
EXAMINATION TYPE: US kidneys/renal and bladder DATE OF EXAM: 11/28/2021 COMPARISON: NONE CT abdomen and pelvis October 24, 2019 CLINICAL HISTORY: N18.32 CHRONIC KIDNEY DISEASE, STAGE 3B. CKD 3 EXAM MEASUREMENTS: Right Kidney: 9.9 x 4.7 x 3.6 cm Left Kidney: 9.6 x 4.9 x 4.3 cm Right Kidney: No hydronephrosis or masses seen Left Kidney: No hydronephrosis or masses seen Bladder: wnl Bilateral Jets seen: Yes There is no evidence for hydronephrosis at this point in time. Cortical thinning left kidney. No nep hrolithiasis is seen. No masses are identified. The urinary bladder is adequately distended. Bilat eral ureteral jets are seen. IMPRESSION: No hydronephrosis is seen bilaterally.
== END | disposition home or self-care (01) ==
LOC: RADUSWWP 15:35
PROVIDERS: ATTEND Internal Medicine Nephrology
DX: N18.32 Chronic kidney disease, stage 3b (principal)
CPT/HCPCS: 76770

== ENCOUNTER → 2021-12-15 | Outpatient (CLI) | payer OTHER ==
--- NOTE | 2021-12-15 10:42 | XR ---
Left knee HISTORY: Pain 3 views the left knee Exam is limited technically. There is hypertrophic change at the patellofemoral joint with joint spac e loss, marginal spurring. No sizable joint effusion. Alignment is maintained. Suspect there is overl karolina artifact, multiple metallic densities are seen overlying the proximal leg anteriorly. There is s oft tissue swelling. Marginal spurring also present in the medial lateral compartments was joint spac e loss. No fracture or dislocation. Bone mineralization is reduced. IMPRESSION: Osteoarthritis. Suspect overlying artifact..
--- NOTE | 2021-12-15 13:05 | XR ---
Facial bones HISTORY: Nonhealing wound 3 views of the facial bones There is no evident fracture. Orbits are intact. There is no evident air-fluid level in the visualize d paranasal sinuses. Bone mineralization is maintained. Mastoid air cells are well aerated. Patient i s edentulous. Hyperostosis from talus interna changes are present. IMPRESSION: No abnormality evident to account for patient's symptoms.
== END | disposition home or self-care (01) ==
LOC: RADXRMAIN 09:48
PROVIDERS: ATTEND Nurse Practitioner
DX: M17.12 Unilateral primary osteoarthritis, left knee (principal); L90.5 Scar conditions and fibrosis of skin
CPT/HCPCS: 70150

== ENCOUNTER 2022-04-13 04:38 | Emergency (ER) | payer OTHER ==
[2022-04-13 04:46] VITALS: RESP 18
[2022-04-13] MEDS ORDERED: SODIUM CHLORIDE 0.9% 1,000 ML IV STA (04:59)
[2022-04-13] MEDS ORDERED: MORPHINE SULFATE 4 MG/ML SYRINGE IV STA (04:59)
--- NOTE | 2022-04-13 05:00 | ED ---
Chest Pain HPI - General Source: patient, RN notes reviewed, old records reviewed Mode of arrival: EMS Limitations: no limitations - History of Present Illness MD Complaint: chest pain -: days(s) Onset: during rest, during exertion Pain Location: substernal, left chest Pain Radiation: LUE, back Severity: moderate Severity scale (1-10): 7 Quality: aching, sharp Consistency: intermittent Improves With: nothing Worsens With: nothing Context: other Anginal Symptoms: dyspnea, sense of impending doom Other Symptoms: palpitations Treatments Prior to Arrival: none <Cliff Nayak - Last Filed: 04/13/22 06:38> <Rahat Lawrence - Last Filed: 04/13/22 08:12> - General Chief Complaint: Abdominal Pain Stated Complaint: abd pain Time Seen by Provider: 04/13/22 04:46 - History of Present Illness Initial Comments: This is a 56-year-old female to the emergency department for evaluation of chest pain severe chest pain left-sided left arm. Patient has not been feeling well. Patient has previous evaluation of this week earlier this week for left-sided chest pain was told was muscle strain or sprain. Patient is convinced that is okay she will go from bed tonight concern for the severe pain chest pain and Tums also go to the left ribs and abdomen. Does have history of asthma high blood pressure diabetes and high cholesterol (Cliff Nayak) - Related Data Home Medications Medication Instructions Recorded Confirmed Pravastatin Sodium [Pravachol] 40 mg PO DAILY 12/15/14 04/06/21 Aspirin [Adult Low Dose Aspirin EC] 81 mg PO DAILY 08/22/17 04/06/21 Cholecalciferol [Vitamin D3 (25 2,000 unit PO DAILY 08/22/17 04/06/21 Mcg = 1000 Iu)] Venlafaxine HCl [Effexor XR] 150 mg PO DAILY 09/30/17 04/06/21 Liraglutide [Victoza 2-José] 1.8 mg SQ DAILY 02/16/19 04/06/21 Magnesium Oxide [Mag-Ox] 400 mg PO HS 02/16/19 04/06/21 Pioglitazone [Actos] 30 mg PO DAILY 02/16/19 04/06/21 metFORMIN HCL [Glucophage] 500 mg PO BID 02/16/19 04/06/21 Dicyclomine [Bentyl] 20 mg PO Q8H PRN 03/21/20 04/06/21 Montelukast [Singulair] 10 mg PO HS 03/21/20 04/06/21 Omeprazole 20 mg PO DAILY 03/21/20 04/06/21 traMADol HCL 50 mg PO TID PRN 03/21/20 04/06/21 Insulin Glargine [Lantus] 50 unit SQ HS 07/27/20 04/06/21 Docusate [Colace] 100 mg PO BID 03/02/21 04/06/21 Ferrous Sulfate [Feosol] 325 mg PO BID 03/02/21 04/06/21 Levothyroxine Sodium [Synthroid] 50 mcg PO DAILY 03/02/21 04/06/21 Zinc 50 mg PO DAILY 03/02/21 04/06/21 acetaZOLAMIDE [acetaZOLAMIDE ER] 500 mg PO BID 03/02/21 04/06/21 Previous Rx's Medication Instructions Recorded Docusate [Colace] 100 mg PO BID #20 capsule 04/10/21 Ibuprofen [Motrin] 600 mg PO Q6HR PRN #40 tab 04/10/21 oxyCODONE HCL [OxyIR] 5 mg PO Q6H PRN 3 Days #10 tab 04/10/21 Cephalexin [Keflex] 500 mg PO Q6HR #28 cap 10/14/21 HYDROcodone/APAP 5-325MG [[place] 1 tab PO Q6HR PRN 3 Days #12 tab 11/09/21 5-325] Levofloxacin [Levaquin] 750 mg PO DAILY 5 Days #5 tab 11/09/21 Ondansetron Odt [Zofran Odt] 4 mg PO Q8HR PRN #15 tab 11/09/21 Tamsulosin [Flomax] 0.4 mg PO DAILY 7 Days #7 cap 11/09/21 Allergies Allergy/AdvReac Type Severity Reaction Status Date / Time Penicillins Allergy Unknown Verified 04/13/22 04:46 Childhood Sulfa (Sulfonamide Allergy Rash/Hives Verified 04/13/22 04:46 Antibiotics) Review of Systems ROS Other: All systems not noted in ROS Statement are negative. <Cliff Nayak - Last Filed: 04/13/22 06:38> ROS Other: All systems not noted in ROS Statement are negative. <SamaraRahat sanchez Lei - Last Filed: 04/13/22 08:12> ROS Statement: Those systems with pertinent positive or pertinent negative responses have been documented in the HPI. Past Medical History Past Medical History: Asthma, COPD, Diabetes Mellitus, Hyperlipidemia, Hypertension, Neurologic Disorder, Osteoarthritis (OA), Thyroid Disorder History of Any Multi-Drug Resistant Organisms: None Reported Past Surgical History: Section, Hysterectomy Additional Past Surgical History / Comment(s): x 2, ganglion cyst removed from left wrist Past Anesthesia/Blood Transfusion Reactions: No Reported Reaction Past Psychological History: Anxiety, Depression Smoking Status: Never smoker Past Alcohol Use History: None Reported Past Drug Use History: None Reported - Past Family History Father Family Medical History: Cancer Additional Family Medical History / Comment(s): brain Mother Family Medical History: Cancer Additional Family Medical History / Comment(s): lung - <Cliff Nayak - Last Filed: 04/13/22 06:38> General Exam General appearance: alert, in no apparent distress Head exam: Present: atraumatic, normocephalic, normal inspection Eye exam: Present: normal appearance, PERRL, EOMI. Absent: scleral icterus, conjunctival injection, periorbital swelling ENT exam: Present: normal exam, mucous membranes moist Neck exam: Present: normal inspection. Absent: tenderness, meningismus, lymphadenopathy Respiratory exam: Present: normal lung sounds bilaterally. Absent: respiratory distress, wheezes, rales, rhonchi, stridor Cardiovascular Exam: Present: regular rate, normal rhythm, normal heart sounds. Absent: systolic murmur, diastolic murmur, rubs, gallop, clicks GI/Abdominal exam: Present: soft, normal bowel sounds. Absent: distended, tenderness, guarding, rebound, rigid Extremities exam: Present: normal inspection, full ROM, normal capillary refill. Absent: tenderness, pedal edema, joint swelling, calf tenderness Back exam: Present: normal inspection Neurological exam: Present: alert, oriented X3, CN II-XII intact Psychiatric exam: Present: normal affect, normal mood Skin exam: Present: warm, dry, intact, normal color. Absent: rash <Cliff Nayak - Last Filed: 04/13/22 06:38> Course <Cliff Nayak - Last Filed: 04/13/22 06:38> Vital Signs 04/13/22 04:42 Temperature 97.5 F L Pulse Rate 74 Respiratory 18 Rate Blood Pressure 116/48 O2 Sat by Pulse 98 Oximetry - Reevaluation(s) Reevaluation #1: 04/13/22 06:40 Medical record is reviewed (Cliff Nayak) Chest Pain MDM <Rahat Lawrence - Last Filed: 04/13/22 08:12> - [facility] Patient care was signed out to me by previous shift physician, Dr. Bharat Montana at 7 AM. Plan at sign out was to follow-up with pending CT imaging. Patient evaluated at bedside at 8:00 AM. Patient is well-appearing distress. Discussed with patient why she came to the emergency department today. she states that she is here today for left-sided abdominal pain. She reports that her symptoms are not associated with diarrhea or fever. She has been having these symptoms for 1 month. Patient denies any associated nausea vomiting. States it's painful with sneezing and coughing. Vital signs reviewed and found to be unremarkable. Blood work reviewed found to be unremarkable. Dr. Nayak had ordered CT imaging. CT imaging was unremarkable for any acute processes. Clinical presentation consistent with abdominal strain. Patient discharged advised follow-up with primary care doctor. (Rahat Lawrence) Disposition <Cliff Nayak - Last Filed: 04/13/22 06:38> Is patient prescribed a controlled substance at d/c from ED?: No Time of Disposition: 08:12 <Rahat Lawrence - Last Filed: 04/13/22 08:12> Clinical Impression: Abdominal wall strain Disposition: HOME SELF-CARE Condition: Good Instructions (If sedation given, give patient instructions): Abdominal Pain (ED) Referrals: Yulisa Alvarado MD [Primary Care Provider] - 1-2 days
[2022-04-13 05:43] LABS: Basophils % (A) 0 %; Eosinophils % (A) 0 %; HGB 10.1 gm/dL (11.4-16.0); Hypochromasia Marked; Lymphocytes # (A) 1.4 k/uL (1.0-4.8); Lymphocytes % (A) 26 %; MCH 26.8 pg (25.0-35.0); MCHC 30.7 g/dL (31.0-37.0); MCV 87.5 fL (80.0-100.0); Mean Platelet Volume 9.2; Monocytes # (A) 0.5 k/uL (0-1.0); Monocytes % (A) 9 %; Neutrophils # (A) 3.4 k/uL (1.3-7.7); Neutrophils % (A) 62 %; Platelet Count 219 k/uL (150-450); RBC 3.77 m/uL (3.80-5.40); RDW 14.6 % (11.5-15.5); WBC 5.5 k/uL (3.8-10.6)
[2022-04-13 06:05] LABS: Albumin 3.7 g/dL (3.5-5.0); Calcium 8.5 mg/dL (8.4-10.2); Potassium 4.2 mmol/L (3.5-5.1); Total Bilirubin 0.2 mg/dL (0.2-1.3); Total Protein 6.3 g/dL (6.3-8.2)
--- NOTE | 2022-04-13 07:50 | CT ---
EXAMINATION TYPE: CT angio chest CT DLP: 516.6 mGycm, Automated exposure control for dose reduction was used. DATE OF EXAM: 04/13/2022 7:38 AM COMPARISON: 05/04/2010 CLINICAL INDICATION:Female, 56 years old with history of pain; Chest pain, abdominal pain TECHNIQUE/CONTRAST: CTA scan of the thorax is performed with IV Contrast, patient injected with 80 mL of Isovue 370, pulm onary embolism protocol. MIP images are created and reviewed. FINDINGS: Pulmonary Artery: There is no evidence for a filling defect within the pulmonary vasculature to sugge st acute pulmonary embolism. The pulmonary artery is of normal size. Lungs/Pleura: No evidence of focal consolidation, pleural effusion or pneumothorax. Airway: Large airways are patent. Heart: Heart is within normal limits for size.. Vasculature: No evidence of aortic aneurysm. Mediastinum: No gross evidence of adenopathy. Musculoskeletal: Linear lucency through left rib 7 anteriorly which is nondisplaced. Best appreciated on sagittal imaging. Soft Tissues: Unremarkable. Lower neck: No significant findings. Upper Abdomen: No significant findings. IMPRESSION: 1. No evidence of pulmonary embolism. 2. Nondisplaced left anterior rib 7 fracture.
--- NOTE | 2022-04-13 08:00 | CT ---
EXAMINATION TYPE: CT abdomen pelvis w con CT DLP: 1053 mGycm, Automated exposure control for dose reduction was used. DATE OF EXAM: 04/13/2022 7:41 AM COMPARISON: CT abdomen pelvis most recent from 10/24/2019 CLINICAL INDICATION:Female, 56 years old with history of pain; Chest pain, abdominal pain TECHNIQUE: Axial CT of the abdomen and pelvis. Sagittal and coronal reformats were created on a [employer] workstation. Contrast used:80 mL of Isovue 370 with IV Contrast, Oral contrast used: without Oral Contrast FINDINGS: LOWER CHEST: Unremarkable ABDOMEN LIVER: There is a subtle heterogenous heterogenous enhancement pattern of the liver parenchyma. GALLBLADDER AND BILE DUCTS: The gallbladder is surgically absent. PANCREAS: Unremarkable. SPLEEN: Unremarkable. ADRENAL GLANDS: Unremarkable. KIDNEYS AND URETERS: No evidence of hydronephrosis or renal calculus. Extrarenal pelves bilaterally. Left cortical renal calcification. PELVIS BLADDER: Unremarkable REPRODUCTIVE: The uterus is surgically absent. ABDOMEN & PELVIS STOMACH AND BOWEL: No evidence of bowel obstruction. The appendix is not definitively visualized. PERITONEUM: No evidence of pneumoperitoneum or free fluid. VASCULATURE: No evidence of aortic aneurysm. The portal vein is dilated up to 1.7 cm. MUSCULOSKELETAL: No acute osseous abnormalities LYMPH NODES: No gross evidence for lymphadenopathy. SOFT TISSUE/ABDOMINAL WALL: Fat-containing umbilical hernia. IMPRESSION: 1. Heterogenous appearance to the liver which could represent underlying hepatitis. Correlate with s gael markers. No additional acute intra-abdominal process identified. 2. Portal vein dilation similar to prior could represent portal venous hypertension.
[2022-04-13] MEDS ORDERED: ACET/COD 300 MG/30 MG STARTER PACK 6 TAB BTL PO STA (08:12)
[2022-04-13 08:24] VITALS: BP 110/68; PULSE 78; TEMP 98
== END 2022-04-13 08:23 | disposition home or self-care (01) ==
LOC: EC 04:38
DX: S39.011A Strain of muscle, fascia and tendon of abdomen, initial encounter (principal); J44.9 Chronic obstructive pulmonary disease, unspecified; E11.9 Type 2 diabetes mellitus without complications; E78.5 Hyperlipidemia, unspecified; E07.9 Disorder of thyroid, unspecified; Z88.0 Allergy status to penicillin; Z88.2 Allergy status to sulfonamides; Z79.890 Hormone replacement therapy; Z79.84 Long term (current) use of oral hypoglycemic drugs; Z79.82 Long term (current) use of aspirin; X58.XXXA Exposure to other specified factors, initial encounter; Y92.89 Other specified places as the place of occurrence of the external cause
CPT/HCPCS: 36415; 80053; 82150; 83690; 84484; 85025; 71275; 74177; 99285; 96374; 96361; J2270; Q9967

== ENCOUNTER → 2022-05-31 | Outpatient (CLI) | payer OTHER ==
[2022-05-31 12:02] LABS: Creatinine,Urine Random 69.3 mg/dL; Protein/Creatinine Ratio,Urine 0.26
[2022-05-31 15:28] LABS: Basophils # (A) 0.02 X 10*3/uL (0.00-0.10); Basophils % (A) 0.3 %; Eosinophils # (A) 0 X 10*3/uL (0.04-0.35); Eosinophils % (A) 0 %; HCT 35.8 % (37.2-46.3); HGB 10.1 g/dL (12.0-15.0); Immature Grans, Automated 0.4 %; Lymphocytes # (A) 1.26 X 10*3/uL (0.90-5.00); Lymphocytes % (A) 16.4 %; MCHC 28.2 g/dL (32.0-37.0); Mean Platelet Volume 11.1 fL (9.5-12.2); Monocytes # (A) 0.79 X 10*3/uL (0.20-1.00); Monocytes % (A) 10.3 %; NRBC Per 100 WBC 0 /100 WBCS (0.0-0.0); Neutrophils # (A) 5.58 X 10*3/uL (1.80-7.70); Neutrophils % (A) 72.6 %; Platelet Count 254 X 10*3/uL (140-440); RBC 3.89 X 10*6/uL (4.10-5.20); RDW 15.2 % (11.5-14.5); WBC 7.68 X 10*3/uL (4.50-10.00)
[2022-05-31 16:47] LABS: % Iron Saturation 12.05 (12.00-45.00); African American GFR (CKD) 64.5 (60.0-200.0); Anion Gap 10.4 mmol/L (10.00-18.00); Blood Urea Nitrogen 23.1 mg/dL (9.0-27.0); Calcium 8.6 mg/dL (8.7-10.3); Carbon Dioxide 18.6 mmol/L (20.0-27.5); Magnesium 2.1 mg/dL (1.5-2.4); Non-African American GFR(CKD) 55.7 (60.0-200.0); Phosphorus 3.1 mg/dL (2.4-5.1); Potassium 4.6 mmol/L (3.5-5.5); Uric Acid 4.5 mg/dL (2.9-7.7)
[2022-05-31 16:53] LABS: Albumin 3.7 g/dL (3.8-4.9)
[2022-05-31 17:20] LABS: Appearance,Urine Clear (Clear); Bilirubin,Urine Negative (Negative); Blood,Urine Negative (Negative); Color,Urine Yellow (Yellow); Ketones,Urine Negative (Negative); Nitrite,Urine Negative (Negative); PH, Urine 7.5 (5.0-8.0); Specific Gravity,Urine 1.019 (1.001-1.030)
[2022-05-31 18:06] LABS: Bacteria,Urine None Seen /HPF (None Seen)
== END | disposition home or self-care (01) ==
LOC: LABWHC1 10:11
PROVIDERS: ATTEND Nurse Practitioner Family
DX: N25.81 Secondary hyperparathyroidism of renal origin (principal); N18.32 Chronic kidney disease, stage 3b; D63.1 Anemia in chronic kidney disease; E55.9 Vitamin D deficiency, unspecified; M10.9 Gout, unspecified; N39.0 Urinary tract infection, site not specified; R80.9 Proteinuria, unspecified
CPT/HCPCS: 36415; 80048; 81001; 82040; 82306; 82570; 82728; 83540; 83550; 83735; 83970; 84100; 84156; 84550; 85025

== ENCOUNTER → 2022-09-12 | Outpatient (CLI) | payer OTHER ==
--- NOTE | 2022-09-12 16:31 | US ---
EXAMINATION TYPE: US venous doppler duplex UE LT DATE OF EXAM: 09/12/2022 COMPARISON: 10/14/2021 CLINICAL INDICATION: Female, 56 years old with history of R22.32 LOCALIZED SWELLING, MASS AND LUMP, L EFT UPPER LIMB; edema and pain left arm for 1 week SIDE PERFORMED: left Left Arm: no evidence of DVT as visualized IMPRESSION: Grayscale, color doppler, spectral doppler imaging performed of the deep veins of the upper extremiti es. There is normal flow, compressibility and vascular waveforms.
--- NOTE | 2022-09-13 10:11 | XR ---
EXAMINATION TYPE: XR forearm LT DATE OF EXAM: 09/12/2022 COMPARISON: NONE HISTORY: Pain and swelling Two views of the forearm demonstrate that the osseous structures appear to be intact and the joint sp aces appear to be preserved. There is no acute fracture or dislocation. Soft tissue prominence may represent reported swelling. No destructive process. IMPRESSION: 1. No acute fracture or dislocation
--- NOTE | 2022-09-13 10:35 | XR ---
EXAMINATION TYPE: XR sinus DATE OF EXAM: 09/12/2022 COMPARISON: 12/15/2021 HISTORY: Localized swelling, facial swelling TECHNIQUE: Paranasal sinuses are examined in 4 projections. FINDINGS: No acute paranasal sinus abnormality. No suspicious air-fluid levels. Significant mucosal t hickening not identified. Patient is edentulous. The osseous structures appear intact. There may be some soft tissue swelling o natalie the left cheek. If additional evaluation of the benefits, CT facial bones could further evaluate. IMPRESSION: 1. No suspicious acute paranasal sinus abnormality. 2. Some soft tissue swelling on the left cheek may be present.
== END | disposition home or self-care (01) ==
LOC: RADUSWWP 15:23
PROVIDERS: ATTEND Family Medicine
DX: J30.2 Other seasonal allergic rhinitis (principal); R22.32 Localized swelling, mass and lump, left upper limb
CPT/HCPCS: 70220

== ENCOUNTER → 2022-11-27 | Outpatient (CLI) | payer OTHER ==
--- NOTE | 2022-11-27 11:03 | XR ---
EXAMINATION TYPE: XR ankle complete LT DATE OF EXAM: 11/27/2022 10:30 AM INDICATION: Patient age:Female; 57 years old; Reason for study: G89.29 M25.572; [facility]. COMPARISON: None TECHNIQUE: The left ankle is imaged in frontal, lateral and oblique projections. FINDINGS: There is no evidence of acute osseous pathology. The joint spaces are well-preserved without evidenc e of subluxation or dislocation. Kager's fat pad is intact. Soft tissues are within normal limits. No radiopaque foreign bodies are identified. Calcaneal Achilles enthesophyte formation. Atherosclerosis of the arterial vasculature. IMPRESSION: No evidence of acute fracture. Consider further evaluation with MRI.
== END | disposition home or self-care (01) ==
LOC: RADXRMAIN 10:10
PROVIDERS: ATTEND Family Medicine
DX: M25.572 Pain in left ankle and joints of left foot (principal); G89.29 Other chronic pain

== ENCOUNTER → 2022-11-29 | Outpatient (CLI) | payer OTHER ==
[2022-11-29 15:29] LABS: HCT 33.1 % (37.2-46.3); HGB 9.6 d/dL (12.0-15.0); MCV 93.2 FL (80.0-97.0); Mean Platelet Volume 11.3 FL (9.5-12.2); NRBC Per 100 WBC 0 X 10*3/uL (0.00-0.01); Platelet Count 211 X 10*3/uL (140-440); RBC 3.55 X 10*6/uL (4.10-5.20); WBC 7.55 X 10*3/uL (4.50-10.00)
[2022-11-29 15:54] LABS: Carbon Dioxide 23.9 mmol/L (21.6-31.8); Chloride 108 mmol/L (96-109); Potassium 4.6 mmol/L (3.5-5.5); Sodium 141 mmol/L (135-145)
== END | disposition home or self-care (01) ==
LOC: LABWHC1 09:06
PROVIDERS: ATTEND Internal Medicine
DX: Z01.812 Encounter for preprocedural laboratory examination (principal); R07.9 Chest pain, unspecified
CPT/HCPCS: 36415; 80051; 82565; 84520; 85027

== ENCOUNTER → 2022-12-03 | Day surgery (SDC) | payer OTHER ==
[2022-11-28 12:13] VITALS: BMI 43.2
[~2022-12-03] MED LIST changes: -ACETAMINOPHEN TAB 500 MG TAB PO PRN; +ALPRAZolam 0.25 MG TAB PO PRN; +ALPRAZolam 0.5 MG TAB PO PRN; +ASPIRIN 325 MG TAB PO STA; +ATORVASTATIN 80 MG TAB PO STA; -DEXAMETHASONE SOD PHOSPHATE 4 MG/ML 1 ML VIAL IV ONE; +HEPARIN SODIUM 1,000 UN/ML (10ML VL) IV ONE; +HEPARIN SODIUM 1,000 UN/ML (10ML VL) ONE; +HEPARIN SODIUM,PORCINE 10,000 UNIT in SODIUM CHLORIDE 0.9% 1,000 ML IRRIGATION PRN; +HEPARIN SODIUM,PORCINE 2,500 UNIT in SODIUM CHLORIDE 0.9% 250 ML IRRIGATION PRN; -HEPARIN SODIUM,PORCINE/PF 5,000 UNIT/0.5 ML SYRINGE SQ PRN; +IOPAMIDOL-370 100ML BTL INJ ONE; -LACTATED RINGERS 1,000 ML IV SCH; +LIDOCAINE 1% INJ 10MG/ML (5 ML VIAL-PF) SQ ONE; +MIDAZOLAM 2 MG/2 ML VIAL IVP ONE; +NITROGLYCERIN SL TABS 0.4 MG TAB SUBLINGUAL PRN; -ONDANSETRON 4 MG/2 ML VIAL IVP ONE; +SODIUM CHLORIDE 0.9% 1,000 ML in EMPTY BAG 1 BAG IV SCH; +VERAPAMIL 2.5 MG/ML 2 ML AMP ONE; +VERAPAMIL SYRINGE (5 MG/10 ML) INTRAARTER ONE; +fentaNYL (PF) 50 MCG/1 ML VIAL IVP ONE; +fentaNYL (PF) 50 MCG/ML 2 ML AMP ONE
[2022-12-03 10:48] LABS: Glucose,Whole Blood 173 mg/dL (70-110)
[2022-12-03 11:00] VITALS: RESP 18; TEMP 97.8
--- NOTE | 2022-12-03 13:49 | P.CARDCATH ---
Description of Procedure: PROCEDURES PERFORMED: Left heart catheterization, bilateral coronary angiography, ultrasound guided arterial access INDICATION: Abnormal stress test CONSENT:I have discussed the risks, benefits and alternative therapies for the above-mentioned procedure and for both sedation/analgesia as well as necessary blood product administration, if indicated, as they pertain to this patient. The patient has indicated understanding and acceptance of the risks and procedures discussed. PROCEDURE: After the risks, benefits and alternatives of the above mentioned procedure explained in detail with the patient, informed consent was obtained. Patient was taken to the catheterization lab and prepped and draped in usual fashion. Ultrasound guidance was used to assess for arterial access. 1% lidocaine was used to anesthetize the right radial artery. A 6-[place]izen [place] sheath was placed in the right radial artery using modified Seldinger technique and ultrasound guidance. Left coronary angiography was performed with a 5-[place]izen [place] JL 3.5 catheter and right coronary angiography was performed with a 5-[place] JR5 catheter in various views. A 5-[place] FR5 catheter was inserted into the left ventricle and pressure measurements were obtained. The right radial sheath was removed and a TR band was placed with hemostasis achieved. The patient to lerated the procedure well. Patient was transported back to the post catheterization holding area in stable condition. Conscious Sedation: Patient was monitored under the direct supervision of myself for conscious sedation using Versed and fentanyl for a total duration of 10 minutes HEMODYNAMICS: Ao:138/78 LV: 139/6, LVEDP 24 SELECTIVE CORONARY ARTERIOGRAPHY: LEFT MAIN: The left main is a large caliber vessel which bifurcates into the LAD and circumflex. There is no significant stenosis. LEFT ANTERIOR DESCENDING CORONARY ARTERY: LAD is a large caliber vessel which wraps around to the apex. There is no significant stenosis. LEFT CIRCUMFLEX CORONARY ARTERY: Left circumflex is a moderate caliber vessel without significant stenosis. RIGHT CORONARY ARTERY: The right coronary artery is a large caliber vessel which gives off a PDA and PLV branch and is the dominant vessel. There is no significant stenosis. FINAL IMPRESSION: 1. Normal coronary arteries as described above. 2. Elevated left sided filling pressures PLAN: 1. Aggressive risk factor modification per most recent ACC/AHA guidelines. 2. Follow-up in the office in 1-2 weeks. 3. Consider increasing diuretics
[2022-12-03 15:37] VITALS: BP 119/62; PULSE 79
== END ==
LOC: CATHCVL 10:28
PROVIDERS: ATTEND Internal Medicine
DX: I25.10 Atherosclerotic heart disease of native coronary artery without angina pectoris (principal); E11.9 Type 2 diabetes mellitus without complications; G47.33 Obstructive sleep apnea (adult) (pediatric); E78.5 Hyperlipidemia, unspecified; Z79.82 Long term (current) use of aspirin; Z79.899 Other long term (current) drug therapy
CPT/HCPCS: 93458; 76937; C1769; C1894; J2250; J2001; J1644; Q9967; J3010

== ENCOUNTER → 2023-03-15 | Outpatient (CLI) | payer OTHER ==
[2023-03-15 17:34] LABS: ALT 13 U/L (8-44); AST 13 U/L (13-35); Albumin 4.3 d/dL (3.8-4.9); Albumin/Globulin Ratio 1.59 Ratio (1.60-3.17); Alkaline Phosphatase 128 U/L (41-126); BUN/Creat Ratio 16.75 Ratio (12.00-20.00); Blood Urea Nitrogen 26.8 mg/dL (9.0-27.0); Calcium 9.2 mg/dL (8.7-10.3); Carbon Dioxide 18.3 mmol/L (21.6-31.8); Chloride 115 mmol/L (96-109); Chol/HDL Ratio 3.83 Ratio; Globulin 2.7 d/dL (1.6-3.3); Glucose 221 mg/dL (70-110); LDL Cholesterol,Calculated 51.6 mg/dL (0.0-131.0); Potassium 4.5 mmol/L (3.5-5.5); Sodium 145 mmol/L (135-145); Total Bilirubin 0.3 mg/dL (0.3-1.2)
[2023-03-15 18:26] LABS: HCT 39.9 % (37.2-46.3); HGB 11.9 d/dL (12.0-15.0); MCH 27.3 pg (27.0-32.0); MCHC 29.8 d/dL (32.0-37.0); MCV 91.5 FL (80.0-97.0); Mean Platelet Volume 11.8 FL (9.5-12.2); NRBC Per 100 WBC 0 X 10*3/uL (0.00-0.01); Platelet Count 219 X 10*3/uL (140-440); RBC 4.36 X 10*6/uL (4.10-5.20); RDW 14.5 % (11.5-14.5); WBC 7.76 X 10*3/uL (4.50-10.00)
== END | disposition home or self-care (01) ==
LOC: LABWHC1 08:59
DX: I10 Essential (primary) hypertension (principal); E11.21 Type 2 diabetes mellitus with diabetic nephropathy; E78.5 Hyperlipidemia, unspecified; E55.9 Vitamin D deficiency, unspecified; D51.9 Vitamin B12 deficiency anemia, unspecified; E03.9 Hypothyroidism, unspecified
CPT/HCPCS: 36415; 80053; 80061; 82043; 82306; 82570; 82607; 83036; 84443; 85027

== ENCOUNTER 2023-06-22 10:07 | Emergency (ER) | payer OTHER ==
--- NOTE | 2023-06-22 10:15 | ED ---
Extremity Problem HPI - General Chief complaint: Fall Stated complaint: Fall, R Shoulder injury Time Seen by Provider: 06/22/23 10:13 Source: patient, RN notes reviewed Mode of arrival: ambulatory Limitations: no limitations - History of Present Illness Initial comments: This is a 57-year-old female who presents to the emergency department for a fall. Patient tripped and fell 3 days ago, landing on her bottom. Denies hitting her head or sustaining any loss of consciousness. Not taking any blood thinners. She is now having pain to the right shoulder and elbow. While she did not fall on the right side, believes that she may have braced herself for the fall, contributing to the pain. MD Complaint: extremity pain - Related Data Home Medications Medication Instructions Recorded Confirmed Aspirin [Adult Low Dose Aspirin EC] 81 mg PO DAILY 08/22/17 12/03/22 Venlafaxine HCl [Effexor XR] 150 mg PO DAILY 09/30/17 12/03/22 Pioglitazone [Actos] 30 mg PO DAILY 02/16/19 12/03/22 traMADol HCL 50 mg PO TID PRN 03/21/20 12/03/22 Insulin Glargine [Lantus] 25 unit SQ HS 07/27/20 12/03/22 Ferrous Sulfate [Feosol] 325 mg PO BID 03/02/21 12/03/22 Brexpiprazole [Rexulti] 0.25 mg PO DAILY 11/28/22 12/03/22 Cholecalciferol [Vitamin D3 (25 50 mcg PO DAILY 11/28/22 12/03/22 Mcg = 1000 Iu)] Dulaglutide [Trulicity] 4.5 mg SQ TH 11/28/22 12/03/22 Gabapentin 300 mg PO BID 11/28/22 12/03/22 Levothyroxine Sodium 112 mcg PO DAILY 11/28/22 12/03/22 Loratadine 10 mg PO DAILY 11/28/22 12/03/22 Lovastatin [Mevacor] 10 mg PO DAILY 11/28/22 12/03/22 Multivitamins, Thera [Multivitamin 1 tab PO DAILY 11/28/22 12/03/22 (formulary)] Pantoprazole Sodium 40 mg PO DAILY 11/28/22 12/03/22 Allergies Allergy/AdvReac Type Severity Reaction Status Date / Time Penicillins Allergy Unknown Verified 06/22/23 10:15 Childhood Sulfa (Sulfonamide Allergy Rash/Hives Verified 06/22/23 10:15 Antibiotics) Review of Systems ROS Statement: Those systems with pertinent positive or pertinent negative responses have been documented in the HPI. ROS Other: All systems not noted in ROS Statement are negative. Past Medical History Past Medical History: Asthma, COPD, Diabetes Mellitus, Hyperlipidemia, Hypertension, Neurologic Disorder, Osteoarthritis (OA), Thyroid Disorder History of Any Multi-Drug Resistant Organisms: None Reported Past Surgical History: Section, Hysterectomy Additional Past Surgical History / Comment(s): x 2, ganglion cyst removed from left wrist Past Anesthesia/Blood Transfusion Reactions: No Reported Reaction Smoking Status: Never smoker Past Alcohol Use History: None Reported Additional Past Alcohol Use History / Comment(s): Quit 30 years ago - Past Family History Father Family Medical History: Cancer Additional Family Medical History / Comment(s): Brain cancer. Mother Family Medical History: Cancer Additional Family Medical History / Comment(s): Lung cancer - . General Exam - General Exam Comments Initial Comments: Visual Physical Exam Vital signs reviewed General: Well-appearing, nontoxic, no acute distress. Head: Normocephalic, atraumatic Eyes: PERRLA, EOMI ENT: Airway patent Chest: Nonlabored breathing Skin: No visual rash, normal skin tone Neuro: Alert and oriented 3 Musculoskeletal: No gross abnormalities Limitations: no limitations General appearance: alert, in no apparent distress Head exam: Present: atraumatic, normocephalic, normal inspection Respiratory exam: Present: normal lung sounds bilaterally. Absent: respiratory distress, wheezes, rales, rhonchi, stridor Cardiovascular Exam: Present: regular rate, normal rhythm, normal heart sounds. Absent: systolic murmur, diastolic murmur, rubs, gallop, clicks Extremities exam: Present: other (Tenderness to palpation over the right shoulder and elbow. ROM limited by pain. No deformities. 2+ radial pulses.) Neurological exam: Present: alert, oriented X3, CN II-XII intact Psychiatric exam: Present: normal affect, normal mood Skin exam: Present: warm, dry, intact, normal color. Absent: rash Course Vital Signs 06/22/23 10:13 Temperature 98 F Pulse Rate 68 Respiratory 18 Rate Blood Pressure 106/68 O2 Sat by Pulse 98 Oximetry Medical Decision Making - Medical Decision Making This is a 57 year old female who presents to the emergency department for right shoulder pain. Was pt. sent in by a medical professional or institution? @ -No Did you speak to anyone other than the patient for history? @ -No Did you review nursing and triage notes? @ -Yes, and I agree, it is accurate with regards to the patient's symptoms. Were old charts reviewed? @ -No Differential Diagnosis? @ -Differential Musculoskeletal Muscular strain, contusion, ligament sprain, fracture, arthritis, septic arthritis, bursitis, cellulitis, muscle spasm, nerve compression, DVT, arterial occlusion, herpes zoster, electrolyte abnormality, tumor.... This is not meant to be in all inclusive list EKG interpreted by me (3pts min.)? @ -Not obtained. X-rays interpreted by me (1pt min.)? @ -X-ray of the right shoulder, right elbow, and sacrum/coccyx obtained. My interpretation of all imaging identifies no acute fractures. CT interpreted by me (1pt min.)? @ -Not obtained U/S interpreted by me (1pt. min.)? @ -Not obtained What testing was considered but not performed? (CT, X-rays, U/S, labs)? Why? @ -None What meds were considered but not given? Why? @ -None Did you discuss the management of the patient with other professionals? @ -No Did you reconcile home meds? @ -No Was smoking cessation discussed for >3mins.? @ -No Was critical care preformed (if so, how long)? @ -No Were there social determinants of health that impacted care today? How? (Homelessness, low income, unemployed, alcoholism, drug addiction, transportation, low edu. Level, literacy, decrease access to med. care, correction, rehab)? @ -No Was there de-escalation of care discussed even if they declined? (Discuss DNR or withdrawal of care, Hospice)? @ -No What co-morbidities impacted this encounter? (DM, HTN, Smoking, COPD, CAD, Cancer, CVA, Hep., AIDS, mental health diagnosis, sleep apnea, morbid obesity)? @ -Osteoarthritis Was patient admitted / discharged? @ -Discharged. X-ray of the right shoulder, right elbow, and sacrum/coccyx obtained revealing no acute process. Discussed with the patient the possibility of a sprain or rotator cuff injury. Advised ibuprofen and Tylenol as needed for pain relief and applying ice for 15-20 minutes every 2-3 hours for the first 2-3 days followed by heat thereafterwards. Patient discharged home in stable condition and will follow up with her primary care provider. Undiagnosed new problem with uncertain prognosis? @ -None Drug Therapy requiring intensive monitoring for toxicity (Heparin, Nitro, Insulin, Cardizem)? @ -None Were any procedures done? @ -None Diagnosis/symptom? @ -Fall, right shoulder pain Acute, or Chronic, or Acute on Chronic? @ -Acute Uncomplicated (without systemic symptoms) or Complicated (systemic symptoms)? @ -Uncomplicated Side effects of treatment? @ -None Exacerbation, Progression, or Severe Exacerbation] @ -Not applicable Poses a threat to life or bodily function? @ -No Return precautions reviewed in depth, the patient is instructed to return to the emergency department with any new, worsening, or concerning symptoms. Patient verbalized understanding. This case was discussed in detail with the attending ED physician, Dr. Harper. Presentation, findings, and treatment plan discussed in detail as well. - Radiology Data Radiology results: report reviewed, image reviewed Disposition Clinical Impression: Fall, Right shoulder pain Disposition: HOME SELF-CARE Instructions (If sedation given, give patient instructions): Rotator Cuff Injury (ED), Shoulder Sprain (ED), Fall Prevention (ED) Additional Instructions: Return to the emergency department with any new, worsening, or concerning symptoms. Alternate with ibuprofen and Tylenol as needed for pain relief. Apply ice for 15-20 minutes every 2-3 hours for the first 2-3 days followed by heat thereafterwards. Follow up with your primary care provider in 1-2 days. Is patient prescribed a controlled substance at d/c from ED?: No Referrals: Nonstaff,Physician [Primary Care Provider] - 1-2 days Time of Disposition: 11:08
[2023-06-22 10:38] VITALS: BP 106/68; PULSE 68; RESP 18; TEMP 98
--- NOTE | 2023-06-22 10:48 | XR ---
EXAMINATION TYPE: XR sacrum coccyx DATE OF EXAM: 06/22/2023 CLINICAL HISTORY: pain TECHNIQUE: Three views of the sacrum and coccyx are submitted. COMPARISON: none Sacral alae appear symmetric. No evidence for fracture or bony lesion. Sacroiliac joints are within normal limits. Visualized coccygeal segments are free of fracture or lesion. IMPRESSION: Normal study
--- NOTE | 2023-06-22 10:48 | XR ---
EXAMINATION TYPE: XR shoulder complete RT DATE OF EXAM: 06/22/2023 CLINICAL HISTORY: pain TECHNIQUE: Three views of the right shoulder are obtained. COMPARISON: None FINDINGS: There is no acute fracture/dislocation evident. The acromioclavicular and glenohumeral harrison int spaces appear within normal limits. The visualized ribs are intact and unremarkable. IMPRESSION: 1. There is no acute fracture or dislocation. ICD 10 NO FRACTURE, INITIAL EVALUATION
--- NOTE | 2023-06-22 10:49 | XR ---
EXAMINATION TYPE: XR elbow complete RT DATE OF EXAM: 06/22/2023 CLINICAL HISTORY: pain TECHNIQUE: Frontal, lateral and oblique images of the right elbow are obtained. COMPARISON: None. FINDINGS: There is no acute fracture/dislocation evident of the elbow. No abnormal fat pad signs ar e seen. The overlying soft tissue appears unremarkable. IMPRESSION: There is no acute fracture or dislocation of the elbow. ICD 10 NO FRACTURE, INITIAL EVALUATION
[2023-06-22] MEDS ORDERED: ACET/COD 300 MG/30 MG STARTER PACK 6 TAB BTL PO STA (11:13)
== END 2023-06-22 11:58 | disposition home or self-care (01) ==
LOC: EC 10:07
DX: M25.511 Pain in right shoulder (principal); J44.89 Other specified chronic obstructive pulmonary disease; E11.9 Type 2 diabetes mellitus without complications; I10 Essential (primary) hypertension; M19.90 Unspecified osteoarthritis, unspecified site; E07.9 Disorder of thyroid, unspecified; E78.5 Hyperlipidemia, unspecified; Z79.890 Hormone replacement therapy; Z79.899 Other long term (current) drug therapy; Z79.82 Long term (current) use of aspirin; Z79.84 Long term (current) use of oral hypoglycemic drugs; Z79.4 Long term (current) use of insulin; Z79.1 Long term (current) use of non-steroidal anti-inflammatories (NSAID); Z88.0 Allergy status to penicillin; Z88.2 Allergy status to sulfonamides; W01.0XXA Fall on same level from slipping, tripping and stumbling without subsequent striking against object, initial encounter
CPT/HCPCS: 72220; 99283

== ENCOUNTER → 2023-07-26 | Outpatient (CLI) | payer OTHER ==
[2023-07-26 18:57] LABS: Chol/HDL Ratio 7.34 Ratio; LDL Cholesterol,Calculated 95.9 mg/dL (0.0-131.0)
[2023-07-26 18:58] LABS: ALT 8 U/L (8-44); AST 18 U/L (13-35); Albumin/Globulin Ratio 1.74 Ratio (1.60-3.17); Alkaline Phosphatase 109 U/L (41-126); BUN/Creat Ratio 22.29 Ratio (12.00-20.00); Blood Urea Nitrogen 31.2 mg/dL (9.0-27.0); Carbon Dioxide 17.7 mmol/L (21.6-31.8); Chloride 113 mmol/L (96-109); Globulin 2.3 g/dL (1.6-3.3); Glucose 153 mg/dL (70-110); Potassium 5.3 mmol/L (3.5-5.5); Sodium 141 mmol/L (135-145); Total Bilirubin 0.4 mg/dL (0.3-1.2); Total Protein 6.3 g/dL (6.2-8.2)
== END | disposition home or self-care (01) ==
LOC: LABWHC1 09:16
PROVIDERS: ATTEND Family Medicine
DX: I10 Essential (primary) hypertension (principal); E78.5 Hyperlipidemia, unspecified; E11.21 Type 2 diabetes mellitus with diabetic nephropathy; E03.9 Hypothyroidism, unspecified
CPT/HCPCS: 36415; 80053; 80061; 82607; 82746; 83036

== ENCOUNTER 2023-08-22 10:06 | Emergency (ER) | payer OTHER ==
[2023-08-22 10:20] VITALS: BP 116/75; PULSE 70; RESP 18; TEMP 97.5
--- NOTE | 2023-08-22 10:35 | ED ---
Female Urogenital HPI - General Chief complaint: Skin/Abscess/Foreign Body Stated complaint: Urogenital Time Seen by Provider: 08/22/23 10:17 Source: patient, RN notes reviewed Mode of arrival: ambulatory Limitations: no limitations - History of Present Illness Initial comments: This is a 57-year-old female who presents to the emergency department for a laceration to her upper vaginal area. Patient states that she noticed this 1 to 2 weeks ago. Unsure how this happened. States that it is painful and feels like it whit[place]. Denies any itching with this. Denies any odors or discharge associated with this. - Related Data Home Medications Medication Instructions Recorded Confirmed Aspirin [Adult Low Dose Aspirin EC] 81 mg PO DAILY 08/22/17 12/03/22 Venlafaxine HCl [Effexor XR] 150 mg PO DAILY 09/30/17 12/03/22 Pioglitazone [Actos] 30 mg PO DAILY 02/16/19 12/03/22 traMADol HCL 50 mg PO TID PRN 03/21/20 12/03/22 Insulin Glargine [Lantus] 25 unit SQ HS 07/27/20 12/03/22 Ferrous Sulfate [Feosol] 325 mg PO BID 03/02/21 12/03/22 Brexpiprazole [Rexulti] 0.25 mg PO DAILY 11/28/22 12/03/22 Cholecalciferol [Vitamin D3 (25 50 mcg PO DAILY 11/28/22 12/03/22 Mcg = 1000 Iu)] Dulaglutide [Trulicity] 4.5 mg SQ TH 11/28/22 12/03/22 Gabapentin 300 mg PO BID 11/28/22 12/03/22 Levothyroxine Sodium 112 mcg PO DAILY 11/28/22 12/03/22 Loratadine 10 mg PO DAILY 11/28/22 12/03/22 Lovastatin [Mevacor] 10 mg PO DAILY 11/28/22 12/03/22 Multivitamins, Thera [Multivitamin 1 tab PO DAILY 11/28/22 12/03/22 (formulary)] Pantoprazole Sodium 40 mg PO DAILY 11/28/22 12/03/22 Previous Rx's Medication Instructions Recorded Fluconazole [Diflucan] 150 mg PO ONCE 1 Days #1 tab 08/22/23 Allergies Allergy/AdvReac Type Severity Reaction Status Date / Time Penicillins Allergy Unknown Verified 08/22/23 10:16 Childhood Sulfa (Sulfonamide Allergy Rash/Hives Verified 08/22/23 10:16 Antibiotics) Review of Systems ROS Statement: Those systems with pertinent positive or pertinent negative responses have been documented in the HPI. ROS Other: All systems not noted in ROS Statement are negative. Past Medical History Past Medical History: Asthma, COPD, Diabetes Mellitus, Hyperlipidemia, Hypertension, Neurologic Disorder, Osteoarthritis (OA), Thyroid Disorder History of Any Multi-Drug Resistant Organisms: None Reported Past Surgical History: Section, Hysterectomy Additional Past Surgical History / Comment(s): x 2, ganglion cyst removed from left wrist Past Anesthesia/Blood Transfusion Reactions: No Reported Reaction Past Psychological History: Anxiety, Depression Smoking Status: Never smoker Past Alcohol Use History: None Reported Past Drug Use History: None Reported - Past Family History Father Family Medical History: Cancer Additional Family Medical History / Comment(s): Brain cancer. Mother Family Medical History: Cancer Additional Family Medical History / Comment(s): Lung cancer - . General Exam Limitations: no limitations General appearance: alert, in no apparent distress Head exam: Present: atraumatic, normocephalic, normal inspection Respiratory exam: Present: normal lung sounds bilaterally. Absent: respiratory distress, wheezes, rales, rhonchi, stridor Cardiovascular Exam: Present: regular rate, normal rhythm, normal heart sounds. Absent: systolic murmur, diastolic murmur, rubs, gallop, clicks External exam: Present: other (Diffuse inflammation throughout the vulva with what appears to be a small fissure at the superior aspect. No active bleeding. Thick white discharge.) Neurological exam: Present: alert, oriented X3, CN II-XII intact Psychiatric exam: Present: normal affect, normal mood Course Vital Signs 08/22/23 10:12 Temperature 97.5 F L Pulse Rate 70 Respiratory 18 Rate Blood Pressure 116/75 O2 Sat by Pulse 100 Oximetry Medical Decision Making - Medical Decision Making This is a 57 year old female who presents to the emergency department for a vaginal laceration/inflammation. Was pt. sent in by a medical professional or institution? @ -No Did you speak to anyone other than the patient for history? @ -No Did you review nursing and triage notes? @ -Yes, and I agree, it is accurate with regards to the patient's symptoms. Were old charts reviewed? @ -No Differential Diagnosis? @ -Differential Vaginal Irritation: Yeast infection, BV, UTI, STD, injury, this is not meant to be an all-inclusive list. EKG interpreted by me (3pts min.)? @ -Not obtained X-rays interpreted by me (1pt min.)? @ -Not obtained CT interpreted by me (1pt min.)? @ -Not obtained U/S interpreted by me (1pt. min.)? @ -Not obtained What testing was considered but not performed? (CT, X-rays, U/S, labs)? Why? @ -None What meds were considered but not given? Why? @ -None Did you discuss the management of the patient with other professionals? @ -No Did you reconcile home meds? @ -No Was smoking cessation discussed for >3mins.? @ -No Was critical care preformed (if so, how long)? @ -No Were there social determinants of health that impacted care today? How? (Homelessness, low income, unemployed, alcoholism, drug addiction, transportation, low edu. Level, literacy, decrease access to med. care, fpc, rehab)? @ -No Was there de-escalation of care discussed even if they declined? (Discuss DNR or withdrawal of care, Hospice)? @ -No What co-morbidities impacted this encounter? (DM, HTN, Smoking, COPD, CAD, Cancer, CVA, Hep., AIDS, mental health diagnosis, sleep apnea, morbid obesity)? @ -None Was patient admitted / discharged? @ -Discharged. Physical examination consistent with a vulvovaginal candidiasis that has caused a small fissure. She was given a dose of Diflucan in the emergency department and a prescription for an additional tablet was provided. Advised she take this in 72 hours, on 08/24, if symptoms persist. She will otherwise follow-up with her primary care provider. Undiagnosed new problem with uncertain prognosis? @ -None Drug Therapy requiring intensive monitoring for toxicity (Heparin, Nitro, Insulin, Cardizem)? @ -None Were any procedures done? @ -None Diagnosis/symptom? @ -Vulvovaginal candidiasis Acute, or Chronic, or Acute on Chronic? @ -Acute Uncomplicated (without systemic symptoms) or Complicated (systemic symptoms)? @ -Uncomplicated Side effects of treatment? @ -None Exacerbation, Progression, or Severe Exacerbation] @ -Not applicable Poses a threat to life or bodily function? @ -No Return precautions reviewed in depth, the patient is instructed to return to the emergency department with any new, worsening, or concerning symptoms. Patient verbalized understanding. This case was discussed in detail with the attending ED physician, Dr. Vazquez. Presentation, findings, and treatment plan discussed in detail as well. Disposition Clinical Impression: Vulvovaginal candidiasis Disposition: HOME SELF-CARE Instructions (If sedation given, give patient instructions): Yeast Infection (ED) Additional Instructions: Return to the emergency department with any new, worsening, or concerning symptoms. Take the Diflucan prescribed on 08/24, 3 days from now. Follow up with your primary care provider in 1-2 days. Prescriptions: Fluconazole [Diflucan] 150 mg PO ONCE 1 Days #1 tab Is patient prescribed a controlled substance at d/c from ED?: No Referrals: None,Stated [Primary Care Provider] - 1-2 days Time of Disposition: 10:35
[2023-08-22] MEDS: FLUCONAZOLE 150 MG TAB PO STA (10:53)
== END 2023-08-22 10:56 | disposition home or self-care (01) ==
LOC: EC 10:06
DX: B37.31 Acute candidiasis of vulva and vagina (principal); Z88.2 Allergy status to sulfonamides; Z88.0 Allergy status to penicillin
CPT/HCPCS: 99283

== ENCOUNTER 2023-09-26 14:44 | Emergency (ER) | payer OTHER ==
[2023-09-26 15:55] VITALS: TEMP 98
--- NOTE | 2023-09-26 16:19 | ED ---
Lower Extremity Injury HPI - General Source: patient, RN notes reviewed Mode of arrival: ambulatory Limitations: no limitations <Melinda Braun - Last Filed: 09/26/23 16:17> - General Source: patient, RN notes reviewed, old records reviewed <Chandrakant Vazquez - Last Filed: 09/26/23 22:35> - General Chief Complaint: Extremity Injury, Lower Stated Complaint: L foot injury Time Seen by Provider: 09/26/23 16:17 - History of Present Illness Initial Comments: Quick [id number] female presenting with left foot pain after stepping on a tac 2 days ago. Patient states she pulled out the check and it was cliff. She now describes area of redness and pain at site. She is also complaining of productive cough at night for the past week. Denies fevers. (Melinda Braun) Patient is a 57-year-old female who presents emergency department after stepping on attack with her left foot. Is still hurting. She is also a chronic tobacco user with a history of COPD and asthma and has been having upper respiratory symptoms for few days as well. Patient originally seen as a quick note. I evaluated her when she was placed in a room. Vital signs are currently within acceptable limits. Endorses a nonproductive cough but worsening cough. Denies any chest pain, abdominal pain, nausea, vomiting, diarrhea. States she has pain on the plantar aspect of her foot as well. Presents for further evaluation. Not up-to-date on tetanus. (Chandrakant Vazquez) - Related Data Home Medications Medication Instructions Recorded Confirmed Aspirin [Adult Low Dose Aspirin EC] 81 mg PO DAILY 08/22/17 12/03/22 Venlafaxine HCl [Effexor XR] 150 mg PO DAILY 09/30/17 12/03/22 Pioglitazone [Actos] 30 mg PO DAILY 02/16/19 12/03/22 traMADol HCL 50 mg PO TID PRN 03/21/20 12/03/22 Insulin Glargine [Lantus] 25 unit SQ HS 07/27/20 12/03/22 Ferrous Sulfate [Feosol] 325 mg PO BID 03/02/21 12/03/22 Brexpiprazole [Rexulti] 0.25 mg PO DAILY 11/28/22 12/03/22 Cholecalciferol [Vitamin D3 (25 50 mcg PO DAILY 11/28/22 12/03/22 Mcg = 1000 Iu)] Dulaglutide [Trulicity] 4.5 mg SQ TH 11/28/22 12/03/22 Gabapentin 300 mg PO BID 11/28/22 12/03/22 Levothyroxine Sodium 112 mcg PO DAILY 11/28/22 12/03/22 Loratadine 10 mg PO DAILY 11/28/22 12/03/22 Lovastatin [Mevacor] 10 mg PO DAILY 11/28/22 12/03/22 Multivitamins, Thera [Multivitamin 1 tab PO DAILY 11/28/22 12/03/22 (formulary)] Pantoprazole Sodium 40 mg PO DAILY 11/28/22 12/03/22 Previous Rx's Medication Instructions Recorded Fluconazole [Diflucan] 150 mg PO ONCE 1 Days #1 tab 08/22/23 Albuterol Inhaler [Ventolin Hfa 1 puff INHALATION QID #8 gm 09/26/23 Inhaler] Levofloxacin [Levaquin] 750 mg PO DAILY 7 Days #7 tab 09/26/23 predniSONE [Deltasone] 40 mg PO DAILY 5 Days #10 tab 09/26/23 Allergies Allergy/AdvReac Type Severity Reaction Status Date / Time Penicillins Allergy Unknown Verified 09/26/23 15:39 Childhood Sulfa (Sulfonamide Allergy Rash/Hives Verified 09/26/23 15:39 Antibiotics) Review of Systems ROS Other: All systems not noted in ROS Statement are negative. <Melinda Braun - Last Filed: 09/26/23 16:17> ROS Other: All systems not noted in ROS Statement are negative. <Chandrakant Vazquez - Last Filed: 09/26/23 22:35> ROS Statement: Those systems with pertinent positive or pertinent negative responses have been documented in the HPI. Review of Systems: CONST: Denies fever EYES: Denies blurry vision ENT: Denies nasal congestion C/V: Denies Chest pain RESP: Endorses cough GI: Denies abdominal pain : Denies dysuria SKIN: Denies rash. MSK: Endorses left foot pain NEURO: Denies headache (Chandrakant Vazquez) Past Medical History Past Medical History: Asthma, COPD, Diabetes Mellitus, Hyperlipidemia, Hype rtension, Neurologic Disorder, Osteoarthritis (OA), Thyroid Disorder History of Any Multi-Drug Resistant Organisms: None Reported Past Surgical History: Section, Hysterectomy Additional Past Surgical History / Comment(s): x 2, ganglion cyst removed from left wrist Past Anesthesia/Blood Transfusion Reactions: No Reported Reaction Past Psychological History: Anxiety, Depression Smoking Status: Never smoker Past Alcohol Use History: None Reported Past Drug Use History: None Reported - Past Family History Father Family Medical History: Cancer Additional Family Medical History / Comment(s): Brain cancer. Mother Family Medical History: Cancer Additional Family Medical History / Comment(s): Lung cancer - . <Melinda Braun - Last Filed: 09/26/23 16:17> General Exam Limitations: no limitations <Melinda Braun - Last Filed: 09/26/23 16:17> <Chandrakant Vazquez - Last Filed: 09/26/23 22:35> - General Exam Comments Initial Comments: Visual Physical Exam Vital signs reviewed General: Well-appearing, nontoxic, no acute distress. Head: Normocephalic, atraumatic Eyes: PERRLA, EOMI ENT: Airway patent Chest: Nonlabored breathing Skin: No visual rash, normal skin tone Neuro: Alert and oriented 3 Musculoskeletal: No gross abnormalities (Melinda Braun) General: Appears in no acute distress. HEAD: Normal with no signs of head trauma. EYES: PERRLA, EOMI, conjunctiva normal, no discharge. ENT: Hearing grossly intact RESPIRATORY: Minimal bilateral end expiratory wheezing. No significant respiratory distress. No hypoxia. C/V: Regular rate and rhythm. S1-S2 auscultated. ABD: Abd is soft, nontender, nondistended EXT: Normal range of motion, no obvious deformity. Tenderness to palpation over the medial plantar aspect of the left foot. No obvious deformity. SKIN: Erythema at the site where patient states she stepped on the tach. No obvious injury otherwise. No fluctuance appreciated. No induration. NEURO: Alert and oriented x 4. (Chandrakant Vazquez) Course Vital Signs 09/26/23 09/26/23 15:26 19:24 Temperature 98 F Pulse Rate 71 76 Respiratory 16 18 Rate Blood Pressure 109/60 110/72 O2 Sat by Pulse 98 93 L Oximetry Medical Decision Making <Melinda Braun - Last Filed: 09/26/23 16:17> <Chandrakant Vazquez - Last Filed: 09/26/23 22:35> - Medical Decision Making I completed the quick note portion of this chart signed Melinda Braun PA-C (Melinda Braun) Was pt. sent in by a medical professional or institution ([facility], [facility] [facility], urgent care, hospital, or halfway...) When possible be specific @ -No Did you speak to anyone other than the patient for history (EMS, parent, family, police, friend...)? What history was obtained from this source @ -No Did you review nursing and triage notes (agree or disagree)? Why? @ -I reviewed and agree with nursing and triage notes Were old charts reviewed (outside hosp., previous admission, EMS record, old EKG, old radiological studies, urgent care reports/EKG's, halfway records)? Report findings @ -No old charts were reviewed Differential Diagnosis (chest pain, altered mental status, abdominal pain women, abdominal pain men, vaginal bleeding, weakness, fever, dyspnea, syncope, headache, dizziness, GI bleed, back pain, seizure, CVA, palpatations, mental health, musculoskeletal)? @ -URI, pneumonia, COPD, asthma, cellulitis, this list is not all inclusive EKG interpreted by me (3pts min.). @ -None done X-rays interpreted by me (1pt min.). @ -Chest x-ray reveals no obvious acute cardiopulmonary process. Foot x-ray reveals no obvious acute injury. CT interpreted by me (1pt min.). @ -None done U/S interpreted by me (1pt. min.). @ -None done What testing was considered but not performed or refused? (CT, X-rays, U/S, labs)? Why? @ -None What meds were considered but not given or refused? Why? @ -None Did you discuss the management of the patient with other professionals (professionals i.e. [facility], [employer], lab, RT, psych nurse, social media sr strategy manager, television anchor, teacher, promotion officer, case sealer)? Give summary @ -No Was smoking cessation discussed for >3mins.? @ -No Was critical care preformed (if so, how long)? @ -No Were there social determinants of health that impacted care today? How? (Homelessness, low income, unemployed, alcoholism, drug addiction, transportation, low edu. Level, literacy, decrease access to med. care, custodial, rehab)? @ -No Was there de-escalation of care discussed even if they declined (Discuss DNR or withdrawal of care, Hospice)? DNR status @ -No What co-morbidities impacted this encounter? (DM, HTN, Smoking, COPD, CAD, Cancer, CVA, ARF, Chemo, Hep., AIDS, mental health diagnosis, sleep apnea, morbid obesity)? @ -None Was patient admitted / discharged? Hospital course, mention meds given and route, prescriptions, significant lab abnormalities, going to OR and other pertinent info. @ -Patient presents with what appears to be COPD exacerbation and bronchitis as well as possible left foot injury. I evaluated patient after she was placed in room. Vital signs within acceptable limits. She will be given a dose of prednisone as well as started on antibiotics to cover for both the foot injury for pseudomonal coverage with Levaquin as well as update tetanus. She was in agreement this plan. Exam otherwise is unremarkable. She will be discharged home at this time. Patient was in agreement this plan. Offered viral swabs which were declined. I will provide the patient with a prescription for prednisone, Levaquin, albuterol inhaler. I instructed the patient to follow up with their PCP in the next 1-3 days.. I explained that the patient should return to the emergency department if they experience any worsening symptoms. Strict return precautions were discussed with the patient. The patient expressed understanding of these instructions. I answered all questions that the patient had. The patient was discharged home in good condition with their prescriptions and follow up information. Undiagnosed new problem with uncertain prognosis? @ -No Drug Therapy requiring intensive monitoring for toxicity (Heparin, Nitro, Insulin, Cardizem)? @ -No Were any procedures done? @ -No Diagnosis/symptom? @ -COPD, tracheobronchitis, cellulitis Acute, or Chronic, or Acute on Chronic? @ -Acute Uncomplicated (without systemic symptoms) or Complicated (systemic symptoms)? @ -Complicated Side effects of treatment? @ -No Exacerbation, Progression, or Severe Exacerbation? @ -No Poses a threat to life or bodily function? How? (Chest pain, [place], [place], pneumonia, PE, COPD, DKA, ARF, appy, cholecystitis, CVA, Diverticulitis, Homicidal, Suicidal, threat to staff... and all critical care pts) @ -Unlikely (Chandrakant Vazquez) Disposition <Melinda Braun Last Filed: 09/26/23 16:17> Is patient prescribed a controlled substance at d/c from ED?: No Time of Disposition: 18:53 <Chandrakant Vazquez - Last Filed: 09/26/23 22:35> Clinical Impression: COPD (chronic obstructive pulmonary disease), Foot injury, Cellulitis, Tracheobronchitis Disposition: HOME SELF-CARE Condition: Good Instructions (If sedation given, give patient instructions): Cellulitis (ED), COPD (Chronic Obstructive Pulmonary Disease) (ED) Prescriptions: predniSONE [Deltasone] 40 mg PO DAILY 5 Days #10 tab Levofloxacin [Levaquin] 750 mg PO DAILY 7 Days #7 tab Albuterol Inhaler [Ventolin Hfa Inhaler] 1 puff INHALATION QID #8 gm Referrals: None,Stated [Primary Care Provider] - 1-2 days
--- NOTE | 2023-09-26 16:40 | XR ---
EXAMINATION TYPE: XR chest 2V DATE OF EXAM: 09/26/2023 COMPARISON: 03/02/2021 HISTORY: Chest pain TECHNIQUE: Frontal and lateral views of the chest are obtained. FINDINGS: There is no focal air space opacity, pleural effusion, or pneumothorax seen. The cardiac silhouette size is within normal limits. There is moderate dextroscoliosis of the thoracic spine. IMPRESSION: No acute cardiopulmonary process.
--- NOTE | 2023-09-26 16:41 | XR ---
Left foot. HISTORY: Pain COMPARISON: None. TECHNIQUE: 3 views of right foot were obtained. FINDINGS: There is no fracture, dislocation, intraosseous or intra-articular evaluate. There are no soft tissue abnormalities. IMPRESSION: No significant abnormality seen.
[2023-09-26] MEDS: predniSONE 20 MG TAB PO STA (19:16)
[2023-09-26] MEDS: DIPH,PERTUS(ACELL)TETVAC-LF 0.5 ML VIAL IM ONE (19:17)
[2023-09-26] MEDS: LEVOFLOXACIN 750 MG TAB PO STA (19:17)
[2023-09-26 19:28] VITALS: BP 110/72; PULSE 76; RESP 18
== END 2023-09-26 19:26 | disposition home or self-care (01) ==
LOC: EC 14:44
DX: S99.922A Unspecified injury of left foot, initial encounter (principal); L03.116 Cellulitis of left lower limb; J44.89 Other specified chronic obstructive pulmonary disease; Z23 Encounter for immunization; Z88.0 Allergy status to penicillin; Z88.2 Allergy status to sulfonamides; W22.8XXA Striking against or struck by other objects, initial encounter
CPT/HCPCS: 73630; 71046; 90715; 99283; 90471; J7512

== ENCOUNTER 2023-11-18 14:32 | Emergency (ER) | payer OTHER ==
--- NOTE | 2023-11-18 15:09 | ED ---
General Adult HPI - General Chief complaint: Shortness of Breath Stated complaint: R Side Neck/Arm,sob Time Seen by Provider: 11/18/23 15:00 Source: patient, RN notes reviewed, old records reviewed Mode of arrival: ambulatory Limitations: no limitations - History of Present Illness Initial comments: Is a 57-year-old female who presents to the emergency department complaining of pain in the trapezius region and her right side she states it goes to the shoulder and up into the neck a little. Patient states has been ongoing for 2 months. Patient states she does not have a primary medical care doctor to follow-up with. Patient states she been seen in the emergency department before. In the triage note mention that she complained of chest pain she denies any chest pain to me and I asked her multiple times. Patient denies any fever chills or cough. Patient states the pain is worse with moving her arm on the right she also states is worse with palpation. Patient denies any injury. Patient also complaining that she woke up this morning she had a little bit of right hip pain however she has full range of motion and is able to ambulate and patient denies any trauma - Related Data Home Medications Medication Instructions Recorded Confirmed Aspirin [Adult Low Dose Aspirin EC] 81 mg PO DAILY 08/22/17 12/03/22 Venlafaxine HCl [Effexor XR] 150 mg PO DAILY 09/30/17 12/03/22 Pioglitazone [Actos] 30 mg PO DAILY 02/16/19 12/03/22 traMADol HCL 50 mg PO TID PRN 03/21/20 12/03/22 Insulin Glargine [Lantus] 25 unit SQ HS 07/27/20 12/03/22 Ferrous Sulfate [Feosol] 325 mg PO BID 03/02/21 12/03/22 Brexpiprazole [Rexulti] 0.25 mg PO DAILY 11/28/22 12/03/22 Cholecalciferol [Vitamin D3 (25 50 mcg PO DAILY 11/28/22 12/03/22 Mcg = 1000 Iu)] Dulaglutide [Trulicity] 4.5 mg SQ TH 11/28/22 12/03/22 Gabapentin 300 mg PO BID 11/28/22 12/03/22 Levothyroxine Sodium 112 mcg PO DAILY 11/28/22 12/03/22 Loratadine 10 mg PO DAILY 11/28/22 12/03/22 Lovastatin [Mevacor] 10 mg PO DAILY 11/28/22 12/03/22 Multivitamins, Thera [Multivitamin 1 tab PO DAILY 11/28/22 12/03/22 (formulary)] Pantoprazole Sodium 40 mg PO DAILY 11/28/22 12/03/22 Previous Rx's Medication Instructions Recorded Fluconazole [Diflucan] 150 mg PO ONCE 1 Days #1 tab 08/22/23 Albuterol Inhaler [Ventolin Hfa 1 puff INHALATION QID #8 gm 09/26/23 Inhaler] Levofloxacin [Levaquin] 750 mg PO DAILY 7 Days #7 tab 09/26/23 predniSONE [Deltasone] 40 mg PO DAILY 5 Days #10 tab 09/26/23 Albuterol Inhaler [Ventolin Hfa 1 - 2 puff INHALATION Q6HR PRN #2 11/18/23 Inhaler] each Cyclobenzaprine [Flexeril] 10 mg PO TID #20 tab 11/18/23 Ketorolac [Toradol] 10 mg PO Q8HR #15 tab 11/18/23 Allergies Allergy/AdvReac Type Severity Reaction Status Date / Time Penicillins Allergy Unknown Verified 11/18/23 14:37 Childhood Sulfa (Sulfonamide Allergy Rash/Hives Verified 11/18/23 14:37 Antibiotics) Review of Systems ROS Statement: Those systems with pertinent positive or pertinent negative responses have been documented in the HPI. ROS Other: All systems not noted in ROS Statement are negative. Past Medical History Past Medical History: Asthma, COPD, Diabetes Mellitus, Hyperlipidemia, Hypertension, Neurologic Disorder, Osteoarthritis (OA), Thyroid Disorder History of Any Multi-Drug Resistant Organisms: None Reported Past Surgical History: Section, Hysterectomy Additional Past Surgical History / Comment(s): x 2, ganglion cyst removed from left wrist Past Anesthesia/Blood Transfusion Reactions: No Reported Reaction Past Psychological History: Anxiety, Depression Smoking Status: Never smoker Past Alcohol Use History: None Reported Past Drug Use History: None Reported - Past Family History Father Family Medical History: Cancer Additional Family Medical History / Comment(s): Brain cancer. Mother Family Medical History: Cancer Additional Family Medical History / Comment(s): Lung cancer - . General Exam - General Exam Comments Initial Comments: GENERAL: Patient is well-developed and well-nourished. Patient is nontoxic and well- hydrated and is in no acute distress. ENT: Neck is soft and supple. No significant lymphadenopathy is noted. Oropharynx is clear. Moist mucous membranes. Neck has full range of motion without eliciting any pain. EYES: The sclera were anicteric and conjunctiva were pink and moist. Extraocular movements were intact and pupils were equal round and reactive to light. Eyelids were unremarkable. PULMONARY: Unlabored respirations. Good breath sounds bilaterally. No audible rales rhonchi or wheezing was noted. CARDIOVASCULAR: There is a regular rate and rhythm without any murmurs gallops or rubs. ABDOMEN: Soft and nontender with normal bowel sounds. SKIN: Skin is clear with no lesions or rashes and otherwise unremarkable. NEUROLOGIC: Patient is alert and oriented x3. Cranial nerves II through XII are grossly intact. Motor and sensory are also intact. Normal speech, volume and content. Symmetrical smile. MUSCULOSKELETAL: Normal extremities with adequate strength and full range of motion. Hip has full range of motion without eliciting any pain Patient's trapezius muscle was tender to palpation which she states is the pain she has experienced LYMPHATICS: No significant lymphadenopathy is noted PSYCHIATRIC: Normal psychiatric evaluation. Limitations: no limitations Course Vital Signs 11/18/23 14:33 Temperature 97.4 F L Pulse Rate 97 Respiratory 22 Rate Blood Pressure 98/54 O2 Sat by Pulse 99 Oximetry Medical Decision Making - Medical Decision Making EKG is interpreted by myself. EKG shows sinus rhythm with occasional PVC at 84 bpm KS interval 142 QRS is 89 QT interval 360 QTc is 401. Was pt. sent in by a medical professional or institution (, PA, VICE PRESIDENT OF CONSULTING SERVICES, urgent care, hospital, or custodial...) When possible be specific @ -No Did you speak to anyone other than the patient for history (EMS, parent, family, police, friend...)? What history was obtained from this source @ -No Did you review nursing and triage notes (agree or disagree)? Why? @ -I reviewed and agree with nursing and triage notes Were old charts reviewed (outside hosp., previous admission, EMS record, old EKG, old radiological studies, urgent care reports/EKG's, custodial records)? Report findings @ -No old charts were reviewed Differential Diagnosis (chest pain, altered mental status, abdominal pain women, abdominal pain men, vaginal bleeding, weakness, fever, dyspnea, syncope, headache, dizziness, GI bleed, back pain, seizure, CVA, palpatations, mental health, musculoskeletal)? @ -Differential Musculoskeletal Muscular strain, contusion, ligament sprain, fracture, arthritis, septic arthritis, bursitis, cellulitis, muscle spasm, nerve compression, DVT, arterial occlusion, herpes zoster, electrolyte abnormality, tumor.... This is not meant to be in all inclusive list EKG interpreted by me (3pts min.). @ -As above X-rays interpreted by me (1pt min.). @ -None done CT interpreted by me (1pt min.). @ -None done U/S interpreted by me (1pt. min.). @ -None done What testing was considered but not performed or refused? (CT, X-rays, U/S, labs)? Why? @ -None What meds were considered but not given or refused? Why? @ -None Did you discuss the management of the patient with other professionals (professionals i.e. , PA, VICE PRESIDENT OF CONSULTING SERVICES, lab, RT, psych nurse, social insurance adviser, spice miller, teacher, chief legal officer, embedded case manager)? Give summary @ -No Was smoking cessation discussed for >3mins.? @ -No Was critical care preformed (if so, how long)? @ -No Were there social determinants of health that impacted care today? How? (Homelessness, low income, unemployed, alcoholism, drug addiction, transportation, low edu. Level, literacy, decrease access to med. care, long term, rehab)? @ -No Was there de-escalation of care discussed even if they declined (Discuss DNR or withdrawal of care, Hospice)? DNR status @ -No What co-morbidities impacted this encounter? (DM, HTN, Smoking, COPD, CAD, Cancer, CVA, ARF, Chemo, Hep., AIDS, mental health diagnosis, sleep apnea, morbid obesity)? @ -None Was patient admitted / discharged? Hospital course, mention meds given and route, prescriptions, significant lab abnormalities, going to OR and other pertinent info. @ -Patient received Toradol and Norflex in the emergency department and she was feeling better. Patient also told me at this time that she ran out of her inhaler and is wondering if I could refill her inhaler. Patient is not short of breath currently she is talking full sentences she has no wheezing. Patient was able to ambulate without problem. Undiagnosed new problem with uncertain prognosis? @ -No Drug Therapy requiring intensive monitoring for toxicity (Heparin, Nitro, Insulin, Cardizem)? @ -No Were any procedures done? @ -No Diagnosis/symptom? @ -Musculoskeletal pain Acute, or Chronic, or Acute on Chronic? @ -Acute Uncomplicated (without systemic symptoms) or Complicated (systemic symptoms)? @ -Uncomplicated Side effects of treatment? @ -No Exacerbation, Progression, or Severe Exacerbation? @ -No Poses a threat to life or bodily function? How? (Chest pain, [place], [place], pneumonia, PE, COPD, DKA, ARF, appy, cholecystitis, CVA, Diverticulitis, Homicidal, Suicidal, threat to staff... and all critical care pts) @ -No Disposition Clinical Impression: Musculoskeletal pain Disposition: HOME SELF-CARE Condition: Good Instructions (If sedation given, give patient instructions): Musculoskeletal Pain (ED) Prescriptions: Cyclobenzaprine [Flexeril] 10 mg PO TID #20 tab Ketorolac [Toradol] 10 mg PO Q8HR #15 tab Albuterol Inhaler [Ventolin Hfa Inhaler] 1 - 2 puff INHALATION Q6HR PRN #2 each PRN Reason: Difficulty breathing Is patient prescribed a controlled substance at d/c from ED?: No Referrals: None,Stated [Primary Care Provider] - 1-2 days Time of Disposition: 17:07
[2023-11-18] MEDS: ORPHENADRINE 30 MG/ML 2 ML VIAL IM STA (15:19)
[2023-11-18] MEDS: KETOROLAC 15 MG/ML 1 ML VIAL IM STA (15:19)
--- NOTE | 2023-11-18 16:08 | XR ---
EXAMINATION TYPE: XR chest 2V DATE OF EXAM: 11/18/2023 4:05 PM CLINICAL INDICATION:Female, 57 years old with history of Difficulty breathing ; [facility] COMPARISON: Chest radiographs from 09/26/2023 TECHNIQUE: XR chest 2V Frontal and lateral views of the chest. FINDINGS: Lungs/Pleura: There is no evidence of pleural effusion, focal consolidation, or pneumothorax. Pulmonary vascularity: Unremarkable. Heart/mediastinum: Cardiomediastinal silhouette is unremarkable. Musculoskeletal: No acute osseous pathology. IMPRESSION: No acute cardiopulmonary disease/process.
[2023-11-18 17:36] VITALS: BP 110/67; PULSE 80; RESP 18; TEMP 98.1
== END 2023-11-18 17:36 | disposition home or self-care (01) ==
LOC: EC 14:32
DX: M54.2 Cervicalgia (principal); R06.02 Shortness of breath; M25.511 Pain in right shoulder; Z88.0 Allergy status to penicillin; Z88.2 Allergy status to sulfonamides
CPT/HCPCS: 93005; 71046; 99285; 96372 ×2; J2360; J1885

== ENCOUNTER → 2024-04-15 | Outpatient (CLI) | payer OTHER ==
--- NOTE | 2024-04-17 10:59 | MR ---
EXAMINATION TYPE: MR foot RT wo con DATE OF EXAM: 04/15/2024 1:22 PM COMPARISON: Radiographs 12/20/2023 CLINICAL INDICATION: Female, 58 years old with history of M79.89 OTHER SPECIFIED SOFT TISSUE DISORDER S, lateral midfoot pain TECHNIQUE: Multiplanar, multisequence images of the right forefoot and midfoot were obtained without IV contrast. FINDINGS: Generalized soft tissue edema more pronounced along the plantar forefoot and midfoot musculature. Small MTP joint effusions are noted. No acute or healing fracture is seen. Mild to moderate tenosynovial fluid seen along the peroneal tendons the hindfoot and midfoot. There i s a 1.7 cm long longitudinal split tear of the inframalleolar peroneus longus at the level of the michael caneocuboidal junction. Refer to coronal image 37 and sagittal image 17. No retracted tear is seen. S ome intrasubstance tearing is noted at the insertion at the base of the first metatarsal. There is a type II accessory navicular without any abnormal edema identified here. IMPRESSION: 1. A 1.7 cm long longitudinal split tear of the inframalleolar peroneus longus opposite the calcaneoc uboid junction. No retracted tear. Associated mild to moderate peroneal tenosynovitis. 2. Generalized soft tissue swelling. Additional edema along the forefoot and midfoot plantar musculat ure. This may reflect edema reactive to altered biomechanics or muscle strain. If there is any underl karolina history of diabetes, neuropathic edema is also possible. 3. No acute or healing fracture. 4. Type II accessory navicular without any abnormal signal changes. [facility], , 04/17/2024 10:57 AM
== END | disposition home or self-care (01) ==
LOC: RADMRIMAIN 09:38
PROVIDERS: ATTEND Podiatrist Foot & Ankle Surgery
DX: M65.971 Unspecified synovitis and tenosynovitis, right ankle and foot (principal); M79.89 Other specified soft tissue disorders; Q74.2 Other congenital malformations of lower limb(s), including pelvic girdle

== ENCOUNTER 2024-10-27 08:10 | Day surgery (SDC) | payer OTHER ==
--- NOTE | 2024-10-26 08:32 | P.HPOR ---
History of Present Illness H&P Date: 10/26/24 Chief Complaint: Left knee pain The patient is a 58-year-old female who presents with progressive left knee pain over the past year. It has worsened recently. She is having pain with weightbearing activities. She notes intermittent buckling. She is having night symptoms. She has tried medications along with injections with only temporary partial relief. Review of Systems Per HPI Past Medical History Past Medical History: Asthma, COPD, Diabetes Mellitus, Hyperlipidemia, Hypertension, Neurologic Disorder, Osteoarthritis (OA), Renal Disease, Thyroid Disorder Additional Past Medical History / Comment(s): kidneys are at 45% function History of Any Multi-Drug Resistant Organisms: None Reported Past Surgical History: Section, Hysterectomy Additional Past Surgical History / Comment(s): x 2, ganglion cyst removed from left wrist Past Anesthesia/Blood Transfusion Reactions: No Reported Reaction Smoking Status: Former smoker - Past Family History Father Family Medical History: Cancer Additional Family Medical History / Comment(s): Brain cancer. Mother Family Medical History: Cancer Additional Family Medical History / Comment(s): Lung cancer - . Medications and Allergies Home Medications Medication Instructions Recorded Confirmed Type Ferrous Sulfate [Feosol] 325 mg PO BID 03/02/21 10/22/24 History Brexpiprazole [Rexulti] 0.25 mg PO HS 11/28/22 10/22/24 History Levothyroxine Sodium 112 mcg PO DAILY 11/28/22 10/22/24 History Insulin Glargine,Hum.rec.anlog 40 units SQ HS 11/18/23 10/22/24 History [Lantus Solostar Pen] Venlafaxine HCl ER [Effexor Xr] 37.5 mg PO DAILY 11/18/23 10/22/24 History acetaZOLAMIDE [Diamox Sequels] 500 mg PO BID 11/18/23 10/22/24 History lisinopriL [Zestril] 2.5 mg PO DAILY 11/18/23 10/22/24 History Albuterol Inhaler [Ventolin Hfa 1 - 2 puff INHALATION RT-Q6H PRN 12/20/2310/22 History Inhaler] Allergies Allergy/AdvReac Type Severity Reaction Status Date / Time Penicillins Allergy Anaphylaxis Verified 10/22/24 17:00 Sulfa (Sulfonamide Allergy Rash/Hives Verified 10/22/24 17:00 Antibiotics) Physical Examination - Knee left Appearance: effusion Valgus alignment in stance: 10 degrees Tenderness with palpation: anterior, lateral Pain: throughout ROM Gait: limping ROM: extension: -10 degrees ROM: flexion: 70 degrees Crepitus with motion: Yes Strength: extension: 5/5 Strength: flexion: 5/5 Meniscal tests: lateral meniscal tests: positive, lateral joint line pain: positive Results The patient is a well-developed well-nourished female approximately 5 foot 2, 213 pounds of endomorphic habitus. HEENT exam is nonfocal, neck is supple. She has painless passive motion of the left hip. Straight leg raise is negative. She is tender about the lateral joint line of the left knee. She has a moderate effusion. Collaterals are stable, Oliver's negative, Purnima's is equivocal. She has genu valgum alignment. Her distal neurovascular exam appears intact in the left lower extremity. - Diagnostic results Knee x-ray: image reviewed (X-rays of the left knee obtained the office show severe lateral and patellofemoral compartment osteoarthrosis with subchondral sclerosis and [id number] changes.) Assessment and Plan Assessment: Left knee severe lateral and patellofemoral compartment osteoarthrosis Renal disease Plan: I talked to the patient at length regarding her condition along with treatment options. At this point she is quite symptomatic having pain and mechanical symptoms related to her left knee osteoarthrosis despite conservative measures. After a thorough discussion she opts to proceed with surgery. We will plan to proceed with a left total knee arthroplasty. Risks and benefits were discussed at length in layman's terms. We will institute DVT prophylaxis postoperatively.
[~2024-10-27 08:10] MED LIST changes: -ALPRAZolam 0.25 MG TAB PO PRN; -ALPRAZolam 0.5 MG TAB PO PRN; -ASPIRIN 325 MG TAB PO STA; -ATORVASTATIN 80 MG TAB PO STA; -HEPARIN SODIUM 1,000 UN/ML (10ML VL) IV ONE; -HEPARIN SODIUM 1,000 UN/ML (10ML VL) ONE; -HEPARIN SODIUM,PORCINE 10,000 UNIT in SODIUM CHLORIDE 0.9% 1,000 ML IRRIGATION PRN; -HEPARIN SODIUM,PORCINE 2,500 UNIT in SODIUM CHLORIDE 0.9% 250 ML IRRIGATION PRN; -IOPAMIDOL-370 100ML BTL INJ ONE; -LIDOCAINE 1% INJ 10MG/ML (5 ML VIAL-PF) SQ ONE; -MIDAZOLAM 2 MG/2 ML VIAL IVP ONE; -NITROGLYCERIN SL TABS 0.4 MG TAB SUBLINGUAL PRN; -SODIUM CHLORIDE 0.9% 1,000 ML in EMPTY BAG 1 BAG IV SCH; +TRANEXAMIC 1,000 MG/100ML-NACL 1,000 MG in SALINE 1 100ML.BAG IVPB PRN; -VERAPAMIL 2.5 MG/ML 2 ML AMP ONE; -VERAPAMIL SYRINGE (5 MG/10 ML) INTRAARTER ONE; -fentaNYL (PF) 50 MCG/1 ML VIAL IVP ONE; -fentaNYL (PF) 50 MCG/ML 2 ML AMP ONE
[2024-10-27] MEDS: IV FLUID CONTINUATION 1,000 ML IV ONE (08:36)
[2024-10-27 09:17] LABS: Glucose,Whole Blood 69 mg/dL (70-110)
[2024-10-27] MEDS: MELOXICAM 7.5 MG TAB PO PRN (09:30)
[2024-10-27] MEDS: DEXAMETHASONE SOD PHOSPHATE 4 MG/ML 1 ML VIAL IV ONE (09:30)
[2024-10-27] MEDS: ONDANSETRON 4 MG/2 ML VIAL IVP ONE (09:30)
[2024-10-27] MEDS: ACETAMINOPHEN TAB 500 MG TAB PO PRN (09:30)
[2024-10-27 09:34] LABS: Basophils # (A) 0.06 10*3/uL (0.00-0.10); Basophils % (A) 0.8 %; HCT 30.4 % (37.2-46.3); HGB 9.3 g/dL (12.0-15.0); Lymphocytes # (A) 1.37 10*3/uL (0.90-5.00); Lymphocytes % (A) 17.7 %; MCH 28.6 pg (27.0-32.0); MCHC 30.6 g/dL (32.0-37.0); MCV 93.5 fL (80.0-97.0); Mean Platelet Volume 10.7 fL (9.5-12.2); Monocytes # (A) 0.94 10*3/uL (0.20-1.00); Monocytes % (A) 12.1 %; Neutrophils # (A) 5.33 10*3/uL (1.80-7.70); Neutrophils % (A) 68.9 %; Platelet Count 211 10*3/uL (140-440); RBC 3.25 10*6/uL (4.10-5.20); RDW 14.8 % (11.5-14.5); WBC 7.74 10*3/uL (4.50-10.00)
[2024-10-27] MEDS: MIDAZOLAM 2 MG/2 ML VIAL IV PRN (09:38)
[2024-10-27] MEDS: fentaNYL (PF) 50 MCG/ML 2 ML AMP IVP PRN (09:38)
[2024-10-27] MEDS: LACTATED RINGERS 1,000 ML IV SCH (09:39)
[2024-10-27] MEDS: DEXTROSE 50% SYRINGE 50 ML IVP STA (09:41)
[2024-10-27] MEDS ORDERED: HYDROmorphone (PF) 1 MG/ML ONE (10:03)
[2024-10-27] MEDS ORDERED: TRANEXAMIC 1,000 MG/100ML-NACL PREMIX BAG ONE (10:03)
[2024-10-27] MEDS ORDERED: WATER FOR INJECTION, STERILE 10 ML VIAL IV ONE (10:03)
[2024-10-27] MEDS ORDERED: ePHEDrine 50 MG/ML 1 ML VIAL ONE (10:03)
[2024-10-27] MEDS ORDERED: SODIUM CHLORIDE 0.9% (PF) 10 ML VIAL ONE (10:03)
[2024-10-27] MEDS ORDERED: MIDAZOLAM 2 MG/2 ML VIAL ONE (10:03)
[2024-10-27] MEDS ORDERED: PROPOFOL 10 MG/ML 20 ML VIAL IV ONE (10:03)
[2024-10-27] MEDS ORDERED: ROPIVACAINE 5 MG/ML 30 ML VIAL ONE (10:03)
[2024-10-27 10:05] LABS: Glucose,Whole Blood 128 mg/dL (70-110)
[2024-10-27] MEDS: ceFAZolin 2 GM in DEXTROSE 5% IN WATER 50 ML IVPB PRN (10:08)
--- NOTE | 2024-10-27 11:01 | P.ANPRN ---
Procedure Note - Anesthesia - Nerve Block Performed Left Adductor Canal Infusion Time Out Performed: Yes (0937) Date of Procedure: 10/27/24 Procedure Start Time: 09:38 Procedure Stop Time: 09:43 Location of Patient: PreOp Indication: Acute Post-Operative Pain, Requested by Surgeon Specifically requested for management of pain by : José Miguel Alejandre Sedation Type: Sedate with meaningful contact maintained Preparation: Sterile Prep Position: Supine Catheter: None Needle Types: Pajunk Needle Gauge: 18 Ultrasound used to visualize needle placement: Yes Ultrasound used to observe medication spread: Yes Injectate: 0.5% Ropivacaine (see comment for volume) (15cc+5cc nacl pf) Blood Aspirated: No Pain Paresthesia on Injection Noted: No Resistance on Injection: Normal Image Stored and Saved: Yes Events: Uneventful and Well Tolerated
--- NOTE | 2024-10-27 11:02 | P.ANPRN ---
Procedure Note - Anesthesia - Nerve Block Performed Left iPack Single Time Out Performed: Yes (0937) Date of Procedure: 10/27/24 Procedure Start Time: 09:44 Procedure Stop Time: 09:47 Location of Patient: PreOp Indication: Acute Post-Operative Pain, Requested by Surgeon Specifically requested for management of pain by DrAugustin: José Miguel Alejandre Sedation Type: Sedate with meaningful contact maintained Preparation: Sterile Prep Position: Supine Catheter: None Needle Types: Pajunk Needle Gauge: 21 Ultrasound used to visualize needle placement: Yes Ultrasound used to observe medication spread: Yes Injectate: 0.5% Ropivacaine (see comment for volume) (15cc+5cc nacl pf) Blood Aspirated: No Pain Paresthesia on Injection Noted: No Resistance on Injection: Normal Image Stored and Saved: Yes Events: Uneventful and Well Tolerated
[2024-10-27] MEDS ORDERED: HYDROmorphone 1 MG/ML 1 ML SYRINGE IVP PRN (12:01)
[2024-10-27] MEDS ORDERED: MAGNESIUM HYDROXIDE 2,400 MG/30 ML CUP PO PRN (12:01)
[2024-10-27] MEDS ORDERED: NALOXONE 0.4 MG/ML 1 ML VIAL IV PRN (12:01)
[2024-10-27] MEDS ORDERED: HYDROmorphone 0.5 MG/0.5 ML SYRINGE IVP PRN (12:01)
--- NOTE | 2024-10-27 12:12 | P.OP ---
Date of Procedure: 10/27/24 Preoperative Diagnosis: Left knee severe tricompartmental osteoarthrosis Postoperative Diagnosis: Same Procedure(s) Performed: Left total knee arthroplastycementedposterior stabilized Implants: DePuy attune size 6 narrow cemented femoral component, size 5 cemented tibial component with a 14 x 50 mm stem extension, 12 mm articular surface, 32 mm cemented patellar component. There is a posterior stabilized implant. Anesthesia: regional, spinal Surgeon: José Miguel Alejandre Barrel Roller #1: Alvaro Johnson Estimated Blood Loss (ml): 50 Pathology: none sent Condition: stable Disposition: PACU Indications for Procedure: The patient is a 58-year-old female who presents with progressive left knee pain secondary to osteoarthrosis despite conservative measures. A discussion of the risks and benefits of operative intervention versus continued conservative measures was made with the patient. She opted to proceed with surgery. Operative risks include infection, neurovascular injury, fracture, possible component loosening/failure and possible need for subsequent procedures was discussed. Informed consent was obtained. Operative Findings: As below Description of Procedure: The patient was brought to the operating room, and after induction of spinal anesthesia the left lower extremity was prepped and draped in a normal fashion. The tourniquet was inflated to 270 mm marker. A longitudinal incision extending 3 finger breaths above the superior pole of patella extending to the medial aspect the tibial tubercle was then made. The skin and subcutaneous tissues were divided sharply. Electrocautery was used for hemostasis. A medial parapatellar arthrotomy was performed. The medial soft tissues to include the superficial and deep portions of the medial collateral ligament were elevated subperiosteally. The patella was everted. A portion of the retropatellar fat pad was excised sharply. The anterior cruciate ligament was sacrificed. Blunt retractors were placed. A starting hole was made in the distal femur 1 cm anterior to the posterior cruciate ligament origin. An intramedullary femoral guide was then inserted planning on 5 valgus distal cut with 9 mm distal resection. The cutting block was pinned in place. The distal cut was then made. The posterior referencing sizing guide was utilized. I felt size 6 narrow was most appropriate. 3 of external rotation was built into the system and verified off the trans-epicondylar axis and the posterior condyles. The cutting block was pinned in place. The anterior, posterior, and chamfer cuts then made. Bone fragments were removed. The intercondylar guide was placed and the notch cut was made with a sagittal saw. The bone block was removed in one fragment. The trial component was then placed. There is good anterior to posterior and medial to lateral fit. The distal peg holes were drilled. The trial component was removed. Attention was then paid towards preparing the proximal tibia. An extra medullary guide was utilized in line with the tibial shaft and second metatarsal distally. I planned on 8 mm resection from the medial compartment. The cutting block was pinned in place. The proximal tibial cut was then made. The bone was removed in one fragment. The remnants of the medial and lateral menisci were excised at the capsular junction with electrocautery. The tibia sized most appropriately at size 5. The trial femoral and tibial components were placed along with a 12 mm articular surface. I was able to obtain full flexion and extension with internal and external rotation. After several flexion and extension cycles, the tibial rotation was marked with electrocautery line with the medial one third of the tibial tubercle. Attention was then paid towards preparing the patella. A patella reamer was utilized taking stem to 14 mm of bone stock. A good flush cut was made. The patella sized most appropriately 32 mm. The peg holes were drilled. The trial components placed. I had good patellofemoral tracking with no hands technique. The trial components were then removed. The tibia was prepared in the appropriate rotation with appropriate drill and keel punch planning on a 14 x 50 mm stem extension. The posterior osteophytes were removed with a curved osteotome. The flexion and extension gaps were checked and felt to be symmetric at 12 mm. A trial components were then removed. The bony surfaces were prepared with pulsatile lavage and dried. The tibial component was then cemented place was fully seated. Excess cement was removed. The femoral component cemented place and was fully seated. Excess cement was removed. The trial 12 mm articular surface was placed and the knee was put in full extension. The patella component was cemented place. After the cement had sufficiently hardened, the knee was again taken through a range of motion. Again I was able to obtain full flexion and extension with varus and valgus stress. The trial 12 mm articular surface was removed and the final one inserted. This was fully seated. Care was taken to avoid any soft tissue interposition. Pulsatile lavage was again utilized. The medial parapatellar arthrotomy was closed with #2 Ethibond suture. The tourniquet was deflated with approximately 60 minutes total tourniquet time. Final hemostasis was obtained with the cautery. There was minimal bleeding therefore a deep drain was not placed. The subcutaneous tissues were reapproximated with interrupted 2-0 Vicryl sutures. The skin was reapproximated with 3-0 subcuticular strata fix suture. Skin tape and adhesive was applied. A sterile dressing was applied. The patient was awoken from sedation and transferred to recovery room in good condition. Blood loss was estimated at 50 mL. No complications were incurred. Sponge and needle counts were correct at the end of the case. Alvaro FAROOQ assisted during the major components of this case to include exposure, bone resection, implantation, and closure.
[2024-10-27 12:26] LABS: Glucose,Whole Blood 116 mg/dL (70-110)
[2024-10-27] MEDS: ROPIVACAINE 1,100 MG, SODIUM CHLORIDE 0.9% 500 ML 330 ML, EMPTY PAIN BALL 1 EACH MISCELLANE PRN (12:32)
[2024-10-27] MEDS: HYDROmorphone 0.5 MG/0.5 ML SYRINGE IVP PRN (12:32)
[2024-10-27] MEDS: LACTATED RINGERS 1,000 ML IV ONE (12:45)
--- NOTE | 2024-10-27 12:51 | XR ---
EXAMINATION TYPE: XR knee limited LT DATE OF EXAM: 10/27/2024 12:37 PM COMPARISON: None. CLINICAL INDICATION: Female, 58 years old with history of Evaluation for Postop abnormality and align ment, pain TECHNIQUE: 2 view(s) obtained. FINDINGS: Femoral and tibial prosthesis is in place. No acute fractures are evident. There is soft tissue posts urgical changes present. IMPRESSION: 1. No acute fractures post knee replacement [facility], , 10/27/2024 12:49 PM
[2024-10-27] MEDS: SCOPOLAMINE 1 MG/72 HR PATCH TRANSDERM ONE (13:07)
[2024-10-27] MEDS ORDERED: ALBUTEROL NEBULIZED 2.5 MG/3 ML INHALATION PRN (14:25)
[2024-10-27] MEDS: ONDANSETRON 4 MG/2 ML VIAL IVP PRN (16:02)
[2024-10-27] MEDS ORDERED: DEXTROSE 50% SYRINGE 50 ML IVP PRN ×2 (16:15)
--- NOTE | 2024-10-27 16:42 | P.CONS ---
History of Present Illness - Reason for Consult Consult date: 10/27/24 Medical Management Requesting physician: José Miguel Alejandre - History of Present Illness History of Presenting Illness: Patient is a pleasant 58-year-old female with a past medical history of asthma/COPD, hypertension, hyperlipidemia, insulin-dependent diabetes mellitus, hypothyroidism, depression, and schizophrenia. She is currently admitted under orthopedic surgery team status post elective left total knee arthroplasty secondary to left knee severe tricompartmental osteoarthrosis. Surgical procedure was completed by Dr. Alejandre. We were consulted for medical management throughout hospitalization Patient was seen and fully evaluated in room 461 shortly after completion of surgical procedure. Patient currently resting comfortably and reports full control of postoperative pain. She denies headache, lightheadedness, dizziness, chest pain, palpitations, shortness of breath, abdominal pain, or any other complaints. She reports tolerating regular diet and denies having any postoperative nausea or vomiting. Review of systems: Pertinent positives and negatives as discussed in HPI, a complete review of systems was performed and all other systems are negative. Physical exam: Vital signs reviewed and stable. General: Nontoxic, no distress and appears stated age. Derm: Skin warm and dry, normal coloration for ethnicity. Head: Atraumatic, normocephalic and symmetric. Eyes: EOM's intact, no lid lag, and anicteric sclera Mouth: no lip lesions, mucus membranes moist Cardiovascular: regular rate and rhythm with normal S1S2, no murmur, positive posterior tibial pulses bilaterally, and cap refill < 2 seconds. Lungs: Respirations even, regular, and unlabored on room air. Lungs CTA bilaterally, no rhonchi, no rales, no wheezing, and no accessory muscle usage. Abdominal: soft, nontender to palpation, no guarding, no appreciable organomegaly Ext: No gross muscle atrophy, no edema, no contractures. Movement and sensation intact. Postoperative dressing/Sridhar wrap and ice pack in place left knee. Neuro: Speech clear, face symmetrical and CN II-XII grossly intact with no noted focal neuro deficits Psych: Alert and oriented to person, place, time, and situation. Appropriate and pleasant affect. Assessment and Plan of Care: Status post left total knee arthroplasty Management per primary admitting orthopedic surgery team including DVT prophylaxis, pain management, wound/dressing management, weightbearing, and PT/OT. Currently on DVT prophylaxis with Xarelto 10 mg daily. Orders placed for postoperative labs including CBC, BMP, and magnesium. Will follow-up on these results and place additional orders if indicated based upon these findings Postoperative hypotension with history of hypertension Monitor vital signs closely. Order placed for 1 L bolus of 0.9% normal saline and patient may resume home medication regimen tomorrow with lisinopril 2.5 mg d aily with parameters placed to hold for systolic pressure less than 100. Insulin-dependent diabetes mellitus with episode of hypoglycemia. - Hypoglycemia likely secondary to n.p.o. status prior to completion of surgical procedure. Patient currently tolerating oral intake and denies any nausea or v omiting. Okay to resume Lantus [address] patient on glycemic protocol with close monitoring of blood glucose levels 4 times daily and Humalog sliding scale if needed for hyperglycemia. Chronic anemia Hemoglobin 9.3 preoperatively with baseline hemoglobin around 10. Order placed for iron profile. Continue close monitoring of hemoglobin level with repeat a.m. labs. No need for transfusion or further intervention at this time as no active bleeding noted. Hypothyroidism Continue levothyroxine 112 mcg daily. Asthma/COPD, not in acute exacerbation Supplement Ventolin inhaler with albuterol nebulizers every 6 hours as needed for shortness of breath/wheezing. Schizophrenia Depression Continue psychiatric medication regimen with acetazolamide 500 mg twice daily, Rexulti 0.25 mg nightly, and Effexor XR 37.5 mg daily. Data reviewed: Vital signs reviewed. Blood pressure 86/48, heart rate 65, respiratory rate 18, temp 97.4 F, and SpO2 of 96% on room air. Reviewed preoperative labs. CBC showing normocytic anemia with hemoglobin of 9.3. Thank you for allowing us to participate in the care of this pleasant patient. Do not hesitate to contact us with questions. Someone can be reached from the [facility] hospitalist group all hours of the day at [phone] or via [employer]. Patient was seen independently by Nurse Practitioner. This document was prepared using [employer] dictation software. Please allow for errors in straw hat plunger operator while rare they do occur. Matt England NP rendered care for this patient independently, reviewed the findings and plan as documented in the note above and agree with plan. I did not physically speak with or examine the patient on this date. Past Medical History Past Medical History: Asthma, COPD, Diabetes Mellitus, Hyperlipidemia, Hypertens ion, Neurologic Disorder, Osteoarthritis (OA), Renal Disease, Thyroid Disorder Additional Past Medical History / Comment(s): kidneys are at 45% function History of Any Multi-Drug Resistant Organisms: None Reported Past Surgical History: Section, Hysterectomy Additional Past Surgical History / Comment(s): x 2, ganglion cyst removed from left wrist Past Anesthesia/Blood Transfusion Reactions: No Reported Reaction Smoking Status: Former smoker - Past Family History Father Family Medical History: Cancer Additional Family Medical History / Comment(s): Brain cancer. Mother Family Medical History: Cancer Additional Family Medical History / Comment(s): Lung cancer - . Medications and Allergies Home Medications Medication Instructions Recorded Confirmed Type Ferrous Sulfate [Feosol] 325 mg PO BID 03/02/21 10/27/24 History Brexpiprazole [Rexulti] 0.25 mg PO HS 11/28/22 10/27/24 History Levothyroxine Sodium 112 mcg PO DAILY 11/28/22 10/27/24 History Insulin Glargine,Hum.rec.anlog 40 units SQ HS 11/18/23 10/27/24 History [Lantus Solostar Pen] Venlafaxine HCl ER [Effexor Xr] 37.5 mg PO DAILY 11/18/23 10/27/24 History acetaZOLAMIDE [Diamox Sequels] 500 mg PO BID 11/18/23 10/27/24 History lisinopriL [Zestril] 2.5 mg PO DAILY 11/18/23 10/27/24 History Albuterol Inhaler [Ventolin Hfa 1 - 2 puff INHALATION RT-Q6H PRN 12/20/23 10/27/24 History Inhaler] Allergies Allergy/AdvReac Type Severity Reaction Status Date / Time Penicillins Allergy Anaphylaxis Verified 10/22/24 17:00 Sulfa (Sulfonamide Allergy Rash/Hives Verified 10/22/24 17:00 Antibiotics) Physical Exam Vitals: Vital Signs Temp Pulse Resp BP Pulse Ox 10/27/24 14:01 97.4 F L 65 18 86/48 96 10/27/24 13:00 61 18 93/50 97 10/27/24 12:45 62 18 104/51 100 10/27/24 12:30 61 18 100/59 100 10/27/24 12:14 97.3 F L 70 18 100/53 100 10/27/24 09:57 58 L 16 103/66 100 10/27/24 09:47 64 15 111/76 100 10/27/24 09:42 62 16 102/71 100 10/27/24 08:36 96.6 F L 61 16 105/61 100 Intake and Output 10/26/24 10/27/24 10/27/24 22:59 06:59 14:59 Intake Total 1000 Output Total 50 Balance 950 Intake: IV 1000 Output: Estimated Blood Loss 50 Other: Weight 96.2 kg Results CBC & Chem 7: 10/27/24 09:10 Labs: Abnormal Lab Results - Last 24 Hours (Table) 10/27/24 10/27/24 10/27/24 Range/Units 09:10 09:16 10:04 RBC 3.25 L (4.10-5.20) 10*6/uL Hgb 9.3 L (12.0-15.0) g/dL Hct 30.4 L (37.2-46.3) % MCHC 30.6 L (32.0-37.0) g/dL Eosinophils # 0.00 L (0.04-0.35) 10*3/uL POC Glucose (mg/dL) 69 L 128 H (70-110) mg/dL 10/27/24 Range/Units 12:25 RBC (4.10-5.20) 10*6/uL Hgb (12.0-15.0) g/dL Hct (37.2-46.3) % MCHC (32.0-37.0) g/dL Eosinophils # (0.04-0.35) 10*3/uL POC Glucose (mg/dL) 116 H (70-110) mg/dL
[2024-10-27 16:49] LABS: Glucose,Whole Blood 211 mg/dL (70-110)
[2024-10-27] MEDS: SODIUM CHLORIDE 0.9% 1,000 ML IV ONE (16:55)
[2024-10-27] MEDS: INSULIN LISPRO (HumaLOG) 100 UNIT/ML 10 mL VL SQ SCH (16:55)
[2024-10-27] MEDS: ceFAZolin 2 GM in DEXTROSE 5% IN WATER 50 ML IVPB SCH (18:35)
[2024-10-27] MEDS: HYDROcodone/APAP 5-325MG 1 EACH TAB PO PRN (18:44)
[2024-10-27 20:15] LABS: Glucose,Whole Blood 335 mg/dL (70-110)
[2024-10-27] MEDS: INSULIN GLARGINE (LANTUS) 100 UNIT/ML SYR SQ SCH (20:30)
[2024-10-27] MEDS: FERROUS SULFATE 325 MG TAB PO SCH (20:31)
[2024-10-27] MEDS: acetaZOLAMIDE 250 MG TAB PO SCH (20:31)
[2024-10-27] MEDS: SENNOSIDES-DOCUSATE SODIUM 1 EACH TAB PO SCH (20:31)
[2024-10-27] MEDS: BREXPIPRAZOLE 0.25 MG PO SCH (20:32)
[2024-10-28] MEDS: hydrOXYzine pamoate 25 MG CAP PO PRN (01:46)
[2024-10-28 04:37] LABS: African American GFR (CKD) 51 (>60 ml/min/1.73 sqM); Anion Gap 12 mmol/L; Blood Urea Nitrogen 33 mg/dL (7-17); Calcium 8.9 mg/dL (8.4-10.2); Carbon Dioxide 13 mmol/L (22-30); Chloride 114 mmol/L (98-107); Glucose 202 mg/dL (74-99); Magnesium 1.9 mg/dL (1.6-2.3); Non-African American GFR(CKD) 45 (>60 ml/min/1.73 sqM); Potassium 4.4 mmol/L (3.5-5.1); Sodium 139 mmol/L (137-145)
[2024-10-28 06:18] LABS: Glucose,Whole Blood 168 mg/dL (70-110)
[2024-10-28] MEDS: HYDROcodone/APAP 7.5-325MG 1 EACH TAB PO PRN (06:35)
[2024-10-28] MEDS: LEVOTHYROXINE 112 MCG TAB PO SCH (06:35)
[2024-10-28 07:59] LABS: HCT 26.4 % (37.2-46.3); HGB 7.7 g/dL (12.0-15.0); MCH 28.4 pg (27.0-32.0); MCHC 29.2 g/dL (32.0-37.0); MCV 97.4 FL (80.0-97.0); Mean Platelet Volume 11.7 FL (9.5-12.2); NRBC Per 100 WBC 0 X 10*3/uL (0.00-0.01); Platelet Count 210 X 10*3/uL (140-440); RBC 2.71 X 10*6/uL (4.10-5.20); RDW 14.7 % (11.5-14.5); WBC 12.78 X 10*3/uL (4.50-10.00)
[2024-10-28 08:59] LABS: Basophils # (A) 0.03 X 10*3/uL (0.00-0.10); Basophils % (A) 0.2 %; Eosinophils # (A) 0 X 10*3/uL (0.04-0.35); Eosinophils % (A) 0 %; Lymphocytes # (A) 1.74 X 10*3/uL (0.90-5.00); Lymphocytes % (A) 13.6 %; Monocytes % (A) 14.1 %; Neutrophils # (A) 9.15 X 10*3/uL (1.80-7.70); Neutrophils % (A) 71.6 %
[2024-10-28] MEDS: RIVAROXABAN 10 MG TAB PO SCH (09:02)
[2024-10-28 09:08] LABS: % Iron Saturation 11.96 (12.00-45.00); Iron 25 UG/DL (50-170); Total Iron Binding Capacity 209 UG/DL (228-460)
[2024-10-28] MEDS: VENLAFAXINE HCL ER 37.5 MG CAP PO SCH (09:09)
[2024-10-28 11:07] LABS: Glucose,Whole Blood 137 mg/dL (70-110)
--- NOTE | 2024-10-28 12:33 | P.DS ---
Providers Date of admission: 10/27/2024 Expected date of discharge: 10/28/24 Attending physician: José Miguel Alejandre Consults: 10/27/24 12:01 Consult Physician Routine Consulting Provider: Josh Jenkins Consult Reason/Comments: medical management s/p left total knee arthroplasty Do you want consulting provider notified?: Yes Primary care physician: Nena [facility] Course: Date of admission: 10/27/2024 Date of discharge: 10/28/2024 Admission diagnosis: Left knee osteoarthritis Discharge diagnosis: Same Attending physician: Dr. Alejandre Surgical procedures: Left total knee arthroplasty Brief history: Patient is a 58-year-old female with a history of progressive primary left knee osteoarthritis. At this point patient has failed conservative treatment measures and has opted to proceed with a elective left total knee arthroplasty. Hospital course: Details of patient's surgery can be found in operative report. Patient tolerated the procedure well and was subsequently transported to orthopedic floor. Patient's orthopeidc and medical care was provided daily. Patient had daily laboratory tests performed for evaluation of overall blood counts. Patient had daily physical therapy to include strengthening range of motion as well as education with walker ambulation. Patient was treated with Xarelto for their postoperative DVT prophylaxis during their inpatient stay. Patient was noted to have a relatively uneventful postoperative course. Patient reported satisfactory pain control with oral pain medications by postoperative day 1. Patient showed satisfactory progress with physical therapy. Patient moved steadily through the program and had no difficulty meeting the goals by postoperative day 1. Given patient's otherwise satisfactory course and having met physical therapy goals, plan is to discharge patient home with health services on postoperative day 1. Discharge condition/disposition: Patient will be discharged home with services in stable condition. Discharge medications: Instructions are given on resumption of patient's normal daily medications per primary care recommendation, in addition patient will be prescribed [place]; senna; take aspirin 81 mg twice a day at home for DVT prophylaxis. Discharge instructions: 1. Wound care and infection precautions, keep incision dry and covered while showering, no lotions, creams, moisturizers. No soaking, tubs, pools, hottubs. Do not scrub over the incision. 2. Weight-bear as tolerated with walker / cane until follow-up. 3. Ice and elevate when necessary. Do not exceed 20 minutes per hour with ice pack. 4. Utilize compression sleeve until seen at first follow up appointment. 5. Visiting nursing care. 6. Home physical therapy including home CPM. 7. Pain meds and anticoagulants per prescription. 8. Pain medication has potential to cause constipation. Increase oral fluid and fiber intake. Contact primary care provider if you have not had a bowel movement within 48 hours after discharge 9. No anti-inflammatory medication until discussed at first post operative visit, this including Motrin, Aleve, Mobic, Diclofenac. 10. Follow up in office at 2 weeks postop with Arturo Wang PA-C / Alvaro Johnson PA-C 11. Follow up with your primary care doctor 7-10 days after discharge. 12. Contact [facility] with any questions, . Assessment: Left knee osteoarthritis Procedures: Left total knee arthroplasty Patient Condition at Discharge: Good Plan - Discharge Summary Discharge Rx Participant: Yes New Discharge Prescriptions: New Sennosides/Docusate Sodium [Senna Plus 8.6-50 mg Softgel] 1 each PO DAILY #20 capsule HYDROcodone/APAP 7.5-325MG [[place]wood 7.5-325] 1 - 2 tab PO Q6HR PRN #32 tab PRN Reason: Pain hydrOXYzine pamoate [Vistaril] 25 mg PO TID PRN #21 cap PRN Reason: Pain No Action acetaZOLAMIDE [Diamox Sequels] 500 mg PO BID Venlafaxine HCl ER [Effexor Xr] 37.5 mg PO DAILY Ferrous Sulfate [Feosol] 325 mg PO BID Levothyroxine Sodium 112 mcg PO DAILY Brexpiprazole [Rexulti] 0.25 mg PO HS lisinopriL [Zestril] 2.5 mg PO DAILY Insulin Glargine,Hum.rec.anlog [Lantus Solostar Pen] 40 units SQ HS Albuterol Inhaler [Ventolin Hfa Inhaler] 1 - 2 puff INHALATION RT-Q6H PRN PRN Reason: Difficulty breathing Discharge Medication List Ferrous Sulfate [Feosol] 325 mg PO BID 03/02/21 [History] Brexpiprazole [Rexulti] 0.25 mg PO HS 11/28/22 [History] Levothyroxine Sodium 112 mcg PO DAILY 11/28/22 [History] Insulin Glargine,Hum.rec.anlog [Lantus Solostar Pen] 40 units SQ HS 11/18/23 [History] Venlafaxine HCl ER [Effexor Xr] 37.5 mg PO DAILY 11/18/23 [History] acetaZOLAMIDE [Diamox Sequels] 500 mg PO BID 11/18/23 [History] lisinopriL [Zestril] 2.5 mg PO DAILY 11/18/23 [History] Albuterol Inhaler [Ventolin Hfa Inhaler] 1 - 2 puff INHALATION RT-Q6H PRN 12/20/23 [History] HYDROcodone/APAP 7.5-325MG [[place]wood 7.5-325] 1 - 2 tab PO Q6HR PRN #32 tab 10/28/24 [Rx] Sennosides/Docusate Sodium [Senna Plus 8.6-50 mg Softgel] 1 each PO DAILY #20 capsule 10/28/24 [Rx] hydrOXYzine pamoate [Vistaril] 25 mg PO TID PRN #21 cap 10/28/24 [Rx] Follow up Appointment(s)/Referral(s): Alvaro Johnson, FIORELLA [PHYSICIAN SURVEILLANCE INVESTIGATOR] - 2 Weeks [facility],Equipment [NON-STAFF] - As Needed (*Call [facility] to schedule delivery of the Continuous Passive Motion (CPM) machine. ) [facility], [NON-STAFF] - 1-2 Days ([facility] will call you to schedule your in home nursing and physical therapy visits. ) Patient Instructions/Handouts: Knee Replacement (GEN) Activity/Diet/Wound Care/Special Instructions: Orthopedic Discharge Instructions: 1. Wound care and infection precautions, keep incision dry and covered while showering, no lotions, creams, moisturizers. No soaking, pools, hot tubs. Do not scrub over incision. 2. Weight-bear as tolerated with walker / cane until follow-up. 3. Ice and elevate when necessary. Do not exceed 20 minutes per hour with ice pack. 4. Utilize compression sleeve until seen at first follow up appointment. 5. Pain meds and anticoagulants per prescription. 6. Pain medication has potential to cause constipation. Increase oral fluid and fiber intake. Contact primary care provider if you have not had a bowel movement within 48 hours after discharge. 7. No anti-inflammatory medication until discussed at first post operative visit, this including Motrin, Aleve, Mobic, Diclofenac. 8. Follow up in office at 2 weeks postop with Arturo Wang PA-C / Alvaro Johnson PA-C 9. Follow up with your primary care doctor 7-10 days after discharge. 10. Contact [facility] with any questions, . Keep incision clean, dry, intact. While showering, cover fusion tape with Saran wrap. Keep fusion tape on until follow-up appointment in office in 2 weeks. Discharge Disposition: HOME WITH HOME HEALTH SERVICES
--- NOTE | 2024-10-28 12:37 | P.PN ---
Subjective Progress Note Date: 10/28/24 Principal diagnosis: Left knee osteoarthritis Patient was seen at bedside this morning sitting up in chair with legs elevated and ice pack and dressing present over left knee. Patient says she finished working with therapy this morning. She says she is able to do the stairs all right. She says she is having pain but it is controlled with oral medication. Patient says she does have a walker for home. Patient says she does take aspirin 81 mg daily at home. Patient says she has urinated since surgery yesterday without issue. Patient denies any other problems at this time. Objective - Vital Signs Vital signs: Vital Signs Temp 97.3 F L 10/28/24 08:00 Pulse 64 10/28/24 08:00 Resp 16 10/28/24 08:00 BP 111/74 10/28/24 08:00 Pulse Ox 100 10/28/24 08:00 FiO2 Intake & Output 10/27/24 10/28/24 10/28/24 18:59 06:59 18:59 Intake Total 1000 540 Output Total 50 Balance 950 540 Weight 96.2 kg Intake: IV 1000 Oral 540 Output: Estimated Blood Loss 50 Other: Voiding Method Toilet Toilet # Voids 1 4 - Exam Left knee: Incision is clean, dry, and intact. The exofin fusion tape is in good condition. There is minimal soft tissue swelling and ecchymosis surrounding the medial and lateral aspects of the incision. Calf is soft, no tenderness with palpation. Plantar flexion, dorsiflexion, EHL, FHL are intact. Sensory exam to light touch throughout the extremity is intact, dorsal pedis pulses 2+. - Labs CBC & Chem 7: 10/28/24 03:42 10/28/24 03:42 Labs: Abnormal Lab Results - Last 24 Hours (Table) 10/27/24 10/27/24 10/27/24 Range/Units 12:25 16:47 20:14 WBC (4.50-10.00) X 10*3/uL RBC (4.10-5.20) X 10*6/uL Hgb (12.0-15.0) g/dL Hct (37.2-46.3) % MCV (80.0-97.0) FL MCHC (32.0-37.0) g/dL RDW (11.5-14.5) % Immature Gran # (0.00-0.04) X 10*3/uL Neutrophils # (1.80-7.70) X 10*3/uL Monocytes # (0.20-1.00) X 10*3/uL Eosinophils # (0.04-0.35) X 10*3/uL Chloride (98-107) mmol/L Carbon Dioxide (22-30) mmol/L BUN (7-17) mg/dL Creatinine (0.52-1.04) mg/dL Glucose (74-99) mg/dL POC Glucose (mg/dL) 116 H 211 H 335 H (70-110) mg/dL Hemoglobin A1c (<=6.0) % Iron (50-170) UG/DL TIBC (228-460) UG/DL % Saturation (12.00-45.00) Transferrin (204.0-354.0) mg/dL 10/28/24 10/28/24 10/28/24 Range/Units 03:42 03:42 03:42 WBC 12.78 H (4.50-10.00) X 10*3/uL RBC 2.71 L (4.10-5.20) X 10*6/uL Hgb 7.7 L (12.0-15.0) g/dL Hct 26.4 L (37.2-46.3) % MCV 97.4 H (80.0-97.0) FL MCHC 29.2 L (32.0-37.0) g/dL RDW 14.7 H (11.5-14.5) % Immature Gran # 0.06 H (0.00-0.04) X 10*3/uL Neutrophils # 9.15 H (1.80-7.70) X 10*3/uL Monocytes # 1.80 H (0.20-1.00) X 10*3/uL Eosinophils # 0 L (0.04-0.35) X 10*3/uL Chloride 114 H (98-107) mmol/L Carbon Dioxide 13 L (22-30) mmol/L BUN 33 H (7-17) mg/dL Creatinine 1.31 H (0.52-1.04) mg/dL Glucose 202 H (74-99) mg/dL POC Glucose (mg/dL) (70-110) mg/dL Hemoglobin A1c 7.4 H (<=6.0) % Iron 25 L (50-170) UG/DL TIBC 209 L (228-460) UG/DL % Saturation 11.96 L (12.00-45.00) Transferrin 149.0 L (204.0-354.0) mg/dL 10/28/24 10/28/24 Range/Units 06:16 11:06 WBC (4.50-10.00) X 10*3/uL RBC (4.10-5.20) X 10*6/uL Hgb (12.0-15.0) g/dL Hct (37.2-46.3) % MCV (80.0-97.0) FL MCHC (32.0-37.0) g/dL RDW (11.5-14.5) % Immature Gran # (0.00-0.04) X 10*3/uL Neutrophils # (1.80-7.70) X 10*3/uL Monocytes # (0.20-1.00) X 10*3/uL Eosinophils # (0.04-0.35) X 10*3/uL Chloride (98-107) mmol/L Carbon Dioxide (22-30) mmol/L BUN (7-17) mg/dL Creatinine (0.52-1.04) mg/dL Glucose (74-99) mg/dL POC Glucose (mg/dL) 168 H 137 H (70-110) mg/dL Hemoglobin A1c (<=6.0) % Iron (50-170) UG/DL TIBC (228-460) UG/DL % Saturation (12.00-45.00) Transferrin (204.0-354.0) mg/dL Assessment and Plan Assessment: 1. Left knee osteoarthritis -Postop day 1 status post left total knee arthroplasty Plan: 1. Left knee osteoarthritis -left total knee arthroplasty performed yesterday, 10/27/2024. Patient stable at bedside morning. Patient did do well with therapy. Patient does have walker for home. Discharge home today with health services. 2. Appreciate medical management 3. Pain management -[place] 4. DVT prophylaxis -Xarelto in hospital. Patient has aspirin at home. Patient to take 80 mg twice a day 5. GI prophylaxis - senna 6. PT/OT -weightbearing as tolerated with walker 7. Encourage incentive spirometer use 8. Discharge planning -home today with health services Time with Patient: Less than 30
--- NOTE | 2024-10-28 13:05 | P.PN ---
Progress Note - Text 10/28/24 638 58-year-old female status post total knee replacement. Patient has an On-Q pump for postop pain control with a VAS of 8, dressing clean dry and intact. Patient and to continue On-Q pump infusion
--- NOTE | 2024-10-28 13:49 | P.PN ---
Subjective Progress Note Date: 10/28/24 Hospital course: Patient is a pleasant 58-year-old female with a past medical history of asthma/COPD, hypertension, hyperlipidemia, insulin-dependent diabetes mellitus, hypothyroidism, depression, and schizophrenia. She is currently admitted under orthopedic surgery team status post elective left total knee arthroplasty secondary to left knee severe tricompartmental osteoarthrosis. Surgical procedure was completed by Dr. Alejandre. We were consulted for medical management throughout hospitalization Physical exam: Patient seen and fully evaluated at bedside this morning. She was doing well and sitting up in chair visiting with family at bedside. Patient reports she worked with physical therapy and did "great". Patient reports continued modera te postoperative pain throughout her left knee but denies any other complaints. She reports ambulating with walker without difficulty, urinating without difficulties, and passing flatus. She denies having any nausea or vomiting, chest pain, palpitations, shortness of breath, or experiencing any focal numbness/tingling/weakness. Vital signs reviewed and stable. General: Nontoxic, no distress and appears stated age. Derm: Skin warm and dry, normal coloration for ethnicity. Head: Atraumatic, normocephalic and symmetric. Eyes: EOM's intact, no lid lag, and anicteric sclera Mouth: no lip lesions, mucus membranes moist Cardiovascular: regular rate and rhythm with normal S1S2, no murmur, positive posterior tibial pulses bilaterally, and cap refill < 2 seconds. Lungs: Respirations even, regular, and unlabored on room air. Lungs CTA bilaterally, no rhonchi, no rales, no wheezing, and no accessory muscle usage. Abdominal: soft, nontender to palpation, no guarding, no appreciable organ omegaly Ext: No gross muscle atrophy, no edema, no contractures. Movement and sensation intact. Postoperative dressing/Sridhar wrap and ice pack in place left knee. Neuro: Speech clear, face symmetrical and CN II-XII grossly intact with no noted focal neuro deficits Psych: Alert and oriented to person, place, time, and situation. Appropriate and pleasant affect. Assessment and Plan of Care: Status post left total knee arthroplasty Management per primary admitting orthopedic surgery team including DVT prophylaxis, pain management, wound/dressing management, weightbearing, and PT/OT. Currently on DVT prophylaxis with Xarelto 10 mg daily. Orders placed for postoperative labs including CBC, BMP, and magnesium. Will follow-up on these results and place additional orders if indicated based upon these findings Postoperative hypotension with history of hypertension -Resolved after IV fluid bolus. Currently blood pressure 111/74with . heart rate of 64 Monitor vital signs closely. Continue home medication regimen with lisinopril 2.5 mg daily with parameters placed to hold for systolic pressure less than 100. Insulin-dependent diabetes mellitus with episode of hypoglycemia. -Hypoglycemia was an isolated episode preoperatively, likely secondary to n.p.o. status prior to procedure. No further episodes of hypoglycemia noted. -Continue Lantus 40 units nightly along with glycemic protocol with close monitoring of blood glucose levels 4 times daily and Humalog sliding scale if needed for hyperglycemia. Acute on chronic anemia -Patient with chronic iron deficiency anemia with acute blood loss anemia. Preoperative hemoglobin of 9.3 and postoperative hemoglobin of 7.7. No active bleeding noted. No need for transfusion or further intervention at this time. Continue ferrous sulfate 325 mg twice daily Hypothyroidism Continue levothyroxine 112 mcg daily. Asthma/COPD, not in acute exacerbation Supplement Ventolin inhaler with albuterol nebulizers every 6 hours as needed for shortness of breath/wheezing. Schizophrenia Depression Continue psychiatric medication regimen with acetazolamide 500 mg twice daily, Rexulti 0.25 mg nightly, and Effexor XR 37.5 mg daily. Data reviewed: Vital signs reviewed. Blood pressure 111/74, heart rate 64, respiratory rate 16, temp 97.3 F, and SpO2 100% on room air. Postoperative labs reviewed. CBC showing leukocytosis with WBC count of 12.78, hemoglobin of 7.7, hematocrit of 26.4, MCH of 97.4, MCH of 28.4, MCHC 29.2, and RDW of 14.7. BMP showing high anion gap metabolic acidosis with chloride of 114, bicarb of 13, and anion gap of 12 and kidney function consistent with known CKD with BUN of 33, creatinine 1.31, GFR 45 with baseline creatinine around 1.4. Thank you for allowing us to participate in the care of this pleasant patient. Do not hesitate to contact us with questions. Someone can be reached from the [facility] hospitalist group all hours of the day at [phone] or via perfect serve. Patient was seen independently by Nurse Practitioner. This document was prepared using [employer] dictation software. Please allow for errors in home health speech therapist while rare they do occur. Matt England NP rendered care for this patient independently, reviewed the findings and plan as documented in the note above and agree with plan. I did not physically speak with or examine the patient on this date. Objective - Vital Signs Vital signs: Vital Signs Temp 97.3 F L 10/28/24 08:00 Pulse 64 10/28/24 08:00 Resp 16 10/28/24 08:00 BP 111/74 10/28/24 08:00 Pulse Ox 100 10/28/24 08:00 FiO2 Intake & Output 10/27/24 10/28/24 10/28/24 18:59 06:59 18:59 Intake Total 1000 540 Output Total 50 Balance 950 540 Weight 96.2 kg Intake: IV 1000 Oral 540 Output: Estimated Blood Loss 50 Other: Voiding Method Toilet # Voids 1 4 - Labs CBC & Chem 7: 10/28/24 03:42 10/28/24 03:42 Labs: Abnormal Lab Results - Last 24 Hours (Table) 10/27/24 10/27/24 10/27/24 Range/Units 09:10 09:16 10:04 WBC (4.50-10.00) X 10*3/uL RBC 3.25 L (4.10-5.20) 10*6/uL Hgb 9.3 L (12.0-15.0) g/dL Hct 30.4 L (37.2-46.3) % MCV (80.0-97.0) FL MCHC 30.6 L (32.0-37.0) g/dL RDW (11.5-14.5) % Immature Gran # (0.00-0.04) X 10*3/uL Neutrophils # (1.80-7.70) X 10*3/uL Monocytes # (0.20-1.00) X 10*3/uL Eosinophils # 0.00 L (0.04-0.35) 10*3/uL Chloride (98-107) mmol/L Carbon Dioxide (22-30) mmol/L BUN (7-17) mg/dL Creatinine (0.52-1.04) mg/dL Glucose (74-99) mg/dL POC Glucose (mg/dL) 69 L 128 H (70-110) mg/dL Hemoglobin A1c (<=6.0) % 10/27/24 10/27/24 10/27/24 Range/Units 12:25 16:47 20:14 WBC (4.50-10.00) X 10*3/uL RBC (4.10-5.20) 10*6/uL Hgb (12.0-15.0) g/dL Hct (37.2-46.3) % MCV (80.0-97.0) FL MCHC (32.0-37.0) g/dL RDW (11.5-14.5) % Immature Gran # (0.00-0.04) X 10*3/uL Neutrophils # (1.80-7.70) X 10*3/uL Monocytes # (0.20-1.00) X 10*3/uL Eosinophils # (0.04-0.35) 10*3/uL Chloride (98-107) mmol/L Carbon Dioxide (22-30) mmol/L BUN (7-17) mg/dL Creatinine (0.52-1.04) mg/dL Glucose (74-99) mg/dL POC Glucose (mg/dL) 116 H 211 H 335 H (70-110) mg/dL Hemoglobin A1c (<=6.0) % 10/28/24 10/28/24 10/28/24 Range/Units 03:42 03:42 03:42 WBC 12.78 H (4.50-10.00) X 10*3/uL RBC 2.71 L (4.10-5.20) 10*6/uL Hgb 7.7 L (12.0-15.0) g/dL Hct 26.4 L (37.2-46.3) % MCV 97.4 H (80.0-97.0) FL MCHC 29.2 L (32.0-37.0) g/dL RDW 14.7 H (11.5-14.5) % Immature Gran # 0.06 H (0.00-0.04) X 10*3/uL Neutrophils # 9.15 H (1.80-7.70) X 10*3/uL Monocytes # 1.80 H (0.20-1.00) X 10*3/uL Eosinophils # 0 L (0.04-0.35) 10*3/uL Chloride 114 H (98-107) mmol/L Carbon Dioxide 13 L (22-30) mmol/L BUN 33 H (7-17) mg/dL Creatinine 1.31 H (0.52-1.04) mg/dL Glucose 202 H (74-99) mg/dL POC Glucose (mg/dL) (70-110) mg/dL Hemoglobin A1c 7.4 H (<=6.0) % 10/28/24 Range/Units 06:16 WBC (4.50-10.00) X 10*3/uL RBC (4.10-5.20) 10*6/uL Hgb (12.0-15.0) g/dL Hct (37.2-46.3) % MCV (80.0-97.0) FL MCHC (32.0-37.0) g/dL RDW (11.5-14.5) % Immature Gran # (0.00-0.04) X 10*3/uL Neutrophils # (1.80-7.70) X 10*3/uL Monocytes # (0.20-1.00) X 10*3/uL Eosinophils # (0.04-0.35) 10*3/uL Chloride (98-107) mmol/L Carbon Dioxide (22-30) mmol/L BUN (7-17) mg/dL Creatinine (0.52-1.04) mg/dL Glucose (74-99) mg/dL POC Glucose (mg/dL) 168 H (70-110) mg/dL Hemoglobin A1c (<=6.0) %
[2024-10-28 13:55] VITALS: BP 115/58; PULSE 72; RESP 18; TEMP 97.4
[2024-10-28] MEDS: HYDROcodone/APAP 10-325MG 1 EACH TAB PO PRN (14:47)
== END 2024-10-28 16:24 | disposition home health service (06) ==
LOC: OR 08:10 → 4SSUR 12:00 → OR 10-28 16:24
PROVIDERS: ATTEND Orthopaedic Surgery
DX: M17.12 Unilateral primary osteoarthritis, left knee (principal); G89.18 Other acute postprocedural pain; I95.81 Postprocedural hypotension; D62 Acute posthemorrhagic anemia; D64.9 Anemia, unspecified; E78.5 Hyperlipidemia, unspecified; I10 Essential (primary) hypertension; J44.9 Chronic obstructive pulmonary disease, unspecified; E03.9 Hypothyroidism, unspecified; F32.A Depression, unspecified; F20.9 Schizophrenia, unspecified; E11.649 Type 2 diabetes mellitus with hypoglycemia without coma; N28.9 Disorder of kidney and ureter, unspecified; Z79.899 Other long term (current) drug therapy; Z79.4 Long term (current) use of insulin; Z79.890 Hormone replacement therapy; Z90.710 Acquired absence of both cervix and uterus; Z87.891 Personal history of nicotine dependence; Z88.0 Allergy status to penicillin; Z88.2 Allergy status to sulfonamides
CPT/HCPCS: 27447; 97161; 64448; 64473; 86900; 86901; 80048; 83540; 83550; 83735; 85025 ×2; 86850; 83036; 73560; C1713 ×2; C1776; C1751; J2250; J1100; J0690 ×2; J2405; J3010; J2795; J1171

== ENCOUNTER 2024-11-03 04:46 | Emergency (ER) | payer OTHER ==
[2024-11-03 04:53] VITALS: RESP 18
--- NOTE | 2024-11-03 06:23 | ED ---
Lower Extremity Injury HPI - General Chief Complaint: Extremity Injury, Lower Stated Complaint: Hip/Knee Pain Time Seen by Provider: 11/03/24 06:22 Source: patient, family (Daughter), EMS, RN notes reviewed, old records reviewed Mode of arrival: EMS Limitations: no limitations - History of Present Illness Initial Comments: 58-year-old female presented the ER via EMS for evaluation of left lower extremity pain. Patient underwent total knee arthroplasty with 10 27 24. Patient states this morning while attempting to ambulate she accidentally tripped over a suitcase. She states since then she has been having pain to left lumbar spine and left lower extremity. Patient denies actually falling as she caught herself against a wall. Patient states she is currently ambulating with a walker given recent knee arthroplasty. She denies any head injury, loss of consciousness or blood thinner use. Patient did take naproxen around 3 AM without relief of her symptoms. Patient denies any bowel or bladder incontinence, saddle paresthesias, fevers or history of IV drug abuse. Patient currently rating her pain a 7 out of 10. Denies paresthesias to left lower extremity. - Related Data Home Medications Medication Instructions Recorded Confirmed Ferrous Sulfate [Feosol] 325 mg PO BID 03/02/21 10/27/24 Brexpiprazole [Rexulti] 0.25 mg PO HS 11/28/22 10/27/24 Levothyroxine Sodium 112 mcg PO DAILY 11/28/22 10/27/24 Insulin Glargine,Hum.rec.anlog 40 units SQ HS 11/18/23 10/27/24 [Lantus Solostar Pen] Venlafaxine HCl ER [Effexor Xr] 37.5 mg PO DAILY 11/18/23 10/27/24 acetaZOLAMIDE [Diamox Sequels] 500 mg PO BID 11/18/23 10/27/24 lisinopriL [Zestril] 2.5 mg PO DAILY 11/18/23 10/27/24 Albuterol Inhaler [Ventolin Hfa 1 - 2 puff INHALATION RT-Q6H PRN 12/20/23 10/27/24 Inhaler] Previous Rx's Medication Instructions Recorded HYDROcodone/APAP 7.5-325MG [[place] 1 - 2 tab PO Q6HR PRN #32 tab 10/28/24 7.5-325] Sennosides/Docusate Sodium [Senna 1 each PO DAILY #20 capsule 10/28/24 Plus 8.6-50 mg Softgel] hydrOXYzine pamoate [Vistaril] 25 mg PO TID PRN #21 cap 10/28/24 Allergies Allergy/AdvReac Type Severity Reaction Status Date / Time Penicillins Allergy Anaphylaxis Verified 11/03/24 04:52 Sulfa (Sulfonamide Allergy Rash/Hives Verified 11/03/24 04:52 Antibiotics) Review of Systems ROS Statement: Those systems with pertinent positive or pertinent negative responses have been documented in the HPI. ROS Other: All systems not noted in ROS Statement are negative. Past Medical History Past Medical History: Asthma, COPD, Diabetes Mellitus, Hyperlipidemia, Hypertension, Neurologic Disorder, Osteoarthritis (OA), Thyroid Disorder History of Any Multi-Drug Resistant Organisms: None Reported Past Surgical History: Section, Hysterectomy, Joint Replacement, Orthopedic Surgery Additional Past Surgical History / Comment(s): x 2, ganglion cyst removed from left wrist Past Anesthesia/Blood Transfusion Reactions: No Reported Reaction Past Psychological History: Anxiety, Depression Smoking Status: Never smoker Past Alcohol Use History: None Reported Past Drug Use History: None Reported - Past Family History Father Family Medical History: Cancer Additional Family Medical History / Comment(s): Brain cancer. Mother Family Medical History: Cancer Additional Family Medical History / Comment(s): Lung cancer - . General Exam Limitations: no limitations General appearance: alert, in no apparent distress Respiratory exam: Present: normal lung sounds bilaterally. Absent: respiratory distress, wheezes, rales, rhonchi, stridor Cardiovascular Exam: Present: regular rate, normal rhythm, normal heart sounds. Absent: systolic murmur, diastolic murmur, rubs, gallop, clicks Extremities exam: Present: normal capillary refill (2+ left DP pulse.), calf tenderness (Left), other (Vertical incision with Steri-Strips in place to left anterior knee. There is no surrounding erythema, purulent drainage or dehiscence. Edema noted left lower extremity with mild warmth. Negative straight leg roll. Full ROM left toes, ankle.) Back exam: Present: normal inspection, full ROM Neurological exam: Present: alert, oriented X3, CN II-XII intact Skin exam: Present: warm, dry, intact, normal color. Absent: rash Course Vital Signs 11/03/24 11/03/24 11/03/24 04:48 07:20 09:13 Temperature 97.5 F L 98.1 F 98.1 F Pulse Rate 75 73 70 Respiratory 18 18 18 Rate Blood Pressure 114/71 110/66 118/63 O2 Sat by Pulse 100 98 100 Oximetry Medical Decision Making - Medical Decision Making Was pt. sent in by a medical professional or institution (, PA, TANK TRUCK MILK RECEIVER, urgent care, hospital, or retirement...) When possible be specific @ -No Did you speak to anyone other than the patient for history (EMS, parent, family, police, friend...)? What history was obtained from this source @ -Patient's daughter, at bedside, aiding in HPI and past medical history. Did you review nursing and triage notes (agree or disagree)? Why? @ -I reviewed and agree with nursing and triage notes Were old charts reviewed (outside hosp., previous admission, EMS record, old EKG, old radiological studies, urgent care reports/EKG's, retirement records)? Report findings @ -No old charts were reviewed Differential Diagnosis (chest pain, altered mental status, abdominal pain women, abdominal pain men, vaginal bleeding, weakness, fever, dyspnea, syncope, headache, dizziness, GI bleed, back pain, seizure, CVA, palpatations, mental health, musculoskeletal)? @ -Differential Musculoskeletal: Muscular strain, contusion, ligament sprain, fracture, arthritis, septic arthritis, bursitis, cellulitis, muscle spasm, nerve compression, DVT, arterial occlusion, herpes zoster, electrolyte abnormality, tumor.... This is not meant to be in all inclusive list EKG interpreted by me (3pts min.). @ -None done X-rays interpreted by me (1pt min.). @ -Lumbar spine x-rays interpreted me negative for acute fractures or dislocations. Left hip AP pelvis and left knee x-ray negative for acute fractures or dislocations.. Total knee arthroplasty noted. CT interpreted by me (1pt min.). @ -None done U/S interpreted by me (1pt. min.). @ -Ultrasound venous Doppler left lower extremity negative for acute evidence of DVT. What testing was considered but not performed or refused? (CT, X-rays, U/S, labs)? Why? @ -None What meds were considered but not given or refused? Why? @ -None Did you discuss the management of the patient with other professionals (professionals i.e. , PA, TANK TRUCK MILK RECEIVER, lab, RT, psych nurse, social media editor, transportation coordinator, teacher, radio division officer, patient case manager)? Give summary @ -No Was smoking cessation discussed for >3mins.? @ -No Was critical care preformed (if so, how long)? @ -No Were there social determinants of health that impacted care today? How? (Homelessness, low income, unemployed, alcoholism, drug addiction, transportation, low edu. Level, literacy, decrease access to med. care, senior care, rehab)? @ -No Was there de-escalation of care discussed even if they declined (Discuss DNR or withdrawal of care, Hospice)? DNR status @ -No What co-morbidities impacted this encounter? (DM, HTN, Smoking, COPD, CAD, Cancer, CVA, ARF, Chemo, Hep., AIDS, mental health diagnosis, sleep apnea, morbid obesity)? @ -None Was patient admitted / discharged? Hospital course, mention meds given and route, prescriptions, significant lab abnormalities, going to OR and other pertinent info. @ -[Discharge. 58-year-old female presented the ER for evaluation of left lower extremity pain status post knee arthroplasty [address] Alejandre. Vital signs stable. Patient is neurovascularly intact. No red flag back pain symptoms indicative cauda equina syndrome. Exam remarkable vertical surgical incision with Steri-Strips in place to anterior left knee. There is no evidence of infection. No focal bony tenderness. Left calf tenderness and edema noted to left lower extremity. Given this ultrasound is Doppler obtained and negative for acute evidence of DVT. X-rays of lumbar spine, left hip AP pelvis and left knee negative for acute fractures or dislocations. Patient provided with pain control with p.o. [place]. Upon reevaluation, patient resting comfortably in exam room no signs of acute distress. Patient reporting improvement of pain. Patient ambulated with EMT using walker without difficulty. Patient is eager and comfortable discharge at this time. I advised close follow-up with orthopedics. Return parameters discussed. Patient discharged in stable condition. Patient verbally expressed understanding agree with care plan. Case discussed with ED attending, Dr. Vazquez. Undiagnosed new problem with uncertain prognosis? @ -No Drug Therapy requiring intensive monitoring for toxicity (Heparin, Nitro, Insulin, Cardizem)? @ -No Were any procedures done? @ -No Diagnosis/symptom? @ -Leg pain/ status post knee arthroplasty Acute, or Chronic, or Acute on Chronic? @ -Acute Uncomplicated (without systemic symptoms) or Complicated (systemic symptoms)? @ -Uncomplicated Side effects of treatment? @ -No Exacerbation, Progression, or Severe Exacerbation? @ -No Poses a threat to life or bodily function? How? (Chest pain, [place], [place], pneumonia, PE, COPD, DKA, ARF, appy, cholecystitis, CVA, Diverticulitis, Homicidal, Suicidal, threat to staff... and all critical care pts) @ -No - Radiology Data Radiology results: report reviewed, image reviewed Disposition Clinical Impression: Leg pain Disposition: HOME SELF-CARE Condition: Stable Additional Instructions: Follow-up closely with orthopedics, . Only take [place] for extreme pain. Return to the ER for any new or worsening concerns Is patient prescribed a controlled substance at d/c from ED?: No Referrals: Nena Portillo MD [Primary Care Provider] - 1-2 days José Miguel Alejandre MD [STAFF PHYSICIAN] - 1-2 days Time of Disposition: 09:00
[2024-11-03] MEDS: HYDROcodone/APAP 5-325MG 1 EACH TAB PO STA (06:27)
[2024-11-03 07:21] VITALS: TEMP 98.1
--- NOTE | 2024-11-03 07:30 | XR ---
EXAMINATION TYPE: XR Hip LT and AP Pelvis DATE OF EXAM: 11/03/2024 6:50 AM COMPARISON: None. CLINICAL INDICATION: Female, 58 years old with history of trip and fall s/p l knee replacemnet, pain TECHNIQUE: 2 view(s) obtained. Exam is supplemented with an AP pelvis. FINDINGS: Femoral heads articulate with the acetabulum. Mild joint space narrowing is present. Sacroiliac joint s and symphysis pubis are normal. No acute fractures or dislocations. Left hip appears intact. IMPRESSION: 1. No acute osseous abnormality left hip. [facility], , 11/03/2024 7:27 AM
--- NOTE | 2024-11-03 07:31 | XR ---
EXAMINATION TYPE: XR knee limited LT DATE OF EXAM: 11/03/2024 6:51 AM COMPARISON: None. CLINICAL INDICATION: Female, 58 years old with history of trip and fall s/p l knee replacemnet, pain TECHNIQUE: 2 view(s) obtained. FINDINGS: Left knee prosthesis is present. No acute fracture or dislocation evident. No joint effusion evident. IMPRESSION: 1. No acute fracture left knee. 2. Left knee prosthesis. [facility], , 11/03/2024 7:29 AM
--- NOTE | 2024-11-03 07:33 | XR ---
EXAMINATION TYPE: XR lumbar spine 2 or 3V DATE OF EXAM: 11/03/2024 6:51 AM COMPARISON: None. CLINICAL INDICATION: Female, 58 years old with history of trip and fall s/p l knee replacement, pain TECHNIQUE: 3 view(s) obtained. FINDINGS: There are 5 lumbar-type vertebral bodies. There is attempted sacralization of L5 bilaterally. Disc he ights are preserved. Vertebral body heights are preserved. Alignment is normal. IMPRESSION: 1. No acute osseous abnormalities lumbar spine [facility], , 11/03/2024 7:30 AM
--- NOTE | 2024-11-03 08:11 | US ---
EXAMINATION TYPE: US venous doppler duplex LE LT DATE OF EXAM: 11/03/2024 8:05 AM COMPARISON: NONE CLINICAL INDICATION: Female, 58 years old with history of edema s/p knee arthroplasty; pain in left h ip. Left knee replacement 1 week ago. No hx of DVT. Unaware if on blood thinners, Pain TECHNIQUE: The lower extremity deep venous system is examined utilizing real time linear array sonog cruz with graded compression, color doppler sonography, and spectral doppler. SIDE PERFORMED: Left FINDINGS: VESSELS IMAGED: Common Femoral Vein Deep Femoral Vein Greater Saphenous Vein * Femoral Vein Popliteal Vein Small Saphenous Vein * Proximal Calf Veins (* superficial vessels) Left Leg: No evidence for DVT in vessels seen. Calf veins slightly limited , Color Doppler imaging s hows patency of the vessels. Spectral waveforms are within normal limits. IMPRESSION: 1. Left lower extremity ultrasound negative for deep venous thrombosis. [facility], , 11/03/2024 8:08 AM
[2024-11-03 09:14] VITALS: BP 118/63; PULSE 70
== END 2024-11-03 09:14 | disposition home or self-care (01) ==
LOC: EC 04:46
DX: M25.562 Pain in left knee (principal); Z88.0 Allergy status to penicillin; Z88.2 Allergy status to sulfonamides
CPT/HCPCS: 72100; 73502; 99284